=== PATIENT | male | born 1945 | race Caucasian/White ===

== ENCOUNTER 2019-10-13 15:39 | Outpatient (CLI) | payer MEDICARE, OTHER, SELFPAY ==
--- NOTE | 2019-10-13 15:45 | USCV_ITS ---
Yehuda Jet Age: 74 Gender: M : 1945 Exam Date: 10/13/2019 15:59 Ordering Phys: Katie Park MD ([email or web address]) Technologist: Lexie Sommer [place]am Location[place] [facility] [place] Indication: swelling HISTORY: Lower extremity swelling. PROCEDURES: Venous duplex imaging was performed in only the left lower extremity. The following venous structures were evaluated: common femoral vein, profunda vein, proximal portion of the greater saphenous vein, superficial femoral vein, and the popliteal vein. In addition, the posterior tibial and peroneal trunk were evaluated. Serial compression, augmentation maneuvers, and spectral Doppler flow evaluation were performed. FINDINGS: Normal 2-D Doppler and augmentation and compressibility throughout the lower extremity venous structures. Additional imaging through the proximal calf veins also reveals no thrombus. Limited evaluation of the greater saphenous vein is patent with no thrombus.. CONCLUSIONS No evidence of left lower extremity DVT. Pernell Gardiner MD (Electronically Signed) Final Date: 13 October 2019 17:37 S
== END 2019-10-13 15:40 | disposition home or self-care (01) ==
PROVIDERS: Family Provider Physician Assistant; PCP Physician Assistant; Visit Provider Internal Medicine Cardiovascular Disease
DX: M79.89 Other specified soft tissue disorders (principal); M79.604 Pain in right leg; M79.605 Pain in left leg
CPT/HCPCS: 93971

== ENCOUNTER 2019-11-28 07:40 | Inpatient (IN) | payer MEDICARE, OTHER, SELFPAY ==
[2019-11-28] VITALS (12 sets, daily range): BP systolic 98–143; BP diastolic 64–102; PULSE 109–129; RESP 18–33; TEMP 36.5–37.1; O2SAT 91–97; BMI 27.8
--- NOTE | 2019-11-28 08:00 | ECG_ITS ---
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 Measurements Intervals Warren Rate: 140 P: IA: -1 QRS: -69 QRSD: 126 T: 88 QT: 325 QTc: 496 Interpretive Statements ATRIAL FIBRILLATION WITH RAPID VENTRICULAR RESPONSE MARKED LEFT AXIS DEVIATION [QRS AXIS < -30] RIGHT BUNDLE BRANCH BLOCK [120+ ms QRS DURATION, UPRIGHT V1, 40+ ms S IN I/aVL/V4/V5/V6] ANTEROSEPTAL MYOCARDIAL INFARCTION [40+ ms Q WAVE IN V1-V4], OF INDETERMINATE AGE Compared to ECG 06/19/2018 05:48:04 Right bundle-branch block now present Sinus rhythm no longer present Left ventricular hypertrophy no longer present ST (T wave) deviation no longer present Myocardial infarct finding still present Electronically Signed On 11-28-2019 16:32:15 CDT by Thomas Ace M.D. [id number]
--- NOTE | 2019-11-28 08:00 | XR_ITS ---
WS: [id number] Portable AP upright chest, 11/28/2019 Clinical Data: chest pain Comparison: Portable chest, 06/19/2018. Findings: No nodules, masses or effusions are seen. The heart is enlarged. The pulmonary vascularity is increased. No pneumonia or pneumothorax is seen. XR/XR chest 1V portable [id number] Impression: Cardiomegaly and pulmonary vascular congestion.
--- NOTE | 2019-11-28 08:05 | W.ED.CHESTPA ---
HPI - Chest Pain General: Chief Complaint: Chest Pain Stated Complaint: RESPIRATORY DISTRESS/ CP Time Seen by Provider: 11/28/19 08:00 History of Present Illness: HPI narrative: 74-year-old male presents with complaints of palpitation and chest discomfort and heaviness central left chest not radiating. Patient generally been short of breath as well denies any fever or cough. Patient presents in [facility] with RVR which is symptomatic. He has some moderate orthopnea as well. MD complaint: chest heaviness Pertinent past history: other (A. fib?on beta-grabiel and anticoagulants) Onset (ago): hour(s) Timing of current episode: constant Prior episodes: Yes Onset: during rest Pain location: left chest Pain radiation: none Severity: moderate Quality: heaviness Relieving factors: nothing Exacerbating factors: exertion Associated symptoms: Reports dyspnea and palpitations; Deny abdominal pain, diaphoresis, fever(s), leg edema, nausea, sense of impending doom, syncope or vomiting Treatment prior to arrival: none Review of Systems Const: Denies: fever(s) or diaphoresis ENMT: Denies: throat pain, ear or mastoid pain, nasal discharge or nasal congestion Card: Reports: palpitations; Denies: syncope Resp: Reports: dyspnea GI: Denies: abdominal pain, nausea or vomiting : Denies: flank pain, dysuria, urinary frequency or urinary urgency Skin/Breast: Denies: rash or pruritus PFSH ED PFSH: Medical History (Updated 11/29/19 @ 11:56 by Diego Leo MD) Atrial fibrillation CHF (congestive heart failure) Chronic fatigue 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 HTN (hypertension) Obstructive sleep apnea Family History Denies family history of Diabetes Stroke Social History (Updated 11/28/19 @ 12:38 by Feli Schmidt DO) Smoking and tobacco status: current every day smoker cigarettes [ Other cigarette details: Patient reports that he recently quit smoking last week ] Alcohol intake: current Alcohol intake frequency: 0-2 Drinks per Day Substance/Drug Use: never Physical Exam Const: COMMON NORMALS: no acute distress GENERAL APPEARANCE: cooperative and comfortable ORIENTATION/CONSCIOUSNESS: Yes awake, Yes oriented to person, Yes oriented to place and Yes oriented to time HENMT: COMMON NORMALS: normocephalic, atraumatic and hearing grossly normal bilaterally HEAD & SCALP: normocephalic and atraumatic Eye: COMMON NORMALS: Equal, round and reactive pupils present, EOMs intact bilaterally, conjunctivae normal and no scleral icterus CONJUNCTIVA: Yes conjunctivae normal PUPIL: Yes Equal, round and reactive pupils present Neck/C-Spine: COMMON NORMALS: full ROM, no lymphadenopathy, supple and no JVD Lymph: LYMPHATIC: no lymphadenopathy noted and no lymphedema noted Resp: COMMON NORMALS: normal respiratory effort, No retractions, No use of accessory muscles and clear to auscultation bilaterally AUSCULTATION: clear to auscultation bilaterally Cardio: COMMON NORMALS: no JVD, regular rate, regular rhythm and No murmurs present (Cardio) RATE: regular rate RHYTHM: regular rhythm GI: COMMON NORMALS: Soft to palpation and No hepatosplenomegaly present AUSCULTATION: Yes normoactive bowel sounds PALPATION: Yes Soft to palpation, No Tenderness to palpation present (GI), No Guarding due to palpation present (GI) and Yes No hepatosplenomegaly present Extremity: COMMON NORMALS: normal to inspection, capillary refill normal, no clubbing, cyanosis or edema, no calf tenderness and no pedal edema Neuro: SENSORIUM/ORIENTATION: Yes oriented to person, Yes oriented to place and Yes oriented to time Skin: COMMON NORMALS: no rashes or lesions noted GENERAL SKIN EXAM: no rashes or lesions noted Course Vital Signs: Vital signs: Vital Signs Temperature 97.9 F 11/30/19 07:44 Pulse Rate 105 H 11/30/19 07:44 Respiratory Rate 19 H 11/30/19 07:44 Blood Pressure 100/72 11/30/19 07:44 Pulse Oximetry 94 11/30/19 07:44 MDM - Chest Pain MDM Narrative: Medical decision making narrative: Patient is having chest pain or shortness of breath with A. fib with rapid ventricular response. Unfortunately is been very noncompliant with his medications he was positive restarted amiodarone he has been taking the amiodarone or the metoprolol regularly. We tried IV Lopressor and a supplemental dose of Lopressor initially seem to be working. When I first interviewed the patient he told me he had been taking Lopressor later admitted to Dr. Schmidt is not been. Addition of that in the recent cardiology notes he is supposed to be on amiodarone be sent when taking that either. Will admit him for adjustment of medications and further rule out discussed Dr. Schmidt and orders have been written. Lab Data: Labs: Lab Results 11/28/19 11/28/19 11/28/19 Range/Units 08:20 08:20 08:20 WBC 14.0 H (4.0-10.0) 10^3/ uL RBC 4.28 (4.1-5.3) 10^6/u L Hgb 14.6 (11.7-16.6) g/dL Hct 45.1 (42.0-52.0) % MCV 105.4 H (80-94) fL MCH 34.1 H (28.0-34.0) pg MCHC 32.4 (30.0-36.0) g/dL RDW 14.6 (12.1-15.1) % Plt Count 173 (130-400) 10^3/c mm MPV 12.3 H (7.4-10.4) fL Neut % (Auto) 87.1 % Lymph % (Auto) 5.7 % [place] % (Auto) 6.3 % Eos % (Auto) 0.1 % Baso % (Auto) 0.4 % Neut # (Auto) 12.24 H (1.8-7.7) 10^3/u L Lymph # (Auto) 0.8 (0.8-4.8) 10^3/u L [place] # (Auto) 0.9 (0.2-0.9) 10^3/u L Eos # (Auto) 0.0 (0.0-0.8) 10^3/u L Baso # (Auto) 0.1 (0.0-0.1) 10^3/u L Nucleated RBC % (a uto) 0 % Nucleated RBCs # 0.0 /100WBC Sodium 139 (136-145) mmol/L Potassium 4.8 (3.5-5.1) mmol/L Chloride 102 (98-107) mmol/L Carbon Dioxide 21 L (22-29) mmol/L Anion Gap 20.8 H (5-19) BUN 20 (8-23) mg/dL Creatinine 0.9 (0.7-1.2) mg/dL GFR Calculation Not Reportable Glucose 95 (65-115) mg/dL Calculated Osmolal ity 290 (285-295) mOsm/k g Calcium 8.6 (8.5-10.5) mg/dL Phosphorus (2.5-4.5) mg/dL Magnesium (1.7-2.3) mg/dL Total Bilirubin 2.2 H (0.15-1.2) mg/dL AST 41 H (0-40) U/L ALT 59 H (0-41) U/L Alkaline Phosphata se 61 (40-130) IU/L Creatine Kinase 97 (39-308) U/L Troponin T Baselin e 41 H (0-15) ng/L Troponin T 120 Min brenna (0-15) ng/L Delta Troponin T (0-10) ABS# NT-Pro-B Natriuret Pep 1757 H (0-125) pg/mL Total Protein 6.3 L (6.6-8.7) g/dL Albumin 3.9 (3.5-5.2) g/dL Globulin 2.4 (1.3-4.6) g/dL 11/28/19 11/28/19 Range/Units 08:20 10:30 WBC (4.0-10.0) 10^3/ uL RBC (4.1-5.3) 10^6/u L Hgb (11.7-16.6) g/dL Hct (42.0-52.0) % MCV (80-94) fL MCH (28.0-34.0) pg MCHC (30.0-36.0) g/dL RDW (12.1-15.1) % Plt Count (130-400) 10^3/c mm MPV (7.4-10.4) fL Neut % (Auto) % Lymph % (Auto) % [place] % (Auto) % Eos % (Auto) % Baso % (Auto) % Neut # (Auto) (1.8-7.7) 10^3/u L Lymph # (Auto) (0.8-4.8) 10^3/u L [place] # (Auto) (0.2-0.9) 10^3/u L Eos # (Auto) (0.0-0.8) 10^3/u L Baso # (Auto) (0.0-0.1) 10^3/u L Nucleated RBC % (a uto) % Nucleated RBCs # /100WBC Sodium (136-145) mmol/L Potassium (3.5-5.1) mmol/L Chloride (98-107) mmol/L Carbon Dioxide (22-29) mmol/L Anion Gap (5-19) BUN (8-23) mg/dL Creatinine (0.7-1.2) mg/dL GFR Calculation Glucose (65-115) mg/dL Calculated Osmolal ity (285-295) mOsm/k g Calcium (8.5-10.5) mg/dL Phosphorus 4.5 (2.5-4.5) mg/dL Magnesium 1.6 L (1.7-2.3) mg/dL Total Bilirubin (0.15-1.2) mg/dL AST (0-40) U/L ALT (0-41) U/L Alkaline Phosphata se (40-130) IU/L Creatine Kinase (39-308) U/L Troponin T Baselin e (0-15) ng/L Troponin T 120 Min brenna 43.90 H (0-15) ng/L Delta Troponin T 2.90 (0-10) ABS# NT-Pro-B Natriuret Pep (0-125) pg/mL Total Protein (6.6-8.7) g/dL Albumin (3.5-5.2) g/dL Globulin (1.3-4.6) g/dL Discharge Plan Discharge Patient Disposition: Admitted As Inpatient Admit Provider: Feli Schmidt Clinical Impression: Atrial fibrillation with rapid ventricular response Condition: Stable Referrals: Claudette Sanchez PA [Primary Care Provider] - Discharge Date/Time: 11/28/19 17:50 Coding Level of Care Code ED Java Technical Architect for Chg Fwd Exam Comprehensive
--- NOTE | 2019-11-28 08:12 | PC.NURSE ---
port xray at bedside
[2019-11-28] MEDS: metoprolol tartrate 1 mg/1 mL SDV 5 mL 5 MG IV (08:14)
[2019-11-28] MEDS: metoprolol tartrate 25 mg Tablet PO (08:14)
[2019-11-28 08:30] LABS: Basophils # 0.1 10^3/uL (0.0-0.1); Basophils % 0.4 %; Eosinophils % 0.1 %; Hematocrit 45.1 % (42.0-52.0); Hemoglobin 14.6 g/dL (11.7-16.6); Lymphocytes # 0.8 10^3/uL (0.8-4.8); Lymphocytes % 5.7 %; Mean Corpuscular HGB Conc 32.4 g/dL (30.0-36.0); Mean Corpuscular Hemoglobin 34.1 pg (28.0-34.0); Mean Corpuscular Volume 105.4 fL (80-94); Mean Platelet Volume 12.3 fL (7.4-10.4); Monocytes # 0.9 10^3/uL (0.2-0.9); Monocytes % 6.3 %; Neutrophils # 12.24 10^3/uL (1.8-7.7); Neutrophils % 87.1 %; Nucleated Red Blood Cells % 0 %; Platelet Count 173 10^3/cmm (130-400); Red Blood Count 4.28 10^6/uL (4.1-5.3); Red Cell Distribution Width 14.6 % (12.1-15.1)
[2019-11-28 09:00] LABS: Troponin(5th) Baseline 41 ng/L (0-15)
[2019-11-28 09:08] LABS: Alanine Aminotransferase 59 U/L (0-41); Albumin Level 3.9 g/dL (3.5-5.2); Alkaline Phosphatase 61 IU/L (40-130); Anion Gap 20.8 (5-19); Aspartate Amino Transferase 41 U/L (0-40); Blood Urea Nitrogen 20 mg/dL (8-23); Calcium 8.6 mg/dL (8.5-10.5); Carbon Dioxide 21 mmol/L (22-29); Chloride 102 mmol/L (98-107); Creatine Phosphokinase 97 U/L (39-308); Globulin 2.4 g/dL (1.3-4.6); Glucose 95 mg/dL (65-115); NT Pro B Type Natriuretic Pept 1757 pg/mL (0-125); Osmolality Calculated 290 mOsm/kg (285-295); Potassium 4.8 mmol/L (3.5-5.1); Sodium 139 mmol/L (136-145); Total Bilirubin 2.2 mg/dL (0.15-1.2); Total Protein 6.3 g/dL (6.6-8.7)
--- NOTE | 2019-11-28 09:49 | PC.NURSE ---
went in pt's room to administer IVP diltiazem and to start diltiazem gtt and noticed pt hypotensive at 97/67. Checked with ED physician and verbal orders received to hold all diltiazem.
[2019-11-28] MEDS: sodium chloride 0.9% 1,000 ML 999 ML IV (09:57)
--- NOTE | 2019-11-28 12:34 | P.HP_ITS ---
Providers/Chief Complaint Primary Care Provider: Claudette Sanchez Chief Complaint: RESPIRATORY DISTRESS/ CP History of Present Illness Jet Blackman is a 74 year old male with a past medical history of atrial fibrillation and congestive heart failure that presented to the emergency department for increasing shortness of breath and dyspnea on exertion. He reported that he is also been having palpitations. Patient stated that he has a history of atrial fibrillation and also chronic fatigue. He stated that due to the concern for the fatigue being contributed to the medications he stopped taking his amiodarone and also decreased his metoprolol. He was recently seen by his insulation helper the end of October and told to increase his metoprolol to 50 mg in the morning and 25 mg at night, he reported that he is not been taking the medication as prescribed and only been taking 25 mg twice a day, sometimes once a day. Patient reported that his amiodarone he had stopped taking a couple of weeks ago, he had previously stopped taking it on occasion and thought it may be improved some of his chronic fatigue. He also reports that he has not been sleeping at night and requesting something for sleep. Patient reports he will o ccasionally hold off on taking his Eliquis. Patient denies any recent fevers or chills, no increasing cough or change in sputum production, no hemoptysis. He reports that he recently quit smoking last week. Has been noncompliant with his CPAP as he cannot tolerate the mask. He states that he is not on any home oxygen. Patient reports increased swelling in the left lower extremity, always in the left lower extremity, occasionally in the right lower extremity. He denies any abdominal pain, no nausea or vomiting. He reports increased dyspnea on exertion. Review of Systems Const: Reports: fatigue and malaise; Denies: fever(s) or chills Eyes: Denies: change in vision ENMT: Denies: nasal congestion Card: Reports: edema and dyspnea on exertion; Denies: chest pain or palpitations Resp: Reports: dyspnea; Denies: productive cough or hemoptysis GI: Denies: abdominal pain, nausea, vomiting, diarrhea, constipation, hematochezia or melena : Denies: dysuria or hematuria Musc: Denies: extremity pain or muscle cramps Skin/Breast: Denies: rash or new lesions Neuro: Denies: headache(s) or dizziness Psych: Reports: sleeping less; Denies: anxiety or depression Endo: Denies: polyuria or hot flashes Benjamin/Lymph: Denies: easy bruising or easy bleeding Medications/Allergies Home Medications Medication Instructions Recorded Confirmed Last Taken Type apixaban 5 mg tablet 5 mg PO BID 04/21/19 11/28/19 11/27/19 History amiodarone 200 mg tablet See Rx Instructions .ROUTE 10/29/19 11/28/19 Unknown Rx .COMPLEX #30 tab furosemide 40 mg tablet 40 mg PO QAM #90 tab 11/03/19 11/28/19 11/27/19 Rx Vitamin C 1 tab PO DAILY 11/28/19 11/28/19 Unknown History Vitamin D3 1 tab PO DAILY 11/28/19 11/28/19 Unknown History albuterol sulfate [ProAir HFA] 2 puff INHALATION QID PRN 11/28/19 11/28/19 Unknown History metoprolol tartrate See Rx Instructions .ROUTE .COMPLEX 11/28/19 11/28/19 11/27/19 History potassium chloride 10 meq PO DAILY 11/28/19 11/28/19 11/27/19 History tiotropium bromide [Spiriva 2 puff INHALATION DAILY 11/28/19 11/28/19 11/28/19 History Respimat] Allergies Allergy/AdvReac Type Severity Reaction Status Date / Time No Known Allergies Allergy Verified 11/28/19 09:17 PFSH Acute PFSH: Medical History (Updated 11/28/19 @ 12:40 by Feli Schmidt DO) Atrial fibrillation CHF (congestive heart failure) Chronic fatigue 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 HTN (hypertension) Obstructive sleep apnea Family History Denies family history of Diabetes Stroke Social History (Updated 11/28/19 @ 12:38 by Feli Schmidt DO) Smoking and tobacco status: current every day smoker cigarettes [ Other cigarette details: Patient reports that he recently quit smoking last week ] Alcohol intake: current Alcohol intake frequency: 0-2 Drinks per Day Substance/Drug Use: never Supplemental PFSH Information: Patient denies any prior surgeries Vitals/I&O/Wt Last Vital Signs Temp 97.7 F 11/28/19 07:41 Pulse 123 H 11/28/19 12:26 Resp 28 H 11/28/19 12:26 BP 124/86 11/28/19 12:26 Pulse Ox 96 11/28/19 12:26 11/27/19 11/28/19 11/28/19 22:59 06:59 14:59 Intake Total 1.667 / 1.667 Balance 1.667 / 1.667 Weight last 48 hrs Weight 90.718 kg Physical Exam Const: COMMON NORMALS: patient oriented x3 and alert GENERAL APPEARANCE: cooperative ORIENTATION/CONSCIOUSNESS: Yes awake, Yes oriented to person, Yes oriented to place and Yes oriented to time HENMT: COMMON NORMALS: normocephalic and atraumatic HEAD & SCALP: normocephalic and atraumatic Eye: COMMON NORMALS: Equal, round and reactive pupils present PUPIL: Yes Equal, round and reactive pupils present Neck/C-Spine: COMMON NORMALS: supple GENERAL: Yes normal visual inspection Resp: OTHER: Oxygen by nasal cannula in place, prolonged expiratory phase use, tachypneic, crackles in the bases bilaterally Cardio: OTHER: Irregularly irregular, tachycardic GI: COMMON NORMALS: Soft to palpation and non-tender INSPECTION: No abdominal distension AUSCULTATION: Yes normoactive bowel sounds PALPATION: Yes Soft to palpation Extremity: COMMON NORMALS: no calf tenderness Neuro: COMMON NORMALS: patient oriented x3, CN's II-XII intact bilaterally, moves all extremities and no focal motor deficits SENSORIUM/ORIENTATION: Yes alert, Yes oriented to person, Yes oriented to place and Yes oriented to time SPEECH: speech normal Psych: COMMON NORMALS: mental status grossly normal and cooperative Skin: COMMON NORMALS: no rashes or lesions noted GENERAL SKIN EXAM: no rashes or lesions noted Data : 11/28/19 08:20 11/28/19 08:20 CXR: I personally reviewed and interpreted this imaging study as follows: Radiologist's impression: Findings: No nodules, masses or effusions are seen. The heart is enlarged. The pulmonary vascularity is increased. No pneumonia or pneumothorax is seen. XR/XR chest 1V portable [id number] Impression: Cardiomegaly and pulmonary vascular congestio A&P Assessment and plan (1) Atrial fibrillation with rapid ventricular response: Admit to CSU on telemetry Serial EKG and troponin Repeat echocardiogram Placed on treatment dose Lovenox Started on a Cardizem drip in the ED, transition to amiodarone drip in the ED Patient has been noncompliant with his amiodarone, has not been compliant with metoprolol as prescribed Continue on metoprolol but will increase to 50 mg twice daily Status: Acute (2) CHF (congestive heart failure): Last echocardiogram from June 2018 showed LVEF of around 45% Repeat echocardiogram ordered and pending Patient appears to be fluid overloaded will give IV Lasix every 24 hours and continue to adjust dosing accordingly Strict intake and output as well as daily weights Oxygen per protocol Status: Acute Qualifiers: Heart failure chronicity: acute on chronic Heart failure type: unspecified Qualified Code(s): I50.9 - Heart failure, unspecified (3) Obstructive sleep apnea: Noncompliant with CPAP Status: Acute (4) HTN (hypertension): We will continue to monitor blood pressures closely with adjustment in heart rate medications Status: Acute Qualifiers: Hypertension type: essential hypertension Qualified Code(s): I10 - E ssential (primary) hypertension (5) Chronic fatigue: Patient reports chronic fatigue that he contributes to his medications, however then reports that he has not been sleeping at all. Will give trazodone at bedtime, will hold off on any sedating medications as this could contribute to increased fatigue. Discussed with him proper sleep hygiene. Also discussed with him the importance of CPAP compliance as this could improve his symptoms Status: Acute Additional A&P Information Diet: Cardiac, 1500 mL fluid restriction, 2 g sodium restriction DVT prophylaxis: On treatment dose Lovenox due to A. fib CODE STATUS: Do Not Resuscitate/DNI, discussed with patient while in the emergency department and his at bedside during discussion Attestations Medical Necessity Statement*: Requires hospitalization due to atrial fibrillation with RVR with concern for acute on chronic systolic CHF exacerbation. Expected stay greater than 2 midnights Coding Level of Care Code Acute Spares Scheduler for Chg Fwd Exam Comprehensive Diagnoses Atrial fibrillation with rapid ventricular response I48.91 CHF (congestive heart failure) I50.9 Heart failure chronicity: acute on chronic Heart failure type: unspecified Obstructive sleep apnea G47.33 HTN (hypertension) I10 Hypertension type: essential hypertension Chronic fatigue R53.82
--- NOTE | 2019-11-28 12:38 | PC.NURSE ---
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 nurse in room to assess pt and lung sounds heard posteriorly lower lungs crackles. ED physician notified. Orders received.
--- NOTE | 2019-11-28 12:41 | USCV_ITS ---
Jet Blackman Age: 74 Gender: M : 1945 Exam Date: 11/28/2019 13:10 Ordering Phys: Feli Schmidt DO Technologist: Kaelyn Tolbert [place]am Location[place] [facility] [place] Indication: AFIB, CHF BP: 118 / 78 HR: 70 Rhythm: Atrial fibrillation Technical Quality: Technically difficult study MEASUREMENTS (Male / Female) Normal Values 2D ECHO LV Diastolic Diameter PLAX 5.2 cm 4.2 - 5.9 / 3.9 - 5.3 cm LV Systolic Diameter PLAX 4.4 cm LV Chamber Size 4.8 cm IVS Diastolic Thickness 1.1 cm 0.6 - 1.0 / 0.6 - 0.9 cm IVS Systolic Thickness 1.5 cm LVPW Diastolic Thickness 1.2 cm 0.6 - 1.0 / 0.6 - 0.9 cm LVPW Systolic Thickness 1.8 cm LVOT Diameter 2.0 cm LV Ejection Fraction 2D Teich 30.1 % LA Diameter 5.4 cm LA Width 3.5 cm LA Height 5.4 cm RA Width 2.7 cm RA Height 5.7 cm Aorta at Sinotubular Diameter 3.4 cm M-MODE LV Diastolic Diameter MM 6.3 cm 4.2 - 5.9 / 3.9 - 5.3 cm LV Systolic Diameter MM 5.3 cm LV Ejection Fraction MM Teich 32.6 % IVS Diastolic Thickness MM 0.8 cm 0.6 - 1.0 / 0.6 - 0.9 cm IVS Systolic Thickness MM 0.8 cm LVPW Diastolic Thickness MM 0.9 cm 0.6 - 1.0 / 0.6 - 0.9 cm LVPW Systolic Thickness MM 1.6 cm Aortic Annulus Diameter 3.3 cm LA Ao Ratio MM 1.6 MV E Point Septal Separation 2.4 cm DOPPLER AV Peak Velocity 108.0 cm/s LVOT Peak Velocity 95.0 cm/s AV Area Cont Eq vti 3.1 cm squared AV Area Cont Eq pk 2.9 cm squared MV E' Velocity 10.0 cm/s Right Atrial Pressure 15.0 mmHg PV Peak Velocity 46.0 cm/s FINDINGS Left Ventricle This is a technically difficult study. Limited visualization of cardiac structures. LV systolic function is severely reduced with EF of 25 to 30%. Severe global hypokinesis is present. Diastolic function cannot be assessed because of atrial fibrillation. Right Ventricle RV is normal in size and function. Right Atrium Not well visualized Left Atrium Mildly enlarged Mitral Valve No gross abnormalities are noted. No significant stenosis or regurgitation is present. Aortic Valve And the aortic valve is not well-visualized. There is no significant stenosis noted. There is no aortic regurgitation. Tricuspid Valve Tricuspid valve is not well-visualized. No significant regurgitation or stenosis is noted. Insufficient TR jet to calculate RVSP. Pulmonic Valve Not well visualized Pericardium There is no significant pericardial effusion. Normal pericardium. Aorta Limited visualization. No gross abnormalities are noted. CONCLUSIONS Limited quality echocardiogram. LV systolic function is severely reduced with EF of 25 to 35%. Severe global hypokinesis is present. Valves not well visualized, however, no gross abnormality. Thomas Ace MD (Electronically Signed) Final Date: 28 November 2019 17:36 S
[2019-11-28] MEDS: FUROsemide 10 mg/mL SDV 4mL 40 MG IVP ×2 (12:53→19:46)
--- NOTE | 2019-11-28 13:08 | PC.NURSE ---
portable ultrasound at bedside
[2019-11-28 15:05] LABS: Troponin 5 6HR 40.33 ng/L (0-15)
[2019-11-28 15:07] LABS: Troponin 5 6HR Delta -0.67 ng/L (0-12)
--- NOTE | 2019-11-28 18:00 | PC.NURSE ---
From ER Pt come from ER via wheelchair. Denies any pain or discomfort. SOB with exertion. VS stable. oriented pt to staff. call light within reach.
[2019-11-28 18:44] LABS: Magnesium 1.6 mg/dL (1.7-2.3); Phosphorus 4.5 mg/dL (2.5-4.5)
--- NOTE | 2019-11-28 19:00 | PC.NURSE ---
Notified Dr via voalte phone to verify and discussed If to give IVP Lasix 40 mg q24h as ordered at this time. Pt had received 40 mg IVP lasix once in E.R and has urinated 2x in the urinal per pt report. VS stable. spo2 is 94-96% on 3 L NC. Received telephone order to give the ordered dose scheduled. Also discuss to dr that Amio drip was held in the ER due to nausea, diaphoresis and dizzy per E. R nurse hand- off report. Currently pt HR is still in Afib with RVR maintaining in 130s-140s. Received order back to monitor HR and notify hospitalist tonight after IVP lasix is given. Notified Night nurse Quique on the plan.
[2019-11-28 19:19] LABS: INR 1.17 (0.8-1.2)
[2019-11-28] MEDS: enoxaparin 100 mg/mL Syringe 90 MG SUBCUT (19:36)
[2019-11-28] MEDS: potassium chloride ER 10 mEq Tablet 20 MEQ PO (19:36)
[2019-11-28] MEDS: metoprolol tartrate 50 mg Tablet PO (19:36)
--- NOTE | 2019-11-28 19:39 | PC.NURSE ---
ASSUMED CARE AT THIS TIME. PT RESTING IN BED. ASSESSMENT DONE. PT DENIES PAIN AT THIS TIME. PT STATED THAT THEY ARE EAGER TO HEAR FROM THE DOCTOR ABOUT TEST RESULTS. MEDS WERE GIVEN LATE D/T THIS NURSE COMING ON AT SHIFT CHANGE AND PT HAD RECENTLY ARRIVED FROM ED. WILL CONTINUE TO MONITOR.
--- NOTE | 2019-11-28 19:52 | PC.NURSE ---
Dr. Barrientos checked on pt and received verbal order read back to start pt back on amiodarone drip per protocol. Pt is on Afib w/rvr 130s-140s. BP-120/98, spo2 92-96% on 3 L NC. Informed RESEARCH MANAGER patrick on the starting drip.
[2019-11-29] VITALS (10 sets, daily range): BP systolic 103–126; BP diastolic 70–84; PULSE 83–123; RESP 16–26; TEMP 36.3–36.8; O2SAT 92–95
[2019-11-29 04:09] LABS: Basophils % 0.3 %; Eosinophils % 0.4 %; Hematocrit 40.9 % (42.0-52.0); Hemoglobin 13.3 g/dL (11.7-16.6); Lymphocytes # 1.7 10^3/uL (0.8-4.8); Lymphocytes % 18.6 %; Mean Corpuscular HGB Conc 32.5 g/dL (30.0-36.0); Mean Corpuscular Hemoglobin 34.2 pg (28.0-34.0); Mean Corpuscular Volume 105.1 fL (80-94); Mean Platelet Volume 12.8 fL (7.4-10.4); Monocytes # 1.1 10^3/uL (0.2-0.9); Neutrophils # 6.23 10^3/uL (1.8-7.7); Neutrophils % 68.4 %; Nucleated Red Blood Cells % 0 %; Platelet Count 156 10^3/cmm (130-400); Red Blood Count 3.89 10^6/uL (4.1-5.3); Red Cell Distribution Width 14.9 % (12.1-15.1); White Blood Count 9.1 10^3/uL (4.0-10.0)
[2019-11-29 04:32] LABS: Alanine Aminotransferase 41 U/L (0-41); Albumin Level 3.6 g/dL (3.5-5.2); Alkaline Phosphatase 52 IU/L (40-130); Aspartate Amino Transferase 30 U/L (0-40); Blood Urea Nitrogen 22 mg/dL (8-23); Calcium 8.7 mg/dL (8.5-10.5); Carbon Dioxide 23 mmol/L (22-29); Chloride 103 mmol/L (98-107); Globulin 2.1 g/dL (1.3-4.6); Glucose 92 mg/dL (65-115); Osmolality Calculated 291 mOsm/kg (285-295); Sodium 139 mmol/L (136-145); Total Bilirubin 1.8 mg/dL (0.15-1.2); Total Protein 5.7 g/dL (6.6-8.7)
--- NOTE | 2019-11-29 05:09 | PC.NURSE ---
PT APPEARED TO HAVE RESTED WITH EYES CLOSED. PT DENIES PAIN. HR 121 AT THIS TIME. PT IS ON AN AMIODARONE GTT AT 16.2ML/HR. WILL GIVE REPORT TO ON COMING NURSE.
[2019-11-29] MEDS: enoxaparin 100 mg/mL Syringe 90 MG SUBCUT ×2 (06:01→18:03)
[2019-11-29] MEDS: metoprolol tartrate 50 mg Tablet PO ×2 (06:01→18:03)
[2019-11-29] MEDS: potassium chloride ER 10 mEq Tablet 20 MEQ PO (08:45)
[2019-11-29] MEDS: magnesium sulfate premix 4 GM/100 ML PREMIX IV (08:45)
--- NOTE | 2019-11-29 09:18 | XRR_ITS ---
PROCEDURE INFORMATION: Exam: XR Chest, 1 View Exam date and time: 11/29/2019 9:19 AM Age: 74 years old Clinical indication: Shortness of breath; Additional info: Hypoxia TECHNIQUE: Imaging protocol: XR of the chest Views: 1 view. COMPARISON: CR XR chest 1V portable [id number] 11/28/2019 8:05 AM FINDINGS: Lungs: Emphysema Mild airspace disease is present within the right lung base. Pleural space: Small right greater than left subpulmonic pleural effusion. Heart/Mediastinum: Cardiomegaly Bones/joints: Unremarkable. XR/XR chest 1V portable [id number] IMPRESSION: 1. Mild airspace disease is present within the right lung base. Subtle airspace disease left lung base. Mildly improved. 2. Small right greater than left subpulmonic pleural effusion.
--- NOTE | 2019-11-29 09:34 | PC.NURSE ---
Nurse unable to take patient to radiology for 2V CXR due to portable monitor not available while on cardiac gtt. Dr. Leo notified. Physician gave telephone order to change CXR to portable 1V, RBTO. Radiology notified of change.
--- NOTE | 2019-11-29 11:44 | P.PN_ITS ---
Subjective Subjective: Interval history: He has been getting tired very easily. He says walking even short distances will make him fatigued and short of breath and he was curious as to why that is. Denies chest pain. Vitals/I&O/Wt Last Vital Signs Temp 98.3 F 11/29/19 07:34 Pulse 113 H 11/29/19 07:34 Resp 25 H 11/29/19 07:34 BP 119/81 11/29/19 07:34 Pulse Ox 94 11/29/19 07:34 11/28/19 11/29/19 11/29/19 22:59 06:59 14:59 Intake Total 454.35 / 1597.584 350.355 / 1947.939 220 / 220 Output Total 2500 / 2500 300 / 2800 325 / 325 Balance -2045.65 / -902.416 50.355 / -852.061 -105 / -105 Weight last 48 hrs Weight 103.873 kg Weight 90.718 kg Physical Exam Const: COMMON NORMALS: no acute distress and patient oriented x3 HENMT: COMMON NORMALS: oropharynx normal Neck/C-Spine: COMMON NORMALS: no JVD Resp: COMMON NORMALS: normal respiratory effort AUSCULTATION: wheezes Cardio: COMMON NORMALS: no JVD, S1 normal heart sound present, S2 normal heart sound present and No murmurs present (Cardio) RATE: tachycardic RHYTHM: abnormal rhythm irregularly irregular HEART SOUNDS: S1 normal heart sound present and S2 normal heart sound present GI: COMMON NORMALS: Normal to inspection, nondistended, normoactive bowel sounds present, Soft to palpation and non-tender PALPATION: Yes Soft to palpa tion Extremity: COMMON NORMALS: no joint enlargement GENERAL: Yes edema (1+) Neuro: COMMON NORMALS: patient oriented x3 and moves all extremities Skin: COMMON NORMALS: no rashes or lesions noted GENERAL SKIN EXAM: no rashes or lesions noted Data : 11/29/19 03:20 11/29/19 03:20 A&P Assessment and plan (1) Atrial fibrillation with rapid ventricular response: Heart rate is still hovering 110-120. Continue amiodarone drip. Continue metoprolol 50 BID. He states in the past discontinued medications due to for him that they were making him very tired. He is not has been lacking energy discussed with him his severe congestive failure which may be contributing to his symptoms, although we discussed cannot exclude that medications may not be the cause in some cases. He does understand the need of taking medications to control his heart rate understands poorly controlled heart rates may lead to further worsening of congestive heart failure. Replace magnesium. EF 25 to 30%, severe global hypokinesis. Lovenox Not compliant with CPAP. Need to encourage. Status: Acute (2) CHF (congestive heart failure): Acute systolic congestive heart failure. Last echocardiogram from June 2018 showed LVEF of around 45% Repeat echocardiogram with worse EF 25-30%. Discussed with patient. Discussed with him concern aggression, at this time please try to optimize volume is, may need additional assessment be with stress test on Sunday, consideration of discussion with cardiology perhaps regarding LifeVest. Tachycardia induced cardiomyopathy was considered as well, in addition to other causes of nonischemic cardiomyopathy. Continue Lasix. Will increase to 60 mg. He does have wheezing on exam, and difficult to say whether this is secondary to pulmonary edema versus also underlying undiagnosed pulmonary problem as he has been a smoker but says quit last year. He is not aware of previously any signs of COPD or emphysema, although I see he takes. At home. Strict intake and output as well as daily weights Oxygen per protocol Status: Acute Qualifiers: Heart failure type: unspecified Heart failure chronicity: acute on chronic Qualified Code(s): I50.9 - Heart failure, unspecified (3) Obstructive sleep apnea: Noncompliant with CPAP Status: Acute (4) HTN (hypertension): We will continue to monitor blood pressures closely with adjustment in heart rate medications Status: Acute Qualifiers: Hypertension type: essential hypertension Qualified Code(s): I10 - Essential (primary) hypertension (5) Chronic fatigue: Suspect this may be related to his worsening congestive heart failure. A. fib. Insomnia. Sleep apnea noncompliant with CPap. Status: Acute (6) Wheezing: Wheezing noted on exam, difficult to say whether any to cardiac asthma with CHF, but I suspect may have additional underlying pulmonary condition contributing to his overall symptoms. Possibly COPD as he used to be a smoker, although does say he quit last year. I see he takes Spiriva at home. We will add neb treatments, see if he has response to this. Status: Acute Additional A&P Information Diet: Cardiac, 1500 mL fluid restriction, 2 g sodium restriction DVT prophylaxis: On treatment dose Lovenox due to A. fib CODE STATUS: Do Not Resuscitate/DNI, discussed with patient while in the emergency department and his at bedside during discussion Attestations Medical Necessity Statement*: Continue admission for assessment of management of systolic CHF, A. fib with RVR, chronic fatigue. Coding Level of Care Code Acute Vessel Slag Worker for Chg Fwd Diagnoses Atrial fibrillation with rapid ventricular response I48.91 CHF (congestive heart failure) I50.9 Heart failure type: unspecified Heart failure chronicity: acute on chronic Obstructive sleep apnea G47.33 HTN (hypertension) I10 Hypertension type: essential hypertension Chronic fatigue R53.82 Wheezing R06.2
--- NOTE | 2019-11-29 12:04 | CTR_ITS ---
PROCEDURE INFORMATION: Exam: CT Chest Without Contrast Exam date and time: 11/29/2019 12:06 PM Age: 74 years old Clinical indication: Dyspnea; Patient HX: Sob/hypoxia TECHNIQUE: Imaging protocol: Computed tomography of the chest without contrast. Radiation optimization: All CT scans at this facility use at least one of these dose optimization techniques: automated exposure control; mA and/or kV adjustment per patient size (includes targeted exams where dose is matched to clinical indication); or iterative reconstruction. COMPARISON: CR (CHEST, ) 11/29/2019 9:35 AM RADIATION DOSE METRICS: Total DLP (mGy-cm): 1076.97 FINDINGS: Lungs: moderate right greater than left pleural effusion with adjacent basilar consolidation versus atelectasis. Masslike nodular density within the right upper lobe of approximately 10 mm. Pleural space: Unremarkable. No pneumothorax. No pleural effusion. Heart: Small amount of fluid within the superior pericardial recess. Aorta: Unremarkable. No aortic aneurysm. Lymph nodes: Numerous small nonspecific lymph nodes in the mediastinum Calcified lymph nodes in the mediastinum subcarinal region and right hilum Spleen: Splenic granulomas are present. Kidneys and ureters: 1 cm cyst posterior aspect right kidney superiorly Bones/joints: Unremarkable. No acute fracture. Soft tissues: Soft tissues are unremarkable. Other findings: Mild vascular calcifications; The thoracic inlet is unremarkable. CT/CT chest con [id number] IMPRESSION: 1. Moderate right greater than left pleural effusion with adjacent basilar consolidation versus atelectasis. 2. Masslike nodular density within the right upper lobe of approximately 10 mm. Calcified granuloma within the middle lobe. Fleischner Society guidelines for pulmonary nodule follow up Low risk patients < or = 4 mm: No follow-up needed. >4 - 6: Follow-up at 12 months. If no change, no further imaging needed. >6 - 8: Initial follow-up CT at 6 -12 months and then at 18 - 24 months if no change. >8: Follow-up CTs at around 3, 9, and 24 months. Dynamic contrast enhanced CT, PET, and/or biopsy. High risk patients < or = 4 mm: Follow-up at 12 months. If no change, no further imaging needed. >4-6: Initial follow-up CT at 6 -12 months and then at 18 - 24 months if no change. >6-8: Initial follow-up CT at 3 - 6 months and then at 9 -12 and 24 months if no change. >8: Follow-up CTs at around 3, 9, and 24 months. Dynamic contrast enhanced CT, PET, and/or biopsy. Note.-Newly detected indeterminate nodule in persons 35 years of age or older. Low risk patients: Minimal or absent history of smoking and of other known risk factors. High risk patients: History of smoking or of other known risk factors. Radiation Dose CTDIVOL = (mGy): DLP = 1076.97 (mGy-cm)
--- NOTE | 2019-11-29 12:53 | PC.NURSE ---
Patient taken by wheelchair to CT. Patient stable throughout procedure. Patient taken on amiodarone gtt with surveillance system monitor. Patient now resting in bed. No needs identified at this time.
--- NOTE | 2019-11-29 13:47 | PC.CHAP ---
Pastoral Care Encounter/Spiritual Assessment Type of Contact [] Declined harmonic analyst visit [] Patient/Family/Request visit [] Outpatient visit [] Follow-up visit [] Physician referral [] Code/Alert [x] Routine visit [] Staff referral [] Actively dying [] Patient sleeping [] Family support [] [] Out of room [] Palliative care [] [] Receiving care in room [] Pre-surgical visit [] Trauma [] Long length of stay [] ICU visit [] Other: Relational/Emotional Strength [] Patient feels connected with others/family/visitors/staff [] Distress [] Loneliness/isolation [] Abandonment Spirituality of Patient [] Person of Elis [] Attends Synagogue of their Elis [] Believes in Prayer [] Reads Bible or Mosque materials [] There are Spiritual issues to be addressed Medicine Tech Interventions [x] Prayer [] Active listening [] Non-anxious presence [] Spiritual/emotional support [] Crisis/trauma care [] Spiritual counseling [] Bereavement support [] Provided bereavement packet [] Provided Bible/devotional materials [] Provided toy/stuffed animal, coloring book to patient or family member [] Provided Communion [] Anointing/Delaplane [] Salvation [] Completed spiritual assessment [] Other: Impact on Illness or Injury [] Angry [] Fearful [] Anxious [] Often cries [] Exhaustion [] Unable to work [] Unable to attend jewish [] Unable to walk/stand [] Unable to read [] Unable to drive [] Unable to eat/drink [] Unable to sleep [] Unable to be with family [] Patient intubated [] Other: Summary Time spent with patient
[2019-11-29] MEDS: FUROsemide 10 mg/mL SDV 10mL 60 MG IVP (14:14)
[2019-11-29] MEDS: ipratropium-albuterol 3 mL Neb INHALATION ×2 (15:39→22:30)
--- NOTE | 2019-11-29 18:27 | PC.NURSE ---
Dr. Leo notified that amiodarone gtt will have been on for 24 hours at 2015. Physician gave telephone order to continue amiodarone gtt. RBTO.
--- NOTE | 2019-11-29 19:31 | PC.NURSE ---
Rounding: Patient is resting in bed, Watching TV. Patient is alert and oriented denies any pain.
--- NOTE | 2019-11-29 19:43 | PC.NURSE ---
Talked with Dr. Leo orders to continue Amiodarone gtt throughout the night at 0.5mg. read back verbal order.
[2019-11-29] MEDS: trazodone 50 mg Tablet PO (23:24)
[2019-11-30] VITALS (13 sets, daily range): BP systolic 94–119; BP diastolic 64–93; PULSE 102–122; RESP 18–27; TEMP 36.4–37.3; O2SAT 88–98
[2019-11-30] MEDS: ipratropium-albuterol 3 mL Neb INHALATION ×2 (03:53→09:14)
[2019-11-30 04:10] LABS: Basophils % 0.5 %; Eosinophils # 0.1 10^3/uL (0.0-0.8); Eosinophils % 1.1 %; Hematocrit 39.2 % (42.0-52.0); Hemoglobin 12.9 g/dL (11.7-16.6); Lymphocytes # 1.7 10^3/uL (0.8-4.8); Lymphocytes % 20.9 %; Mean Corpuscular HGB Conc 32.9 g/dL (30.0-36.0); Mean Corpuscular Hemoglobin 34.3 pg (28.0-34.0); Mean Corpuscular Volume 104.3 fL (80-94); Mean Platelet Volume 13.6 fL (7.4-10.4); Monocytes % 12.5 %; Neutrophils # 5.26 10^3/uL (1.8-7.7); Neutrophils % 64.6 %; Nucleated Red Blood Cells % 0 %; Platelet Count 134 10^3/cmm (130-400); Red Blood Count 3.76 10^6/uL (4.1-5.3); Red Cell Distribution Width 14.9 % (12.1-15.1); White Blood Count 8.1 10^3/uL (4.0-10.0)
[2019-11-30 04:35] LABS: Alanine Aminotransferase 32 U/L (0-41); Albumin Level 3.4 g/dL (3.5-5.2); Alkaline Phosphatase 52 IU/L (40-130); Anion Gap 15.4 (5-19); Aspartate Amino Transferase 25 U/L (0-40); Blood Urea Nitrogen 20 mg/dL (8-23); Calcium 8.6 mg/dL (8.5-10.5); Carbon Dioxide 21 mmol/L (22-29); Chloride 102 mmol/L (98-107); Globulin 2.6 g/dL (1.3-4.6); Glucose 111 mg/dL (65-115); Osmolality Calculated 283 mOsm/kg (285-295); Potassium 3.4 mmol/L (3.5-5.1); Sodium 135 mmol/L (136-145); Total Bilirubin 1.2 mg/dL (0.15-1.2)
[2019-11-30 04:40] LABS: Magnesium 2.1 mg/dL (1.7-2.3)
--- NOTE | 2019-11-30 05:28 | PC.NURSE ---
Patient requested something for sinus congestion. Dr. Barrientos stated he would place orders.
[2019-11-30] MEDS: metoprolol tartrate 50 mg Tablet PO (06:10)
[2019-11-30] MEDS: enoxaparin 100 mg/mL Syringe 90 MG SUBCUT (06:12)
--- NOTE | 2019-11-30 06:20 | PC.NURSE ---
End of shift: Patient has rested off and on this shift. Patient remains alert and oriented and denies any pain or needs at this time.
[2019-11-30] MEDS: fluticasone nasal spray 16gm Btl 1 SPRAY NASAL (08:30)
[2019-11-30] MEDS: potassium chloride ER 10 mEq Tablet 20 MEQ PO (08:31)
--- NOTE | 2019-11-30 10:51 | PC.NURSE ---
Dr. Leo updated on patient condition. Patient exhibits increased shortness of breath while resting, on 3L O2. Crackles in bases. BP 90-100s systolic. HR maintaining 110-130s. Verbal order received to administer 250 mcg digoxin now once. Reassess HR in 1 hour and call for further orders. Place lovenox on hold for potential thoracentesis tomorrow. RBVO. Nurse to continue to monitor.
[2019-11-30] MEDS: digoxin 250 mcg/ml INJ 2 mL IVP ×2 (11:01→15:37)
--- NOTE | 2019-11-30 11:44 | P.PN_ITS ---
Subjective Subjective: Interval history: He is feeling very tired. Denies chest pain or pressure. Denies any fever, chills, muscle ache, headache, nausea vomiting or diarrhea. Per discussion with his , however, she remembered that about 2 weeks ago his friend had had a fever, and both of them had malaise and body aches which had subsequently spontaneously resolved soon after. Vitals/I&O/Wt Last Vital Signs Temp 97.9 F 11/30/19 07:44 Pulse 102 H 11/30/19 09:18 Resp 18 11/30/19 09:15 BP 100/72 11/30/19 07:44 Pulse Ox 96 11/30/19 09:15 11/29/19 11/30/19 11/30/19 22:59 06:59 14:59 Intake Total 399.695 / 739.695 350 / 1089.695 60 / 60 Output Total 1775 / 2100 450 / 2550 Balance -1375.305 / -1360.305 -100 / -1460.305 60 / 60 Weight last 48 hrs Weight 103.056 kg Weight 103.873 kg Physical Exam Const: COMMON NORMALS: no acute distress and patient oriented x3 HENMT: COMMON NORMALS: oropharynx normal Neck/C-Spine: COMMON NORMALS: no JVD Resp: COMMON NORMALS: normal respiratory effort AUSCULTATION: no wheezes and diminished lung sounds bilateral in the lower lung lucio Cardio: COMMON NORMALS: no JVD, S1 normal heart sound present, S2 normal heart sound present and No murmurs present (Cardio) RATE: tachycardic RHYTHM: abnormal rhythm irregularly irregular HEART SOUNDS: S1 normal heart sound present and S2 normal heart sound present GI: COMMON NORMALS: Normal to inspection, nondistended, normoactive bowel sounds present, Soft to palpation and non-tender PALPATION: Yes Soft to palpation Extremity: COMMON NORMALS: no joint enlargement GENERAL: Yes edema (1+) Neuro: COMMON NORMALS: patient oriented x3 and moves all extremities Skin: COMMON NORMALS: no rashes or lesions noted GENERAL SKIN EXAM: no rashes or lesions noted Data : 11/30/19 03:20 11/30/19 03:20 A&P Assessment and plan (1) Atrial fibrillation with rapid ventricular response: Heart rate is still hovering 110-120 still. BP soft. On metoprolol but no room to titrate up due to blood pressure. Dig 0.25 IV x1. Continue amnio drip for now if blood pressure allows. Continue metoprolol 50 BID. He states in the past discontinued medications due to for him that they were making him very tired. He is not has been lacking energy discussed with him his severe congestive failure which may be contributing to his symptoms, although we discussed cannot exclude that medications may not be the cause in some cases. He does understand the need of taking medications to control his heart rate understands poorly controlled heart rates may lead to further worsening of congestive heart failure. Replaced magnesium. Recheck tomorrow. EF 25 to 35%, severe global hypokinesis. Lovenox on hold to allow for thoracentesis of pleural effusions noted on CT Not compliant with CPAP. Need to encourage. Status: Acute (2) Pleural effusion, bilateral: Moderate pleural effusions, right greater than left noted on CT scan 11/28. Discussed with patient and his . Continue diuresis at this time. Hold Lovenox. Tomorrow when radiology is back potentially could try to arrange for thoracentesis for which he would be agreeable. Given also incidental finding of masslike lung nodule in right upper lung, consider also pleural fluid cytology added to the evaluation studies. Status: Acute (3) Lung nodule < 6cm on CT: Masslike nodule in the right upper lung noted on CT incidentally 11/28. He does not know of any history, neither does his . Discussed with him on her. Consider additional cytology evaluation as above. Briefly touched base with Dr. Javier and he will try to discuss again with radiology as to how this may be accessed potentially. It appears to be pretty close to the chest wall, and so possibly could be accessed from the surface appears could be more difficult to access by bronchoscopy, but will await discussion with radiology. was interested to know if it is worth to pursue this depending on his overall prognosis. Discussed with her prognosis overall is difficult to determine at this time, even though he is in a very tough condition with high risk of some complications going on currently with further depression of ejection fraction CHF, and other problems were dealing with, however, his cardiomyopathy still needs additional assessment, and depending on underlying causes and Cardiologic assessment further prognostication could be made. Status: Acute (4) CHF (congestive heart failure): Acute systolic CHF. With new hypoxia. CT chest with bilateral pleural effusions. Hold Lovenox. Discussed with him and his regarding thoracentesis could be set up tomorrow when radiology comes back. Discussed worsening ejection fraction compared to prior. Discussed with him and his regarding potential differential causes, and additional assessment. May benefit from assessment to exclude ischemic cardiomyopathy, possibly with a stress test once his heart rate, blood pressure is a bit more stable. Dr. Park is his lpn rn hospice, and if back tomorrow could potentially be asked to see him to advise regarding any additional testing, as well as regarding benefit of LifeVest as discussed with patient and his . also endorses that he has had some sort of viral-like illness 2 weeks ago which had passed spontaneously after several days of malaise, with his friend having a fever. Discussed possibility of nonischemic cardiomyopathy due to viral illness. He does not show any symptoms of viral infection currently, apart from ongoing fatigue which may be due to the other comorbidities as described, but will check COVID-19 rapid antigen. was asking about possible prognosis. Discussed with her it is difficult to determine at this time, although he is in a tough situation currently and is at risk of numerous complications due to his low EF, and other problems we are dealing with, however, long-term prognosis of cardiomyopathy is difficult to determine at this time, and still needs additional investigation. Acute systolic congestive heart failure. Last echocardiogram from June 2018 showed LVEF of around 45% Repeat echocardiogram with worse EF 25-35%. Discussed with patient. Discussed with him concern aggression, at this time please try to optimize volume is, may need additional assessment be with stress test on Sunday, consideration of discussion with cardiology perhaps regarding LifeVest. Tachycardia induced cardiomyopathy was considered as well, in addition to other causes of nonischemic cardiomyopathy. Continue Lasix 60 mg. Wheezing on exam has resolved. Difficult to say whether this is secondary to pulmonary edema versus also underlying undiagnosed pulmonary problem as he has been a smoker but says quit last year. He is not aware of previously any signs of COPD or emphysema, although I see he takes. At home. Strict intake and output as well as daily weights Oxygen per protocol Status: Acute Qualifiers: Heart failure chronicity: acute on chronic Heart failure type: unspeci fied Qualified Code(s): I50.9 - Heart failure, unspecified (5) Obstructive sleep apnea: Noncompliant with CPAP Status: Acute (6) HTN (hypertension): We will continue to monitor blood pressures closely with adjustment in heart rate medications Status: Acute Qualifiers: Hypertension type: essential hypertension Qualified Code(s): I10 - Essential (primary) hypertension (7) Chronic fatigue: Suspect this may be related to his worsening congestive heart failure. A. fib. Insomnia. Sleep apnea noncompliant with CPap. Status: Acute (8) Wheezing: Today this is resolved. Continue neb treatments. Would benefit from PFT assessment after he improves. Wheezing noted on exam, difficult to say whether any to cardiac asthma with CHF, but I suspect may have additional underlying pulmonary condition contributing to his overall symptoms. Possibly COPD as he used to be a smoker, although does say he quit last year. I see he takes Spiriva at home. Status: Acute Additional A&P Information Diet: Cardiac, 1500 mL fluid restriction, 2 g sodium restriction DVT prophylaxis: Lovenox on hold. SCD. CODE STATUS: Do Not Resuscitate/DNI, discussed with patient while in the emergency department and his at bedside during discussion Attestations Medical Necessity Statement*: Continue admission for assessment management of CHF with worsened cardiomyopathy, A. fib with RVR, pleural effusions, hypoxia. Coding Level of Care Code Acute Logging Operations Inspector for Chg Fwd Exam Comprehensive Diagnoses Atrial fibrillation with rapid ventricular response I48.91 Pleural effusion, bilateral J90 Lung nodule < 6cm on CT R91.1 CHF (congestive heart failure) I50.9 Heart failure chronicity: acute on chronic Heart failure type: unspecified Obstructive sleep apnea G47.33 HTN (hypertension) I10 Hypertension type: essential hypertension Chronic fatigue R53.82 Wheezing R06.2
[2019-11-30 14:20] LABS: SARS Covid-2 Antigen Negative (Negative)
[2019-11-30] MEDS: FUROsemide 10 mg/mL SDV 10mL 60 MG IVP (15:28)
--- NOTE | 2019-11-30 18:42 | PC.NURSE ---
Dr. Leo updated on patient condition via telephone. Patient HR maintaining 110-130s BP 126/84. Telephone order received to increase metoprolol to 75 mg PO q12. RBTO. Nurse to continue to monitor.
[2019-11-30] MEDS: metoprolol tartrate 50 mg Tablet 75 MG PO (18:59)
--- NOTE | 2019-11-30 19:10 | PC.NURSE ---
Telephone order received from Dr. Leo to continue amiodarone gtt, RBTO.
--- NOTE | 2019-11-30 20:31 | PC.NURSE ---
Patient pulled IV out of left arm by accident. Catheter was intact. Patient still has IV to right arm. Patient was provided clean sheets and gown. Will monitor.
--- NOTE | 2019-11-30 20:34 | PC.NURSE ---
Patient states that he gets short of breath upon ambulation. Oxygen saturation is 98 percent on 3 L NC. Will monitor.
[2019-11-30] MEDS: potassium chloride ER 10 mEq Tablet 40 MEQ PO (21:29)
[2019-11-30] MEDS: HYDROcodone-acetaminophen 5-325 mg Tablet 1 TAB PO (21:29)
--- NOTE | 2019-11-30 21:29 | PC.NURSE ---
At 2128 on 11/29, patient stated that he had gout pain in his feet and asked for a strong pain medication. PRN Hazen given. Patient stated that it helped. Will monitor.
[2019-12-01] VITALS (13 sets, daily range): BP systolic 97–121; BP diastolic 58–76; PULSE 69–112; RESP 13–27; TEMP 36.6–37; O2SAT 92–98
--- NOTE | 2019-12-01 02:44 | PC.NURSE ---
Patient states that he is having trouble sleeping. Patient was offered PRN Trazodone and refused. Will monitor.
[2019-12-01 05:26] LABS: Basophils % 0.3 %; Eosinophils # 0.1 10^3/uL (0.0-0.8); Eosinophils % 0.9 %; Hematocrit 39.9 % (42.0-52.0); Hemoglobin 13.1 g/dL (11.7-16.6); Lymphocytes # 1.3 10^3/uL (0.8-4.8); Lymphocytes % 15.2 %; Mean Corpuscular HGB Conc 32.8 g/dL (30.0-36.0); Mean Corpuscular Hemoglobin 34.4 pg (28.0-34.0); Mean Corpuscular Volume 104.7 fL (80-94); Mean Platelet Volume 13.4 fL (7.4-10.4); Monocytes # 1.4 10^3/uL (0.2-0.9); Monocytes % 15.8 %; Neutrophils # 5.92 10^3/uL (1.8-7.7); Neutrophils % 67.5 %; Nucleated Red Blood Cells % 0 %; Platelet Count 152 10^3/cmm (130-400); Positive M 1; Red Blood Count 3.81 10^6/uL (4.1-5.3); Red Cell Distribution Width 14.6 % (12.1-15.1); White Blood Count 8.8 10^3/uL (4.0-10.0)
[2019-12-01 05:49] LABS: Alanine Aminotransferase 26 U/L (0-41); Albumin Level 3.5 g/dL (3.5-5.2); Alkaline Phosphatase 47 IU/L (40-130); Anion Gap 14.8 (5-19); Aspartate Amino Transferase 19 U/L (0-40); Blood Urea Nitrogen 15 mg/dL (8-23); Calcium 8.8 mg/dL (8.5-10.5); Carbon Dioxide 23 mmol/L (22-29); Chloride 102 mmol/L (98-107); Globulin 2.5 g/dL (1.3-4.6); Glucose 90 mg/dL (65-115); Osmolality Calculated 282 mOsm/kg (285-295); Potassium 3.8 mmol/L (3.5-5.1); Sodium 136 mmol/L (136-145); Total Bilirubin 1.1 mg/dL (0.15-1.2)
[2019-12-01] MEDS: metoprolol tartrate 50 mg Tablet 75 MG PO ×2 (06:02→18:11)
--- NOTE | 2019-12-01 06:11 | PC.NURSE ---
Dr. Leo notified of patient asking for something stronger for pain or two Norcos instead of just one. Patient states that his gout pain in his feet is 10/10.
[2019-12-01 06:13] LABS: Magnesium 1.8 mg/dL (1.7-2.3)
--- NOTE | 2019-12-01 09:06 | PM.PN ---
Subjective Subjective: Interval history: No events overnight. Denies any nausea, vomiting, headache, chest pain. Heart rate running in high 90s to low 100 on amnio drip. Vitals noted. Vitals/I&O/Wt Last Vital Signs Temp 97.9 F 12/01/19 07:52 Pulse 100 12/01/19 07:52 Resp 27 H 12/01/19 07:52 BP 107/69 12/01/19 07:52 Pulse Ox 96 12/01/19 07:52 11/30/19 12/01/19 12/01/19 22:59 06:59 14:59 Intake Total 200 / 260 1082.352 / 1342.352 120 / 120 Output Total 600 / 600 725 / 1325 Balance -400 / -340 357.352 / 17.352 120 / 120 Weight last 48 hrs Weight 100.244 kg Weight 103.056 kg Physical Exam Narrative: EXAM NARRATIVE: General: No acute distress, AO x3 HEENT: PERRLA, pupils bilaterally equal and reactive Chest: Normal vesicular breath sounds, bilateral occasional rhonchi, fine With patient's bilateral lower zone, decreased air entry in the right lower zone CVS: S1-S2 irregularly irregular, pansystolic murmur at apex 2/6 no gallops, no rubs, JVD mildly elevated Abdomen: Soft, nontender, no organomegaly, bowel sounds present Neuro: No focal deficits, no facial deformity, AO x3, power 5/5 in all limbs. Extremity: Left great toe inflamed, localized erythema present Data : 12/01/19 03:51 12/01/19 03:51 A&P Assessment and plan (1) Atrial fibrillation with rapid ventricular response: Most likely due to non compliance with meds. At home he supposed to metoprolol 50 mg twice daily, amiodarone 200 mg daily. At present on Amio drip for last 3 days. Stop Amio drip. Start on Amio 200 mg BID. C/w lopressor 75 mg bid. Check dig levels. Replete electrolytes. Status: Acute (2) Pleural effusion, bilateral: Pleural effusion, right greater than left noted on CT scan 11/28. Discussed with patient and his . Patient has been planning for thoracocentesis today or tomorrow. Anticoagulation has been withheld. Case discussed with Dr. Javier, Dr. Castillo from radiology and cardiology. They all think that for now we should hold off on thoracocentesis as the fluid is not much and patient is not requiring too much oxygen supplementation to keep saturation over 90%. Pleural effusion most likely because of congestive heart failure. Patient does not have any signs of infection, empyema. Cannot rule out secondary to malignancy. For now we will hold off on thoracocentesis. Start patient on Lovenox 1 mg/kg body weight twice daily. Case discussed in detail both with patient and his . They are agreeable to the plan. Status: Acute (3) Lung nodule < 6cm on CT: Case discussed with Dr. Javier from oncology, Dr. Castillo and Dr. Gardiner from radiology. They all suggest that most likely mass will be difficult to be assessed through CT-guided approach. Going forward best plan would be to monitor through CT scan every 3 months. Patient would need to follow-up with Dr. Mendez as an outpatient to see if biopsy could be done bronchoscopy guided. Status: Acute (4) CHF (congestive heart failure): Acute hypoxia: Most likely because of congestive heart failure. Echocardiogram done in this admission shows EF of 25 to 30% with global LV hypokinesia. This is new and different from his last echocardiogram done in February 2019 when his EF was 45 to 50%. Acute change in the EF could most likely because of 3 causes. Could be ischemic, because of persistent tachycardia for a long time because of noncompliance with rate controlling medications, cannot rule out viral or take pathology given patient having ongoing myalgias, weakness, tiredness for last 2 weeks. COVID 19 rapid antigen negative. Check COVID-19 PCR. Check tick panel. Once patient is more euvolemic we will do Lexiscan stress test. We will see if can be done as an inpatient versus outpatient. Daily weights. Strict input output charting. Continue with IV Lasix 60 mg daily. Fluid restriction up to 1500 cc. We will discuss with cardiology regarding possible LifeVest. We will try to introduce JENNIFER inhibitor/spironolactone depending on his blood pressure. Status: Acute Qualifiers: Heart failure chronicity: acute on chronic Heart failure type: unspecified Qualified Code(s): I50.9 - Heart failure, unspecified (5) Obstructive sleep apnea: Noncompliant with CPAP Status: Acute (6) HTN (hypertension): We will continue to monitor blood pressures closely with adjustment in heart rate medications Status: Acute Qualifiers: Hypertension type: essential hypertension Qualified Code(s): I10 - Essential (primary) hypertension (7) Chronic fatigue: Suspect this may be related to his worsening congestive heart failure. A. fib. Insomnia. Sleep apnea noncompliant with CPap. Status: Acute (8) Wheezing: Status: Acute Additional A&P Information Start on chronic medications like allopurinol. We will also start him on colchicine for acute gout along with Motrin 200 mg every 8 hours as needed. Diet: Cardiac, 1500 mL fluid restriction, 2 g sodium restriction DVT prophylaxis: Full dose Lovenox CODE STATUS: Do Not Resuscitate/DNI, discussed with patient while in the emergency department and his at bedside during discussion Attestations Medical Necessity Statement*: Acute hypoxia, congestive heart failure Time Spent in Patient Care: Greater than 35 minutes (>than 50% of time spent in counselling and/or direct pt care on unit). Coding Level of Care Code Acute Fabric Cutter for [facility] Diagnoses Atrial fibrillation with rapid ventricular response I48.91 Pleural effusion, bilateral J90 Lung nodule < 6cm on CT R91.1 CHF (congestive heart failure) I50.9 Heart failure chronicity: acute on chronic Heart failure type: unspecified Obstructive sleep apnea G47.33 HTN (hypertension) I10 Hypertension type: essential hypertension Chronic fatigue R53.82 Wheezing R06.2
[2019-12-01 09:28] LABS: Digoxin 0.9 ng/mL (0.6-1.2)
[2019-12-01] MEDS: HYDROcodone-acetaminophen 5-325 mg Tablet 1 TAB PO ×4 (09:28→21:53)
[2019-12-01] MEDS: allopurinol 300 mg Tablet PO (09:28)
[2019-12-01] MEDS: amiodarone 200 mg Tablet PO ×2 (09:28→18:11)
[2019-12-01] MEDS: potassium chloride ER 10 mEq Tablet 20 MEQ PO (09:28)
[2019-12-01] MEDS: fluticasone nasal spray 16gm Btl 1 SPRAY NASAL (09:29)
[2019-12-01 09:33] LABS: Fibrinogen 624 mg/dL (174-498)
[2019-12-01 09:36] LABS: D Dimer 0.44 ug/mIFEU (0-0.59)
[2019-12-01 09:39] LABS: NT Pro B Type Natriuretic Pept 1397 pg/mL (0-125); Procalcitonin 0.11 ng/mL (0-0.5)
[2019-12-01 09:50] LABS: C Reactive Protein 28.4 mg/L (0.0-4.9); Creatine Phosphokinase 84 U/L (39-308); Ferritin 354 ng/mL (30-400); Lactate Dehydrogenase 247 U/L (135-225)
[2019-12-01 09:57] LABS: ABG PCO2 31.9 mmHg (35-45); ABG PH Result 7.48 (7.35-7.45); Arterial Blood Gas Hematocrit 42.6 % (42-52); Base Excess ABG 0.8 mmol/L (-2.0-2.0); Blood Gas Allen Test Pos; Blood Gas Operator Identificat BD; Blood Gas Sample Site Brachial, left; Blood Gas Sample Type Arterial; HCO3 ABG 23.6 mmol/L (22-26); Oxygen Device ROOM AIR; PO2 ABG 69.4 mmHg (80.0-100.0)
--- NOTE | 2019-12-01 11:08 | PC.SOCIAL ---
IMM completed on 12/01/2019 @ 0900. Copy of rights given to pt.
--- NOTE | 2019-12-01 12:19 | PC.RESP ---
Smoking Cessation packet sent to patient.
[2019-12-01] MEDS: FUROsemide 10 mg/mL SDV 10mL 60 MG IVP (14:03)
[2019-12-01] MEDS: albuterol 8 gm MDI 2 PUFF INHALATION ×2 (15:54→21:00)
[2019-12-01] MEDS: colchicine 0.6 mg Tablet PO ×2 (16:39→20:20)
[2019-12-01] MEDS: ibuprofen 200 mg Tablet PO (16:39)
[2019-12-01] MEDS: enoxaparin 100 mg/mL Syringe 90 MG SUBCUT (18:11)
--- NOTE | 2019-12-01 18:32 | PC.NURSE ---
PATIENT HAS COMPLAINED OF PAIN TO HIS RIGHT FOOT THIS SHIFT. HE STATES THAT HE HAS GOUT AND THAT HE THINKS HE IS HAVING A FLAIR UP . DISCUSSED THROUGHOUT THIS SHIFT WITH DR. CROCKETT, RESTARTED ALLOPURINOL, LATER THIS SHIFT ADDED COLCHRYS AND IBUPROFEN. WILL CONTINUE TO MONITOR.
[2019-12-01] MEDS: trazodone 50 mg Tablet PO (20:29)
--- NOTE | 2019-12-01 22:01 | PC.NURSE ---
Patient was given PRN [place] per his request for gout pain in his feet. Will monitor and reassess.
[2019-12-02] VITALS (9 sets, daily range): BP systolic 99–124; BP diastolic 68–81; PULSE 77–118; RESP 15–24; TEMP 36.6–36.8; O2SAT 91–98
--- NOTE | 2019-12-02 01:06 | PC.NURSE ---
Patient is currently resting with eyes closed. Will monitor.
--- NOTE | 2019-12-02 03:07 | PC.NURSE ---
Patient states my feet feel a lot better, I actually got some sleep. Will monitor and reassess pain.
[2019-12-02 05:06] LABS: Basophils % 0.5 %; Eosinophils # 0.1 10^3/uL (0.0-0.8); Eosinophils % 1.4 %; Hematocrit 40.2 % (42.0-52.0); Hemoglobin 13.2 g/dL (11.7-16.6); Lymphocytes # 1.1 10^3/uL (0.8-4.8); Lymphocytes % 14.3 %; Mean Corpuscular HGB Conc 32.8 g/dL (30.0-36.0); Mean Corpuscular Hemoglobin 34.1 pg (28.0-34.0); Mean Corpuscular Volume 103.9 fL (80-94); Mean Platelet Volume 12.8 fL (7.4-10.4); Monocytes # 1.4 10^3/uL (0.2-0.9); Neutrophils % 65.3 %; Nucleated Red Blood Cells % 0 %; Platelet Count 143 10^3/cmm (130-400); Red Blood Count 3.87 10^6/uL (4.1-5.3); Red Cell Distribution Width 14.6 % (12.1-15.1); White Blood Count 7.8 10^3/uL (4.0-10.0)
[2019-12-02 05:32] LABS: Alanine Aminotransferase 22 U/L (0-41); Albumin Level 3.4 g/dL (3.5-5.2); Alkaline Phosphatase 50 IU/L (40-130); Anion Gap 16.6 (5-19); Aspartate Amino Transferase 18 U/L (0-40); Blood Urea Nitrogen 20 mg/dL (8-23); Calcium 8.8 mg/dL (8.5-10.5); Carbon Dioxide 23 mmol/L (22-29); Chloride 100 mmol/L (98-107); Glucose 97 mg/dL (65-115); Osmolality Calculated 285 mOsm/kg (285-295); Potassium 3.6 mmol/L (3.5-5.1); Sodium 136 mmol/L (136-145); Total Bilirubin 1.3 mg/dL (0.15-1.2); Total Protein 6.4 g/dL (6.6-8.7)
[2019-12-02] MEDS: enoxaparin 100 mg/mL Syringe 90 MG SUBCUT (05:32)
[2019-12-02] MEDS: metoprolol tartrate 50 mg Tablet 75 MG PO ×2 (05:33→18:40)
[2019-12-02] MEDS: HYDROcodone-acetaminophen 5-325 mg Tablet 1 TAB PO ×3 (05:46→17:18)
[2019-12-02] MEDS: ibuprofen 200 mg Tablet PO (05:46)
--- NOTE | 2019-12-02 05:47 | PC.NURSE ---
Patient states the pain in my feet has really improved since before, it is about a 7 right now. PRN pain medications given. Will monitor and reassess.
[2019-12-02] MEDS: fluticasone nasal spray 16gm Btl 1 SPRAY NASAL (09:10)
[2019-12-02] MEDS: colchicine 0.6 mg Tablet PO (09:10)
[2019-12-02] MEDS: allopurinol 300 mg Tablet PO (09:10)
[2019-12-02] MEDS: potassium chloride ER 10 mEq Tablet 20 MEQ PO (09:10)
[2019-12-02] MEDS: amiodarone 200 mg Tablet PO ×2 (09:10→18:40)
--- NOTE | 2019-12-02 09:58 | PM.PN ---
Subjective Subjective: Interval history: No acute events overnight on examination patient is doing a lot better and on room air saturating 96%. His heart rate is maintaining in low 90s. He denies of any nausea, vomiting, headache. States his breathing is better. He states this to pain is a lot better than before. Discussion regarding further treatment plan and he continues to agree. Plan for now would be to evaluate his lung node and pleural effusion in next 3 months after further diuresis. He also agrees for cardiology consult and possible work-up. Vitals/I&O/Wt Last Vital Signs Temp 97.8 F 12/02/19 07:32 Pulse 92 12/02/19 07:32 Resp 20 H 12/02/19 07:32 BP 110/68 12/02/19 07:32 Pulse Ox 98 12/02/19 07:32 12/01/19 12/02/19 12/02/19 22:59 06:59 14:59 Intake Total 590 / 1098.352 300 / 1398.352 120 / 120 Output Total 1500 / 1500 150 / 150 Balance -910 / -401.648 300 / -101.648 -30 / -30 Weight last 48 hrs Weight 99.79 kg Weight 100.244 kg Physical Exam Narrative: EXAM NARRATIVE: General: No acute distress, AO x3 HEENT: PERRLA, pupils bilaterally equal and reactive Chest: Normal vesicular breath sounds, bilateral occasional rhonchi, fine With patient's bilateral lower zone, decreased air entry in the right lower zone CVS: S1-S2 irregularly irregular, pansystolic murmur at apex 2/6 no gallops, no rubs, JVD mildly elevated Abdomen: Soft, nontender, no organomegaly, bowel sounds present Neuro: No focal deficits, no facial deformity, AO x3, power 5/5 in all limbs. Extremity: Left great toe inflamed, localized erythema present Data : 12/02/19 04:45 12/02/19 04:45 A&P Assessment and plan (1) Atrial fibrillation with rapid ventricular response: Most likely due to non compliance with meds. At home he supposed to metoprolol 50 mg twice daily, amiodarone 200 mg daily. Heart rate better controlled at present. Continue with amiodarone 200 mg twice daily and metoprolol 75 mg twice daily. Oxygen levels appreciated. Replete electrolytes. Status: Acute (2) Pleural effusion, bilateral: Pleural effusion, right greater than left noted on CT scan 11/28. Discussed with patient and his . Patient has been planning for thoracocentesis today or tomorrow. Anticoagulation has been withheld. Case discussed with Dr. Javier, Dr. Castillo from radiology and cardiology. They all think that for now we should hold off on thoracocentesis as the fluid is not much and patient is not requiring too much oxygen supplementation to keep saturation over 90%. Pleural effusion most likely because of congestive heart failure. Patient does not have any signs of infection, empyema. Cannot rule out secondary to malignancy. For now we will hold off on thoracocentesis. Switch from Lovenox to home dose of Eliquis. Plan will be to monitor pleural effusion as an outpatient in 3 months after further diuresis and then required to go for thoracentesis. Plan discussed with both patient and patient's and both are agreeable to the same. Status: Acute (3) Lung nodule < 6cm on CT: Case discussed with Dr. Javier from oncology, Dr. Castillo and Dr. Gardiner from radiology. They all suggest that most likely mass will be difficult to be assessed through CT-guided approach. Going forward best plan would be to monitor through CT scan every 3 months. Patient would need to follow-up with Dr. Mendez as an outpatient to see if biopsy could be done bronchoscopy guided. Status: Acute (4) CHF (congestive heart failure): Acute hypoxia: Most likely because of congestive heart failure. Echocardiogram done in this admission shows EF of 25 to 30% with global LV hypokinesia. This is new and different from his last echocardiogram done in February 2019 when his EF was 45 to 50%. Acute change in the EF could most likely because of 3 causes. Could be ischemic, or because of persistent tachycardia for a long time because of noncompliance with rate controlling medications, cannot rule out viral or take pathology given patient having ongoing myalgias, weakness, tiredness for last 2 weeks. COVID 19 rapid antigen negative. COVID-19 PCR negative. Tick panel still awaited. Once patient is more euvolemic we will do Lexiscan stress test. We will see if can be done as an inpatient versus outpatient. We will consult cardiology for further recommendations. Case discussed with Check HbA1c, lipid panel. Start patient on 81 mg aspirin daily. Will start statin according to lipid panel results. Daily weights. Strict input output charting. Continue with IV Lasix 60 mg daily. Fluid restriction up to 1500 cc. We will discuss with cardiology regarding possible LifeVest. We will try to introduce JENNIFER inhibitor/spironolactone depending on his blood pressure. Status: Acute Qualifiers: Heart failure chronicity: acute on chronic Heart failure type: unspecified Qualified Code(s): I50.9 - Heart failure, unspecified (5) Obstructive sleep apnea: Noncompliant with CPAP Status: Acute (6) HTN (hypertension): We will continue to monitor blood pressures closely with adjustment in heart rate medications Status: Acute Qualifiers: Hypertension type: essential hypertension Qualified Code(s): I10 - Essential (primary) hypertension (7) Chronic fatigue: Suspect this may be related to his worsening congestive heart failure. A. fib. Insomnia. Sleep apnea noncompliant with CPap. Status: Acute (8) Wheezing: Status: Acute Additional A&P Information Start on chronic medications like allopurinol. We will also start him on colchicine for acute gout along with Motrin 200 mg every 8 hours as needed. Diet: Cardiac, 1500 mL fluid restriction, 2 g sodium restriction DVT prophylaxis: Full dose Lovenox CODE STATUS: Do Not Resuscitate/DNI, discussed with patient while in the emergency department and his at bedside during discussion Attestations Medical Necessity Statement*: Congestive heart failure, atrial fibrillation Coding Level of Care Code Acute Local Sales Associate for [facility] Fwd Diagnoses Atrial fibrillation with rapid ventricular response I48.91 Pleural effusion, bilateral J90 Lung nodule < 6cm on CT R91.1 CHF (congestive heart failure) I50.9 Heart failure chronicity: acute on chronic Heart failure type: unspecified Obstructive sleep apnea G47.33 HTN (hypertension) I10 Hypertension type: essential hypertension Chronic fatigue R53.82 Wheezing R06.2
[2019-12-02 10:16] LABS: Folate Level 6.9 ng/mL (4.5-32.2); Vitamin B12 428 pg/mL (232-1245)
[2019-12-02 14:29] LABS: Coronavirus Lab Test PTC Negative
[2019-12-02] MEDS: FUROsemide 10 mg/mL SDV 10mL 60 MG IVP (15:04)
--- NOTE | 2019-12-02 18:07 | P.CONIM_ITS ---
Providers/Reason For Consult Consulting Physican/Specialty*: Cardiology Reason for Consult*: Atrial fib with RVR, CHF, worsening of LV Attending Physician: Danis Acevedo MD Primary Care Provider: Claudette Sanchez History of Present Illness History of Present Illness Jet Blackman is a 74 year old male Past medical history significant for nonischemic cardiomyopathy with history of moderately depressed ejection fraction,DON,non compliance chronic atrial fibrillation was in sinus rhythm on amiodarone, systolic heart failure with moderately depressed left ventricle ejection fraction, COPD and history of tobacco abuse quit recently was admitted with worsening of shortness of breath PND orthopnea palpitation pounding racing of the heart. He was noted to be in A. fib with RVR and decompensated systolic heart failure. Left ventricular ejection fraction by echo was noted to be severely depressed 25% which has been deteriorated from moderately depressed 45%.According to the patient due to feeling of fatigue he quit taking amiodarone and reduce his metoprolol. For the past few weeks he was noted to have more shortness of breath and now to the extent that he would not be able to lay flat in the bed therefore decided to come to the hospital. Patient follows up with Dr. Park on regular basis. Review of Systems Const: Reports: fatigue and malaise; Denies: fever(s), chills or diaphoresis Eyes: Denies: change in vision ENMT: Denies: throat pain, ear or mastoid pain, nasal discharge or nasal congestion Card: Reports: edema and dyspnea on exertion; Denies: chest pain, palpitations or syncope Resp: Reports: dyspnea; Denies: productive cough or hemoptysis GI: Denies: abdominal pain, nausea, vomiting, diarrhea, constipation, hematochezia or melena : Denies: flank pain, dysuria, urinary frequency, urinary urgency or hematuria Musc: Denies: extremity pain or muscle cramps Skin/Breast: Denies: rash, pruritus or new lesions Neuro: Denies: headache(s) or dizziness Psych: Reports: sleeping less; Denies: anxiety or depression Endo: Denies: polyuria or hot flashes Benjamin/Lymph: Denies: easy bruising or easy bleeding Meds/Allergies Home Medications and Allergies Home Medications Medication Instructions Recorded Confirmed Last Taken Type apixaban 5 mg tablet 5 mg PO BID 0211/28/19 11/27/19 History amiodarone 200 mg tablet See Rx Instructions .ROUTE 10/29/19 11/28/19 Unknown Rx .COMPLEX #30 tab furosemide 40 mg tablet 40 mg PO QAM #90 tab 11/03/19 11/28/19 11/27/19 Rx Vitamin C 1 tab PO DAILY 11/28/19 11/28/19 Unknown History Vitamin D3 1 tab PO DAILY 11/28/19 11/28/19 Unknown History albuterol sulfate [ProAir HFA] 2 puff INHALATION QID PRN 11/28/19 11/28/19 Unknown History metoprolol tartrate See Rx Instructions .ROUTE .COMPLEX 11/28/19 11/28/19 11/27/19 History potassium chloride 10 meq PO DAILY 11/28/19 11/28/19 11/27/19 History tiotropium bromide [Spiriva 2 puff INHALATION DAILY 11/28/19 11/28/19 11/28/19 History Respimat] allopurinol 300 mg PO DAILY 11/29/19 11/29/19 Unknown History Allergies Allergy/AdvReac Type Severity Reaction Status Date / Time No Known Allergies Allergy Verified 11/28/19 09:17 Current Medications Current Medications Generic Name Dose Route Start Last Admin Trade Name Freq PRN Reason Stop Dose Admin Hydrocodone Bitart/Acetaminophen 1 tab 11/28/19 17:54 12/02/19 17:18 Brand[place]ore 5-325 Mg PO 1 tab Q4H PRN Administration MODERATE TO SEVERE PAIN Albuterol Sulfate 2 puff 11/28/19 17:54 12/01/19 21:00 Ventolin INHALATION 2 puff QID PRN Administration Shortness Of Breath Albuterol/Ipratropium 3 ml 11/29/19 15:00 12/02/19 14:27 Duoneb INHALATION Not Given Q6H.RESPIRATORY RON Albuterol/Ipratropium 3 ml 11/29/19 11:47 11/29/19 22:30 Duoneb INHALATION 3 ml Q4H PRN Administration SHORTNESS OF BREATH Allopurinol 300 mg 12/01/19 09:00 12/02/19 09:10 Zyloprim PO 300 mg DAILY RON Administration Amiodarone HCl 200 mg 12/01/19 09:30 12/02/19 09:10 Cordarone PO 200 mg BID RON Administration Colchicine 0.6 mg 12/02/19 09:00 12/02/19 09:10 Colcrys PO 0.6 mg DAILY RON Administration Fluticasone Propionate 1 spray 11/30/19 09:00 12/02/19 09:10 Flonase NASAL 1 spray DAILY RON Administration Furosemide 60 mg 11/29/19 15:00 12/02/19 15:04 Lasix IVP 60 mg Q24H RON Administration Ibuprofen 200 mg 12/01/19 15:41 12/02/19 05:46 Motrin PO 200 mg Q8H PRN Administration MODERATE PAIN Metoprolol Tartrate 75 mg 11/30/19 19:00 12/02/19 05:33 Lopressor PO 75 mg Q12H RON Administration Potassium Chloride 20 meq 11/28/19 17:54 12/02/19 09:10 Klor-Con 10 PO 20 meq DAILY RON Administration Trazodone HCl 50 mg 11/28/19 17:54 12/01/19 20:29 Desyrel PO 50 mg BEDTIME PRN Administration INSOMNIA PFSH Acute PFSH: Medical History (Updated 12/02/19 @ 21:23 by Mirtha Garces MD) Atrial fibrillation CHF (congestive heart failure) Chronic fatigue 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 HTN (hypertension) Obstructive sleep apnea Family History Denies family history of Diabetes Stroke Social History Smoking and tobacco status: current every day smoker cigarettes [ Other cigarette details: Patient reports that he recently quit smoking last week ] Alcohol intake: current Alcohol intake frequency: 0-2 Drinks per Day Substance/Drug Use: never Supplemental PFSH Information: Patient denies any prior surgeries Vitals/I&O/Wt Last Vital Signs Temp 97.9 F 12/02/19 16:00 Pulse 101 H 12/02/19 16:00 Resp 19 H 12/02/19 16:00 BP 111/81 12/02/19 16:00 Pulse Ox 96 12/02/19 16:00 12/02/19 12/02/19 12/02/19 06:59 14:59 22:59 Intake Total 300 / 1398.352 240 / 240 Output Total 150 / 150 1500 / 1650 Balance 300 / -101.648 90 / 90 -1500 / -1410 Weight last 48 hrs Weight 220 lb Weight 221 lb Physical Exam Narrative: EXAM NARRATIVE: GENERAL: Patient is alert, awake and oriented x3. NECK: No jugular vein distension. HEENT: No cyanosis. No icterus. No pallor. HEART: Regularly irregular S1 and S2. No murmur, rub or gallop. LUNGS: Clear to auscultate bilaterally. ABDOMEN: Soft, nontender and nondistended. Positive bowel sounds. No guarding, rebound or tenderness. CENTRAL NERVOUS SYSTEM: Grossly nonfocal. EXTREMITIES: Lower extremities with trace edema bilaterally. Data Micro: Micro: Microbiology 12/01/19 14:00 MRSA Culture - Fin al Nose A&P Assessment and plan (1) Atrial fibrillation with rapid ventricular response: We recommend titration of the amiodarone as patient has been recently started on amiodarone if he does not convert into sinus rhythm we may can proceed with electrical cardioversion since patient is already on anticoagulation. Hopefully with further improvement of systolic heart failure secondary to diuresis patient may convert. Further plan will be advised as per progress of the patient. Status: Acute (2) LV dysfunction: New onset of LV dysfunction or worsening of LV dysfunction from moderately depressed 45% to severely depressed less than 30% could be due to acute decompensation of heart failure second to volume overload and left ventricular stretch along with atrial fibrillation with RVR. Once patient become well compensated and once patient converted back into sinus rhythm we may will ask for echocardiogram to assess LV function however we will also consider left heart cath. Status: Acute (3) HTN (hypertension): Well controlled Status: Acute Qualifiers: Hypertension type: essential hypertension Qualified Code(s): I10 - Essential (primary) hypertension (4) Lung nodule < 6cm on CT: As per medicine Status: Acute (5) Systolic heart failure: Patient has worsening of systolic heart failure he has been started by our medicine colleagues on IV Lasix since he is diuresing well and feeling better we will continue to diurese with 60 mg of IV Lasix twice a day. Status: Acute Qualifiers: Heart failure chronicity: acute Qualified Code(s): I50.21 - Acute systolic (congestive) heart failure Consult Attestations Medical Necessity Statement: Patient require continuation hospitalization for above defined care. Coding Level of Care Code New Pt Acute Banquet Coordinator for [facility] Fwd Patient Type New History Detailed Exam Detailed Medical Decision Making Moderate Complexity Diagnoses Atrial fibrillation with rapid ventricular response I48.91 LV dysfunction I51.9 HTN (hypertension) I10 Hypertension type: essential hypertension Lung nodule < 6cm on CT R91.1 Systolic heart failure I50.21 Heart failure chronicity: acute
[2019-12-02] MEDS: apixaban 5 mg Tablet PO (18:40)
--- NOTE | 2019-12-02 18:55 | PC.NURSE ---
PATIENT WEANED TO ROOM AIR, OXYGEN SATURATIONS AT 93-95% CONSISTENTLY. DR CROCKETT NOTIFIED.
--- NOTE | 2019-12-02 21:36 | PC.NURSE ---
Dr. Garces notified of patient getting 200 of Amio at 1840 today. Verified order to give 400 now.
[2019-12-02] MEDS: amiodarone 200 mg Tablet 400 MG PO (21:54)
--- NOTE | 2019-12-02 21:59 | PC.NURSE ---
Patient states that he does not want his Trazodone and does not want any pain medications at this time. Will monitor.
[2019-12-03] VITALS (9 sets, daily range): BP systolic 101–111; BP diastolic 67–80; PULSE 70–104; RESP 15–25; TEMP 36.4–36.8; O2SAT 93–97
--- NOTE | 2019-12-03 00:55 | PC.NURSE ---
Patient has no complaints at this time. Will monitor.
[2019-12-03] MEDS: trazodone 50 mg Tablet PO (01:45)
--- NOTE | 2019-12-03 01:46 | PC.NURSE ---
Patient asked for his Trazodone at this time. Patient stated that he does not need a pain pill at this time.
[2019-12-03] MEDS: ipratropium-albuterol 3 mL Neb INHALATION ×2 (03:15→15:25)
[2019-12-03 03:51] LABS: Basophils % 0.5 %; Eosinophils # 0.1 10^3/uL (0.0-0.8); Eosinophils % 2.3 %; Hematocrit 38.9 % (42.0-52.0); Hemoglobin 12.9 g/dL (11.7-16.6); Lymphocytes # 1.1 10^3/uL (0.8-4.8); Lymphocytes % 18.8 %; Mean Corpuscular HGB Conc 33.2 g/dL (30.0-36.0); Mean Corpuscular Hemoglobin 33.9 pg (28.0-34.0); Mean Corpuscular Volume 102.4 fL (80-94); Mean Platelet Volume 12.2 fL (7.4-10.4); Monocytes % 17.5 %; Neutrophils # 3.36 10^3/uL (1.8-7.7); Neutrophils % 60.2 %; Nucleated Red Blood Cells % 0 %; Platelet Count 157 10^3/cmm (130-400); Red Cell Distribution Width 14.5 % (12.1-15.1); White Blood Count 5.6 10^3/uL (4.0-10.0)
[2019-12-03 04:21] LABS: Alanine Aminotransferase 20 U/L (0-41); Albumin Level 3.2 g/dL (3.5-5.2); Alkaline Phosphatase 47 IU/L (40-130); Anion Gap 14.8 (5-19); Aspartate Amino Transferase 18 U/L (0-40); Blood Urea Nitrogen 18 mg/dL (8-23); Calcium 8.7 mg/dL (8.5-10.5); Carbon Dioxide 24 mmol/L (22-29); Chloride 102 mmol/L (98-107); Glucose 106 mg/dL (65-115); Osmolality Calculated 286 mOsm/kg (285-295); Potassium 3.8 mmol/L (3.5-5.1); Sodium 137 mmol/L (136-145); Total Bilirubin 0.8 mg/dL (0.15-1.2); Total Protein 6.2 g/dL (6.6-8.7)
[2019-12-03 04:22] LABS: Chol HDL Ratio 3.94 mg/dL (1.0-5.00); Cholesterol 138 mg/dL (0-200); HDL Cholesterol 35 mg/dL (60-100); LDL Cholesterol Calculated 83 mg/dL (50-129); Triglycerides 102 mg/dL (0-150); VLDL Cholestrol Calculation 20 mg/dL (0-30)
[2019-12-03 04:23] LABS: Estmated Average Glucose 117; Hemoglobin A1C 5.7 % (4.0-6.0)
[2019-12-03] MEDS: metoprolol tartrate 50 mg Tablet 75 MG PO ×2 (04:55→18:28)
[2019-12-03] MEDS: HYDROcodone-acetaminophen 5-325 mg Tablet 1 TAB PO ×3 (06:23→20:19)
--- NOTE | 2019-12-03 08:54 | P.PN_ITS ---
Subjective Subjective: Interval history: No events overnight. Patient is doing a lot better. He is on room air saturating 93%. He was seen by cardiology yesterday and he was recommended to have possible cardioversion and a left heart cath. Patient is still deciding about that. Patient has refused LifeVest for now. Denies any nausea, vomiting, headache, dizziness. Vitals/I&O/Wt Last Vital Signs Temp 97.5 F L 12/03/19 07:04 Pulse 99 12/03/19 07:04 Resp 25 H 12/03/19 07:04 BP 105/67 12/03/19 07:04 Pulse Ox 93 12/03/19 07:04 12/02/19 12/03/19 12/03/19 22:59 06:59 14:59 Intake Total 360 / 600 300 / 900 Output Total 2175 / 2325 700 / 3025 250 / 250 Balance -1815 / -1725 -400 / -2125 -250 / -250 Weight last 48 hrs Weight 99.246 kg Weight 99.79 kg Physical Exam 2 Narrative: EXAM NARRATIVE: General: No acute distress, AO x3 HEENT: PERRLA, pupils bilaterally equal and reactive Chest: Normal vesicular breath sounds, bilateral occasional rhonchi, fine With patient's bilateral lower zone, decreased air entry in the right lower zone CVS: S1-S2 irregularly irregular, pansystolic murmur at apex 2/6 no gallops, no rubs, JVD mildly elevated Abdomen: Soft, nontender, no organomegaly, bowel sounds present Neuro: No focal deficits, no facial deformity, AO x3, power 5/5 in all limbs. Extremity: Left great toe inflamed, localized erythema present Data : 12/03/19 03:40 12/03/19 03:40 Micro: Microbiology 12/01/19 14:00 MRSA Culture - Final Nose A&P Assessment and plan (1) Atrial fibrillation with rapid ventricular response: Most likely due to non compliance with meds. At home he supposed to metoprolol 50 mg twice daily, amiodarone 200 mg daily. Heart rate better controlled at present. Amiodarone increased to [address] Garces yesterday. Continue same. Continue metoprolol 75 mg twice daily. Cardiology recommendations appreciated. Replete electrolytes. Status: Acute (2) Pleural effusion, bilateral: Pleural effusion, right greater than left noted on CT scan 11/28. Discussed with patient and his . Patient has been planning for thoracocentesis today or tomorrow. Anticoagulation has been withheld. Case discussed with Dr. Javier, Dr. Castillo from radiology and cardiology. They all think that for now we should hold off on thoracocentesis as the fluid is not much and patient is not requiring too much oxygen supplementation to keep saturation over 90%. Pleural effusion most likely because of congestive heart failure. Patient does not have any signs of infection, empyema. Cannot rule out secondary to malignancy. For now we will hold off on thoracocentesis. Switch from Lovenox to home dose of Eliquis. Plan will be to monitor pleural effusion as an outpatient in 3 months after further diuresis and then required to go for thoracentesis. Plan discussed with both patient and patient's and both are agreeable to the same. Status: Acute (3) Lung nodule < 6cm on CT: Case discussed with Dr. Javier from oncology, Dr. Castillo and Dr. Gardiner from radiology. They all suggest that most likely mass will be difficult to be assessed through CT-guided approach. Going forward best plan would be to monitor through CT scan every 3 months. Patient would need to follow-up with Dr. Mendez as an outpatient to see if biopsy could be done bronchoscopy guided. Status: Acute (4) CHF (congestive heart failure): Acute hypoxia: Most likely because of congestive heart failure. Echocardiogram done in this admission shows EF of 25 to 30% with global LV hypo kinesia. This is new and different from his last echocardiogram done in February 2019 when his EF was 45 to 50%. Acute change in the EF could most likely because of 3 causes. Could be ischemic, or because of persistent tachycardia for a long time because of noncompliance with rate controlling medications, cannot rule out viral or take pathology given patient having ongoing myalgias, weakness, tiredness for last 2 weeks. COVID 19 rapid antigen negative. COVID-19 PCR negative. Tick panel still awaited. Once patient is more euvolemic we will do Lexiscan stress test versus left heart cath. Case discussed with Dr. Garces. He would like to do a left heart cath during this admission but patient wants to get it done as an outpatient. Most likely will discharge patient and he will follow-up as an outpatient for left heart cath. HbA1c and lipid panel results are appreciated. Start patient on 81 mg aspirin daily. Will start statin according to lipid panel results. Daily weights. Strict input output charting. Switch over to oral Lasix 40 mg twice daily and Spironolactone 12.5 mg oral bryce y. Fluid restriction up to 1500 cc. LifeVest was discussed with the patient but he continues to refuse regarding the same. Status: Acute Qualifiers: Heart failure chronicity: acute on chronic Heart failure type: unspecified Qualified Code(s): I50.9 - Heart failure, unspecified (5) Obstructive sleep apnea: Noncompliant with CPAP Status: Acute (6) HTN (hypertension): We will continue to monitor blood pressures closely with adjustment in heart rate medications Status: Acute Qualifiers: Hypertension type: essential hypertension Qualified Code(s): I10 - Essential (primary) hypertension (7) Chronic fatigue: Suspect this may be related to his worsening congestive heart failure. A. fib. Insomnia. Sleep apnea noncompliant with CPap. Status: Acute (8) Wheezing: Status: Acute Additional A&P Information Start on chronic medications like allopurinol. We will also start him on colchicine for acute gout along with Motrin 200 mg every 8 hours as needed. Diet: Cardiac, 1500 mL fluid restriction, 2 g sodium restriction DVT prophylaxis: Full dose Lovenox CODE STATUS: Do Not Resuscitate/DNI, discussed with patient while in the emergency department and his at bedside during discussion. Discharge planning: If patient continues to do well plan will be to discharge tomorrow. Patient requires left heart cath as an outpatient when he is more euvolemic. Patient wants to do it as an outpatient. Patient will require to monitor for pleural effusion and lung nodule in 3 months. Attestations Medical Necessity Statement*: Congestive heart failure, atrial fibrillation Time Spent in Patient Care: Greater than 35 minutes (>than 50% of time spent in counselling and/or direct pt care on unit) . 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
[2019-12-03] MEDS: aspirin 81 mg EC Tablet PO (09:04)
[2019-12-03] MEDS: amiodarone 200 mg Tablet 400 MG PO ×2 (09:05→17:18)
[2019-12-03] MEDS: apixaban 5 mg Tablet PO ×2 (09:05→17:18)
[2019-12-03] MEDS: allopurinol 300 mg Tablet PO (09:05)
[2019-12-03] MEDS: potassium chloride ER 10 mEq Tablet 20 MEQ PO (09:05)
[2019-12-03] MEDS: colchicine 0.6 mg Tablet PO (09:05)
[2019-12-03] MEDS: fluticasone nasal spray 16gm Btl 1 SPRAY NASAL (09:07)
[2019-12-03] MEDS: spironolactone 25 mg Tablet 12.5 MG PO (09:12)
--- NOTE | 2019-12-03 11:06 | PC.SOCIAL ---
IMM completed with pt on 12/03/2019 @ 9880. Copy of rights given to pt.
[2019-12-03 12:32] LABS: Lyme AB Screen <0.90 index
[2019-12-03] MEDS: FUROsemide 40 mg Tablet PO (16:19)
--- NOTE | 2019-12-03 17:50 | PM.PN ---
Subjective Subjective: Interval history: Heart rate is under control overall he is feeling better. Vitals/I&O/Wt Last Vital Signs Temp 97.9 F 12/03/19 15:09 Pulse 89 12/03/19 15:26 Resp 16 12/03/19 15:26 BP 110/76 12/03/19 15:09 Pulse Ox 95 12/03/19 15:26 12/03/19 12/03/19 12/03/19 06:59 14:59 22:59 Intake Total 300 / 900 480 / 480 Output Total 700 / 3025 250 / 250 Balance -400 / -2125 230 / 230 Weight last 48 hrs Weight 218 lb 12.8 oz Weight 220 lb Physical Exam Narrative: EXAM NARRATIVE: GENERAL: Patient is alert, awake and oriented x3. NECK: No jugular vein distension. HEENT: No cyanosis. No icterus. No pallor. HEART: Regularly irregular S1 and S2. No murmur, rub or gallop. LUNGS: Clear to auscultate bilaterally. ABDOMEN: Soft, nontender and nondistended. Positive bowel sounds. No guarding, rebound or tenderness. CENTRAL NERVOUS SYSTEM: Grossly nonfocal. EXTREMITIES: Lower extremities without edema bilaterally. Data : 12/03/19 03:40 12/03/19 03:40 Micro: Microbiology 12/01/19 14:00 MRSA Culture - Final Nose A&P Assessment and plan (1) LV dysfunction: Advised worsening of LV function need further exploration with left heart catheter stress test. Patient declined it so far he would like to think over it. He understand consequences he understand risk and benefit. I have explained in detail all risk benefit and alternative for the procedures. He would not like to proceed with it Status: Acute (2) Atrial fibrillation: It is rate controlled however patient is still in atrial fibrillation we have given the patient trials of WESLEY guided cardioversion which he declined he would like to go home. At this point we will continue amiodarone 400 mg once a day and anticoagulation. He is going to follow-up with Dr. Junior as an outpatient. 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
[2019-12-04] VITALS (8 sets, daily range): BP systolic 104–112; BP diastolic 71–79; PULSE 56–89; RESP 15–20; TEMP 36.4–36.8; O2SAT 90–95
[2019-12-04] MEDS: ipratropium-albuterol 3 mL Neb INHALATION ×2 (03:00→09:29)
[2019-12-04 05:29] LABS: Alanine Aminotransferase 26 U/L (0-41); Albumin Level 3.5 g/dL (3.5-5.2); Alkaline Phosphatase 49 IU/L (40-130); Aspartate Amino Transferase 27 U/L (0-40); Blood Urea Nitrogen 19 mg/dL (8-23); Calcium 8.7 mg/dL (8.5-10.5); Carbon Dioxide 24 mmol/L (22-29); Chloride 106 mmol/L (98-107); Glucose 113 mg/dL (65-115); Osmolality Calculated 295 mOsm/kg (285-295); Sodium 141 mmol/L (136-145); Total Bilirubin 0.6 mg/dL (0.15-1.2); Total Protein 6.5 g/dL (6.6-8.7)
[2019-12-04] MEDS: metoprolol tartrate 50 mg Tablet 75 MG PO (06:00)
--- NOTE | 2019-12-04 08:22 | P.DS_ITS ---
Discharge Providers Date of Admission: 11/28/19 11:37 Date of Discharge: December 04, 2019 Attending Provider at Admission: Feli Schmidt DO Attending Provider at Discharge: Danis Acevedo MD Consults: Cardiology: Dr. Garces Primary Care Provider: Claudette Sanchez Diagnoses at Discharge Discharge Diagnosis (1) LV dysfunction: Status: Acute (2) Atrial fibrillation: Status: Acute Qualifiers: Atrial fibrillation type: persistent (not longstanding) Qualified Code(s): I48.19 - Other persistent atrial fibrillation (3) Congestive heart failure with LV diastolic dysfunction, NYHA class 4: Status: Acute (4) HTN (hypertension): Status: Acute Qualifiers: Hypertension type: essential hypertension Qualified Code(s): I10 - Essential (primary) hypertension (5) Lung nodule < 6cm on CT: Status: Acute Reason for Visit Reason for Visit: RESPIRATORY DISTRESS/ CP Hospital Course Discharge Summary: Jet Blackman is a 74 year old male with a past medical history of atrial fibrillation and congestive heart failure that presented to the emergency department for increasing shortness of breath and dyspnea on exertion. He reported that he is also been having palpitations. Patient stated that he has a history of atrial fibrillation and also chronic fatigue. He stated that due to the concern for the fatigue being contributed to the medications he stopped taking his amiodarone and also decreased his metoprolol. He was recently seen by his equity sales assistant the end of October and told to increase his metoprolol to 50 mg in the morning and 25 mg at night, he reported that he is not been taking the medication as prescribed and only been taking 25 mg twice a day, sometimes once a day. Patient reported that his amiodarone he had stopped taking a couple of weeks ago, he had previously stopped taking it on occasion and thought it may be improved some of his chronic fatigue. He also reports that he has not been sleeping at night and requesting something for sleep. Patient reports he will occasionally hold off on taking his Eliquis. Patient denies any recent fevers or chills, no increasing cough or change in sputum production, no hemoptysis. He reports that he recently quit smoking last week. Has been noncompliant with his CPAP as he cannot tolerate the mask. He states that he is not on any home oxygen. Patient reports increased swelling in the left lower extremity, always in the left lower extremity, occasionally in the right lower extremity. He denies any abdominal pain, no nausea or vomiting. He reports increased dyspnea on exertion. He was admitted to the hospital with concerns of atrial fibrillation with rapid ventricular response and congestive heart failure. He was started on amnio drip and given multiple doses of digoxin. Eventually his heart rate improved. Amnio drip was stopped and his home dose of amiodarone was increased. Home dose of metoprolol was increased as well. It is believed he was in atrial fibrillation most likely because of noncompliance with medications. For hypoxia it is believed is most likely from congestive heart failure. Pneumonia was ruled out with negative imaging for consolidation, no fever, normal procalcitonin and no leukocytosis. He was treated with aggressive IV diuresis. CT chest was done which ruled out pulmonary embolism which was concerning for mild to moderate pleural effusion on the right side and right pu lmonary nodule. For pleural effusion patient has been advised to follow-up with repeat imaging after aggressive diuresis in 3 months. Thoracentesis was not done at current setting to prevent from introducing an infection along with the fact that patient's oxygen requirements improved quite drastically with aggressive diuresis. For lung nodule K CT scan was discussed in detail with oncology and radiology. They believe it will be difficult to reach to the lung nodule through CT-guided biopsy. They have advised to follow-up with a repeat CT scan in 3 months and for patient to follow-up with Dr. Argueta as an outpatient in a month for possible bronchoscopy directed nodule biopsy. Patient underwent echocardiogram which showed an EF of 20 to 25% with global LV hypokinesia. This is a new and a different echocardiogram finding as compared to one done in February 2019. Patient requires further work-up for acute drop in LVEF. Infectious causes were ruled out by negative COVID-19. Tick panel is awaited. Patient is a high risk of ischemic cardiomyopathy as well. He is a chronic smoker with history of hypertension and noncompliance with medications. Patient was advised to undergo left heart catheterization but he wants to follow-up as an outpatient with his outpatient equity sales assistant to set up a possible left heart cath. Cardiology was consulted. Patient was also advised for electr ocardioversion for chronic atrial fibrillation. It is believed that his low EF could be because of chronic noncontrolled atrial fibrillation as well. Patient declined the procedure for now and wants to follow-up with Dr. Park as an outpatient. Because of acute drop in EF patient was advised for LifeVest which he declined. Patient is discharged in hemodynamically stable condition after doing the home O2 evaluation. He is been discharged on Lasix 60 mg oral twice daily, amiodarone 400 mg daily for next 7 days, metoprolol 75 mg twice daily. He is advised to follow-up with Dr. Park in 7 days for further adjustment of his amiodarone drip and work-up for ischemic cardiomyopathy. Patient did not require any oxygen after home O2 evaluation. Plan was discussed in detail with patient's and patient. Physical Exam Narrative: EXAM NARRATIVE: General: No acute distress, AO x3 HEENT: PERRLA, pupils bilaterally equal and reactive Chest: Normal vesicular breath sounds, bilateral occasional rhonchi, fine With patient's bilateral lower zone, decreased air entry in the right lower zone CVS: S1-S2 irregularly irregular, pansystolic murmur at apex 2/6 no gallops, no rubs, JVD mildly elevated Abdomen: Soft, nontender, no organomegaly, bowel sounds present Neuro: No focal deficits, no facial deformity, AO x3, power 5/5 in all limbs. Extremity: Left great toe inflamed, localized erythema present Discharge Data Data Completed and Pending: Completed Studies During Hospitalization Category Date Time Status CT chest wo con 7 1250 Routine Cat Scan 11/29/19 12:04 Completed XR chest 1V mohan ble [id number] Routine Exams 11/29/19 09:18 Completed XR chest 1V mohan ble [id number] Stat Exams 11/28/19 08:00 Completed CV echo complete* [id number] Routine Ultrasound 11/28/19 12:41 Completed Pending at discharge Category Date Time Status Sputum Culture an d Gram Stain Reginei ne Lab 12/01/19 08:58 Uncollected Tick Panel Routin e Lab 12/01/19 17:22 Results Labs from last 24 hours 12/04/19 12/02/19 04:48 04:45 Sodium 141 Potassium 4.0 Chloride 106 Carbon Dioxide 24 Anion Gap 15.0 BUN 19 Creatinine 1.0 GFR Calculation Not Reportable Glucose 113 Calculated Osmolal ity 295 Calcium 8.7 Total Bilirubin 0.6 AST 27 ALT 26 Alkaline Phosphata se 49 Total Protein 6.5 L Albumin 3.5 Globulin 3.0 Lyme Ab (Western B lot) <0.90 Vitals: Last Vital Signs Temp 97.6 F 12/04/19 06:57 Pulse 85 12/04/19 06:57 Resp 17 12/04/19 06:57 BP 112/79 12/04/19 06:57 Pulse Ox 90 12/04/19 06:57 Discharge Plan Discharge Patient Disposition: Home Condition: Stable Prescriptions: New Pacerone 200 mg Tablet 400 mg PO DAILY Qty: 15 RF: 0 furosemide 40 mg Tablet 60 mg PO BID@08,16 Qty: 90 RF: 0 aspirin 81 mg Tablet,Delayed Release (Dr/Ec) 81 mg PO DAILY Qty: 30 RF: 0 spironolactone 25 mg Tablet 12.5 mg PO DAILY Qty: 30 RF: 0 metoprolol tartrate 50 mg Tablet 75 mg PO Q12H Qty: 90 RF: 0 Continued apixaban 5 mg tablet 5 mg PO BID RF: 0 ProAir HFA 90 mcg/actuation Hfa Aerosol Inhaler 2 puff INHALATION QID PRN (Reason: Shortness Of Breath) RF: 0 Spiriva Respimat 2.5 mcg/actuation Mist 2 puff INHALATION DAILY RF: 0 Vitamin C 1 tab PO DAILY RF: 0 Vitamin D3 1 tab PO DAILY RF: 0 metoprolol tartrate 25 mg tablet See Rx Instructions .ROUTE .COMPLEX RF: 0 allopurinol 300 mg Tablet 300 mg PO DAILY RF: 0 Discontinued amiodarone 200 mg tablet See Rx Instructions .ROUTE .COMPLEX Qty: 30 RF: 5 furosemide 40 mg tablet 40 mg PO QAM Qty: 90 RF: 1 potassium chloride 10 mEq tablet extended release 10 meq PO DAILY RF: 0 Discharge Orders: Discharge Order (Routine); Ordered 12/04/19 Ordered By: Danis Acevedo Referrals: Claudette Sanchez PA [Primary Care Provider] - 12/09/19 11:15 am (* Your follow up appointment with Dr. Sanchez is on Sunday12/09/2019 at 11:15 ) Everardo Mendez MD [Physician] - 12/24/19 12:45 pm (Right lung nodule, possible bronchoscopy for biopsy. Nodule difficult to assess through CT-guided as per radiology. * Your Pulmonology appointment with Dr. Vanessa Mcgee is Sunday12/24/2019 at 12:45pm.) Katie Park MD [Physician] - 12/11/19 9:15 am (* Your Cardiology follow up appointment is with Nurse Practitioner Sangeeta Mcbride on 12/11/2019 at 9:15am. ) Discharge Diet: Cardiac and Low Salt Discharge Activity: Resume usual activity Patient Instructions: Metoprolol (By mouth), Spironolactone (By mouth), Furosemide (By mouth), Aspirin (By mouth), Amiodarone (By mouth), Congestive Heart Failure, Low Sodium Diet (DC), CHF Stoplight Activity Restrictions/Additional Instructions: Please maintain fluid restriction up to 1500 cc. Please follow-up with cardiology within next 1 week. You will be on amiodarone 4 mg for next 7 to 10 days. Dose will be changed as per Dr. Park. Please follow-up with your primary care provider within next 1 week. You need to have repeat CT scan to evaluate for the lung nodule and pleural effusion within next 3 months. Please follow-up with Dr. Mendez from pulmonology in next 1 month. Discharge Date/Time: 12/04/19 12:07 Discharge Attestations Time Spent in Discharge Care*: greater than 30 min Specific Discharge Activities: Specific discharge activities: educating patient, educating and/or supporting family/caregiver, discussing with pcp/other providers, discussing with wrapper caser/social workers/dc planners, documenting/other paperwork and evaluating patient/reviewing data Status at Discharge: Cognitive status at discharge: cognitively intact , Behavioral status at discharge: cooperative , Functional status at discharge: independent ambulation Overall status at discharge: patient is progressing back to baseline Quality Metrics Clinical Quality Measures During this hospital stay, did patient experience: None Coding Level of Care Code Acute [employer] for Chg Fwd Diagnoses LV dysfunction I51.9 Atrial fibrillation I48.19 Atrial fibrillation type: persistent (not longstanding) Congestive heart failure with LV diastolic dysfunction, NYHA class 4 I50.30 HTN (hypertension) I10 Hypertension type: essential hypertension Lung nodule < 6cm on CT R91.1
[2019-12-04] MEDS: FUROsemide 40 mg Tablet PO (08:52)
[2019-12-04] MEDS: allopurinol 300 mg Tablet PO (08:52)
[2019-12-04] MEDS: amiodarone 200 mg Tablet 400 MG PO (08:52)
[2019-12-04] MEDS: potassium chloride ER 10 mEq Tablet 20 MEQ PO (08:52)
[2019-12-04] MEDS: aspirin 81 mg EC Tablet PO (08:52)
[2019-12-04] MEDS: apixaban 5 mg Tablet PO (08:52)
[2019-12-04] MEDS: spironolactone 25 mg Tablet 12.5 MG PO (08:52)
[2019-12-04] MEDS: colchicine 0.6 mg Tablet PO (08:52)
[2019-12-04] MEDS: fluticasone nasal spray 16gm Btl 1 SPRAY NASAL (08:53)
--- NOTE | 2019-12-04 12:03 | PC.NURSE ---
Patient discharged home at this time patient provided discharge instructions and educated on reportable s/s. patient provided with all appointments for follow up care as well as new medications at bedside. patient assisted to wheel chair with all belonging and discharge instructions in hand. patient accompanied by staff to private vehicle by staff.
--- NOTE | 2019-12-04 19:24 | PM.PN ---
Subjective Subjective: Interval history: Patient was kept overnight heart rate is stable he is rate controlled feeling better switch to p.o. Anahi would like to go home. Vitals/I&O/Wt Last Vital Signs Temp 97.6 F 12/04/19 09:45 Pulse 85 12/04/19 09:45 Resp 17 12/04/19 09:45 BP 112/79 12/04/19 09:45 Pulse Ox 90 12/04/19 09:45 12/04/19 12/04/19 12/04/19 06:59 14:59 22:59 Intake Total 150 / 995 240 / 240 Output Total 350 / 1100 Balance -200 / -105 240 / 240 Weight last 48 hrs Weight 219 lb 1.6 oz Weight 218 lb 12.8 oz Physical Exam Narrative: EXAM NARRATIVE: GENERAL: Patient is alert, awake and oriented x3. NECK: No jugular vein distension. HEENT: No cyanosis. No icterus. No pallor. HEART: Regularly irregular S1 and S2. No murmur, rub or gallop. LUNGS: Clear to auscultate bilaterally. ABDOMEN: Soft, nontender and nondistended. Positive bowel sounds. No guarding, rebound or tenderness. CENTRAL NERVOUS SYSTEM: Grossly nonfocal. EXTREMITIES: Lower extremities without edema bilaterally. Data : 12/03/19 03:40 12/04/19 04:48 A&P Assessment and plan (1) LV dysfunction: Patient is going to follow-up with Dr. Park as an outpatient according to him he would like to go ahead with left heart cath but after 2 to 3 weeks. I will be out of my office over next couple of weeks. Advised patient to follow-up with Dr. Park, if he wishes and agrees we may will proceed with it. Patient declined LifeVest. I have in detail explained all risk benefit and alternative for it. I have explained risk of arrhythmia and sudden cardiac patient says he does not like to even wear CPAP he does not think he will tolerate LifeVest. Patient is on amiodarone for atrial fibrillation which will may also prevent some of the arrhythmia though there is no data in favor of it. Status: Acute (2) Atrial fibrillation: Rate controlled on anticoagulation continue to follow with Dr. Park Status: Acute Qualifiers: Atrial fibrillation type: persistent (not longstanding) Qualified Code(s): I48.19 - Other persistent atrial fibrillation (3) Congestive heart failure with LV diastolic dysfunction, NYHA class 4: Switch to p.o. Lasix. Continue to optimize as an outpatient. Continue beta-grabiel JENNIFER inhibitor. 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
[2019-12-05 17:02] LABS: E. Chaffeensis AB IGG <1:64; E. Chaffeensis AB IGM <1:20
[2019-12-05 18:01] LABS: RMSF IGG NOT DETECTED; RMSF IGM NOT DETECTED
== END 2019-12-04 12:07 | disposition home or self-care (01) | DRG 308 ==
LOC: ER 11:04 → CSU 19:55
PROVIDERS: Family Medicine; Internal Medicine; Admitting Provider Family Medicine; Family Provider Physician Assistant; PCP Physician Assistant; Visit Provider Student in an Organized Health Care Education/Training Program
DX: I48.19 Other persistent atrial fibrillation (principal); I50.23 Acute on chronic systolic (congestive) heart failure; I50.1 Left ventricular failure, unspecified; T46.2X6A Underdosing of other antidysrhythmic drugs, initial encounter; I11.0 Hypertensive heart disease with heart failure; R53.82 Chronic fatigue, unspecified; G47.33 Obstructive sleep apnea (adult) (pediatric); Z91.19 Patient's noncompliance with other medical treatment and regimen; M19.032 Primary osteoarthritis, left wrist; F17.210 Nicotine dependence, cigarettes, uncomplicated; Z66 Do not resuscitate; R06.2 Wheezing; R91.8 Other nonspecific abnormal finding of lung field; I42.8 Other cardiomyopathies
CPT/HCPCS: 12345; 36415; 36600; 71045; 71250; 80053; 80061; 80162; 82550; 82607; 82728; 82746; 82803; 83036; 83615; 83735; 83880; 84100; 84145; 84484; 85025; 85378; 85384; 85610; 86140; 86618; 86666; 86757; 87426; 87635; 87641; 93005; 93306; 94640; 94664; 96372; 96375; 99284; J0282; J1160; J1650; J1940; J3475; J3490; J3535; J7030; J7060

== ENCOUNTER → 2020-01-01 09:11 | Outpatient (BNVA) | payer MEDICARE, OTHER, SELFPAY | PROVIDERS: Family Provider Physician Assistant; PCP Physician Assistant; Visit Provider Internal Medicine Cardiovascular Disease | DX: I50.20 Unspecified systolic (congestive) heart failure (principal) | CPT/HCPCS: 80048; 83735; 83880 ==

== ENCOUNTER → 2020-01-02 09:12 | Outpatient (BNVA) | payer MEDICARE, OTHER, SELFPAY | PROVIDERS: Family Provider Physician Assistant; PCP Physician Assistant; Visit Provider Internal Medicine Critical Care Medicine | DX: Z11.59 Encounter for screening for other viral diseases (principal); J44.9 Chronic obstructive pulmonary disease, unspecified | CPT/HCPCS: 87635 ==

== ENCOUNTER 2020-01-07 07:54 | Outpatient (CLI) | payer MEDICARE, OTHER, SELFPAY ==
--- NOTE | 2020-01-07 12:20 | PFTS_ITS ---
Date of Study:01/07/20 Date of Dictation: MECHANICS: Forced vital capacity (FVC) is normal. Forced expiratory volume in one second (FEV1) is normal. FEV1/FVC is reduced. FLOW VOLUME LOOP: Reduced flow at all lung volumes with mild scooping. LUNG VOLUMES: Total lung capacity (TLC) is normal. Residual volume (RV) is normal. DIFFUSING CAPACITY FOR CARBON MONOXIDE: Mild reduced. INTERPRETATION: The pulmonary function tests are consistent with mild airflow obstruction. The lung volumes are normal. Gas exchange (DLCO) is mildly reduced. MTDD
== END 2020-01-07 07:55 | disposition home or self-care (01) ==
LOC: RT 07:55
PROVIDERS: PCP Physician Assistant; Visit Provider Internal Medicine Critical Care Medicine
DX: R91.1 Solitary pulmonary nodule (principal)
CPT/HCPCS: 94010; 94726; 94729

== ENCOUNTER 2020-01-12 11:09 | Outpatient (CLI) | payer MEDICARE, OTHER, SELFPAY ==
[2020-01-12 12:27] LABS: NT Pro B Type Natriuretic Pept 60 pg/mL (0-125)
== END 2020-01-12 11:10 | disposition home or self-care (01) ==
LOC: LAB 11:13
PROVIDERS: PCP Physician Assistant; Visit Provider Internal Medicine Cardiovascular Disease
DX: I50.9 Heart failure, unspecified (principal)
CPT/HCPCS: 36415; 83880; 87635

== ENCOUNTER 2020-01-19 12:05 | Observation (INO) | payer MEDICARE, OTHER, SELFPAY ==
[2020-01-14 13:21] VITALS: BMI 30.7
[2020-01-15 09:53] VITALS: BP 136/84; PULSE 66; RESP 16; TEMP 36.5; O2SAT 98
[2020-01-19] VITALS (23 sets, daily range): BP systolic 125–160; BP diastolic 71–98; PULSE 49–71; RESP 5–21; TEMP 35.9–36.3; O2SAT 93–99
--- NOTE | 2020-01-19 09:00 | XACV_ITS ---
Ht: 180 cm Wt: 100 kg BSA: 2.26 m2 Gender: Male : 1945 Any Known Allergies: No known allergies Exam Priority: Routine Procedure(s): Procedure Description: Diagnostic procedure Diagnostic Cath Status: Elective Diagnostic Findings * LM has 0% stenosis. * LAD has 0% stenosis. * CX has 0% stenosis. * mRCA to dRCA: Mild 20% stenosis, VIVI: 3 flow. * Coronary angiography shows right dominance. Conclusions 1. There is mild coronary artery disease with one vessel disease. 2. Mild left ventricular systolic dysfunction. Ejection fraction of 45%. Recommendations * Continue current medical management and risk factor modification. Diagnostic RX Recommendation: medical therapy and/or counseling Ventriculography Ejection Fraction: 45.0 % Pressures Phase:Rest AO : 111 / 61 ( 80 ) @ 5:28:00 AM 95 / 67 ( 81 ) @ 5:29:00 AM 140 / 60 ( 92 ) @ 5:41:00 AM LV : 132 / 0 / @ 5:39:00 AM 151 / 3 / @ 5:40:00 AM Clinical Evaluation EBL: 5mL-10mL Procedural Details Procedure Consent Obtained. Current Diagnosis : Chest Pain. Pre-Procedure Time Out. Identified patient by full name and date of as verbalized by the patient/guarantor. Does the consent match the physician's order: Yes. Accurate & Complete Informed Consent: Yes. Inpatient/Outpatient History & Physical on Chart: Yes. If H&P is completed, is and addenduem needed: Yes; If yes, is the addendum complete: N/A. Visualize and Verify Site with Patient/Guarantor: N/A. Relevant Radiology Images available: Yes. The risks, benefits, and alternatives of sedation and/or procedure were discussed by physician. The patient agrees to continue. Procedure started. [facility] Clinical Fraility Score: 3: Managing Well. Advertising Supervisor Indications: Suspected CAD. Chest Pain Symptom Assessment: Typical Angina Symptoms. Correct patient, site and procedure confirmed by cath team. Current diagnosis: Chest Pain. PERRLA. 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 Lungs clear x 5 lobes. IV Site on Arrival: 20 gauge in the left anticubital. IV Fluids: 0.9% NaCl at KVO. 0 mL infused prior to label paster. Pre Procedural Pulses: bilateral dorsalis pedis was 3+. Pre Procedural Pulses: bilateral posterior tibial was 2+. Pre Procedural Pulses: right radial was 3+. Oxygen started at 2liters/min via nasal canula. right groin was prepped with chloroprep then draped in the usual sterile fashion. right radial was prepped with chloroprep then draped in the usual sterile fashion. Physician notified. Baseline sample Acquired. HR: 63 BPM. Patient's family unavailable. Physician arrived. Physician scrubbed in. Immediate Pre-Procedure Time Out. Correct Patient: Yes; Correct Procedure: Yes; Correct Site: Yes; Correct Patient Position: Yes; Correct Supplies: Yes; Dried Flammable Prep: Yes; Blood Products Available: N/A;. Lidocaine 1% infiltrated to the right radial. Arterial access obtained. A 5 dominican TIG catheter in over wire. Multiple views taken of left coronary artery. Catheter redirected to the RCA. Multiple views taken of right coronary artery. Catheter removed over the exchange wire. A 5 dominican Angled Pig catheter in over wire. EDP Sample taken: LV 132/0,16; HR: 56 BPM; SpO2: 97%. LV gram performed in AYALA @ 10 mL/second for a total of 30 mL. EDP Sample taken: LV 151/3,22; HR: 60 BPM; SpO2: 97%. Pullback taken: LV Off; AO Off; Mean: , Peak to Peak: , SEP: ; HR: 59 BPM; SpO2: 96%. Catheter removed over the exchange wire. Physician scrubbed out. Physician review of cine films. A TR Band was successful obtaining hemostatsis at the Right Radial artery insertion site. TR band placed. Hemostasis obtained. Post Procedure: Pulses reassessed and unchanged. PERRLA. 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 No VTE prophylaxis required. Total IV fluids: 49.2 mL. Contrast type used: Visipaque 320 mgI/mL, 500 mL bottle. Post-op diagnosis: Normal Coronaries. Complications: None. Estimated blood loss: 5mL-10mL. Procedure completed. Medication's Wasted: Lidocaine 1% = 18 mL. Medication's Wasted: Nitro = 49.8 mcg. Medication's Wasted: Heparin = 1000 units. Patient transferred by wheelchair to 1st floor. Vital chart was stopped. Access Site Site: Right Radial artery Sheath Size: 6 Fr Hemostasis Method: TR Band Hemostasis Success: Successful Procedure Medications Start: 11:10 AM Stop: 11:10 AM Medication: Versed Amount: 1 mg Route: I.V. Start: 11:10 AM Stop: 11:10 AM Medication: Fentanyl Amount: 50 mcg Route: I.V. Start: 11:12 AM Stop: 11:12 AM Medication: Versed Amount: 1 mg Route: I.V. Start: 11:12 AM Stop: 11:12 AM Medication: Fentanyl Amount: 50 mcg Route: I.V. Start: 11:16 AM Stop: 11:16 AM Medication: Versed Amount: 1 mg Route: I.V. Start: 11:16 AM Stop: 11:16 AM Medication: Fentanyl Amount: 50 mcg Route: I.V. Start: 11:25 AM Stop: 11:25 AM Medication: Nitrogylcerin Amount: 200 mcg Route: I.A. Start: 11: AM Stop: : AM Medication: Heparin Amount: 5000 units Route: I.V. Start: 11:35 AM Stop: :35 AM Medication: Versed Amount: 1 mg Route: I.V. Start: : AM Stop: : AM Medication: Fentanyl Amount: 50 mcg Route: I.V. I, the attending physician, have reviewed and verified all procedure medications. Yes, all medications given per verbal order History/Risk Factors Hypertension: Yes Dyslipidemia: No Peripheral Arterial Disease (PAD): No Myocardial Infarction (AL): No Obesity: No Renal Disease: No Tobacco Use: Current/Recent(w/in 1 year) Prior Interventions PCI: No CABG: No Valve Surgery: No Report Signatures Finalized by Mirtha Garces MD on 01/31/2020 07:04 PM
[2020-01-19] MEDS: diphenhydrAMINE 50 mg Capsule PO (09:12)
[2020-01-19 10:01] LABS: Basophils % 0.3 %; Eosinophils # 0.1 10^3/uL (0.0-0.8); Eosinophils % 1.1 %; Hematocrit 44.8 % (42.0-52.0); Hemoglobin 15.2 g/dL (11.7-16.6); Lymphocytes # 1.3 10^3/uL (0.8-4.8); Lymphocytes % 19.3 %; Mean Corpuscular HGB Conc 33.9 g/dL (30.0-36.0); Mean Corpuscular Hemoglobin 34.5 pg (28.0-34.0); Mean Corpuscular Volume 101.8 fL (80-94); Mean Platelet Volume 11.5 fL (7.4-10.4); Monocytes # 0.9 10^3/uL (0.2-0.9); Monocytes % 12.8 %; Neutrophils # 4.38 10^3/uL (1.8-7.7); Neutrophils % 66.2 %; Nucleated Red Blood Cells % 0 %; Platelet Count 148 10^3/cmm (130-400); Red Cell Distribution Width 14.2 % (12.1-15.1); White Blood Count 6.6 10^3/uL (4.0-10.0)
[2020-01-19 10:13] LABS: Anion Gap 15.4 (5-19); Blood Urea Nitrogen 22 mg/dL (8-23); Carbon Dioxide 24 mmol/L (22-29); Chloride 102 mmol/L (98-107); Creatinine Clr Calc Pharmacy 79.1866; Glucose 105 mg/dL (65-115); Osmolality Calculated 288 mOsm/kg (285-295); Potassium 4.4 mmol/L (3.5-5.1); Sodium 137 mmol/L (136-145)
--- NOTE | 2020-01-19 11:16 | W.PM.OPSUD ---
Surgery/Procedure H&P Update DATE OF PROCEDURE: January 19, 2020 DATE H&P PERFORMED: 12/25/19 H&P UPDATE INFORMATION: I have reviewed H&P completed within last 30 days, I have examined patient prior to procedure and No changes to prior documentation PREOP DIAGNOSIS: Worsening of LV function, severely depressed LV function, new onset chf PLANNED PROCEDURE: Operation Date: 01/19/20 09:50 Proposed Procedures p left Cardiac Catheterization 14820 I50.20(Left) - Mirtha Garces MD PATIENT REASSESSED PRIOR TO SEDATION, WITH NO CHANGE NOTED: Yes PHYSICAL EXAM: alert, oriented x 3, clear to auscultation bilaterally and regular rate & rhythm AIRWAY EVAL/ANESTHESIA PLAN: ASA II, Risks, benefits & alternatives of sedation and/or procedure discussed and Patient agrees to continue as planned
--- NOTE | 2020-01-19 17:50 | PC.NURSE ---
Pt discharged home. Discharge education provided; all questions answered. IV removed. Right radial puncture site WNL with dry dressing in place. VSS; no s/s distress. Pt denied any needs or concerns at time of discharge. He verbalized understanding to keep his upcoming appointments with Dr. Park and Dr. Edward. Pt was escorted to hospital entrance and into private vehicle, where was waiting. All personal belongings sent with pt.
--- NOTE | 2020-01-21 17:42 | PC.RESP ---
Pulmonary Rehab information sent to patient.
== END 2020-01-19 17:15 | disposition home or self-care (01) ==
LOC: CSU 12:17
PROVIDERS: Admitting Provider Internal Medicine Cardiovascular Disease; PCP Physician Assistant; Visit Provider Internal Medicine Cardiovascular Disease
DX: I50.20 Unspecified systolic (congestive) heart failure (principal); I25.10 Atherosclerotic heart disease of native coronary artery without angina pectoris; I48.0 Paroxysmal atrial fibrillation; I11.0 Hypertensive heart disease with heart failure; G47.33 Obstructive sleep apnea (adult) (pediatric); Z79.82 Long term (current) use of aspirin; Z87.891 Personal history of nicotine dependence
CPT/HCPCS: 12345; 36415; 80048; 85025; 93452; C1769; C1887; C1894; G0378; J1644; J2250; J3010; J3490; Q0163; Q9967

== ENCOUNTER → 2020-01-23 10:10 | Outpatient (BNVA) | payer MEDICARE, OTHER, SELFPAY | PROVIDERS: PCP Physician Assistant; Visit Provider Nurse Practitioner Family | DX: I50.20 Unspecified systolic (congestive) heart failure (principal) | CPT/HCPCS: 80048 ==

== ENCOUNTER 2020-02-04 11:17 | Outpatient (CLI) | payer MEDICARE, OTHER, SELFPAY ==
[2020-02-04 12:09] LABS: Anion Gap 16.4 (5-19); Blood Urea Nitrogen 33 mg/dL (8-23); Calcium 9.4 mg/dL (8.5-10.5); Carbon Dioxide 23 mmol/L (22-29); Chloride 103 mmol/L (98-107); Glucose 96 mg/dL (65-115); Magnesium 1.9 mg/dL (1.7-2.3); Osmolality Calculated 293 mOsm/kg (285-295); Potassium 4.4 mmol/L (3.5-5.1); Sodium 138 mmol/L (136-145)
== END 2020-02-04 11:18 | disposition home or self-care (01) ==
LOC: LAB 11:20
PROVIDERS: PCP Physician Assistant; Visit Provider Thoracic Surgery (Cardiothoracic Vascular Surgery)
DX: R91.1 Solitary pulmonary nodule (principal)
CPT/HCPCS: 36415; 80048; 83735; 87635

== ENCOUNTER 2020-02-09 13:39 | Inpatient (IN) | payer MEDICARE, OTHER, SELFPAY ==
[2020-02-05 09:48] VITALS: BMI 30.7
--- NOTE | 2020-02-05 10:31 | ANES.PREANE2 ---
Pre-Anesthetic Assessment Pre-Anesthetic Assessment: Height/Weight: Height 1.8 m Weight 99.79 kg Preop Diagnosis: Right upper lobectomy Proposed Procedure: Operation Date: 02/09/20 12:10 Proposed Procedures p Right Upper Lobectomy(Right) - Matti Edward MD Familial anesthetic complications: None Social: Social History: Alcohol (occassional) Comment: former smoker Exam: Pre-Anes Outpt Exam: alert, oriented x 3, clear to auscultation bilaterally and regular rate & rhythm Airway: MP: 3 Dentition: Full Pulmonary: Pulmonary: Sleep apnea Comments: R lung mass, pleural effusion CV/HEM: CV/HEM: Afib, Arrythmia, CHF and HTN Comments: states he's able to achieve > 4 METS Anesthetic Plan: ASA status: 4 Anesthesia: General and Regional (specify below) Risk of > 500 ml blood loss (7ml/kg in children): Yes, adequate IV access and fluids planned PFSH Anesthesia PFSH: Medical History Atrial fibrillation CHF (congestive heart failure) Chronic fatigue 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 HTN (hypertension) Obstructive sleep apnea Family History Denies family history of Diabetes Stroke Social History Smoking and tobacco status: former smoker Quit status (tobacco): has quit using tobacco Year quit tobacco: 2019 - 1PPD x 50 Years Alcohol intake: current Alcohol intake frequency: 0-2 Drinks per Day Lives independently: Yes Household members: spouse Marital status: Current occupational status: retired History of recent travel: No Current gender identity: Male Data Anesthesia Cardiac Studies: No Data to Display
[2020-02-05 15:59] LABS: Basophils % 0.6 %; Eosinophils # 0.1 10^3/uL (0.0-0.8); Eosinophils % 1.4 %; Hematocrit 45.8 % (42.0-52.0); Hemoglobin 15.7 g/dL (11.7-16.6); Lymphocytes # 1.6 10^3/uL (0.8-4.8); Lymphocytes % 22.5 %; Mean Corpuscular HGB Conc 34.3 g/dL (30.0-36.0); Mean Corpuscular Hemoglobin 34.6 pg (28.0-34.0); Mean Corpuscular Volume 100.9 fL (80-94); Mean Platelet Volume 11.8 fL (7.4-10.4); Monocytes # 0.8 10^3/uL (0.2-0.9); Monocytes % 11.5 %; Neutrophils # 4.43 10^3/uL (1.8-7.7); Neutrophils % 63.6 %; Nucleated Red Blood Cells % 0 %; Platelet Count 208 10^3/cmm (130-400); Red Blood Count 4.54 10^6/uL (4.1-5.3)
[2020-02-05 16:21] LABS: Alanine Aminotransferase 25 U/L (0-41); Albumin Level 4.2 g/dL (3.5-5.2); Alkaline Phosphatase 64 IU/L (40-130); Aspartate Amino Transferase 29 U/L (0-40); Blood Urea Nitrogen 25 mg/dL (8-23); Calcium 9.5 mg/dL (8.5-10.5); Carbon Dioxide 22 mmol/L (22-29); Chloride 102 mmol/L (98-107); Globulin 3.7 g/dL (1.3-4.6); Glucose 87 mg/dL (65-115); Osmolality Calculated 288 mOsm/kg (285-295); Sodium 137 mmol/L (136-145); Total Bilirubin 0.3 mg/dL (0.15-1.2); Total Protein 7.9 g/dL (6.6-8.7)
[2020-02-05 16:27] LABS: Anion Gap 17.5 (5-19); Potassium 4.5 mmol/L (3.5-5.1)
[2020-02-06 09:02] LABS: Add Urine Microscopic? NO
[2020-02-06 10:04] LABS: Bilirubin Urine Neg (Negative); Blood Urine Neg (Negative); Glucose Urine UA Norm (Normal); Ketones Urine Negative (Negative); Leukocyte Esterase Urine Negative (Negative); Nitrate Urine Negative (Negative); Protein Urine Neg (Negative); Specific Gravity, Urine 1.015 (1.005-1.030); Urine Appearance Clear (CLEAR); Urine Color Yellow (Yellow); Urobilinogen Urine Norm (Negative)
[2020-02-09] VITALS (37 sets, daily range): BP systolic 122–156; BP diastolic 64–87; PULSE 51–62; RESP 14–25; TEMP 36.2; O2SAT 95–99
--- NOTE | 2020-02-09 06:47 | P.ANES_ITS ---
Anesthesia Procedures Procedure/Date: 02/09/20 Epidural: Time Out Performed: Yes Consents Signed: Procedure Consent Consent: requested by attending/covering physician, from patient, risks and benefits reviewed and patient agrees to proceed Thoracic Level: other (T6-7) Epidural position: sitting Epidural procedure: sterile prep of area, 1% lid ocaine to numb the area, 18 g needle, negative for paresthesia passed, neg for paresthesia, test dose given, 1.5% xylocaine 1:200k epi (3 cc), placed PCEA, no systemic response, sterile dressing applied and L.U.D. no apparent complications
--- NOTE | 2020-02-09 09:57 | XR_ITS ---
WS: [id number] XR chest 1V portable [id number] REASON FOR EXAM: For planned right upper lobectomy with recurrent right pleur FINDINGS: Moderately tortuous thoracic aorta. The heart is mildly enlarged. Compared to the previous examination of 11/29/2019 the infiltrative changes in the lower lung lucio(p robable pulmonary edema) have resolved. No acute pulmonary parenchymal pleural findings are noted. No pleural effusion identified. Vague density seen in the right lateral upper lung field between the fourth and fifth ribs likely rep resents the small intrapulmonary mass demonstrated on CT scan of 11/29/2019. XR/XR chest 1V portable [id number] IMPRESSION: Cardiomegaly and presumed congestive heart failure resolved. Vague density in r ight upper lung field likely representing small intrapulmonary mass demonstrate d on previous CT scan.
[2020-02-09] MEDS: sodium chloride 0.9% 1,000 ML 30 ML IV (11:00)
--- NOTE | 2020-02-09 11:45 | P.ANESUD_ITS ---
Pre-Anesthetic Update Pre-Anesthetic Assessment: Date of Surgery/Procedure: 02/09/20 Preop Trista gnosis: Right upper lobectomy Proposed Procedure: Operation Date: 02/09/20 12:10 Proposed Procedures p Right Upper Lobectomy(Right) - Matti Edward MD Any changes to Pre-Anesthetic Assessment?: No Last Intake: Intake Last Liquid Date 02/08/20 Last Liquid Time 23:00 Last Solid Date 02/08/20 Last Solid Time 18:00 Vitals: Temperature 97.2 F L 02/09/20 10:09 Temperature Source Temporal Artery S can 02/09/20 10:09 Respiratory Rate 18 02/09/20 10:09 Blood Pressure 156/87 02/09/20 10:09 Blood Pressure Nasrin n 110 02/09/20 10:09 Oxygen Delivery Me thod 02/09/20 10:09 Exam: Pre-Anes Outpt Exam: alert, oriented x 3, clear to auscultation bilaterally and regular rate & rhythm Cardiac Studies: No Data to Display
--- NOTE | 2020-02-09 14:16 | P.HP_ITS ---
Providers/Chief Complaint Admitting Physician: Matti Edward MD Primary Care Provider: Claudette Sanchez Chief Complaint: REQ'D INPT [facility] [place] History of Present Illness Jet Blackman is a 74 year old male who presents today for planned removal of a 2 cm right upper lobe lung nodule which has increased activity on PET scan. He was referred to our service by Dr. Mendez. He has atrial fibrillation and nonischemic cardiomyopathy with an ejection fraction reported between 25 and 40% . He underwent left heart catheterization recently by Dr. Garces which revealed no obstructive coronary disease. He was hospitalized in late November for atrial fibrillation with RVR and CHF exacerbation and responded well medically. He has been carefully evaluated by Dr. Mendez from pulmonary medicine and is undergone PFTs revealing adequate function. He has a long history of tobacco use stopping only a few months ago. Dr. Mendez is quite concerned related to the increased activity on PET scan and his tobacco history that this right upper lobe lesion is malignancy. Given his cardiomyopathy and comorbidities, it is our intention to assess for possible VATS and segmentectomy versus formal lo bectomy. Review of Systems Const: Denies: fever(s), chills, change in appetite, change in weight, fatigue or night sweats Eyes: Denies: change in vision or blurry vision ENMT: Denies: odynophagia or hoarseness Card: Reports: palpitations, irregular heart rhythm (Chronic atrial fibrillation) and dyspnea on exertion; Denies: chest pain, edema or orthopnea Resp: Reports: dyspnea; Denies: productive cough or hemoptysis GI: Denies: abdominal pain, nausea, vomiting, dysphagia, heartburn or change in bowel habits : Denies: difficulty urinating, dysuria, urinary frequency, urinary urgency or urinary hesitancy Musc: Denies: extremity pain or extremity swelling Skin/Breast: Denies: rash Neuro: Denies: headache(s), numbness in extremities, weakness in extremities or sensory changes Psych: Denies: anxiety, depression or change in appetite Endo: Denies: polyuria, polydipsia or cold intolerance Benjamin/Lymph: Denies: easy bruising, easy bleeding, petechiae or enlarged lymph nodes Medications/Allergies Home Medications Medication Instructions Recorded Confirmed Last Taken Type apixaban 5 mg tablet 5 mg PO BID 04/21/19 02/09/20 02/05/20 History Spiriva Respimat 2 puff INHALATION DAILY 11/28/19 02/09/20 02/09/20 History allopurinol 300 mg PO DAILY 11/29/19 02/09/20 02/08/20 History nitroglycerin 0.4 mg sublingual 0.4 mg SUBLINGUAL Q5M PRN #30 tab 12/11/19 02/09/20 Unknown Rx tablet amiodarone 200 mg tablet 200 mg PO DAILY #90 tab 12/25/19 02/09/20 02/09/20 Rx furosemide 20 mg PO BID 01/14/20 02/09/20 02/08/20 History metoprolol succinate 25 mg PO BID 01/14/20 02/09/20 02/09/20 History spironolactone 37.5 mg PO DAILY 01/14/20 02/09/20 02/09/20 History ascorbic acid (vitamin C) [Vitamin 1 cap PO DAILY 02/05/20 02/09/20 02/08/20 History C] cholecalciferol (vitamin D3) 25 mcg PO DAILY 02/05/20 02/09/20 02/08/20 History [Vitamin D3] levalbuterol tartrate [Xopenex HFA] 2 inh INHALATION Q6H 02/09/20 02/09/20 02/09/20 History Allergies Allergy/AdvReac Type Severity Reaction Status Date / Time No Known Allergies Allergy Verified 02/05/20 09:38 PFSH Acute PFSH: Medical History Atrial fibrillation CHF (congestive heart failure) Chronic fatigue 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 HTN (hypertension) Obstructive sleep apnea Family History Denies family history of Diabetes Stroke Social History Smoking and tobacco status: former smoker Quit status (tobacco): has quit using tobacco Year quit tobacco: 2019 - 1PPD x 50 Years Alcohol intake: current Alcohol intake frequency: 0-2 Drinks per Day Lives independently: Yes Household members: spouse Marital status: Current occupational status: retired History of recent travel: No Current gender identity: Male Vitals/I&O/Wt Last Vital Signs Temp 97.2 F L 02/09/20 10:09 Resp 18 02/09/20 10:09 BP 156/87 02/09/20 10:09 Physical Exam Const: COMMON NORMALS: patient oriented x3 and alert ORIENTATION/CONSCIOUSNESS: Yes oriented to person, Yes oriented to place and Yes oriented to time HENMT: COMMON NORMALS: normocephalic HEAD & SCALP: normocephalic Neck/C-Spine: COMMON NORMALS: full ROM, supple, no JVD and No carotid bruits GENERAL: Yes trachea midline CERVICAL SPINE: Yes cervical ROM normal Chest: COMMONS NORMALS: normal inspection of the chest and normal palpation of entire chest wall Resp: COMMON NORMALS: normal respiratory effort, No use of accessory muscles, clear to auscultation bilaterally and percussion normal EFFORT & INSPECTION: Yes able to speak in complete sentences and Yes symmetric chest movement AUSCULTATION: clear to auscultation bilaterally PERCUSSION: percussion normal Cardio: COMMON NORMALS: no JVD, regular rate, S1 normal heart sound present, S2 normal heart sound present, No gallops present (Cardio), No murmurs present (Cardio), No rub (Cardio) and Peripheral pulses 2+ throughout; negative for regular rhythm JUGULAR VENOUS DISTENTION: no JVD RATE: regular rate RHYTHM: abnormal rhythm and abnormal rhythm irregularly irregular HEART SOUNDS: S1 normal heart sound present and S2 normal heart sound present PERIPHERAL PULSES: Peripheral pulses 2+ throughout Neuro: COMMON NORMALS: patient oriented x3, no focal motor deficits and no sensory deficits noted SENSORIUM/ORIENTATION: Yes alert, Yes oriented to person, Yes oriented to place and Yes oriented to time GAIT: Yes Normal gait present Data : 02/05/20 10:00 02/05/20 10:00 A&P Assessment and plan (1) Pulmonary nodule: Rationale for surgical removal was carefully and frankly discussed with the patient and his . Details and risks of the procedure were carefully and frankly discussed. Risks reviewed include the possibility of , stroke, heart attack, major bleeding, infection, pneumonia, pneumothorax, prolonged need for chest tube, organ failure, failure to benefit, prolonged hospital stay, pain after the procedure, need for further procedures, inability to complete the procedure, and possible need for long-term followup. All questions were answered. Appropriate consents have been provided for review and signature. The increased risk related to his comorbidities and cardiomyopathy were very frankly discussed. He and his both stated understanding and are aware. Status: Acute Attestations Medical Necessity Statement*: PET positive right upper lobe lung lesion with history of tobacco use and cardiomyopathy Time Spent in Patient Care: Greater than 35 minutes Coding Level of Care Code Acute Patient Relations Coordinator for [facility] Farhat Diagnoses Pulmonary nodule R91.1
[2020-02-09] MEDS: vancomycin 1,000 MG SDV 2000 MG IRRIGATION (15:30)
--- NOTE | 2020-02-09 17:28 | XR_ITS ---
WS: [id number] XR chest 1V portable [id number] REASON FOR EXAM: post op segmentectomy FINDINGS: Multiple surgical tarik overlying the right mid and lateral chest wall obliquely. Right chest tube in place. There is increased lucency of the right hemithorax, especially the costoph renic angle. Increased density superiorly and medially in the right hemithorax. Subcutaneous emphysema in the right lateral chest wall and base of the right neck. XR/XR chest 1V portable [id number] IMPRESSION: Changes in the right hemithorax are likely due to partial pneumonectomy, some a telectasis in the residual lung, and some residual air in the right pleural spa ce. The residual right lung appears fully inflated in this projection.
--- NOTE | 2020-02-09 17:47 | PC.NURSE ---
Flu/pneumonia shots Declined until over current surgery or per provider recommendation.
[2020-02-09] MEDS: oxyCODONE-APAP 5-325 mg Tablet 1 TAB PO (18:02)
[2020-02-09] MEDS: metoprolol succinate ER (24 HR) 25 mg Tablet PO (18:02)
[2020-02-09] MEDS: FUROsemide 20 mg Tablet PO (18:02)
--- NOTE | 2020-02-09 18:37 | P.OP_ITS ---
Operative Report Date of procedure: February 09, 2020 Pre-op Diagnosis: Right upper lobe lung nodule Post-op diagnosis: same Procedure Done: 1. Right upper lobe superior segmentectomy 2. Right middle lobe lateral segmentectomy Specimens removed/disposition: Segment right upper lobe Lateral segment right middle lobe Surgeon: Matti Edward Anesthesia: General Complications: None Condition: stable Disposition: ICU Brief History: 74-year-old gentleman with long history of cardiac history and cardiomyopathy who is being evaluated by Dr. Mendez for COPD and determined to have a right upper lobe nodule approximate 2 cm in size which was determined to have increased activity on PET scan. There is also a lesion of the lateral segment of the right middle lobe which did not have activity. He was also evaluated by Dr. Garces from our cardiology service and determined to have nonobstructive coronary artery disease and nonischemic cardiomyopathy. History of atrial fibrillation, now in sinus rhythm after medical management by Dr. Park. 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 Details the risk of procedure were carefully and frankly discussed and proper consents have been reviewed and signed. Procedure: Mr. Blackman was taken to the operating room theater after a thoracic epidural catheter had been placed by our anesthesia colleagues. He underwent general trach anesthesia and appropriate invasive lines were placed. The double-lumen endotracheal tube was positioned and confirmed by bronchoscopy. He was carefully positioned in the left lateral decubitus position over axillary roll with protective padding and secured. His entire right chest was sterilely prepped and draped. A limited, muscle-sparing, thoracotomy was created on the right side and carried down through subtendinous tissues to the chest wall with the field intercostal space was encountered. Lesion of the right upper lobe was identified, and fortunately was without adhesions. Given his history of arrhythmia and atrial fibrillation with a documented drop in his ejection fraction from 40 to 45% down to 20 to 25% when he is not in sinus rhythm, I elected to limit resection to this lesion in a segmental anatomic fashion in order to reduce manipulation of the hilum and potentiate a possible arrhythmia. The superior segment of the right upper lobe was then isolated and resected utilizing an automatic stapler. Lesion was removed intact. Staple line was hemostatic. We then turned our attention to the lateral segment of the right middle lobe where the other lesion was easily palpable and identified. The lateral segment of the right middle lobe was then removed as well with a stapling device. 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 Following completion of this, the wound was irrigated with large amounts of antibiotic solution. A single 28 Vietnamese drain was placed connected to Pleur-evac suction. The lung was reinflated without any substantial air leak noted. Retractors were removed and sponge needle count was correct x2. Chest wall was reapproximated with #1 Vicryl suture. Fascia was closed in a single layer of running 0 Vicryl suture. Subcutaneous layer was closed with 2-0 Vicryl suture. Skin was reapproximated with surgical tarik. Sterile dressings were applied. Mr. Blackman carefully returned to supine position where he was awakened and extubated. He was then transferred to the ICU in stable condition. I did certified lactation counselor with his at bedside. I have conferred with my colleague Dr. Mendez who will assist with postoperative management as required. Chest x-ray is currently pending.
[2020-02-09] MEDS: morphine 4 mg/mL SDV 1 mL 2 MG IVP ×3 (18:39→22:18)
[2020-02-09] MEDS: ketorolac 30 mg/mL INJ IVP (19:20)
--- NOTE | 2020-02-09 19:30 | PC.NURSE ---
During shift assessment, RN found ropivacaine to be administering via spinal epidural. Patient has quite of bit of c/o pain at this point, and asked for pain medication. RN gave Toradol IVP in efforts to control. Cardiac SR. Some crackles noted to bilateral lungs throughout. 75mL in right chest tube container that has collected since placement of chest tube in OR. Minimal drainage to right chest dressing noted. Epidural site intact. Educated on use of IS, call light, and medications be given. No other needs verbalized at this time.
[2020-02-09] MEDS: ceFAZolin 1,000 MG in sodium chloride 0.9% (plus) 50 ML 100 MG IV (22:18)
[2020-02-10] VITALS (297 sets, daily range): BP systolic 84–176; BP diastolic 55–92; PULSE 50–75; RESP 12–31; TEMP 36.6–36.9; O2SAT 74–100
[2020-02-10] MEDS: ketorolac 30 mg/mL INJ IVP ×2 (01:23→08:00)
[2020-02-10] MEDS: morphine 4 mg/mL SDV 1 mL 2 MG IVP ×4 (03:40→20:34)
[2020-02-10 04:08] LABS: Basophils % 0.2 %; Eosinophils % 0.4 %; Hematocrit 38.8 % (42.0-52.0); Hemoglobin 12.9 g/dL (11.7-16.6); Lymphocytes # 1.2 10^3/uL (0.8-4.8); Lymphocytes % 11.3 %; Mean Corpuscular HGB Conc 33.2 g/dL (30.0-36.0); Mean Corpuscular Hemoglobin 34.2 pg (28.0-34.0); Mean Corpuscular Volume 102.9 fL (80-94); Mean Platelet Volume 11.7 fL (7.4-10.4); Monocytes # 1.3 10^3/uL (0.2-0.9); Neutrophils # 8.02 10^3/uL (1.8-7.7); Neutrophils % 75.9 %; Nucleated Red Blood Cells % 0 %; Platelet Count 148 10^3/cmm (130-400); Red Blood Count 3.77 10^6/uL (4.1-5.3); Red Cell Distribution Width 13.7 % (12.1-15.1); White Blood Count 10.6 10^3/uL (4.0-10.0)
[2020-02-10 04:32] LABS: Anion Gap 15.4 (5-19); Blood Urea Nitrogen 25 mg/dL (8-23); Carbon Dioxide 22 mmol/L (22-29); Chloride 104 mmol/L (98-107); Glucose 128 mg/dL (65-115); Osmolality Calculated 290 mOsm/kg (285-295); Potassium 4.4 mmol/L (3.5-5.1); Sodium 137 mmol/L (136-145)
[2020-02-10] MEDS: ceFAZolin 1,000 MG in sodium chloride 0.9% (plus) 50 ML 100 MG IV ×2 (05:47→14:41)
[2020-02-10] MEDS: oxyCODONE-APAP 5-325 mg Tablet 1 TAB PO ×2 (05:47→14:59)
--- NOTE | 2020-02-10 06:00 | XR_ITS ---
WS: [id number] XR chest 1V portable [id number] REASON FOR EXAM: POD #1 status post right upper lobe segmentectomy FINDINGS: Compared to the last examination on 02/09/2020 there is a larger volume of aerated lung identifiable i n the right hemithorax. The right chest tube remains in position. Air is identifiable in the right pl eural space along the superior lateral margin of the lung lateral to the chest tube. Presumed atelect atic density in the superior medial lung is partially resolved. Subcutaneous emphysema previously described is decreasing. Left lung remains relatively clear. XR/XR chest 1V portable [id number] IMPRESSION: Improving appearance of the right hemithorax with some residual air in the righ t pleural space as above.
--- NOTE | 2020-02-10 06:27 | PC.NURSE ---
Shift Summary: Patient has had multiple episodes of severe pain. Morphine IVP, Toradol IVP, as well as PO Oxycodone have been given in efforts to decrease pain levels. Chest tube remains leak free. SPO2 status remains above 97% throughout entire shift. RN titrated O2 levels down to 2L NC. Patient remains above 97%. Sinus sammi with HR 50's most of shift, with some fluctuations into afib. Chest tube drainage @160mL 350 u/o. Spinal epidural remains MD Teagan rounded early AM and said it best for patient to be up to chair/ambulating today. Decreased u/o relayed to MD. Electronic Console Display Operator and BUN are being watched carefully for urine output.
--- NOTE | 2020-02-10 07:33 | PM.PN ---
Subjective Subjective: Interval history: Stop day #1 status post right upper lobe segmentectomy. Uneventful night. Thoracotomy discomfort is under better control. No airleak. Chest tube output 105 cc since surgery. Chest x-ray with improved aeration to the right side. Vitals/I&O/Wt Last Vital Signs Temp 98.4 F 02/10/20 04:00 Pulse 54 L 02/10/20 06:20 Resp 17 02/10/20 06:20 BP 131/73 02/10/20 06:20 Pulse Ox 99 02/10/20 06:20 02/09/20 02/10/20 02/10/20 22:59 06:59 14:59 Intake Total 2060 / 2060 750 / 2810 Output Total 485 / 485 570 / 1055 Balance 1575 / 1575 180 / 1755 Physical Exam Chest: COMMONS NORMALS: normal inspection of the chest and normal palpation of entire chest wall OTHER: Dressings clean and dry. Chest tube in good position. Resp: COMMON NORMALS: normal respiratory effort, No use of accessory muscles and clear to auscultation bilaterally AUSCULTATION: clear to auscultation bilaterally Cardio: COMMON NORMALS: regular rate (Remains in sinus rhythm), regular rhythm, S1 normal heart sound present, No gallops present (Cardio) and No murmurs present (Cardio) RATE: regular rate (Remains in sinus rhythm) RHYTHM: regular rhythm HEART SOUNDS: S1 normal heart sound present Extremity: COMMON NORMALS: no clubbing, cyanosis or edema Urinary Catheter Management^: Brown: Cath Placed During This Visit: yes Reason for Continuing Indwelling Catheter: Accurate Measurement of Urinary Output in Critically Ill Patients Urinary Catheter Date of Insertion: 02/09/20 Urinary Catheter Time of Insertion: 15:15 Data : 02/10/20 03:20 02/10/20 03:20 A&P Assessment and plan (1) Lung nodule < 6cm on CT: Postop day #1 status post right upper lobe segmentectomy. Pathology pending. Plan: Out of bed in chair. Pulmonary toilet. CBC, BMP, chest x-ray in a.m. Will place chest tube to waterseal this evening. Status: Acute Attestations Medical Necessity Statement*: Postop day #1 status post right upper lobe segmentectomy. Time Spent in Patient Care: 16 - 35 minutes Coding Level of Care Code Acute Grinder And Plater for Chg Fwd Diagnoses Lung nodule < 6cm on CT R91.1
--- NOTE | 2020-02-10 08:22 | PC.CHAP ---
Pastoral Care Encounter/Spiritual Assessment Type of Contact [] Declined health care recruiter visit [] Patient/Family/Request visit [] Outpatient visit [] Follow-up visit [] Physician referral [] Code/Alert [] Routine visit [] Staff referral [] Actively dying [] Patient sleeping [] Family support [] [] Out of room [] Palliative care [] [] Receiving care in room [] Pre-surgical visit [] Trauma [] Long length of stay [] ICU visit [] Other: Relational/Emotional Strength [] Patient feels connected with others/family/visitors/staff [] Distress [] Loneliness/isolation [] Abandonment Spirituality of Patient [] Person of Elis [] Attends Roman Catholic of their Elis [] Believes in Prayer [] Reads Bible or Jehovah'S Witness materials [] There are Spiritual issues to be addressed Manager Employment Interventions [x] Prayer [] Active listening [] Non-anxious presence [] Spiritual/emotional support [] Crisis/trauma care [] Spiritual counseling [] Bereavement support [] Provided bereavement packet [] Provided Bible/devotional materials [] Provided toy/stuffed animal, coloring book to patient or family member [] Provided Communion [] Anointing/[place] [] Salvation [x] Completed spiritual assessment [] Other: Impact on Illness or Injury [] Angry [] Fearful [] Anxious [] Often cries [] Exhaustion [] Unable to work [] Unable to attend hindu [] Unable to walk/stand [] Unable to read [] Unable to drive [] Unable to eat/drink [] Unable to sleep [] Unable to be with family [] Patient intubated [] Other: Summary Time spent with patient
[2020-02-10] MEDS: spironolactone 25 mg Tablet 37.5 MG PO (09:24)
[2020-02-10] MEDS: amiodarone 200 mg Tablet PO (09:25)
[2020-02-10] MEDS: pantoprazole DR 40 mg Tablet PO (09:25)
[2020-02-10] MEDS: allopurinol 300 mg Tablet PO (09:25)
[2020-02-10] MEDS: FUROsemide 20 mg Tablet PO ×2 (09:25→17:56)
--- NOTE | 2020-02-10 09:34 | ANE.PACU2 ---
Inpatient post-anesthesia follow up: Airway intact: Yes Vital signs: Temperature 98.1 F Pulse Rate 58 Respiratory Rate 16 Blood Pressure 121/61 Pulse Oximetry 96 Oxygen Delivery Me thod Room Air Oxygen Flow Rate 2 Fraction of Inspir ed Oxygen Hydration adequate: Yes Nausea and vomiting: No Pain level: 3 Mental status: Baseline Additional Comments: POD 1, reasonably comfortable, c/o of pain in anterior chest with deep breath. Increasing pump to 8mls/hr and 4 demands per hr.
--- NOTE | 2020-02-10 09:41 | PC.RESP ---
PULMONARY REHAB INFORMATION SENT TO PATIENT.
--- NOTE | 2020-02-10 12:55 | PC.NURSE ---
arterial line pulled Art line pulled by nurse at 0830. pressure held for approximately 5 minutes. pressure dressing applied. patient tolerated well.
--- NOTE | 2020-02-10 15:12 | PC.NURSE ---
Telephone order from Physician Call to physician at 1300 and updated on patient urine output. no new orders received. telephone order from to change chest tube into a water seal. This was done by nurse at 1300. patient tolerated well.
--- NOTE | 2020-02-10 15:24 | PM.PN ---
Subjective Subjective: Interval history: Brief history: This is a 74-year-old gentleman that I had evaluated in the office for right upper lobe lung nodule. The patient had 1.3 x 1.6 cm right upper lobe nodule with an SUV of 8.5. The patient underwent right upper lobectomy and today is postop day 1. The patient's pulmonary function test from January of this year is consistent with mild airflow obstruction. His DLCO was 60%. The patient is doing very well. He is complaining of chest pain after mobilizing out of the bed. His pain seems to be fairly well controlled with epidural anesthesia and as needed pain medications. The chest tube remarkably does not have any air leak and is currently off of suction. Chest x-ray obtained this morning revealed good expansion on the right side. The chest tube is in the right place. Medications: Reviewed: Yes Vitals/I&O/Wt Last Vital Signs Temp 97.9 F 02/10/20 14:40 Pulse 60 02/10/20 15:20 Resp 21 H 02/10/20 15:20 BP 130/73 02/10/20 15:20 Pulse Ox 98 02/10/20 15:20 02/10/20 02/10/20 02/10/20 06:59 14:59 22:59 Intake Total 750 / 2810 500 / 500 50 / 550 Output Total 570 / 1055 180 / 180 Balance 180 / 1755 320 / 320 50 / 370 Physical Exam Narrative: EXAM NARRATIVE: General: Patient is awake alert and oriented, in mild distress from pain Neck: No JVD Respiratory: Inspection: Right chest thoracotomy and chest tube in place Palpation: Trachea is midline Percussion: Bilateral tympanic percussion note both anterior and posteriorly Auscultation: Mild reduced breath sound on the right chest, no crackles wheezing or rhonchi Cardiovascular: Regular rate and rhythm, S1-S2 present, no murmur, no peripheral edema. Abdomen: Soft, nontender, nondistended, positive bowel sound Musculoskeletal: No obvious joint deformity Skin: No rash Neuro: Mental status is normal, no gross cranial nerve deficit, normal motor and coordination. Urinary Catheter Management^: Brown: Cath Placed During This Visit: yes Reason for Continuing Indwelling Catheter: Accurate Measurement of Urinary Output in Critically Ill Patients Urinary Catheter Date of Insertion: 02/09/20 Urinary Catheter Time of Insertion: 15:15 Data : 02/10/20 03:20 02/10/20 03:20 A&P Assessment and plan (1) Lung nodule < 6cm on CT: The patient underwent right upper lobectomy for right upper lobe lung nodule which is suspicious to be malignant. Overall, the pain is fairly well controlled. The chest tube is currently on suction. The patient is recovering well. Status: Acute (2) COPD (chronic obstructive pulmonary disease): The patient has gold class B COPD. He has mild airflow obstruction on the pulmonary function test. At home he is on Spiriva. He can continue to use that. If not, we can use DuoNeb as needed. Status: Acute Attestations Medical Necessity Statement*: Will defer to the primary team Coding Level of Care Code Acute Calibration Technician for Cecilia Dougherty Diagnoses Lung nodule < 6cm on CT R91.1 COPD (chronic obstructive pulmonary disease) J44.9
--- NOTE | 2020-02-10 20:45 | PC.NURSE ---
Assessment Pt alert and oriented. Breathing even and non-labored on room air. Right lateral chest tube to water seal pleura vac. Drainage serosangeinous. Auscultated lung sounds posterior throughout, lung soundings slightly diminished to right lobes with insp crackles to RLL. Left side all lobes clear to auscultation. Pt using IS at bedside, pulling volumes of [id number]. Pt denies productive cough. Reports pain /. Morphine 2mg IVP given. Educated patient on usage of LAST [facility]WYER.
[2020-02-11] VITALS (212 sets, daily range): BP systolic 104–175; BP diastolic 58–99; PULSE 63–80; RESP 13–31; TEMP 36.7–37; O2SAT 82–99
[2020-02-11] MEDS: morphine 4 mg/mL SDV 1 mL 2 MG IVP ×7 (00:06→23:38)
--- NOTE | 2020-02-11 02:07 | PC.NURSE ---
Patient resting quietly in bed with eyes closed. Patient is alert and orientated and denies pain at this time. Call light within reach. Continue care.
[2020-02-11 03:40] LABS: Basophils % 0.2 %; Eosinophils # 0.2 10^3/uL (0.0-0.8); Eosinophils % 1.3 %; Hematocrit 39.7 % (42.0-52.0); Hemoglobin 13.2 g/dL (11.7-16.6); Lymphocytes # 1.2 10^3/uL (0.8-4.8); Lymphocytes % 9.3 %; Mean Corpuscular HGB Conc 33.2 g/dL (30.0-36.0); Mean Corpuscular Hemoglobin 34.3 pg (28.0-34.0); Mean Corpuscular Volume 103.1 fL (80-94); Mean Platelet Volume 12.5 fL (7.4-10.4); Monocytes # 1.3 10^3/uL (0.2-0.9); Neutrophils # 10.07 10^3/uL (1.8-7.7); Neutrophils % 78.7 %; Nucleated Red Blood Cells % 0 %; Platelet Count 131 10^3/cmm (130-400); Red Blood Count 3.85 10^6/uL (4.1-5.3); Red Cell Distribution Width 13.7 % (12.1-15.1); White Blood Count 12.8 10^3/uL (4.0-10.0)
[2020-02-11] MEDS: ketorolac 30 mg/mL INJ IVP (03:49)
[2020-02-11] MEDS: oxyCODONE-APAP 5-325 mg Tablet 1 TAB PO ×2 (03:49→09:18)
[2020-02-11 04:06] LABS: Blood Urea Nitrogen 22 mg/dL (8-23); Calcium 8.3 mg/dL (8.5-10.5); Carbon Dioxide 25 mmol/L (22-29); Chloride 98 mmol/L (98-107); Glucose 103 mg/dL (65-115); Osmolality Calculated 280 mOsm/kg (285-295); Sodium 133 mmol/L (136-145)
[2020-02-11 04:14] LABS: Anion Gap 14.9 (5-19); Potassium 4.9 mmol/L (3.5-5.1)
--- NOTE | 2020-02-11 05:54 | PC.NURSE ---
Uneventful shift: Patient resting in bed watching tv at this time. Patient's pain wasn't controlled well with KILN STOKER pump and patient requested PRN pain medications. Patient is pleasant with staff and compliant with cares. Call light is within reach. Continue care.
--- NOTE | 2020-02-11 06:00 | XR_ITS ---
WS: [id number] XR chest 1V portable [id number] REASON FOR EXAM: Postop day #2 status post right upper lobe segmentectomy FINDINGS: On the prior day's examination there was concern for pneumothorax in the lateral upper right lung. At this time it is still difficult to identify any lung markings lateral to the chest tube however this may be a mock affect from the tube and overlying rib and the lung may be fully expanded. Subcutaneous emphysema continues to decrease. No other interval change or new finding. XR/XR chest 1V portable [id number] IMPRESSION: The chest is stable and the right lung may be fully expanded as above.
--- NOTE | 2020-02-11 06:20 | PC.NURSE ---
Dr. Falcon at bedside 0618 and pulled epidural. Wanted to monitor to see how pain control is effective without epidural. Continue care.
--- NOTE | 2020-02-11 06:31 | ANE.PACU2 ---
Inpatient post-anesthesia follow up: Airway intact: Yes Vital signs: Temperature 98.6 F Pulse Rate 68 Respiratory Rate 18 Blood Pressure 142/80 Pulse Oximetry 94 Oxygen Delivery Me thod Room Air Oxygen Flow Rate 2 Fraction of Inspir ed Oxygen Hydration adequate: Yes Nausea and vomiting: No Pain level: 2 Mental status: Baseline Additional Comments: POD 2 Epidural doesn't seem to be providing much pain relief--epidural removed with tip intact.
--- NOTE | 2020-02-11 06:32 | PM.PN ---
Subjective Subjective: Interval history: Postop day #2. No air leak. Chest tube output low. Looks very good. Chest x-ray is improving and right lung remains fairly clear. Pathology pending. Vitals/I&O/Wt Last Vital Signs Temp 98.6 F 02/11/20 00:00 Pulse 68 02/11/20 06:00 Resp 18 02/11/20 06:00 BP 142/80 02/11/20 06:00 Pulse Ox 94 02/11/20 06:00 02/10/20 02/10/20 02/11/20 14:59 22:59 06:59 Intake Total 500 / 500 430 / 930 360 / 1290 Output Total 180 / 180 370 / 550 550 / 1100 Balance 320 / 320 60 / 380 -190 / 190 Physical Exam Chest: COMMONS NORMALS: normal inspection of the chest (Surgical dressings dry) and normal palpation of entire chest wall Resp: COMMON NORMALS: normal respiratory effort, No retractions, No use of accessory muscles and clear to auscultation bilaterally AUSCULTATION: clear to auscultation bilaterally Cardio: COMMON NORMALS: regular rate, regular rhythm and S1 normal heart sound present RATE: regular rate RHYTHM: regular rhythm HEART SOUNDS: S1 normal heart sound present Urinary Catheter Management^: Brown: Cath Placed During This Visit: yes Reason for Continuing Indwelling Catheter: Accurate Measurement of Urinary Output in Critically Ill Patients Urinary Catheter Date of Insertion: 02/09/20 Urinary Catheter Time of Insertion: 15:15 Data : 02/11/20 03:20 02/11/20 03:20 A&P Assessment and plan (1) Lung nodule < 6cm on CT: #2 status post segmentectomy. Pathology pending. Plan: Transfer to [facility]. [facility] tube to [facility]. Status: Acute Attestations Medical Necessity Statement*: Status post pulmonary segmentectomy. Time Spent in Patient Care: less than 15 minutes Coding Level of Care Code Acute Lathing Supervisor for Cecilia Dougherty Diagnoses Lung nodule < 6cm on CT R91.1
[2020-02-11] MEDS: FUROsemide 20 mg Tablet PO ×2 (08:08→16:59)
[2020-02-11] MEDS: metoprolol succinate ER (24 HR) 25 mg Tablet PO ×2 (08:08→16:59)
[2020-02-11] MEDS: allopurinol 300 mg Tablet PO (08:09)
[2020-02-11] MEDS: amiodarone 200 mg Tablet PO (08:10)
[2020-02-11] MEDS: pantoprazole DR 40 mg Tablet PO (08:11)
[2020-02-11] MEDS: spironolactone 25 mg Tablet 37.5 MG PO (08:11)
[2020-02-12] VITALS (14 sets, daily range): BP systolic 105–147; BP diastolic 62–78; PULSE 60–78; RESP 14–22; TEMP 36.3–36.6; O2SAT 91–96
[2020-02-12] MEDS: oxyCODONE-APAP 5-325 mg Tablet 1 TAB PO ×3 (03:21→20:28)
[2020-02-12] MEDS: docusate sodium 100 mg Capsule PO (03:22)
[2020-02-12] MEDS: bisacodyl 5 mg Tablet PO (03:22)
[2020-02-12] MEDS: morphine 4 mg/mL SDV 1 mL 2 MG IVP ×4 (04:36→16:30)
--- NOTE | 2020-02-12 06:00 | XR_ITS ---
WS: [id number] XR chest 1V portable [id number] REASON FOR EXAM: Postop day #[address] to water seal FINDINGS: The chest is unchanged compared to the prior day. Chest tube remains in place in the right hemithorax. It would appear that the right lung is fully inf lated except for an area of atelectasis in the right mid upper lung. The left lung remains clear. XR/XR chest 1V portable [id number] IMPRESSION: Stable postoperative chest.
--- NOTE | 2020-02-12 06:19 | P.PN_ITS ---
Subjective Subjective: Interval history: Stop day #3 status post segmentectomy. No air leak. Does have output 100 cc past 24 hours. Chest wall stable. Pathology pending. Thoracotomy discomfort under better control. Vitals/I&O/Wt Last Vital Signs Temp 97.7 F 02/12/20 04:37 Pulse 76 02/12/20 05:33 Resp 18 02/12/20 04:37 BP 139/78 02/12/20 04:37 Pulse Ox 96 02/12/20 04:37 02/11/20 02/11/20 02/12/20 14:59 22:59 06:59 Intake Total 120 / 120 120 / 240 Output Total 450 / 450 50 / 500 650 / 1150 Balance -450 / -450 70 / -380 -530 / -910 Physical Exam Chest: COMMONS NORMALS: normal inspection of the chest and normal palpation of entire chest wall Resp: COMMON NORMALS: normal respiratory effort, No retractions, No use of accessory muscles and clear to auscultation bilaterally EFFORT & INSPECTION: Yes able to speak in complete sentences and Yes symmetric chest movement AUSCULTATION: clear to auscultation bilaterally Cardio: COMMON NORMALS: regular rate, regular rhythm, S1 normal heart sound present, S2 normal heart sound present and No murmurs present (Cardio) RATE: regular rate RHYTHM: regular rhythm HEART SOUNDS: S1 normal heart sound pr esent and S2 normal heart sound present Extremity: COMMON NORMALS: no clubbing, cyanosis or edema Urinary Catheter Management^: Brown: Cath Placed During This Visit: yes, but has since been removed by the nurse Reason for Continuing Indwelling Catheter: Perioperative Use in Selected Surgeries Urinary Catheter Date of Insertion: 02/09/20 Urinary Catheter Time of Insertion: 15:15 Date Urinary Catheter Removed: 02/12/20 Time Urinary Catheter Discontinued: 06:16 Data : 02/11/20 03:20 02/11/20 03:20 A&P Assessment and plan (1) Pulmonary nodule: POD #3 status post thoracotomy and segmentectomy. Pathology pending. Out of bed in chair. Will assess chest tube output this afternoon to consider removal of chest tube later this evening or tomorrow. Chest x-ray in a.m. Status: Acute Attestations Medical Necessity Statement*: Status post segmentectomy secondary to lung mass Time Spent in Patient Care: less than 15 minutes Coding Level of Care Code Acute Registered Associate for Cecilia Fwd Diagnoses Pulmonary nodule R91.1
[2020-02-12] MEDS: enoxaparin 40 mg/0.4 mL Syringe SUBCUT (06:24)
[2020-02-12] MEDS: lactulose oral liq 20 gm/30 mL UDC PO (09:48)
[2020-02-12] MEDS: FUROsemide 20 mg Tablet PO ×2 (09:48→18:43)
[2020-02-12] MEDS: spironolactone 25 mg Tablet 37.5 MG PO (09:48)
[2020-02-12] MEDS: pantoprazole DR 40 mg Tablet PO (09:49)
[2020-02-12] MEDS: allopurinol 300 mg Tablet PO (09:49)
[2020-02-12] MEDS: metoprolol succinate ER (24 HR) 25 mg Tablet PO ×2 (09:49→18:37)
[2020-02-12] MEDS: amiodarone 200 mg Tablet PO (09:50)
[2020-02-12] MEDS: ketorolac 30 mg/mL INJ IVP (09:57)
--- NOTE | 2020-02-12 13:52 | DCPLANNER ---
Page 2 of IM explained to and signed by Pt. No questions. Copy provided and one to the chart.
[2020-02-13] VITALS (9 sets, daily range): BP systolic 121–146; BP diastolic 66–80; PULSE 58–80; RESP 15–18; TEMP 36.3–36.7; O2SAT 93–95
[2020-02-13] MEDS: oxyCODONE-APAP 5-325 mg Tablet 1 TAB PO (02:24)
[2020-02-13] MEDS: ketorolac 30 mg/mL INJ IVP ×2 (03:00→10:26)
--- NOTE | 2020-02-13 06:00 | XR_ITS ---
WS: [id number] XR chest 1V portable [id number] REASON FOR EXAM: POD #4 status post segmentectomy FINDINGS: Complete Right chest tube remains in place. The right lung appears fully inflated. An area of presume d atelectasis in the right upper lung is decreasing and density indicating resolving of atelectasis. Previously defined subcutaneous Cima has nearly completely resolved. There is no other interval change or new finding. XR/XR chest 1V portable [id number] IMPRESSION: Improving postoperative chest as above.
[2020-02-13] MEDS: enoxaparin 40 mg/0.4 mL Syringe SUBCUT (06:33)
[2020-02-13] MEDS: metoprolol succinate ER (24 HR) 25 mg Tablet PO (08:29)
[2020-02-13] MEDS: FUROsemide 20 mg Tablet PO (08:29)
[2020-02-13] MEDS: allopurinol 300 mg Tablet PO (08:29)
[2020-02-13] MEDS: spironolactone 25 mg Tablet 37.5 MG PO (08:29)
[2020-02-13] MEDS: pantoprazole DR 40 mg Tablet PO (08:30)
[2020-02-13] MEDS: amiodarone 200 mg Tablet PO (08:30)
--- NOTE | 2020-02-13 08:48 | P.PN_ITS ---
Subjective Subjective: Interval history: Postop day #4 status post right upper lobe segmentectomy. Chest of output 60 cc past 24 hours. No air leak. Looks quite good. Good pulmonary toilet. Chest x-ray is stable. Pathology pending. Vitals/I&O/Wt Last Vital Signs Temp 98.1 F 02/13/20 07:21 Pulse 76 02/13/20 08:27 Resp 18 02/13/20 08:27 BP 128/71 02/13/20 07:21 Pulse Ox 95 02/13/20 07:21 02/12/20 02/13/20 02/13/20 22:59 06:59 14:59 Intake Total 240 / 720 Output Total 260 / 260 Balance 240 / 720 -260 / 460 Physical Exam Chest: COMMONS NORMALS: normal inspection of the chest (Dressing is dry. Chest wall stable.) Resp: COMMON NORMALS: normal respiratory effort, No use of accessory muscles and clear to auscultation bilaterally EFFORT & INSPECTION: Yes able to speak in complete sentences and Yes symmetric chest movement AUSCULTATION: clear to auscultation bilaterally Cardio: COMMON NORMALS: regular rate, regular rhythm, S1 normal heart sound present, No murmurs present (Cardio) and No rub (Cardio) RATE: regular rate RHYTHM: regular rhythm HEART SOUNDS: S1 normal heart sound present Extremity: COMMON NORMALS: no clubbing, cyanosis or edema Urinary Catheter Management^: Brown: Cath Placed During This Visit: yes, but has since been removed by the nurse Reason for Continuing Indwelling Catheter: Perioperative Use in Selected Surgeries Urinary Catheter Date of Insertion: 02/09/20 Urinary Catheter Time of Insertion: 15:15 Date Urinary Catheter Removed: 02/12/20 Time Urinary Catheter Discontinued: 06:16 Data : 02/11/20 03:20 02/11/20 03:20 A&P Assessment and plan (1) Lung nodule < 6cm on CT: Postop day #4 status post right upper lobe segmentectomy. Plan: Will remove chest tubes today. Will consider discharge to home later this evening. Status: Acute Attestations Medical Necessity Statement*: Status post right upper lobe segmentectomy. Time Spent in Patient Care: 16 - 35 minutes Coding Level of Care Code Acute Dimensional Integration Engineer for Cecilia Dougherty Diagnoses Lung nodule < 6cm on CT R91.1
--- NOTE | 2020-02-13 12:43 | PC.CHAP ---
Pastoral Care Encounter/Spiritual Assessment Type of Contact [] Declined isobutylene operator chief visit [] Patient/Family/Request visit [] Outpatient visit [xx] Follow-up visit [] Physician referral [] Code/Alert [xx] Routine visit [] Staff referral [] Actively dying [] Patient sleeping [] Family support [] [] Out of room [] Palliative care [] [] Receiving care in room [] Pre-surgical visit [] Trauma [xx] Long length of stay [] ICU visit [] Other: Relational/Emotional Strength [xx] Patient feels connected with others/family/visitors/staff [] Distress [] Loneliness/isolation [] Abandonment Spirituality of Patient [] Person of Elis [] Attends Zoroastrianism of their Elis [xx] Believes in Prayer [] Reads Bible or Gnosticism materials [] There are Spiritual issues to be addressed Radio Program Checker Interventions [xx] Prayer [xx] Active listening [xx] Non-anxious presence [] Spiritual/emotional support [] Crisis/trauma care [] Spiritual counseling [] Bereavement support [] Provided bereavement packet [] Provided Bible/devotional materials [] Provided toy/stuffed animal, coloring book to patient or family member [] Provided Communion [] Anointing/[place] [] Salvation [xx] Completed spiritual assessment [] Other: Impact on Illness or Injury [] Angry [] Fearful [] Anxious [] Often cries [] Exhaustion [] Unable to work [] Unable to attend episcopal [] Unable to walk/stand [] Unable to read [] Unable to drive [] Unable to eat/drink [] Unable to sleep [] Unable to be with family [] Patient intubated [] Other: Summary Patient expects to be finally discharged after 5 days in hospital. He is anxious to go home. Time spent with patient 3 minutes
--- NOTE | 2020-02-13 16:16 | P.DS_ITS ---
Discharge Providers Date of Admission: 02/09/20 13:39 Date of Discharge: February 13, 2020 Attending Provider at Admission: Matti Edward MD Attending Provider at Discharge: Matti Edward MD Primary Care Provider: Claudette Sanchez Diagnoses at Discharge Discharge Diagnosis (1) Lung nodule < 6cm on CT: Status: Acute Reason for Visit Reason for Visit: [facility] Hospital Course Hospital Course Mr. Blackman pleasant 74-year-old gentleman who was admitted on February 08 for planned resection of a concerning 2 cm right upper lobe nodule in the superior segment of the right upper lobe which had increased activity on PET scan. He has been referred to our service from my colleague Dr. Mendez after evaluation of this lesion during management of COPD. He has chronic atrial fibrillation and is followed by Dr. Garces from our cardiology service. On February 08 he underwent segmentectomy of the superior segment of the right upper lobe for this concerning 2 cm PET positive lesion. He also had a lesion in the lateral segment of the right middle lobe which did not have increased activity. 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 Further analysis is pending. Postoperative, he convalesced in the ICU for 2 days and then was transferred to the [facility]. He had decreasing drainage from his chest tube and early resolution of a small air leak within 12 hours. Pain has been under good control and has been performing pulmonary toilet quite well. Incision line is clean and intact. Chest tube was removed earlier today. He tolerated diet well. Normal bowel and bladder function. He is eager for discharge to home. He will be discharged in stable condition for scheduled follow-up in our clinic in 1 week with a chest x-ray. Physical Exam Chest: COMMONS NORMALS: normal inspection of the chest (Thoracotomy incision is healing well. Incision line is intact and dry.) Resp: COMMON NORMALS: normal respiratory effort and clear to auscultation bilaterally EFFORT & INSPECTION: Yes able to speak in complete sentences and Yes symmetric chest movement AUSCULTATION: clear to auscultation bilaterally Extremity: COMMON NORMALS: normal to inspection and no clubbing, cyanosis or edema Urinary Catheter Management^: Brown: Cath Placed During This Visit: yes, but has since been removed by the nurse Reason for Continuing Indwelling Catheter: Perioperative Use in Selected Surgeries Urinary Catheter Date of Insertion: 02/09/20 Urinary Catheter Time of Insertion: 15:15 Date Urinary Catheter Removed: 02/12/20 Time Urinary Catheter Discontinued: 06:16 Discharge Data Data Completed and Pending: Completed Studies During Hospitalization Category Date Time Status XR chest 1V mohan ble [id number] Routine Exams 02/09/20 09:57 Completed XR chest 1V mohan ble [id number] Routine Exams 02/09/20 17:28 Completed XR chest 1V mohan ble [id number] Routine Exams 02/10/20 06:00 Completed XR chest 1V mohan ble [id number] Routine Exams 02/11/20 06:00 Completed XR chest 1V mohan ble [id number] Routine Exams 02/12/20 06:00 Completed XR chest 1V mohan ble [id number] Routine Exams 02/13/20 06:00 Completed Pending at discharge Category Date Time Status Leukocyte Reduced RBC Routine Lab 02/05/20 10:00 Results Type and Screen - Cardiac Routine Lab 02/05/20 10:00 Results Pathology: Surgic al [PTH] Routine Pth 02/09/20 16:50 Received Vitals: Last Vital Signs Temp 97.4 F L 02/13/20 15:00 Pulse 64 02/13/20 15:00 Resp 18 02/13/20 15:00 BP 146/80 02/13/20 15:00 Pulse Ox 95 02/13/20 15:00 Discharge Plan Discharge Patient Disposition: Home Condition: Stable Prescriptions: New oxycodone-acetaminophen 5-325 mg Tablet 1 tab PO Q6H PRN (Reason: Moderate Pain) Qty: 24 RF: 0 Continued nitroglycerin 0.4 mg tablet, sublingual 0.4 mg SUBLINGUAL Q5M PRN (Reason: chest pain) Qty: 30 RF: 2 Pacerone 200 mg tablet 200 mg PO DAILY Qty: 90 RF: 2 apixaban 5 mg tablet 5 mg PO BID RF: 0 Spiriva Respimat 2.5 mcg/actuation Mist 2 puff INHALATION DAILY RF: 0 allopurinol 300 mg Tablet 300 mg PO DAILY RF: 0 spironolactone 25 mg Tablet 37.5 mg PO DAILY RF: 0 furosemide 20 mg Tablet 20 mg PO BID RF: 0 metoprolol succinate 25 mg Tablet Extended Release 24 Hr 25 mg PO BID RF: 0 Vitamin C 1,000 mg Capsule, Extended Release 1 cap PO DAILY RF: 0 cholecalciferol (vitamin D3) [Vitamin D3] 25 mcg (1,000 unit) Tablet,Chewable 25 mcg PO DAILY RF: 0 Xopenex HFA 45 mcg/actuation Hfa Aerosol Inhaler 2 inh INHALATION Q6H RF: 0 Discharge Orders: Discharge Order (Routine); Ordered 02/13/20 Ordered By: Matti Edward Referrals: Matti Edward MD [Physician] - 1 week (Chest X-ray on day of clinic visit.) Discharge Diet: Usual diet Discharge Activity: Limit activity as instructed Activity Restrictions/Additional Instructions: No heavy lifting or pulling x2 weeks May shower daily. No swimming or tub baths x2 weeks. May leave incision open or cover as desired Use incentive spirometer frequently For any fever, increasing shortness of breath, increased pain, drainage from incision or increased redness of incision. Discharge Attestations Time Spent in Discharge Care*: less than 30 min Specific Discharge Activities: educating patient, discussing with high risk case manager/social workers/dc planners, documenting/other paperwork and evaluating patient/reviewing data Status at Discharge: Cognitive status at discharge: cognitively intact , Behavioral status at discharge: cooperative , Quality Metrics Clinical Quality Measures During this hospital stay, did patient experience: None Coding Level of Care Code [employer] [facility] [facility] Diagnoses Lung nodule < 6cm on CT R91.1
== END 2020-02-13 17:00 | disposition home or self-care (01) | DRG 164 ==
LOC: ICU 13:39 → MEDSURG 02-11 17:27
PROVIDERS: Admitting Provider Thoracic Surgery (Cardiothoracic Vascular Surgery); PCP Physician Assistant; Visit Provider Thoracic Surgery (Cardiothoracic Vascular Surgery)
PROC: 0BBD0ZZ Excision of Right Middle Lung Lobe, Open Approach (ICD-10-PCS; CPT 32480; principal; 2020-02-09 11:40)
DX: C34.11 Malignant neoplasm of upper lobe, right bronchus or lung (principal); I48.20 Chronic atrial fibrillation, unspecified; I42.8 Other cardiomyopathies; R91.8 Other nonspecific abnormal finding of lung field; F17.210 Nicotine dependence, cigarettes, uncomplicated; R53.82 Chronic fatigue, unspecified; I50.9 Heart failure, unspecified; I11.0 Hypertensive heart disease with heart failure; M19.032 Primary osteoarthritis, left wrist; G47.33 Obstructive sleep apnea (adult) (pediatric); I25.10 Atherosclerotic heart disease of native coronary artery without angina pectoris; J44.9 Chronic obstructive pulmonary disease, unspecified
CPT/HCPCS: 01996; 12345; 51702; 62324; 71045; 80048; 80053; 81003; 85025; 85610; 86850; 86900; 86920; 88309; 96372; 96375; 97116; 97162; J0131; J0690; J1650; J1885; J2270; J2370; J2405; J2704; J2795; J3010; J3370; J3490; J7030

== ENCOUNTER 2020-02-23 12:44 | Outpatient (CLI) | payer MEDICARE, OTHER, SELFPAY ==
--- NOTE | 2020-02-24 11:05 | ONC CON_ITS ---
Dr. Mojica New Patient Note Patient: Jet Blackman Unit #: [id number]: 1945 Dicatated By: Alton Mojica M.D.Date of Visit: Feb 23, 2020 Onc MED New Patient/Consult Referring Physician: Dr. DAGMAR EDWARD M.D. History of Present Illness: Mr. Roverto Blackman, is a 74-year-old gentleman with a history of cardiomyopathy, atrial fibrillation now in sinus rhythm, COPD, was found to have right upper lobe lung nodule per pulmonology evaluation as CT scan of the chest done on November 28, 2019 showed masslike nodularity within the right upper lobe of approximately 10 mm and bilateral pleural effusion right more than left, subsequently, on December 27, 2019, patient underwent CT PET scan which showed 1.3 x 1.6 cm solid right upper lobe pulmonary nodule with SUV of 8.5 and no other pulmonary nodules or masses present and no evidence of distant mets, patient was referred to Dr. Edward cardiothoracic surgery, patient underwent right upper lobe superior segment segmentectomy on February 09, 2020 and final pathology report showed moderately differentiated squamous cell carcinoma tumor size 2.3 cm with a clear surgical margins and no lymphovascular or perineural invasion seen, pT1b and no lymph nodes were seen or examined. As per Dr. Edward's surgical note due to history of arrhythmia and atrial fibrillation with documented drop in his ejection fraction from 40-45 % down to 20 to 25% when he is not in sinus rhythm, he decided to limit resection to this lesion in a segmental anatomic fashion in order to reduce manipulation of hilum and potentiate a possible arrhythmia. And that was the reason for not considering hilar/mediastinal lymph node sampling .. 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 50+ year history of smoking, quit in November 2019, occasionally alcohol use. Denies any fever chills, denies any nausea or vomiting denies any abdominal pain but complaining of pain in the right posterior lateral chest wall at surgical scar site, patient still has metallic tarik in, scheduled see Dr. Edward next week. Past Medical History: Mr. Blackman's medical history consists of atrial fibrillation, congestive heart failure, degenerative arthritis, hypertension, and obstructive sleep apnea. Past Surgical History: Mr. Ying surgical/procedural history consists of bronchoscopy. Medications: Allopurinol 1 Tablet (of 300 mg) Oral daily, Amiodarone HCl 1 Tablet (of 200 mg) Oral daily, Apixaban 1 Tablet (of 5 mg) Oral b.i.d., Furosemide 0.5 Tablet (of 40 mg) Oral b.i.d., Metoprolol Succinate ER 0.5 Tablet (of 50 mg) Tablet SR 24 HR Oral b.i.d., Spiriva Respimat 2 Puff(s) Aerosol, solution Inhalation daily, Spironolactone 1.5 Tablet (of 25 mg) Oral daily Allergies: No Known Allergies. Social History: Mr. Blackman is . Mr. Blackman quit smoking less than one year ago but had smoked 1.0 pack/day for 50 years. He drinks occasionally. Family History: There is no documented family history. Review Of Symptoms: Constitutional - Appetite is good and weight is stable. No fever, night sweats, or hot flashes. Energy is fair, ENMT - No sinus congestion/drainage. No mouth sores. No sore throat or difficulty swallowing, Endocrine - , Hematologic/Lymphatic - No abnormal bruising or bleeding, Respiratory - No shortness of breath. No cough. No pleuritic pain or hemoptysis, Cardiovascular - No angina pain. No palpitations, Gastrointestinal - No nausea or vomiting. No heartburn or acid reflux. No diarrhea Positive for constipation. No blood in the stool or black stools, Genitourinary (M) - No dysuria or hematuria. No urinary frequency. No urgency or incontinence, Musculoskeletal - No joint or bone pain, Neurologic - No headache or dizziness. No numbness or tingling. No other focal neurologic symptoms, Psychiatric - Positive for anxiety no depression. No insomnia. Vital Signs: Performed on Feb 23, 2020 14:27: 0, 31.27 (HIGH), 2.21 sq.m, 71 in, 99 %, 58 /min (LOW), 16 /min, 140/98 mm(hg), 98.3 F (LOW), and 224.2 lbs (HIGH). Performance Status: 1 - No physically strenuous activity, but ambulatory and able to carry out light or sedentary work (e.g. office work, light house work). (ECOG) Physical Examination: ENMT - No mouth sores, no thrush, no jaundice, Respiratory - Poor air entry, few basilar rales,Well-healed surgical scar with metallic tarik in right posterior lateral chest, no discharge seen Cardiovascular - Regular rate and rhythm of heart, Abdomen - Soft, bowel sounds present, Extremities - Trace edema. Lab/Imaging: Most recent lab results are not available for this patient. 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 And no lymph nodes were available for exam, NX, MX, stage CT PET scan done on December 27, 2019 showed 1.3 x 1.6 cm solid right upper lobe pulmonary nodule with SUV of 8.5 with no evidence of mediastinal lymph node involvement or distant mets. Cardiomyopathy,/CHF/Atrial fibrillation COPD Sleep apnea, noncompliant with CPAP Plan: Discussed with patient regarding his disease status, and treatment options, as per NCCN guidelines, high risk feature being no lymph node sampling, segmentectomy instead of lobectomy, otherwise favorite features like T1b lesion, clear margins, squamous histology, Considering patient's age and comorbid condition, as per NCCN guidelines, observation alone would be an appropriate option, assuming no mediastinal lymph node involvement which is unknown at present . Patient is being followed by pulmonology and cardiothoracic, will suggest CT scan of chest and upper abdomen every 3 to 4-month in the first year if normal every 6-8 month subsequently till 5 years. Patient opted for observation alone and is comfortable following with pulmonology and cardiothoracic, in that case we will see him on as-needed basis Signed By: Alton Mojica M.D. <<Signature on File>>
== END 2020-02-23 12:45 | disposition home or self-care (01) ==
LOC: ONCMED 12:46
PROVIDERS: PCP Physician Assistant; Visit Provider Internal Medicine Hematology & Oncology
DX: C34.11 Malignant neoplasm of upper lobe, right bronchus or lung (principal); I25.5 Ischemic cardiomyopathy; I50.9 Heart failure, unspecified; I48.91 Unspecified atrial fibrillation; J44.9 Chronic obstructive pulmonary disease, unspecified; G47.30 Sleep apnea, unspecified; Z79.899 Other long term (current) drug therapy
CPT/HCPCS: 99204

== ENCOUNTER 2020-04-22 09:46 | Outpatient (CLI) | payer MEDICARE, OTHER, SELFPAY ==
--- NOTE | 2020-04-22 10:20 | XR_ITS ---
WS: [id number] CHEST, 1 view. HISTORY: C34.90 - Malignant neoplasm of unspecified part of unspecified bronchus or lung COMPARISON: 02/13/2020. Mild pulmonary hyperexpansion. Surgical sutures in the RIGHT upper lobe. No mass. No pneumonia. No pl eural effusion or pneumothorax. Cardiac size: Normal. Mediastinum/Aorta: Normal mediastinum. No osseous abnormality seen. XR/XR chest 1V [id number] IMPRESSION: 1. Prior RIGHT upper lobectomy. 2. No recurrent mass or complications identified.
== END 2020-04-22 09:47 | disposition home or self-care (01) ==
PROVIDERS: PCP Physician Assistant; Visit Provider Thoracic Surgery (Cardiothoracic Vascular Surgery)
DX: C34.90 Malignant neoplasm of unspecified part of unspecified bronchus or lung (principal); Z90.2 Acquired absence of lung [part of]
CPT/HCPCS: 71045; 88305

== ENCOUNTER → 2020-05-14 10:51 | Outpatient (BNVA) | payer MEDICARE, OTHER, SELFPAY | PROVIDERS: PCP Physician Assistant; Visit Provider Internal Medicine Cardiovascular Disease | DX: I50.20 Unspecified systolic (congestive) heart failure (principal); Z51.81 Encounter for therapeutic drug level monitoring; Z79.899 Other long term (current) drug therapy; I11.0 Hypertensive heart disease with heart failure; I48.0 Paroxysmal atrial fibrillation; Z87.891 Personal history of nicotine dependence; G47.33 Obstructive sleep apnea (adult) (pediatric); C34.91 Malignant neoplasm of unspecified part of right bronchus or lung | CPT/HCPCS: 80053; 84443 ==

== ENCOUNTER 2020-06-08 10:55 | Outpatient (CLI) | payer MEDICARE, OTHER, SELFPAY ==
--- NOTE | 2020-06-08 11:30 | CT_ITS ---
WS: [id number] CT CHEST WITH INTRAVENOUS CONTRAST HISTORY: C34.90 - Malignant neoplasm of unspecified part of unspecified bronchus or lung TECHNIQUE: Contiguous 5 mm axial imaging performed on the thorax. Coronal and sagittal reformats are submitted. All CT scans at [facility] use at least one of these dose optimization techniq ues: automated exposure control; mA and/or kV adjustment per patient size (includes targeted exams wh ere dose is matched to clinical indication); or iterative reconstruction. CONTRAST: Visipaque 320; 95 mL IV. DLP: 952.19 mGycm COMPARISON: 11/29/2019, PET/CT 12/27/2019. Lungs and central airway: Status post subtotal RIGHT upper lobectomy. Postsurgical changes with scarr ing and fibrosis in the RIGHT upper lobe. Previously described neoplasm is no longer present. No recu rrent mass identified. There is a soft tissue nodule measuring 11 x 9 mm in the medial RIGHT upper lo be within the scar site. This may be normal postoperative change. This should be further evaluated on follow-up examination. No additional pulmonary nodule or mass. Pleura: Normal. No pleural effusion. Heart and pericardium: Normal size heart with no pericardial effusion. Mediastinum and demario: No mediastinum or hilar adenopathy. Vessels: Mild atherosclerosis aorta. Normal size pulmonary artery. Moderate coronary artery calcifica tions. Chest wall and lower neck: No soft tissue masses. Upper abdomen: Diffuse hepatic steatosis and moderate enlargement of the liver. Splenic granulomata. Small hiatal hernia. LEFT adrenal gland is not completely included on this examination. RIGHT adrenal gland is mildly thickened but stable. Osseous structures: Mild thoracic spondylosis. CT/CT chest w con* [id number] IMPRESSION: 1. Status post subtotal RIGHT upper lobectomy. RIGHT upper lobe neoplasm is no longer evident. 2. There is a small soft tissue nodule in the medial RIGHT upper lobe within t he scar of the lobectomy measuring 11 x 9 mm. This may be normal postoperative change after the surgery. Anticipate follow-up evaluation of the chest for surv eillance of recurrent disease. 3. No adenopathy. 4. Moderate coronary artery atherosclerosis. 5. Hepatic steatosis. The entire liver is not visualized nor is the entire LEF T adrenal gland.
[2020-06-08] MEDS: iodixanol 320 mg/mL 100mL Btl IV (11:42)
== END 2020-06-08 10:56 | disposition home or self-care (01) ==
LOC: RADWPI 10:56
PROVIDERS: PCP Physician Assistant; Visit Provider Thoracic Surgery (Cardiothoracic Vascular Surgery)
DX: C34.90 Malignant neoplasm of unspecified part of unspecified bronchus or lung (principal); K76.0 Fatty (change of) liver, not elsewhere classified; I25.10 Atherosclerotic heart disease of native coronary artery without angina pectoris; Z90.2 Acquired absence of lung [part of]; R91.1 Solitary pulmonary nodule
CPT/HCPCS: 71260; Q9967

== ENCOUNTER 2020-10-18 12:45 | Outpatient (CLI) | payer MEDICARE, OTHER, SELFPAY ==
--- NOTE | 2020-10-18 13:15 | CT_ITS ---
WS: [id number] CT CHEST TECHNIQUE: Noncontrast CT of the chest with coronal and sagittal reformatted images. CLINICAL INFORMATION: Lung cancer COMPARISON: June 08, 2020 DLP: 1036.[address] scans at [facility] use at least one of these dose optimization techniques: automat ed exposure control; mA and/or kV adjustment per patient size (includes targeted exams where dose is matched to clinical indication); or iterative reconstruction. FINDINGS: Prior postoperative changes partial right upper lobectomy. Stable parenchymal fibrosis with postopera tive scarring in the right upper lobe similar to previous. No evidence of new or progressive disease. Previously described 9 mm nodular density at the resection site has decreased slightly in size today measuring 4 x 7 mm today compared to 9 x 11 mm previous Normal thyroid gland. No mediastinal or hilar lymphadenopathy. Calcified granulomatous disease. Calci fied hilar nodes. Coronary calcification. Normal caliber thoracic aorta. Stable small right adrenal adenoma measuring 17 mm. Splenic granulomas. Normal GE junction. Diffuse f atty infiltration of the liver. Mild thoracic curve. Hypertrophic changes thoracic spine. CT/CT chest wo con [id number] IMPRESSION: 1. Stable postoperative changes partial right upper lobectomy. No evidence of recurrent or progressed disease. 2. Stable postoperative parenchymal fibrosis right upper lobe in the area of r esection. 3. Previously described soft tissue nodule in the resection cavity adjacent t o the hilum is decreased in size today measuring 7 x 4 mm. 4. No mediastinal or hilar lymphadenopathy. 5. No other significant changes from previous.
== END 2020-10-18 12:46 | disposition home or self-care (01) ==
PROVIDERS: PCP Physician Assistant; Visit Provider Internal Medicine Critical Care Medicine
DX: C34.91 Malignant neoplasm of unspecified part of right bronchus or lung (principal)
CPT/HCPCS: 71250

== ENCOUNTER 2021-02-28 08:51 | Outpatient (CLI) | payer MEDICARE, OTHER, SELFPAY ==
--- NOTE | 2021-02-28 09:30 | CT_ITS ---
WS: [id number] CT scan of the chest with IV contrast, additional two-dimensional coronal and sagittal reconstruction was performed. 02/28/2021 Clinical Data: C34.91 - Malignant neoplasm of unspecified part of right ... Comparison: CT chest, 10/18/2020 DLP: 1028.[address] scans at [facility] use at least one of these dose optimization techniques: automated e xposure control; mA and/or kV adjustment per patient size (includes targeted exams where dose is matc hed to clinical indication); or iterative reconstruction. Findings: The postoperative changes of a right upper lobectomy remain the same. The small nodule in the right h ilum has not changed. There is postoperative fibrosis in the upper right thorax unchanged. No masses or effusions are seen. The heart size is normal with no pericardial effusion. No pneumonia or pneumothorax is seen. The pulmonary arterial system and thoracic aorta demonstrate no abnormalitie s or dilatations. There is no axillary or significant mediastinal adenopathy. The upper abdomen demonstrates no change from before. CT/CT chest w con* [id number] Impression: 1. Postoperative changes of right upper lobectomy remain the same. 2. No evidence of metastatic disease or metastatic nodules is seen.
[2021-02-28 09:41] LABS: Blood Urea Nitrogen 32 mg/dL (8-23)
[2021-02-28] MEDS: iodixanol 320 mg/mL 100mL Btl IV (10:21)
== END 2021-02-28 08:52 | disposition home or self-care (01) ==
PROVIDERS: PCP Physician Assistant; Visit Provider Thoracic Surgery (Cardiothoracic Vascular Surgery)
DX: C34.91 Malignant neoplasm of unspecified part of right bronchus or lung (principal); Z90.2 Acquired absence of lung [part of]
CPT/HCPCS: 71260; 82565; 84520; Q9967

== ENCOUNTER → 2021-05-17 14:57 | Outpatient (BNVA) | payer MEDICARE, OTHER, SELFPAY | PROVIDERS: PCP Physician Assistant; Visit Provider Internal Medicine Critical Care Medicine | DX: C34.91 Malignant neoplasm of unspecified part of right bronchus or lung (principal); J44.9 Chronic obstructive pulmonary disease, unspecified; I50.20 Unspecified systolic (congestive) heart failure; G47.33 Obstructive sleep apnea (adult) (pediatric); Z87.891 Personal history of nicotine dependence; I10 Essential (primary) hypertension | CPT/HCPCS: 99213 ==

== ENCOUNTER → 2021-10-07 09:50 | Outpatient (BNVA) | payer MEDICARE, OTHER, SELFPAY | PROVIDERS: PCP Physician Assistant; Visit Provider Internal Medicine Cardiovascular Disease | DX: I11.0 Hypertensive heart disease with heart failure (principal); I50.9 Heart failure, unspecified; I48.0 Paroxysmal atrial fibrillation; Z79.01 Long term (current) use of anticoagulants; G47.33 Obstructive sleep apnea (adult) (pediatric); Z87.891 Personal history of nicotine dependence | CPT/HCPCS: 99214 ==

== ENCOUNTER 2021-11-09 10:43 | Outpatient (CLI) | payer MEDICARE, OTHER, SELFPAY ==
--- NOTE | 2021-11-09 10:30 | CT_ITS ---
WS: [id number] CT CHEST WITH INTRAVENOUS CONTRAST HISTORY: lung cancer TECHNIQUE: Contiguous 5 mm axial imaging performed on the thorax. Coronal and sagittal reformats are submitted. All CT scans at [facility] use at least one of these dose optimization techniques: automated exposure control; mA and/or kV adjustment per patient size (includes targeted exams where dose is matched to clinical indication); or iterative reconstruction. CONTRAST: Omnipaque 350; 95 mL IV. DLP: 800.90 mGy.cm COMPARISON: 02/28/2021 and 10/18/2020 Lungs and central airway: Partial resection RIGHT upper lobe. No change at the resection site. No inc rease in size of soft tissue component or tumor. No new or additional pulmonary nodules or masses. Pleura: Normal. No pleural effusion. Heart and pericardium: Normal size heart with no pericardial effusion. Mediastinum and demario: No adenopathy. Vessels: Mild atherosclerosis aorta. No aneurysm. Normal pulmonary artery. Chest wall and lower neck: No soft tissue masses. Upper abdomen: Very small hiatal hernia. Hepatic steatosis. No hepatic mass or metastatic lesion iden tified. Splenic granulomata. Mild thickening and nodularity of the RIGHT adrenal gland is stable. Osseous structures: Remote healed rib fractures lateral LEFT thorax. CT/CT chest w con* [id number] IMPRESSION: 1. Status post partial resection RIGHT upper lobe. Stable postsurgical changes . No recurrent mass or adenopathy. 2. Stable mild thickening of the RIGHT adrenal gland. 3. Hepatic steatosis.
[2021-11-09 11:29] LABS: Blood Urea Nitrogen 21 mg/dL (8-23)
[2021-11-09] MEDS: iohexol 350 mg/mL 100 mL Btl IV (11:38)
== END 2021-11-09 10:44 | disposition home or self-care (01) ==
LOC: RAD 10:43
PROVIDERS: PCP Physician Assistant; Visit Provider Thoracic Surgery (Cardiothoracic Vascular Surgery)
DX: C34.91 Malignant neoplasm of unspecified part of right bronchus or lung (principal); Z90.2 Acquired absence of lung [part of]
CPT/HCPCS: 71260; 82565; 84520

== ENCOUNTER → 2021-12-08 14:19 | Outpatient (BNVA) | payer MEDICARE, OTHER, SELFPAY | PROVIDERS: PCP Physician Assistant; Visit Provider Thoracic Surgery (Cardiothoracic Vascular Surgery) | DX: Z90.2 Acquired absence of lung [part of] (principal) | CPT/HCPCS: 99213 ==

== ENCOUNTER → 2022-03-23 08:18 | Outpatient (BNVA) | payer MEDICARE, OTHER, SELFPAY | PROVIDERS: PCP Physician Assistant; Visit Provider Internal Medicine Pulmonary Disease | DX: J44.9 Chronic obstructive pulmonary disease, unspecified (principal); I50.20 Unspecified systolic (congestive) heart failure; G47.33 Obstructive sleep apnea (adult) (pediatric); C34.11 Malignant neoplasm of upper lobe, right bronchus or lung; I48.91 Unspecified atrial fibrillation; Z79.01 Long term (current) use of anticoagulants; Z87.891 Personal history of nicotine dependence; Z90.2 Acquired absence of lung [part of]; R53.83 Other fatigue | CPT/HCPCS: 99214 ==

== ENCOUNTER → 2022-05-09 11:39 | Outpatient (BNVA) | payer MEDICARE, OTHER, SELFPAY | PROVIDERS: PCP Physician Assistant; Visit Provider Internal Medicine Cardiovascular Disease | DX: I48.19 Other persistent atrial fibrillation (principal); Z87.891 Personal history of nicotine dependence; Z79.01 Long term (current) use of anticoagulants; Z51.81 Encounter for therapeutic drug level monitoring; Z79.899 Other long term (current) drug therapy; I11.0 Hypertensive heart disease with heart failure; I50.21 Acute systolic (congestive) heart failure | CPT/HCPCS: 99214 ==

== ENCOUNTER → 2022-09-21 09:55 | Outpatient (BNVA) | payer MEDICARE, OTHER, SELFPAY | PROVIDERS: PCP Physician Assistant; Visit Provider Internal Medicine Pulmonary Disease | DX: Z87.891 Personal history of nicotine dependence (principal); C34.91 Malignant neoplasm of unspecified part of right bronchus or lung; J44.9 Chronic obstructive pulmonary disease, unspecified; I50.20 Unspecified systolic (congestive) heart failure; G47.33 Obstructive sleep apnea (adult) (pediatric); I48.91 Unspecified atrial fibrillation; Z79.01 Long term (current) use of anticoagulants; Z90.2 Acquired absence of lung [part of] | CPT/HCPCS: 99214 ==

== ENCOUNTER → 2022-10-24 15:14 | Outpatient (BNVA) | payer MEDICARE, OTHER, SELFPAY | PROVIDERS: PCP Physician Assistant; Referring Provider Nurse Practitioner Family; Visit Provider Dermatology | DX: L82.0 Inflamed seborrheic keratosis (principal); L82.1 Other seborrheic keratosis; L81.4 Other melanin hyperpigmentation; D48.5 Neoplasm of uncertain behavior of skin; L21.8 Other seborrheic dermatitis; L81.7 Pigmented purpuric dermatosis; L57.8 Other skin changes due to chronic exposure to nonionizing radiation | CPT/HCPCS: 11102; 11103; 17110; 99204 ==

== ENCOUNTER 2022-11-28 14:55 | Outpatient (CLI) | payer MEDICARE, OTHER, SELFPAY ==
--- NOTE | 2022-11-28 15:00 | CT_ITS ---
WS: [id number] CT chest w con* [id number] HISTORY: lobectomy TECHNIQUE: Axial imaging performed through the thorax. Coronal and sagittal reformats are submitted. All CT scans at [facility] use at least one of these dose optimization techniques: automated exposure control; mA and/or kV adjustment per patient size (includes targeted exams where dose is mat ched to clinical indication); or iterative reconstruction. CONTRAST: Omnipaque 350; 100 mL IV. DLP: 491.88 mGy.cm COMPARISON: 11/09/2021 and 02/28/2021 Lungs and central airway: Partial resection RIGHT upper lobe. Post scarring and postsurgical changes are stable. There is no recurrent mass or soft tissue nodule at the site of the resection. Remaining lungs are clear. No additional masses or nodules Pleura: Normal. No pleural effusion. Heart and pericardium: Mild enlargement of the cardiac chambers. No pericardial effusion. Mediastinum and demario: No mediastinum or hilar adenopathy. Vessels: Mild atherosclerosis aorta. No aneurysm. Normal size pulmonary artery. Chest wall and lower neck: No soft tissue masses. Upper abdomen: Mild hepatic steatosis. No bile duct dilatation. Normal size spleen with numerous gran ulomata. Stable RIGHT adrenal nodule. No change since 11/29/2019. Osseous structures: No destructive process. IMPRESSION: 1. Status post partial RIGHT upper lobe resection. No recurrent mass and no adenopathy. 2. Mild hepatic steatosis and stable nodularity RIGHT adrenal gland.
[2022-11-28 15:26] LABS: Blood Urea Nitrogen 20 mg/dL (8-23)
[2022-11-28] MEDS: iohexol 350 mg/mL 500 mL Btl (per mL) IV (15:37)
== END 2022-11-28 14:56 | disposition home or self-care (01) ==
LOC: RAD 14:55
PROVIDERS: PCP Physician Assistant; Visit Provider Thoracic Surgery (Cardiothoracic Vascular Surgery)
DX: Z90.2 Acquired absence of lung [part of] (principal)
CPT/HCPCS: 71260; 82565; 84520; Q9967

== ENCOUNTER → 2022-12-05 11:44 | Outpatient (BNVA) | payer MEDICARE, OTHER, SELFPAY | PROVIDERS: PCP Physician Assistant; Visit Provider Internal Medicine Cardiovascular Disease | DX: R07.9 Chest pain, unspecified (principal); R00.1 Bradycardia, unspecified; I50.9 Heart failure, unspecified; I48.91 Unspecified atrial fibrillation; I10 Essential (primary) hypertension; G47.33 Obstructive sleep apnea (adult) (pediatric); I11.0 Hypertensive heart disease with heart failure; Z87.891 Personal history of nicotine dependence; I45.9 Conduction disorder, unspecified | CPT/HCPCS: 93005; 99214 ==

== ENCOUNTER → 2022-12-07 10:56 | Outpatient (BNVA) | payer MEDICARE, OTHER, SELFPAY | PROVIDERS: PCP Physician Assistant; Visit Provider Thoracic Surgery (Cardiothoracic Vascular Surgery) | DX: C34.91 Malignant neoplasm of unspecified part of right bronchus or lung (principal); Z87.891 Personal history of nicotine dependence | CPT/HCPCS: 99213 ==

== ENCOUNTER 2022-12-15 08:26 | Outpatient (CLI) | payer MEDICARE, OTHER, SELFPAY ==
--- NOTE | 2022-12-15 08:45 | USCV_ITS ---
Jet Blackman Age: 77 Gender: M : 1945 Exam Date: 12/15/2022 08:57 Ordering Phys: Katie Park MD ([email or web address]) Technologist: Taurus Garza Exam Location: [facility] [place] Indication: chf BP: 114 / 60 HR: 57 Rhythm: Sinus Technical Quality: Adequate MEASUREMENTS (Male / Female) Normal Values 2D ECHO LVOT Diameter 2.1 cm LV Ejection Fraction MOD 2C 57.7 % LV Ejection Fraction 2C AL 56.8 % LA Diameter 4.6 cm LA Width 3.6 cm LA Height 5.1 cm RA Width 3.5 cm RA Height 4.9 cm Aorta at Sinotubular Diameter 2.5 cm IVC Diameter 1.9 cm M-MODE Aortic Annulus Diameter 3.0 cm LA Ao Ratio MM 1.5 MV E Point Septal Separation 0.7 cm DOPPLER AV Peak Velocity 122.7 cm/s LVOT Peak Velocity 94.0 cm/s AV Area Cont Eq vti 2.4 cm squared AV Area Cont Eq pk 2.6 cm squared MV Peak Velocity 85.0 cm/s MV Area PHT 4.5 cm squared Mitral E to A Ratio 0.9 MV E' Velocity 32.5 cm/s Mitral E to MV E' Ratio 5.3 Mitral E to LV E' Lateral Ratio 5.5 Mitral E to LV E' Septal Ratio 5.2 TR Peak Velocity 182.2 cm/s TR Peak Gradient 13.3 mmHg TR Mean Velocity 152.3 cm/s TR Mean Gradient 9.4 mmHg TR Velocity Time Integral 50.6 cm Right Atrial Pressure 3.0 mmHg Pulmonary Artery Systolic Pressu 16.3 mmHg PV Peak Velocity 94.0 cm/s RV Acceleration Time 0.1 s RV Ejection Time 0.3 s RV AcT/ET 0.4 FINDINGS Left Ventricle Normal left ventricular size, systolic function and wall thickness, with no diagnostic regional wall motion abnormalities. Left ventricular ejection fraction is estimated at 55 %. Right Ventricle Normal right ventricular size and systolic function. Right ventricular systolic pressure 16.3 mmHg. Right Atrium Normal right atrial size. Left Atrium Mildly increased left atrial size. Mitral Valve Structurally normal mitral valve. No mitral valve stenosis. No mitral valve regurgitation. Aortic Valve Aortic valve not well visualized. No aortic valve stenosis. No aortic valve regurgitation. Tricuspid Valve Structurally normal tricuspid valve. Trace tricuspid valve regurgitation. Pulmonic Valve Pulmonic valve not well visualized. No pulmonary valve stenosis. Pericardium No pericardial effusion. Aorta Normal size aortic root and proximal ascending aorta. IVC Normal IVC dimension with >50% respiratory change of the inferior vena cava. CONCLUSIONS 1. Normal left ventricular size, systolic function and wall thickness, with no diagnostic regional wall motion abnormalities. Left ventricular ejection fraction is estimated at 55 %. 2. Normal pulmonary artery pressure. 3. When compared to study dated 11/28/2019, left ventricular systolic function has normalized. Katie Park MD (Electronically Signed) Final Date: 19 December 2022 17:41 S
== END 2022-12-15 08:27 | disposition home or self-care (01) ==
PROVIDERS: PCP Physician Assistant; Visit Provider Internal Medicine Cardiovascular Disease
DX: I50.9 Heart failure, unspecified (principal)
CPT/HCPCS: 93306; 99213

== ENCOUNTER 2023-04-18 14:07 | Emergency (ER) | payer MEDICARE, SELFPAY ==
[2023-04-18 14:09] VITALS: BP 157/71; PULSE 58; RESP 18; TEMP 36.5; O2SAT 95
--- NOTE | 2023-04-18 14:33 | ED_ITS ---
HPI - Extremity Problem 2 General: Chief complaint: Extremity Problem,Nontraumatic Stated complaint: fall, leg pain, sob Time Seen by Provider: 04/18/23 14:18 History of Present Illness: 77-year-old male patient comes in today with leg weakness. Patient reports over the last 2 years he has been 3 episodes where he got down on the ground and could not get up. The last event was yesterday. Patient does have a history of coronary artery disease and right lung cancer. Patient denies any shortness of breath or chest pain. Patient denies any problems at this time. Patient is on several medications for heart disease. Patient used to be a nicotine tobacco user. Patient has also been a marijuana user but has not used in many years. Patient does endorse alcohol consumption. Patient does not report daily alcohol use but does state he regularly uses. I did question that if alcohol was involved with patient's fallen and was not able to get up and patient did not deny it. 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 HTN (hypertension) Obstructive sleep apnea Surgical History History of lobectomy of lung Family History Denies family history of Diabetes Stroke Social History Smoking and tobacco/nicotine status: former use of tobacco/nicotine Quit status (tobacco/nicotine): has quit using Year quit tobacco: 2020 Former quit date comment: Hx of 1 PPD x 50 Years Second hand smoke exposure: No Alcohol intake: current Alcohol intake frequency: 0-2 Drinks per Day Substance/Drug Use: never Lives independently: Yes Household members: spouse Marital status: Current occupational status: retired Do you think of yourself as: Straight/Heterosexual Current gender identity: Male Physical Exam 2 Const: COMMON NORMALS: alert HENMT: COMMON NORMALS: normocephalic HEAD & SCALP: normocephalic Neck/C-Spine: COMMON NORMALS: full ROM Chest: COMMONS NORMALS: normal inspection of the chest and normal palpation of the breasts BREAST/AXILLA PALPATION: Yes normal palpation of the breasts Resp: COMMON NORMALS: normal respiratory effort and clear to auscultation bilaterally AUSCULTATION: clear to auscultation bilaterally Cardio: COMMON NORMALS: regular rate and regular rhythm RATE: regular rate RHYTHM: regular rhythm GI: COMMON NORMALS: Soft to palpation and non-tender PALPATION: Yes Soft to palpation : COMMON NORMALS: Yes no CVA tenderness BLADDER/KIDNEY EXAM: Yes no CVA tenderness Back/Pelvis: COMMON NORMALS: no CVA tenderness and thoracic and lumbar spine normal to inspection Extremity: NARRATIVE EXTREMITY EXAM: Normal musculature for legs and extremities. Neuro: SENSORIUM/ORIENTATION: Yes alert Psych: COMMON NORMALS: cooperative Skin: COMMON NORMALS: turgor normal GENERAL SKIN EXAM: turgor normal Course 2 Vital Signs: Vital signs: Vital Signs Temperature 97.7 F 04/18/23 14:09 Pulse Rate 58 L 04/18/23 14:09 Respiratory Rate 18 04/18/23 14:09 Blood Pressure 157/71 04/18/23 14:09 Pulse Oximetry 95 04/18/23 14:09 Oxygen Delivery Me thod Room Air 04/18/23 14:09 MDM - Extremity (Nontraumatic) Medical Decision Making 77-year-old male patient comes in today for concerns of 3 or 4 episodes over the last 2 years where he was down on the ground and was then not able to get up off the ground either while trying to work or do something on his property. Patient denies any falls or injuries. Patient does endorse alcohol use. Patient does have a history of coronary artery disease and a lung cancer. Patient appears nontoxic. Patient has healthy musculature of the extremities. Vital signs are normal except for some mild elevation of blood pressure 157 systolic. Patient ambulates without difficulty in the emergency department. Differential diagnosis includes but not limited to hyponatremia, hypokalemia, substance use disorder, lumbar radiculopathy, neuropathy, GBS. CBC and CMP were unremarkable. I offered to make patient a appointment with neurology for further evaluation. Patient refused and wanted to follow-up with his primary care. 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 Patient was discharged home with recommendations for follow-up or return to the ER. Lab Data 04/18/23 14:48 04/18/23 14:48 Laboratory Results WBC 5.66 10^3/uL (3.29-11.43) 04/18/23 14:48 RBC 3.62 10^6/uL (3.85-5.65) L 04/18/23 14:48 Hgb 13.00 g/dL (11.27-16.99) 04/18/23 14:48 Hct 38.2 % (37-53) 04/18/23 14:48 MCV 105.5 fl (82-101) H 04/18/23 14:48 MCH 35.9 pg (27-33) H 04/18/23 14:48 MCHC 34.0 g/dL (30-55) 04/18/23 14:48 RDW 13.8 % (12.1-15.1) 04/18/23 14:48 Plt Count 106 10^3/cmm (157-399) L 04/18/23 14:48 MPV 10.2 fL (7.4-10.4) 04/18/23 14:48 Neut % (Auto) 54.9 % 04/18/23 14:48 Lymph % (Auto) 28.3 % 04/18/23 14:48 Green % (Auto) 14.7 % 04/18/23 14:48 Eos % (Auto) 1.4 % 04/18/23 14:48 Baso % (Auto) 0.5 % 04/18/23 14:48 Neut # (Auto) 3.11 10^3/uL (1.8-7.7) 04/18/23 14:48 Lymph # (Auto) 1.6 10^3/uL (0.8-4.8) 04/18/23 14:48 Green # (Auto) 0.8 10^3/uL (0.2-0.9) 04/18/23 14:48 Eos # (Auto) 0.1 10^3/uL (0.0-0.8) 04/18/23 14:48 Baso # (Auto) 0.0 10^3/uL (0.0-0.1) 04/18/23 14:48 Nucleated RBC % (auto) 0 % 04/18/23 14:48 Nucleated RBCs # 0.0 /100WBC 04/18/23 14:48 Sodium 143 mmol/L (136-145) 04/18/23 14:48 Potassium 3.9 mmol/L (3.5-5.1) 04/18/23 14:48 Chloride 107 mmol/L (98-107) 04/18/23 14:48 Carbon Dioxide 21 mmol/L (22-29) L 04/18/23 14:48 Anion Gap 18.9 (5-19) 04/18/23 14:48 BUN 19 mg/dL (8-23) 04/18/23 14:48 Creatinine 0.9 mg/dL (0.7-1.2) 04/18/23 14:48 GFR Calculation Not Reportable 04/18/23 14:48 Glucose 96 mg/dL (65-115) 04/18/23 14:48 Calculated Osmolality 298 mOsm/kg (285-295) H 04/18/23 14:48 Calcium 8.1 mg/dL (8.5-10.5) L 04/18/23 14:48 Total Bilirubin 0.5 mg/dL (0.15-1.2) 04/18/23 14:48 AST 67 U/L (0-40) H 04/18/23 14:48 ALT 42 U/L (0-41) H 04/18/23 14:48 Alkaline Phosphatase 57 U/L (40-130) 04/18/23 14:48 Total Protein 7.0 g/dL (6.6-8.7) 04/18/23 14:48 Albumin 3.6 g/dL (3.5-5.2) 04/18/23 14:48 Globulin 3.4 g/dL (1.3-4.6) 04/18/23 14:48 No radiology studies performed this visit Discharge Plan Discharge Patient Disposition: Home Clinical Impression: Lower extremity weakness Qualifiers: Laterality: bilateral Qualified Code(s): R29.898 - Other symptoms and signs involving the musculoskeletal system Condition: Stable Prescriptions: No Action Pacerone 200 mg tablet 200 mg PO DAILY Qty: 90 2RF apixaban 5 mg tablet 5 mg PO BID Spiriva Respimat 1.25 mcg/actuation mist 2 puff inhalation DAILY Qty: 4 6RF levalbuterol HCl 1.25 mg/3 mL solution for nebulization 1.25 mg inhalation Q4H PRN (Reason: shortness of breath or wheezing) Qty: 90 6RF metoprolol succinate 50 mg tablet extended release 24 hr 25 mg PO DAILY Qty: 90 3RF furosemide 40 mg tablet 20 mg PO DAILY spironolactone 50 mg tablet 50 mg PO DAILY Qty: 90 3RF nitroglycerin 0.4 mg tablet, sublingual 0.4 mg SUBLINGUAL Q5M PRN (Reason: chest pain) Qty: 25 2RF Rx Instructions: do not exceed 3 doses per episode ascorbic acid (vitamin C) 1,000 mg Capsule, Extended Release 1 cap PO DAILY cholecalciferol (vitamin D3) [Vitamin D3] 25 mcg (1,000 unit) Tablet,Chewable 25 mcg PO DAILY Xopenex HFA 45 mcg/actuation Hfa Aerosol Inhaler 2 inh INHALATION Q6H Discharge Orders: Discharge ED (Routine); Ordered 04/18/23 Ordered By: Matti Graves Referrals: Claudette Sanchez PA [Primary Care Provider] - Discharge Diet: Usual diet Discharge Activity: Increase activity as tolerated Patient Instructions: Weakness (ED) Activity Restrictions/Additional Instructions: Follow-up with primary care for further instructions. Return to ED for new concerns. Coding Level of Care Code ED [employer] Table Assembler for Cecilia Dougherty
[2023-04-18 14:55] LABS: Basophils % 0.5 %; Eosinophils # 0.1 10^3/uL (0.0-0.8); Eosinophils % 1.4 %; Hematocrit 38.2 % (37-53); Lymphocytes # 1.6 10^3/uL (0.8-4.8); Lymphocytes % 28.3 %; Mean Corpuscular Hemoglobin 35.9 pg (27-33); Mean Corpuscular Volume 105.5 fl (82-101); Mean Platelet Volume 10.2 fL (7.4-10.4); Monocytes # 0.8 10^3/uL (0.2-0.9); Monocytes % 14.7 %; Neutrophils # 3.11 10^3/uL (1.8-7.7); Neutrophils % 54.9 %; Nucleated Red Blood Cells % 0 %; Platelet Count 106 10^3/cmm (157-399); Red Blood Count 3.62 10^6/uL (3.85-5.65); Red Cell Distribution Width 13.8 % (12.1-15.1); White Blood Count 5.66 10^3/uL (3.29-11.43)
[2023-04-18 15:18] LABS: Alanine Aminotransferase 42 U/L (0-41); Albumin Level 3.6 g/dL (3.5-5.2); Alkaline Phosphatase 57 U/L (40-130); Anion Gap 18.9 (5-19); Aspartate Amino Transferase 67 U/L (0-40); Blood Urea Nitrogen 19 mg/dL (8-23); Calcium 8.1 mg/dL (8.5-10.5); Carbon Dioxide 21 mmol/L (22-29); Chloride 107 mmol/L (98-107); Globulin 3.4 g/dL (1.3-4.6); Glucose 96 mg/dL (65-115); Osmolality Calculated 298 mOsm/kg (285-295); Potassium 3.9 mmol/L (3.5-5.1); Sodium 143 mmol/L (136-145); Total Bilirubin 0.5 mg/dL (0.15-1.2)
[2023-04-18 15:36] VITALS: BP 135/70; PULSE 51; O2SAT 96
== END 2023-04-18 15:38 | disposition home or self-care (01) ==
PROVIDERS: Emergency Provider Nurse Practitioner Family; PCP Physician Assistant
DX: R29.898 Other symptoms and signs involving the musculoskeletal system (principal); R53.1 Weakness; I11.0 Hypertensive heart disease with heart failure; I50.9 Heart failure, unspecified; Z87.891 Personal history of nicotine dependence; I25.10 Atherosclerotic heart disease of native coronary artery without angina pectoris; Z85.118 Personal history of other malignant neoplasm of bronchus and lung
CPT/HCPCS: 36415; 80053; 85025; 99283

== ENCOUNTER 2023-04-18 21:23 | Emergency (ER) | payer MEDICARE, OTHER, SELFPAY ==
[2023-04-18 21:27] VITALS: BP 136/68; PULSE 57; RESP 16; TEMP 36.7; O2SAT 97
--- NOTE | 2023-04-18 21:45 | PC.NURSE ---
Pt's neighbor shared with me that the pt received his late 's ashes yesterday and today is their anniversary. He is concerned pt is having some anxiety or mental problems dealing with her loss.
[2023-04-18 21:50] VITALS: BP 178/85; PULSE 56; RESP 16; O2SAT 97
--- NOTE | 2023-04-18 21:56 | XRR_ITS ---
PROCEDURE INFORMATION: Exam: XR Chest Exam date and time: 04/18/2023 10:03 PM Age: 77 years old Clinical indication: Other: Weak/chills; Additional info: Weakness/chills/rigors TECHNIQUE: Imaging protocol: Radiologic exam of the chest. Views: 1 view. COMPARISON: CR XR chest 2V* [id number] 03/30/2023 9:38 AM FINDINGS: Lungs: Unremarkable. No consolidation. Pleural spaces: Unremarkable. No pleural effusion. No pneumothorax. Heart/Mediastinum: Unremarkable. No cardiomegaly. Bones/joints: Unremarkable. XR/XR chest 1V portable [id number] IMPRESSION: No acute findings.
--- NOTE | 2023-04-18 21:58 | ECG_ITS ---
[facility] Test Date: 2023-04-18 Pat Name: Jet Blackman Department: Room: Gender: Male Stable Cleaner: : 1945 Requested By: Alfred Robledo Order Number: [id number] Bryan MD: Thomas Ace M.D. Measurements Intervals [place] Rate: 60 P: 85 [place]: 193 QRS: -69 QRSD: 140 T: 72 QT: 487 QTc: 490 Interpretive Statements SINUS RHYTHM LEFT AXIS DEVIATION [QRS AXIS < -30] LEFT BUNDLE BRANCH BLOCK [120+ ms QRS DURATION, 80+ ms Q/S IN V1/V2, 85+ ms R IN I/aVL/V5/V6] Compared to ECG 12/05/2022 11:50:04 Left bundle-branch block now present Sinus bradycardia no longer present Intraventricular conduction delay no longer present Myocardial infarct finding no longer present Electronically Signed On 04-19-2023 12:04:50 CREDENTIALER by Thomas Ace M.D. [id number]
[2023-04-18 22:10] LABS: Basophils % 0.2 %; Eosinophils % 0.9 %; Hematocrit 37.5 % (37-53); Lymphocytes # 1.2 10^3/uL (0.8-4.8); Lymphocytes % 25.9 %; Mean Corpuscular HGB Conc 34.9 g/dL (30-55); Mean Corpuscular Hemoglobin 36.6 pg (27-33); Mean Corpuscular Volume 104.7 fl (82-101); Mean Platelet Volume 10.6 fL (7.4-10.4); Monocytes # 0.7 10^3/uL (0.2-0.9); Monocytes % 14.3 %; Neutrophils # 2.74 10^3/uL (1.8-7.7); Neutrophils % 58.5 %; Nucleated Red Blood Cells % 0 %; Platelet Count 104 10^3/cmm (157-399); Red Blood Count 3.58 10^6/uL (3.85-5.65); Red Cell Distribution Width 13.9 % (12.1-15.1); White Blood Count 4.68 10^3/uL (3.29-11.43)
[2023-04-18 22:33] LABS: Alanine Aminotransferase 44 U/L (0-41); Albumin Level 3.6 g/dL (3.5-5.2); Alkaline Phosphatase 59 U/L (40-130); Anion Gap 20.9 (5-19); Aspartate Amino Transferase 76 U/L (0-40); Blood Urea Nitrogen 18 mg/dL (8-23); Calcium 8.2 mg/dL (8.5-10.5); Carbon Dioxide 19 mmol/L (22-29); Chloride 107 mmol/L (98-107); Creatinine Clr Calc Pharmacy 90.5191; Globulin 3.4 g/dL (1.3-4.6); Glucose 87 mg/dL (65-115); Magnesium 1.7 mg/dL (1.7-2.3); Osmolality Calculated 297 mOsm/kg (285-295); Potassium 3.9 mmol/L (3.5-5.1); Sodium 143 mmol/L (136-145); Total Bilirubin 0.6 mg/dL (0.15-1.2)
[2023-04-18 22:34] LABS: Lactic Sepsis W/Reflex 3.2 mmol/L (0.5-2.2)
[2023-04-18 22:39] LABS: Procalcitonin 0.13 ng/mL (0-0.5)
--- NOTE | 2023-04-18 23:51 | W.ED.GENADLT ---
HPI - General Adult General: Chief complaint: General Medical Stated complaint: shaking, feels like hes dying Time Seen by Provider: 04/18/23 21:58 History of Present Illness: 77-year-old male presents to the emergency department and is accompanied by his neighbor. Patient was seen earlier in this ER and was discharged at that time. He now presents for the second time stating that he feels strange. Patient states that he is concerned that his hands are intermittently shaking and that he feels like he might be dying. He states he is very upset and distraught about the recent loss of his . He states that he is not having any active shortness of breath or chest pain or dizziness. He does endorse drinking a significant amount of wine every day as well as several drinks of whiskey. He is very evasive when asked about alcohol consumption and CAGE questions. He denies homicidal or suicidal ideation. 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 HTN (hypertension) Obstructive sleep apnea Surgical History History of lobectomy of lung Family History Denies family history of Diabetes Stroke Social History Smoking and tobacco/nicotine status: former use of tobacco/nicotine Quit status (tobacco/nicotine): has quit using Year quit tobacco: 2020 Former quit date comment: Hx of 1 PPD x 50 Years Second hand smoke exposure: No Alcohol intake: current Alcohol intake frequency: 0-2 Drinks per Day Substance/Drug Use: never Lives independently: Yes Household members: spouse Marital status: Current occupational status: retired Do you think of yourself as: Straight/Heterosexual Current gender identity: Male Physical Exam Narrative: EXAM NARRATIVE: Constitutional: the patient appears well nourished and with normal development. Vital signs reviewed as documented. He does appear to be acutely intoxicated. HENMT: Normocephalic, atraumatic. External ears normal appearance without drainage. Nose without drainage, normal appearance. Mucus membranes moist. Neck is supple, No jugular venous distension, trachea is midline, no appreciable carotid bruits. No lymphadenopathy. No meningeal signs. Flexion, extension and lateral rotation is without pain. Eyes: Pupils are equal, round, reactive to light and accommodation. No scleral icterus. Extra-ocular movement are intact. Thorax is symmetrical and with equal rise and fall with respirations. Resp: Lungs are clear to auscultation. No wheezes, rales, crackles or ronchi at present. Cardio: Regular rate and rhythm. Positive S1, S2. No appreciable murmurs, rubs or gallops. GI: Abdominal exam reveals normal bowel sounds to all quadrants. No organomegaly. No obvious palpable masses noted. No hepatomegally appreciated. Soft, non-tender to palpation. Extremity: Extremities are non-edematous and both femoral and pedal pulses are 2+ and equal bilaterally. Moves all extremities well, sensation in all extremities. Neuro: Alert and oriented x4, person, place, time and situation. Cranial nerves II through XII are grossly intact, there is no focal neurological deficits that I can appreciate at present. Motor strength in the upper and lower extremities are equal and bilateral 5/5. Psych: Cooperative, calm, normal thought process, appropriate judgment. Skin: No lesions, rashes. No gross abnormalities noted. Back: Symmetrical, no obvious deformity, No CVA tenderness Course Vital Signs: Vital signs: Vital Signs Temperature 98.0 F 04/19/23 00:04 Pulse Rate 56 L 04/19/23 00:04 Respiratory Rate 16 04/19/23 00:04 Blood Pressure 178/85 04/19/23 00:04 Pulse Oximetry 97 04/19/23 00:04 Oxygen Delivery Me thod Room Air 04/18/23 21:27 [facility] - General Adult Medical Decision Making Will obtain laboratory evaluation to include a CBC CMP cardiac enzymes and chest x-ray and EKG. I have offered the patient a CT scan of his head and he has declined at this time. After I discussed the patient's labs with him he stated that he did not wish to have a CAT scan and this presentation was most likely because he has been drinking and at this time would like to be discharged and he will follow-up with his primary care provider. Differential Diagnosis Electrolyte abnormality, anxiety, panic attack, alcohol abuse, Medical Records I reviewed the patient's medical records. Lab Data I reviewed the patient's lab results. 04/18/23 22:05 04/18/23 22:05 Radiology Impressions Chest X-Ray 04/18/23 21:56 IMPRESSION: No acute findings. Laboratory Results WBC 4.68 10^3/uL (3.29-11.43) 04/18/23 22:05 RBC 3.58 10^6/uL (3.85-5.65) L 04/18/23 22:05 Hgb 13.10 g/dL (11.27-16.99) 04/18/23 22:05 Hct 37.5 % (37-53) 04/18/23 22:05 MCV 104.7 fl (82-101) H 04/18/23 22:05 MCH 36.6 pg (27-33) H 04/18/23 22:05 MCHC 34.9 g/dL (30-55) 04/18/23 22:05 RDW 13.9 % (12.1-15.1) 04/18/23 22:05 Plt Count 104 10^3/cmm (157-399) L 04/18/23 22:05 MPV 10.6 fL (7.4-10.4) H 04/18/23 22:05 Neut % (Auto) 58.5 % 04/18/23 22: Lymph % (Auto) 25.9 % 04/18/23 22:05 [place] % (Auto) 14.3 % 04/18/23 22: Eos % (Auto) 0.9 % 04/18/23 22:05 Baso % (Auto) 0.2 % 04/18/23 22: Neut # (Auto) 2.74 10^3/uL (1.8-7.7) 04/18/23 22:05 Lymph # (Auto) 1.2 10^3/uL (0.8-4.8) 04/18/23 22:05 [place] # (Auto) 0.7 10^3/uL (0.2-0.9) 04/18/23 22:05 Eos # (Auto) 0.0 10^3/uL (0.0-0.8) 04/18/23 22:05 Baso # (Auto) 0.0 10^3/uL (0.0-0.1) 04/18/23 22:05 Nucleated RBC % (auto) 0 % 04/18/23 22:05 Nucleated RBCs # 0.0 /100WBC 04/18/23 22:05 Sodium 143 mmol/L (136-145) 04/18/23 22:05 Potassium 3.9 mmol/L (3.5-5.1) 04/18/23 22:05 Chloride 107 mmol/L (98-107) 04/18/23 22:05 Carbon Dioxide 19 mmol/L (22-29) L 04/18/23 22:05 Anion Gap 20.9 (5-19) H 04/18/23 22:05 BUN 18 mg/dL (8-23) 04/18/23 22:05 Creatinine 0.8 mg/dL (0.7-1.2) 04/18/23 22:05 GFR Calculation Not Reportable 04/18/23 22:05 Glucose 87 mg/dL (65-115) 04/18/23 22:05 Calculated Osmolality 297 mOsm/kg (285-295) H 04/18/23 22:05 Lactic Acid 3.2 mmol/L (0.5-2.2) H 04/18/23 22:05 Calcium 8.2 mg/dL (8.5-10.5) L 04/18/23 22:05 Magnesium 1.7 mg/dL (1.7-2.3) 04/18/23 22:05 Total Bilirubin 0.6 mg/dL (0.15-1.2) 04/18/23 22:05 AST 76 U/L (0-40) H 04/18/23 22:05 ALT 44 U/L (0-41) H 04/18/23 22:05 Alkaline Phosphatase 59 U/L (40-130) 04/18/23 22:05 Total Protein 7.0 g/dL (6.6-8.7) 04/18/23 22:05 Albumin 3.6 g/dL (3.5-5.2) 04/18/23 22:05 Globulin 3.4 g/dL (1.3-4.6) 04/18/23 22:05 Procalcitonin 0.13 ng/mL (0-0.5) 04/18/23 22:05 Ethyl Alcohol 137 mg/dL (0-10) H 04/18/23 22:05 All radiology interpretation(s) finalized by discharge Discharge Plan Discharge Patient Disposition: Home Clinical Impression: Alcohol use disorder, Weakness Condition: Stable Prescriptions: No Action Pacerone 200 mg tablet 200 mg PO DAILY Qty: 90 2RF apixaban 5 mg tablet 5 mg PO BID Spiriva Respimat 1.25 mcg/actuation mist 2 puff inhalation DAILY Qty: 4 6RF levalbuterol HCl 1.25 mg/3 mL solution for nebulization 1.25 mg inhalation Q4H PRN (Reason: shortness of breath or wheezing) Qty: 90 6RF metoprolol succinate 50 mg tablet extended release 24 hr 25 mg PO DAILY Qty: 90 3RF furosemide 40 mg tablet 20 mg PO DAILY spironolactone 50 mg tablet 50 mg PO DAILY Qty: 90 3RF nitroglycerin 0.4 mg tablet, sublingual 0.4 mg SUBLINGUAL Q5M PRN (Reason: chest pain) Qty: 25 2RF Rx Instructions: do not exceed 3 doses per episode ascorbic acid (vitamin C) 1,000 mg Capsule, Extended Release 1 cap PO DAILY cholecalciferol (vitamin D3) [Vitamin D3] 25 mcg (1,000 unit) Tablet,Chewable 25 mcg PO DAILY Xopenex HFA 45 mcg/actuation Hfa Aerosol Inhaler 2 inh INHALATION Q6H Discharge Orders: Discharge ED (Routine); Ordered 04/18/23 Ordered By: Alfred Robledo Referrals: Claudette Sanchez PA [Primary Care Provider] - Discharge Diet: Usual diet Discharge Activity: Resume usual activity Patient Instructions: Opioid Safety, Pain Management Activity Restrictions/Additional Instructions: Activity Restrictions/Additional Instructions: Thank you for choosing [facility] for your healthcare needs today. Please realize that you were seen in the Emergency Department and that we are providing you with an emergency medical screening exam and this may not be a complete and all inclusive of all the testing and or medical work-up that you may need to determine your ailment or severity of your illness. It is very important that you follow-up as instructed with your Primary care provider or Specialist for additional evaluation and to discuss your medical treatment plan. You may return to the Emergency Department should you have concerns or if your condition changes or worsens in any way. Coding Level of Care Code ED Crop Duster Helper for Cecilia Dougherty
[2023-04-18 23:54] LABS: Reflex Lactate Order REFLEX LACTIC ORDERD
[2023-04-19 00:04] VITALS: BP 178/85; PULSE 56; RESP 16; TEMP 36.7; O2SAT 97
[2023-04-19 00:09] LABS: Alcohol Level 137 mg/dL (0-10)
== END 2023-04-19 00:06 | disposition home or self-care (01) ==
PROVIDERS: Emergency Provider Internal Medicine; PCP Physician Assistant
DX: R53.1 Weakness (principal); F10.90 Alcohol use, unspecified, uncomplicated; Z87.891 Personal history of nicotine dependence; I11.0 Hypertensive heart disease with heart failure; I50.9 Heart failure, unspecified; Z90.2 Acquired absence of lung [part of]; R29.898 Other symptoms and signs involving the musculoskeletal system; I25.10 Atherosclerotic heart disease of native coronary artery without angina pectoris; Z85.118 Personal history of other malignant neoplasm of bronchus and lung
CPT/HCPCS: 36415; 71045; 80053; 80307; 83605; 83735; 84145; 85025; 93005; 99283; 99285

== ENCOUNTER → 2023-05-10 09:21 | Outpatient (BNVA) | payer MEDICARE, OTHER, SELFPAY | PROVIDERS: PCP Physician Assistant; Visit Provider Nurse Practitioner Family | DX: I11.0 Hypertensive heart disease with heart failure (principal); I50.30 Unspecified diastolic (congestive) heart failure; I48.19 Other persistent atrial fibrillation; Z87.891 Personal history of nicotine dependence; Z79.01 Long term (current) use of anticoagulants | CPT/HCPCS: 99214 ==

== ENCOUNTER → 2023-07-13 08:52 | Outpatient (BNVA) | payer MEDICARE, OTHER, SELFPAY | PROVIDERS: PCP Physician Assistant; Visit Provider Nurse Practitioner Family | DX: I11.0 Hypertensive heart disease with heart failure (principal); I50.9 Heart failure, unspecified; I48.19 Other persistent atrial fibrillation; Z87.891 Personal history of nicotine dependence | CPT/HCPCS: 99214 ==

== ENCOUNTER → 2023-10-25 09:06 | Outpatient (BNVA) | payer MEDICARE, OTHER, SELFPAY | PROVIDERS: PCP Physician Assistant; Visit Provider Nurse Practitioner Family | DX: L82.0 Inflamed seborrheic keratosis (principal); L82.1 Other seborrheic keratosis; L81.4 Other melanin hyperpigmentation; L57.8 Other skin changes due to chronic exposure to nonionizing radiation; L91.8 Other hypertrophic disorders of the skin | CPT/HCPCS: 17110; 99213 ==

== ENCOUNTER 2023-11-08 14:32 | Emergency (ER) | payer MEDICARE, OTHER, SELFPAY ==
[2023-11-08 14:50] VITALS: BP 134/77; PULSE 136; RESP 20; TEMP 36.5; O2SAT 97; BMI 30.7
--- NOTE | 2023-11-08 14:51 | XR_ITS ---
WS: [id number] Examination: XR chest 1V portable [id number] Reason for Exam: cp Date: 11/08/2023 Comparison: April 18, 2023 Findings: There is cardiomegaly. The mediastinum not widened. There is no pulmonary edema or pleural effusion. There is no dense consolidation chronic changes are seen within the bases. XR/XR chest 1V portable [id number] Impression: The heart is enlarged. I see no acute lung process.
--- NOTE | 2023-11-08 14:52 | ECG_ITS ---
[facility] Test Date: 2023-11-08 Pat Name: Jet Blackman Department: Room: Gender: Male Flux Mixer: : 1945 Requested By: Jania Wharton Order Number: [id number] Reading MD: Thomas Ace M.D. Measurements Intervals [place] Rate: 135 P: 0 [place]: 0 QRS: -75 QRSD: 126 T: 100 QT: 323 QTc: 485 Interpretive Statements ATRIAL FIBRILLATION WITH RAPID VENTRICULAR RESPONSE RIGHT BUNDLE BRANCH BLOCK [120+ ms QRS DURATION, UPRIGHT V1, 40+ ms S IN I/aVL/V4/V5/V6] LEFT ANTERIOR FASCICULAR BLOCK [QRS AXIS <= -45, QR IN I, RS IN II] ANTEROSEPTAL MYOCARDIAL INFARCTION , OF INDETERMINATE AGE [40+ ms Q WAVE IN V1-V4] INTERPRETATION BASED ON A DEFAULT AGE OF 40 YEARS No previous ECG available for comparison Electronically Signed On 11-08-2023 14:57:55 CDT by Thomas Ace M.D. [id number]
--- NOTE | 2023-11-08 15:11 | ED_ITS ---
HPI - SOB/Dyspnea 2 General: Chief Complaint: Shortness of Breath/Dyspnea Stated Complaint: sob Time Seen by Provider: 11/08/23 14:50 Source: patient Mode of arrival: ambulatory Limitations: no limitations History of Present Illness: HPI Narrative: 78-year-old male with a history of A-fib along with CHF. He states that over the last 2 days he has been having some increasing shortness of breath states he feels like his heart is racing full he cannot get a deep breath then. He denies any chest pain he is in A-fib with RVR and heart rates in the 140s. He denies any vomiting denies any cough or fever Associated symptoms: Reports palpitations; Deny abdominal pain, chest pain, fever(s), nausea or vomiting Related Data Home Medications Medication Instructions Recorded Confirmed apixaban 5 mg tablet 5 mg PO BID 04/21/19 07/13/23 ascorbic acid (vitamin C) 1,000 mg 1 cap PO DAILY 02/05/20 07/13/23 capsule,extended release cholecalciferol (vitamin D3) 25 25 mcg PO DAILY 02/05/20 07/13/23 mcg (1,000 unit) chewable tablet (Vitamin D3) levalbuterol tartrate 45 2 inh inhalation Q6H 02/09/20 07/13/23 mcg/actuation aerosol inhaler (Xopenex HFA) furosemide 40 mg tablet 20 mg PO DAILY 05/09/22 07/13/23 Previous Rx's Medication Instructions Recorded levalbuterol HCl 1.25 mg/3 mL 1.25 mg (3 mL) inhalation Q4H PRN 09/21/22 solution for nebulization shortness of breath or wheezing #90 mL tiotropium bromide 1.25 2 puff inhalation DAILY #4 grams 09/21/22 mcg/actuation mist for inhalation (Spiriva Respimat) metoprolol succinate 50 mg 25 mg (1/2 x 50 mg) PO DAILY #90 12/05/22 tablet,extended release 24 hr tabs nitroglycerin 0.4 mg sublingual 0.4 mg sublingual Q5M PRN chest 08/17/23 tablet pain #25 tabs Allergies Allergy/AdvReac Type Severity Reaction Status Date / Time No Known Allergies Allergy Verified 07/13/23 08:56 Review of Systems 2 Const: Denies: fever(s), chills, body aches or change in appetite ENMT: Denies: throat pain or dental pain Card: Reports: palpitations and irregular heart rhythm; Denies: chest pain Resp: Reports: dyspnea GI: Denies: abdominal pain, nausea, vomiting or diarrhea Musc: Denies: neck pain or back pain Skin/Breast: Denies: rash Neuro: Denies: headache(s) PFSH ED 2 PFSH: Medical History Chronic fatigue Atrial fibrillation Obstructive sleep apnea HTN (hypertension) CHF (congestive heart failure) DRUJ (distal radioulnar joint) instability, post-traumatic no specific trauma only code choice in EHR! 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 Surgical History History of lobectomy of lung Family History Denies family history of Diabetes Stroke Social History Smoking and tobacco/nicotine status: former use of tobacco/nicotine Quit status (tobacco/nicotine): has quit using Year quit tobacco: 2020 Former quit date comment: Hx of 1 PPD x 50 Years Second hand smoke exposure: No Alcohol intake: current Alcohol intake frequency: 0-2 Drinks per Day Substance/Drug Use: never Lives independently: Yes Household members: spouse Marital status: Current occupational status: retired Do you think of yourself as: Straight/Heterosexual Current gender identity: Male Physical Exam 2 Const: COMMON NORMALS: no acute distress and patient oriented x3 HENMT: COMMON NORMALS: normocephalic and atraumatic HEAD & SCALP: n ormocephalic and atraumatic Eye: COMMON NORMALS: Equal, round and reactive pupils present and EOMs intact bilaterally PUPIL: Yes Equal, round and reactive pupils present Neck/C-Spine: COMMON NORMALS: full ROM and supple Chest: COMMONS NORMALS: normal inspection of the chest Resp: COMMON NORMALS: normal respiratory effort, No retractions, No use of accessory muscles and clear to auscultation bilaterally AUSCULTATION: clear to auscultation bilaterally Cardio: COMMON NORMALS: No murmurs present (Cardio) RATE: tachycardic R HYTHM: abnormal rhythm irregularly irregular GI: COMMON NORMALS: Normal to inspection, nondistended, normoactive bowel sounds present, Soft to palpation, non-tender and no masses PALPATION: Yes Soft to palpation Extremity: COMMON NORMALS: normal to inspection and full ROM Neuro: COMMON NORMALS: patient oriented x3, moves all extremities and no focal motor deficits Psych: COMMON NORMALS: mental status grossly normal, Normal thought process present and cooperative THOUGHT PROCESS: Normal thought process present Skin: COMMON NORMALS: no rashes or lesions noted and no wounds GENERAL SKIN EXAM: no rashes or lesions noted Course 2 Vital Signs: Vital signs: Vital Signs Temperature 97.7 F 11/08/23 14:50 Pulse Rate 105 H 11/08/23 16:56 Respiratory Rate 18 11/08/23 16:07 Blood Pressure 122/84 11/08/23 16:56 Pulse Oximetry 96 11/08/23 16:56 Oxygen Delivery Me thod Room Air 11/08/23 16:07 MDM - SOB/Dyspnea Medical Decision Making Patient presents here with A-fib with RVR he also has congestive heart failure likely causing some of his dyspnea is found to have an elevated liver enzyme as well. Patient had been started on a Cardizem drip still has tachycardia here hide went to admit him and he is adamant that he cannot be admitted he states that he has to be home to take care of his house I explained to him that he is on a drip and he has elevated bilirubin likely some heart failure and really needs to be admitted. I informed him that his heart rate is likely going to worsen his shortness of breath could worsen as well he understands the risks he has medical decision making and will give him an oral Cardizem here in IV dose of Lasix he is to follow-up with his PCP return if he changes his mind he understands agrees to plan and did sign out AGAINST MEDICAL ADVICE Medical Records I reviewed the patient's medical records. Lab Data I reviewed the patient's lab results. 11/08/23 15:37 11/08/23 15:37 Labs/Radiology: Radiology Impressions Chest X-Ray 11/08/23 14:51 Impression: The heart is enlarged. I see no acute lung process. Laboratory Results WBC 7.80 10^3/uL (3.29-11.43) 11/08/23 15:37 Corrected WBC Cancelled 11/08/23 14:55 RBC 3.53 10^6/uL (3.85-5.65) L 11/08/23 15:37 Hgb 13.00 g/dL (11.27-16.99) 11/08/23 15:37 Hct 37.9 % (37-53) 11/08/23 15:37 MCV 107.4 fl (82-101) H 11/08/23 15:37 MCH 36.8 pg (27-33) H 11/08/23 15:37 MCHC 34.3 g/dL (30-55) 11/08/23 15:37 RDW 14.5 % (12.1-15.1) 11/08/23 15:37 Plt Count 105 10^3/cmm (157-399) L 11/08/23 15:37 MPV 11.9 fL (7.4-10.4) H 11/08/23 15:37 Gran % Cancelled 11/08/23 14:55 Neut % (Auto) 76.0 % 11/08/23 15:37 Lymph % (Auto) 10.9 % 11/08/23 15:37 Ocean % (Auto) 12.6 % 11/08/23 15:37 Eos % (Auto) 0.1 % 11/08/23 15:37 Baso % (Auto) 0.3 % 11/08/23 15:37 Neut # (Auto) 5.93 10^3/uL (1.8-7.7) 11/08/23 15:37 Lymph # (Auto) 0.9 10^3/uL (0.8-4.8) 11/08/23 15:37 Ocean # (Auto) 1.0 10^3/uL (0.2-0.9) H 11/08/23 15:37 Eos # (Auto) 0.0 10^3/uL (0.0-0.8) 11/08/23 15:37 Baso # (Auto) 0.0 10^3/uL (0.0-0.1) 11/08/23 15:37 Absolute Gran (auto) Cancelled 11/08/23 14:55 Nucleated RBC % (auto) 0 % 11/08/23 15:37 Nucleated RBCs # 0.0 /100WBC 11/08/23 15:37 PT 20.00 SECONDS (12.1-14.9) H 11/08/23 15:37 INR 1.64 (0.8-1.2) H 11/08/23 15:37 D-Dimer 0.42 ug/mLFEU (0-0.59) 11/08/23 15:37 Sodium 138 mmol/L (136-145) 11/08/23 15:37 Potassium 4.5 mmol/L (3.5-5.1) 11/08/23 15:37 Chloride 100 mmol/L (98-107) 11/08/23 15:37 Carbon Dioxide 22 mmol/L (22-29) 11/08/23 15:37 Anion Gap 20.5 (5-19) H 11/08/23 15:37 BUN 27 mg/dL (8-23) H 11/08/23 15:37 Creatinine 1.0 mg/dL (0.7-1.2) 11/08/23 15:37 GFR Calculation Not Reportable 11/08/23 15:37 Glucose 117 mg/dL (65-115) H 11/08/23 15:37 Calculated Osmolality 292 mOsm/kg (285-295) 11/08/23 15:37 Calcium 8.2 mg/dL (8.5-10.5) L 11/08/23 15:37 Total Bilirubin 3.0 mg/dL (0.15-1.2) H 11/08/23 15:37 AST 41 U/L (0-40) H 11/08/23 15:37 ALT 51 U/L (0-41) H 11/08/23 15:37 Alkaline Phosphatase 70 U/L (40-130) 11/08/23 15:37 Troponin T Baseline 36 ng/L (0-15) H 11/08/23 15:37 NT-Pro-B Natriuret Pep 5143 pg/mL (0-450) H 11/08/23 15:37 Total Protein 6.6 g/dL (6.6-8.7) 11/08/23 15:37 Albumin 3.7 g/dL (3.5-5.2) 11/08/23 15:37 Globulin 2.9 g/dL (1.3-4.6) 11/08/23 15:37 All radiology interpretation(s) finalized by discharge EKG Data EKG 1: I personally reviewed and interpreted this EKG as follows: EKG Interpretation Date: 11/08/23 EKG interpretation time: 14:39 Interpretation: afib with rvr hr [address] elevation qrs 126 qtc 402 Discharge Plan Discharge Patient Disposition: Left Against Medical Advice Clinical Impression: Atrial fibrillation with rapid ventricular response, Congestive heart failure with LV diastolic dysfunction, NYHA class 4, Elevated bilirubin Condition: Stable Prescriptions: No Action apixaban 5 mg tablet 5 mg PO BID Spiriva Respimat 1.25 mcg/actuation mist 2 puff inhalation DAILY Qty: 4 6RF levalbuterol HCl 1.25 mg/3 mL solution for nebulization 1.25 mg inhalation Q4H PRN (Reason: shortness of breath or wheezing) Qty: 90 6RF metoprolol succinate 50 mg tablet extended release 24 hr 25 mg PO DAILY Qty: 90 3RF furosemide 40 mg tablet 20 mg PO DAILY nitroglycerin 0.4 mg tablet, sublingual 0.4 mg SUBLINGUAL Q5M PRN (Reason: chest pain) Qty: 25 2RF Rx Instructions: do not exceed 3 doses per episode ascorbic acid (vitamin C) 1,000 mg Capsule, Extended Release 1 cap PO DAILY cholecalciferol (vitamin D3) [Vitamin D3] 25 mcg (1,000 unit) Tablet,Chewable 25 mcg PO DAILY Xopenex HFA 45 mcg/actuation Hfa Aerosol Inhaler 2 inh INHALATION Q6H Referrals: Claudette Sanchez PA [Primary Care Provider] - Patient Instructions: Heart Failure (ED), A-fib (Atrial Fibrillation) (ED) Coding Level of Care Code ED Supervisor Stave Finishing for Chg Farhat
[2023-11-08] MEDS: dilTIAZem 5 mg/mL SDV 5 mL 15 MG IVP (15:22)
[2023-11-08 15:23] VITALS: BP 129/85; PULSE 127; RESP 22
[2023-11-08] MEDS: dilTIAZem 100 MG in sodium chloride 0.9% (add-van) 100 ML IV (15:39)
[2023-11-08 15:46] LABS: Basophils % 0.3 %; Eosinophils % 0.1 %; Hematocrit 37.9 % (37-53); Lymphocytes # 0.9 10^3/uL (0.8-4.8); Lymphocytes % 10.9 %; Mean Corpuscular HGB Conc 34.3 g/dL (30-55); Mean Corpuscular Hemoglobin 36.8 pg (27-33); Mean Corpuscular Volume 107.4 fl (82-101); Mean Platelet Volume 11.9 fL (7.4-10.4); Monocytes % 12.6 %; Neutrophils # 5.93 10^3/uL (1.8-7.7); Nucleated Red Blood Cells % 0 %; Platelet Count 105 10^3/cmm (157-399); Red Blood Count 3.53 10^6/uL (3.85-5.65); Red Cell Distribution Width 14.5 % (12.1-15.1)
[2023-11-08 16:07] VITALS: BP 114/74; RESP 18; O2SAT 93
[2023-11-08 16:07] LABS: Troponin(5th) Baseline 36 ng/L (0-15)
[2023-11-08 16:13] LABS: D Dimer 0.42 ug/mLFEU (0-0.59); INR 1.64 (0.8-1.2)
[2023-11-08 16:17] LABS: Alanine Aminotransferase 51 U/L (0-41); Albumin Level 3.7 g/dL (3.5-5.2); Alkaline Phosphatase 70 U/L (40-130); Anion Gap 20.5 (5-19); Aspartate Amino Transferase 41 U/L (0-40); Blood Urea Nitrogen 27 mg/dL (8-23); Calcium 8.2 mg/dL (8.5-10.5); Carbon Dioxide 22 mmol/L (22-29); Chloride 100 mmol/L (98-107); Globulin 2.9 g/dL (1.3-4.6); Glucose 117 mg/dL (65-115); NT Pro B Type Natriuretic Pept 5143 pg/mL (0-450); Osmolality Calculated 292 mOsm/kg (285-295); Potassium 4.5 mmol/L (3.5-5.1); Sodium 138 mmol/L (136-145); Total Protein 6.6 g/dL (6.6-8.7)
[2023-11-08] MEDS: dilTIAZem 60 mg Tablet PO (16:55)
[2023-11-08] MEDS: FUROsemide 10 mg/mL SDV 4mL 40 MG IVP (16:55)
[2023-11-08 16:56] VITALS: BP 122/84; PULSE 105; O2SAT 96
== END 2023-11-08 17:04 | disposition left against medical advice (07) ==
PROVIDERS: Emergency Provider Emergency Medicine; PCP Physician Assistant
DX: I48.20 Chronic atrial fibrillation, unspecified (principal); I11.0 Hypertensive heart disease with heart failure; I50.30 Unspecified diastolic (congestive) heart failure; R17 Unspecified jaundice; Z53.29 Procedure and treatment not carried out because of patient's decision for other reasons; Z87.891 Personal history of nicotine dependence
CPT/HCPCS: 71045; 80053; 83880; 84484; 85025; 85378; 85610; 93005; 96365; 96375; 99285; J1940; J3490

== ENCOUNTER 2023-11-09 09:59 | Inpatient (IN) | payer MEDICARE, OTHER, SELFPAY ==
[2023-11-09] VITALS (68 sets, daily range): BP systolic 97–145; BP diastolic 63–85; PULSE 86–157; RESP 14–37; TEMP 36.4–36.8; O2SAT 89–100; BMI 29.9
--- NOTE | 2023-11-09 10:22 | XR_ITS ---
WS: [id number] Examination: XR chest 1V portable [id number] Reason for Exam: dyspnea/cough Date: 11/09/2023 Comparison: 11/08/2023 Findings: The heart is enlarged. The mediastinum is not widened. There is no pulmonary edema or large pleural effusion. Surgical changes are projected over the right upper lung No dense consolidation is identified XR/XR chest 1V portable [id number] Impression: The appearance of the chest is similar to the previous day. There is cardiomega ly without failure or dense consolidation.
--- NOTE | 2023-11-09 10:23 | ECG_ITS ---
[facility] Test Date: 2023-11-09 Pat Name: Jet Blackman Department: Room: Gender: Male [employer]: : 1945 Requested By: Adam Cano Order Number: [id number] Bryan MD: Hilario Tejada M.D. Measurements Intervals [place] Rate: 143 P: 0 VA: 0 QRS: -75 QRSD: 125 T: 94 QT: 311 QTc: 481 Interpretive Statements ATRIAL FIBRILLATION WITH RAPID VENTRICULAR RESPONSE WITH ABERRANT CONDUCTION OR VENTRICULAR PREMATURE COMPLEXES LEFT AXIS DEVIATION [QRS AXIS < -30] RIGHT BUNDLE BRANCH BLOCK [120+ ms QRS DURATION, UPRIGHT V1, 40+ ms S IN I/aVL/V4/V5/V6] SEPTAL MYOCARDIAL INFARCTION , PROBABLY OLD [40+ ms Q WAVE IN V1/V2] Compared to ECG 11/08/2023 14:39:33 Aberrant conduction of supraventricular beat(s) now present Ventricular premature complex(es) now present Left-axis deviation now present Left anterior fascicular block no longer present Myocardial infarct finding still present Electronically Signed On 11-09-2023 17:03:27 CDT by Hilario Tejada M.D. [id number]
--- NOTE | 2023-11-09 10:29 | ED_ITS ---
HPI - SOB/Dyspnea 2 General: Chief Complaint: Shortness of Breath/Dyspnea Stated Complaint: recheck Time Seen by Provider: 11/09/23 10:05 History of Present Illness: HPI Narrative: 78-year-old male presents to the emergen cy room with complaints of shortness of breath and rapid heart rate. Patient has a history of atrial fibrillation he is on apixaban. He takes metoprolol 25 mg once a day for rate control. He was seen yesterday was in A-fib with RVR and started on Cardizem drip he was also found to be in some decompensated congestive heart failure. Dr. Wharton had advised him to be admitted to the hospital because of his poor rate control and heart failure. Patient elected to leave AMA continues to be short of breath with any exertion continues to have a rapid heart rate. He states this morning when he got up he actually felt significantly worse than he did yesterday. Associated symptoms: Reports chest congestion, orthopnea and palpitations; Deny abdominal pain, chest pain or fever(s) Related Data Home Medications Medication Instructions Recorded Confirmed apixaban 5 mg tablet 5 mg PO BID 04/21/19 11/09/23 cholecalciferol (vitamin D3) 25 25 mcg PO DAILY 02/05/20 11/09/23 mcg (1,000 unit) chewable tablet (Vitamin D3) furosemide 40 mg tablet 40 mg PO DAILY 05/09/22 11/09/23 ascorbic acid (vitamin C) 500 mg 500 mg PO DAILY 11/09/23 11/09/23 tablet (Vitamin C) trazodone 50 mg tablet 25 mg PO BEDTIME PRN Sleep 11/09/23 11/09/23 Previous Rx's Medication Instructions Recorded tiotropium bromide 1.25 2 puff inhalation DAILY #4 grams 09/21/22 mcg/actuation mist for inhalation (Spiriva Respimat) metoprolol succinate 50 mg 25 mg (1/2 x 50 mg) PO DAILY #90 12/05/22 tablet,extended release 24 hr tabs nitroglycerin 0.4 mg sublingual 0.4 mg sublingual Q5M PRN chest 08/17/23 tablet pain #25 tabs Allergies Allergy/AdvReac Type Severity Reaction Status Date / Time No Known Allergies Allergy Verified 07/13/23 08:56 Review of Systems 2 Const: Denies: fever(s) or chills Card: Reports: palpitations, irregular heart rhythm, edema, swelling of feet/ankles, dyspnea on exertion and orthopnea; Denies: chest pain Resp: Reports: dyspnea and chest congestion GI: Denies: abdominal pain : Denies: dysuria, urinary frequency or urinary urgency Musc: Denies: neck pain or back pain Skin/Breast: Denies: rash PFSH ED 2 PFSH: Medical History (Updated 11/09/23 @ 16:25 by Adam Tavera DO) History of lung cancer Alcoholism Chronic fatigue Atrial fibrillation Obstructive sleep apnea HTN (hypertension) CHF (congestive heart failure) DRUJ (distal radioulnar joint) instability, post-traumatic no specific trauma only code choice in EHR! 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 Surgical History History of lobectomy of lung Family History Denies family history of Diabetes Stroke Social History (Updated 11/09/23 @ 13:40 by Clifford Mckee MD) Smoking and tobacco/nicotine status: former use of tobacco/nicotine Quit status (tobacco/nicotine): has quit using Year quit tobacco: 2020 Former quit date comment: Hx of 1 PPD x 50 Years Second hand smoke exposure: No Alcohol intake: current Alcohol intake frequency: 3 or more drinks per day Substance/Drug Use: never Lives independently: Yes Household members: spouse Marital status: Current occupational status: retired Do you think of yourself as: Straight/Heterosexual Current gender identity: Male Physical Exam 2 Const: COMMON NORMALS: no acute distress GENERAL APPEARANCE: cooperative and comfortable ORIENTATION/CONSCIOUSNESS: Yes awake, Yes oriented to person, Yes oriented to place and Yes oriented to time HENMT: COMMON NORMALS: normocephalic, atraumatic and hearing grossly normal bilaterally HEAD & SCALP: normocephalic and atraumatic Resp: AUSCULTATION: crackles Cardio: RATE: tachycardic RHYTHM: abnormal rhythm irregularly irregular GI: COMMON NORMALS: Soft to palpation and No hepatosplenomegaly present A USCULTATION: Yes normoactive bowel sounds PALPATION: Yes Soft to palpation, No Tenderness to palpation present (GI), No Guarding due to palpation present (GI) and Yes No hepatosplenomegaly present Extremity: COMMON NORMALS: normal to inspection, capillary refill normal, no clubbing, cyanosis or edema, no calf tenderness and no pedal edema Neuro: SENSORIUM/ORIENTATION: Yes oriented to person, Yes oriented to place and Yes oriented to time Skin: COMMON NORMALS: no rashes or lesions noted GENERAL SKIN EXAM: no rashes or lesions noted Course 2 Vital Signs: Vital signs: Vital Signs Temperature 98.3 F 11/09/23 10:17 Pulse Rate 109 H 11/09/23 16:13 Respiratory Rate 31 H 11/09/23 15:55 Blood Pressure 103/71 11/09/23 16:13 Pulse Oximetry 95 11/09/23 16:13 Oxygen Delivery Me thod Room Air 11/09/23 10:17 MDM - SOB/Dyspnea Medical Decision Making Patient presents to the emergency room with A-fib. He returned he was here last night found to be in A-fib with a rapid ventricular response with congestive heart failure. He left AMA and returned today states he actually feels worse. Patient started on Cardizem. He is improving some of his heart rate is improved. Will admit he does have a history of alcohol use. He states he has cut back on drinking last drink couple days ago. Medical Records I reviewed the patient's medical records. Lab Data I reviewed the patient's lab results. 11/09/23 10:31 11/09/23 10:31 Labs/Radiology: Radiology Impressions Chest X-Ray 11/09/23 10:22 Impression: The appearance of the chest is similar to the previous day. There is cardiomegaly without failure or dense consolidation. Laboratory Results WBC 9.63 10^3/uL (3.29-11.43) 11/09/23 10:31 RBC 3.50 10^6/uL (3.85-5.65) L 11/09/23 10:31 Hgb 13.00 g/dL (11.27-16.99) 11/09/23 10:31 Hct 37.4 % (37-53) 11/09/23 10:31 MCV 106.9 fl (82-101) H 11/09/23 10:31 MCH 37.1 pg (27-33) H 11/09/23 10:31 MCHC 34.8 g/dL (30-55) 11/09/23 10:31 RDW 14.8 % (12.1-15.1) 11/09/23 10:31 Plt Count 99 10^3/cmm (157-399) L 11/09/23 10:31 MPV 11.1 fL (7.4-10.4) H 11/09/23 10:31 Neut % (Auto) 81.4 % 11/09/23 10:31 Lymph % (Auto) 7.2 % 11/09/23 10:31 Bonner % (Auto) 10.6 % 11/09/23 10:31 Eos % (Auto) 0.2 % 11/09/23 10:31 Baso % (Auto) 0.3 % 11/09/23 10:31 Neut # (Auto) 7.84 10^3/uL (1.8-7.7) H 11/09/23 10:31 Lymph # (Auto) 0.7 10^3/uL (0.8-4.8) L 11/09/23 10:31 Bonner # (Auto) 1.0 10^3/uL (0.2-0.9) H 11/09/23 10:31 Eos # (Auto) 0.0 10^3/uL (0.0-0.8) 11/09/23 10:31 Baso # (Auto) 0.0 10^3/uL (0.0-0.1) 11/09/23 10:31 Nucleated RBC % (auto) 0 % 11/09/23 10:31 Nucleated RBCs # 0.0 /100WBC 11/09/23 10:31 Sodium 135 mmol/L (136-145) L 11/09/23 10:31 Potassium 4.2 mmol/L (3.5-5.1) 11/09/23 10:31 Chloride 97 mmol/L (98-107) L 11/09/23 10:31 Carbon Dioxide 21 mmol/L (22-29) L 11/09/23 10:31 Anion Gap 21.2 (5-19) H 11/09/23 10:31 BUN 26 mg/dL (8-23) H 11/09/23 10:31 Creatinine 1.0 mg/dL (0.7-1.2) 11/09/23 10:31 GFR Calculation Not Reportable 11/09/23 10:31 Glucose 112 mg/dL (65-115) 11/09/23 10:31 Calculated Osmolality 286 mOsm/kg (285-295) 11/09/23 10:31 Calcium 8.3 mg/dL (8.5-10.5) L 11/09/23 10:31 Magnesium 1.2 mg/dL (1.7-2.3) L 11/09/23 10:31 Total Bilirubin 3.3 mg/dL (0.15-1.2) H 11/09/23 10:31 AST 39 U/L (0-40) 11/09/23 10:31 ALT 45 U/L (0-41) H 11/09/23 10:31 Alkaline Phosphatase 69 U/L (40-130) 11/09/23 10:31 Troponin T Baseline 39 ng/L (0-15) H 11/09/23 10:31 NT-Pro-B Natriuret Pep 3084 pg/mL (0-450) H 11/09/23 10:31 Total Protein 6.8 g/dL (6.6-8.7) 11/09/23 10:31 Albumin 3.7 g/dL (3.5-5.2) 11/09/23 10:31 Globulin 3.1 g/dL (1.3-4.6) 11/09/23 10:31 TSH 1.91 uIU/mL (0.27-4.20) 11/09/23 10:31 All radiology interpretation(s) finalized by discharge Discharge Plan Discharge Patient Disposition: Admitted As Inpatient Admit Provider: Clifford Mckee Clinical Impression: Atrial fibrillation with rapid ventricular response, Congestive heart failure with LV diastolic dysfunction, NYHA class 4, Alcoholism Condition: Stable Coding Level of Care Code ED Lieutenant Governor for Cecilia Dougherty
[2023-11-09 10:39] LABS: Basophils % 0.3 %; Eosinophils % 0.2 %; Hematocrit 37.4 % (37-53); Lymphocytes # 0.7 10^3/uL (0.8-4.8); Lymphocytes % 7.2 %; Mean Corpuscular HGB Conc 34.8 g/dL (30-55); Mean Corpuscular Hemoglobin 37.1 pg (27-33); Mean Corpuscular Volume 106.9 fl (82-101); Mean Platelet Volume 11.1 fL (7.4-10.4); Monocytes % 10.6 %; Neutrophils # 7.84 10^3/uL (1.8-7.7); Neutrophils % 81.4 %; Nucleated Red Blood Cells % 0 %; Platelet Count 99 10^3/cmm (157-399); Red Cell Distribution Width 14.8 % (12.1-15.1); White Blood Count 9.63 10^3/uL (3.29-11.43)
[2023-11-09 11:01] LABS: Troponin(5th) Baseline 39 ng/L (0-15)
[2023-11-09] MEDS: dilTIAZem 5 mg/mL SDV 5 mL 10 MG IVP (11:06)
[2023-11-09 11:09] LABS: Alanine Aminotransferase 45 U/L (0-41); Albumin Level 3.7 g/dL (3.5-5.2); Alkaline Phosphatase 69 U/L (40-130); Anion Gap 21.2 (5-19); Aspartate Amino Transferase 39 U/L (0-40); Blood Urea Nitrogen 26 mg/dL (8-23); Calcium 8.3 mg/dL (8.5-10.5); Carbon Dioxide 21 mmol/L (22-29); Chloride 97 mmol/L (98-107); Creatinine Clr Calc Pharmacy 73.6652; Globulin 3.1 g/dL (1.3-4.6); Glucose 112 mg/dL (65-115); NT Pro B Type Natriuretic Pept 3084 pg/mL (0-450); Osmolality Calculated 286 mOsm/kg (285-295); Potassium 4.2 mmol/L (3.5-5.1); Sodium 135 mmol/L (136-145); Total Bilirubin 3.3 mg/dL (0.15-1.2); Total Protein 6.8 g/dL (6.6-8.7)
[2023-11-09] MEDS: dilTIAZem 100 MG in sodium chloride 0.9% (add-van) 100 ML IV (11:09)
--- NOTE | 2023-11-09 11:28 | PC.PHAR ---
[facility]pt knows what [facility] he takes-verified 11/09/23
--- NOTE | 2023-11-09 11:32 | PC.NURSE ---
diltiazem was titrated to 10mg/hr from 5mg/hr per verbal order from Dr. Tavera @ [id number]
[2023-11-09 12:17] LABS: Magnesium 1.2 mg/dL (1.7-2.3); Thyroid Stimulating Hormone 1.91 uIU/mL (0.27-4.20)
[2023-11-09] MEDS: metoprolol tartrate 25 mg Tablet PO (12:30)
--- NOTE | 2023-11-09 12:31 | P.HP_ITS ---
Providers/Chief Complaint 2 Admitting Physician: Clifford Mckee MD Primary Care Provider: Claudette Sanchez Chief Complaint: recheck History of Present Illness Jet Blackman is a 78 year old male presenting to the emergency department with shortness of breath. He came in the November 07, and left AGAINST MEDICAL ADVICE. He is back today with similar symptoms. He reports for 1 to 2 weeks he has been very short of breath, especially with movement. He does not notice that much change when he lies down. His extremities have been swollen, but are a little less so today. No nausea, vomiting, chest discomfort, cough, fever, blood in stool black or tarry stool or diarrhea. He reports he has a history of A-fib. He is a heavy drinker, and stopped around Sunday. Review of Systems 2 General: Reports: 10 or more systems reviewed and unremarkable except in HPI and below Card: Reports: edema and dyspnea on exertion; Denies: chest pain Resp: Reports: dyspnea GI: Denies: abdominal pain, nausea, vomiting, hematochezia or melena Medications/Allergies Home Medications Medication Instructions Recorded Confirmed Last Taken Type apixaban 5 mg tablet 5 mg PO BID 04/21/19 11/09/23 11/09/23 History cholecalciferol (vitamin D3) 25 25 mcg PO DAILY 02/05/20 11/09/23 11/09/23 History mcg (1,000 unit) chewable tablet (Vitamin D3) furosemide 40 mg tablet 40 mg PO DAILY 05/09/22 11/09/23 11/08/23 History tiotropium bromide 1.25 2 puff inhalation DAILY #4 grams 09/21/22 11/09/23 11/09/23 Rx mcg/actuation mist for inhalation (Spiriva Respimat) metoprolol succinate 50 mg 25 mg (1/2 x 50 mg) PO DAILY #90 12/05/22 11/09/23 11/09/23 Rx tablet,extended release 24 hr tabs nitroglycerin 0.4 mg sublingual 0.4 mg sublingual Q5M PRN chest 08/17/23 11/09/23 Unknown Rx tablet pain #25 tabs ascorbic acid (vitamin C) 500 mg 500 mg PO DAILY 11/09/23 11/09/23 11/09/23 History tablet (Vitamin C) trazodone 50 mg tablet 25 mg PO BEDTIME PRN Sleep 11/09/23 11/09/23 Unknown History Allergies Allergy/AdvReac Type Severity Reaction Status Date / Time No Known Allergies Allergy Verified 07/13/23 08:56 PFSH Acute 2 PFSH: Medical History (Updated 11/09/23 @ 13:44 by Clifford Mckee MD) History of lung cancer Alcoholism Chronic fatigue Atrial fibrillation Obstructive sleep apnea HTN (hypertension) CHF (congestive heart failure) DRUJ (distal radioulnar joint) instability, post-traumatic no specific trauma only code choice in EHR! 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 Surgical History History of lobectomy of lung Family History Denies family history of Diabetes Stroke Social History (Updated 11/09/23 @ 13:40 by Clifford Mckee MD) Smoking and tobacco/nicotine status: former use of tobacco/nicotine Quit status (tobacco/nicotine): has quit using Year quit tobacco: 2020 Former quit date comment: Hx of 1 PPD x 50 Years Second hand smoke exposure: No Alcohol intake: current Alcohol intake frequency: 3 or more drinks per day Substance/Drug Use: never Lives independently: Yes Household members: spouse Marital status: Current occupational status: retired Do you think of yourself as: Straight/Heterosexual Current gender identity: Male Vitals/I&O/Wt Last Vital Signs Temp 98.3 F 11/09/23 10:17 Pulse 157 H 11/09/23 10:17 Resp 18 11/09/23 10:17 Pulse Ox 95 11/09/23 10:17 O2 Del Method Room Air 11/09/23 10:17 11/08/23 11/09/23 11/09/23 22:59 06:59 14:59 Intake Total 6.000 / 6.000 Balance 6.000 / 6.000 Weight last 48 hrs Weight 97.522 kg Physical Exam 2 Narrative: General Exam demonstrates white male, with mild respiratory distress with tachypnea. Denying any chest discomfort. Currently on 2 L per nasal cannula. HEENT: Atraumatic normocephalic. Oropharynx clear. Neck is supple no lymphadenopathy thyromegaly Cardiovascular tachycardic, irregular. No obvious murmur Lungs few bilateral rhonchi. Occasional wheeze. Diminished breath sounds right side. Abdomen is soft nontender positive bowel sounds. No obvious organomegaly exams deferred Extremities trace edema. No cyanosis or clubbing. Data 11/09/23 10:31 11/09/23 10:31 Other Labs: INR 1.64 yesterday Magnesium which I ordered 1.2 Bilirubin 3.3, AST 39, ALT 45 Alk phos normal Troponin 39 with repeat of 32 TSH 1.9 which I ordered Chest x-ray which I reviewed demonstrates previous right upper lobe resection, cardiomegaly, no obvious infiltrate EKG which I reviewed demonstrates atrial fibrillation with rapid ventricular rate, rate around 140, Q-wave septally. Right bundle branch block. A&P Assessment and plan (1) Atrial fibrillation with rapid ventricular response: Presents with atrial fibrillation with rapid ventricular rate He is normally on metoprolol at home Cardizem drip has been started in the ER His decompensation is likely multifactorial, including that he recently stopped heavy alcohol intake. Metoprolol 25 mg now Continue Cardizem Increase his home metoprolol dosing to 50 mg twice daily Supplement magnesium Check TSH (2) Alcoholism: Patient reports he quit drinking on Sunday Withdrawal still could be a factor in his A-fib with RVR CIWA protocol Ativan 1 mg IV now Encourage abstinence (3) Elevated bilirubin: Bilirubin is elevated, likely secondary to heavy alcohol intake. Transaminitis is also present. Platelets are low. INR is elevated, but he is also on apixaban Check hepatitis panel Hepatic ultrasound (4) COPD (chronic obstructive pulmonary disease): Patient with history of COPD He has a little bit of wheezing Budesonide twice daily DuoNeb every 6 hours (5) CHF (congestive heart failure): Patient has what appears to be acute diastolic heart failure from his A-fib with RVR Control rate No extra fluids Review whether Lasix is needed tomorrow after addressing rate and monitoring blood pressure closely. Echocardiogram Qualifiers: Heart failure type: unspecified Heart failure chronicity: acute on chronic Qualified Code(s): I50.9 - Heart failure, unspecified (6) Hypomagnesemia: Supplement magnesium, recheck tomorrow (7) Macrocytosis: Check B12 and folate. Likely secondary to alcohol Plan Multiple other medical problems as outlined in past medical history Full code SCDs for DVT prophylaxis. Eliquis will also suffice. Attestations 2 Medical Necessity Statement*: Will need greater than 2 midnight stay for evaluation and treatment of A-fib with RVR, decompensated CHF, alcoholism with likely withdrawal Diagnoses Atrial fibrillation with rapid ventricular response I48.91 Alcoholism F10.20 Elevated bilirubin R17 COPD (chronic obstructive pulmonary disease) J44.9 Acute on chronic congestive heart failure, unspecified heart failure type I50.9 Heart failure type: unspecified Heart failure chronicity: acute on chronic Hypomagnesemia E83.42 Macrocytosis D75.89 Time Spent (min) 34
--- NOTE | 2023-11-09 12:39 | ECG_ITS ---
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 Measurements Intervals [place] Rate: 122 P: 0 MO: 0 QRS: -77 QRSD: 129 T: 101 QT: 330 QTc: 471 Interpretive Statements ATRIAL FIBRILLATION WITH RAPID VENTRICULAR RESPONSE RIGHT BUNDLE BRANCH BLOCK [120+ ms QRS DURATION, UPRIGHT V1, 40+ ms S IN I/aVL/V4/V5/V6] LEFT ANTERIOR FASCICULAR BLOCK [QRS AXIS <= -45, QR IN I, RS IN II] ANTEROSEPTAL MYOCARDIAL INFARCTION , OF INDETERMINATE AGE [40+ ms Q WAVE IN V1-V4] Compared to ECG 11/09/2023 10:23:41 Left anterior fascicular block now present Aberrant conduction of supraventricular beat(s) no longer present Ventricular premature complex(es) no longer present Left-axis deviation no longer present Myocardial infarct finding still present Electronically Signed On 11-09-2023 17:11:26 CDT by Hilario Tejada M.D. [id number]
[2023-11-09 13:02] LABS: Troponin 5 2HR 32.46 ng/L (0-15)
[2023-11-09 13:14] LABS: Troponin 5 2HR Delta -6.54 ABS# (0-10)
[2023-11-09] MEDS: LORazepam 2 mg/mL INJ 1 mL 1 MG IVP (14:33)
[2023-11-09] MEDS: methylPREDNISolone sod succ 40 mg/mL INJ IVP (14:35)
[2023-11-09] MEDS: magnesium sulfate premix 2 GM/50 ML PIGGYBACK IV (14:37)
[2023-11-09 17:03] LABS: Covid PCR NEGATIVE (Negative); Influenza A NEGATIVE (Negative); Influenza B NEGATIVE (Negative); Respiratory Syncytial Virus Ce NEGATIVE (Negative)
[2023-11-09 17:36] LABS: Troponin 5 6HR 34.69 ng/L (0-15)
[2023-11-09] MEDS: apixaban 5 mg Tablet PO (17:43)
[2023-11-09] MEDS: dilTIAZem 100 MG in sodium chloride 0.9% (add-van) 100 ML 12.5 MG IV (17:55)
[2023-11-09 17:59] LABS: Troponin 5 6HR Delta -4.31 ng/L (0-12)
--- NOTE | 2023-11-09 18:01 | ECG_ITS ---
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1945 Requested By: Adam Cano Order Number: [id number] Reading MD: HANNAH MCCLENDON Measurements Intervals [employer] Rate: 117 P: 0 WI: 0 QRS: -65 QRSD: 129 T: 110 QT: 357 QTc: 498 Interpretive Statements ATRIAL FIBRILLATION WITH RAPID VENTRICULAR RESPONSE WITH ABERRANT CONDUCTION OR VENTRICULAR PREMATURE COMPLEXES LEFT ANTERIOR FASCICULAR BLOCK [QRS AXIS <= -45, QR IN I, RS IN II] ANTEROSEPTAL MYOCARDIAL INFARCTION , OF INDETERMINATE AGE [40+ ms Q WAVE IN V1-V4] Compared to ECG 11/09/2023 12:39:38 Ventricular premature complex(es) now present Aberrant conduction of supraventricular beat(s) now present Right bundle-branch block no longer present Myocardial infarct finding still present Electronically Signed On 11-11-2023 19:01:13 CDT by HANNHA MCCLENDON [email or web address]
[2023-11-09] MEDS: metoprolol tartrate 50 mg Tablet PO (20:12)
[2023-11-09 20:56] LABS: Hepatitis A Antibody IgM Non-Reactive (Nonreactive); Hepatitis B Core IgM Non-Reactive (Nonreactive); Hepatitis B Surface Antigen Non-Reactive (Nonreactive); Hepatitis C Virus Antibody Non-Reactive (Nonreactive)
[2023-11-09] MEDS: budesonide 0.5 mg/2 mL Neb INHALATION (21:02)
[2023-11-09] MEDS: ipratropium-albuterol 3 mL Neb INHALATION (21:03)
[2023-11-10] VITALS (11 sets, daily range): BP systolic 95–132; BP diastolic 68–101; PULSE 64–107; RESP 14–28; TEMP 35.8–36.5; O2SAT 91–97
[2023-11-10] MEDS: dilTIAZem 100 MG in sodium chloride 0.9% (add-van) 100 ML 10 MG IV ×2 (03:39→14:22)
[2023-11-10 04:11] LABS: Charge for UA Resulting for Rev
[2023-11-10 04:13] LABS: Bilirubin Urine Negative (Negative); Blood Urine Negative (Negative); Glucose Urine UA Negative (Normal); Ketones Urine Trace (Negative); Leukocyte Esterase Urine Trace (Negative); Nitrate Urine Positive (Negative); Protein Urine 2+ (Negative); Specific Gravity, Urine 1.024 (1.005-1.030); Urine Appearance Clear (CLEAR)
[2023-11-10 04:18] LABS: Bacteria Urine None Seen /hpf; Hyaline Casts Urine 13.22 /lpf; Squamous Epithelial Cell Urine 0-5 /hpf (0-5); WBC Urine 0-5 /hpf (0-5)
[2023-11-10 04:22] LABS: Urine Color Orange (Yellow)
[2023-11-10 04:58] LABS: Basophils % 0.1 %; Hematocrit 36.9 % (37-53); Lymphocytes # 0.5 10^3/uL (0.8-4.8); Lymphocytes % 6.6 %; Mean Corpuscular HGB Conc 34.1 g/dL (30-55); Mean Corpuscular Hemoglobin 36.7 pg (27-33); Mean Corpuscular Volume 107.6 fl (82-101); Mean Platelet Volume 12.2 fL (7.4-10.4); Monocytes # 0.4 10^3/uL (0.2-0.9); Monocytes % 5.7 %; Neutrophils # 6.11 10^3/uL (1.8-7.7); Neutrophils % 87.3 %; Nucleated Red Blood Cells % 0 %; Platelet Count 92 10^3/cmm (157-399); Red Blood Count 3.43 10^6/uL (3.85-5.65); Red Cell Distribution Width 14.3 % (12.1-15.1)
[2023-11-10 05:21] LABS: Alanine Aminotransferase 42 U/L (0-41); Albumin Level 3.6 g/dL (3.5-5.2); Alkaline Phosphatase 67 U/L (40-130); Anion Gap 18.2 (5-19); Aspartate Amino Transferase 35 U/L (0-40); Blood Urea Nitrogen 34 mg/dL (8-23); Calcium 8.6 mg/dL (8.5-10.5); Carbon Dioxide 22 mmol/L (22-29); Chloride 100 mmol/L (98-107); Creatinine Clr Calc Pharmacy 81.8502; Globulin 3.1 g/dL (1.3-4.6); Glucose 164 mg/dL (65-115); Magnesium 1.9 mg/dL (1.7-2.3); Osmolality Calculated 293 mOsm/kg (285-295); Potassium 4.2 mmol/L (3.5-5.1); Sodium 136 mmol/L (136-145); Total Bilirubin 1.6 mg/dL (0.15-1.2); Total Protein 6.7 g/dL (6.6-8.7)
[2023-11-10 05:30] LABS: Vitamin B12 444 pg/mL (232-1245)
[2023-11-10 05:34] LABS: Folate Level 9.7 ng/mL (4.5-32.2)
[2023-11-10] MEDS: budesonide 0.5 mg/2 mL Neb INHALATION ×2 (07:54→21:39)
[2023-11-10] MEDS: ipratropium-albuterol 3 mL Neb INHALATION ×2 (07:54→21:39)
[2023-11-10] MEDS: pantoprazole DR 40 mg Tablet PO (09:48)
[2023-11-10] MEDS: metoprolol tartrate 50 mg Tablet PO ×2 (09:48→20:10)
[2023-11-10] MEDS: folic acid 1 mg Tablet PO (09:49)
[2023-11-10] MEDS: predniSONE 20 mg Tablet 40 MG PO (09:49)
[2023-11-10] MEDS: multivitamin therapeutic Tablet 1 TAB PO (09:49)
[2023-11-10] MEDS: apixaban 5 mg Tablet PO ×2 (09:49→17:28)
[2023-11-10] MEDS: thiamine 100 mg Tablet PO (09:49)
[2023-11-10] MEDS: LORazepam 2 mg Tablet PO ×3 (09:57→21:05)
--- NOTE | 2023-11-10 14:46 | P.PN_ITS ---
Subjective 2 Subjective: States that he is doing better this morning. He denies chest pain or shortness of breath. He has been able to eat and drink some. Wants to go home when he is able. Medications: Reviewed: Yes Vitals/I&O/Wt Last Vital Signs Temp 97.7 F 11/10/23 12:00 Pulse 88 11/10/23 12:00 Resp 14 11/10/23 12:00 BP 95/68 11/10/23 12:00 Pulse Ox 93 11/10/23 12:00 O2 Del Method Nasal Cannula 11/10/23 12:00 O2 Flow Rate 2 11/10/23 07:55 11/09/23 11/10/23 11/10/23 22:59 06:59 14:59 Intake Total 513.917 / 519.917 307.667 / 827.584 100 / 100 Balance 513.917 / 519.917 307.667 / 827.584 100 / 100 Weight last 48 hrs Weight 214 lb 4.8 oz Weight 215 lb Weight 215 lb Physical Exam 2 Narrative: General: Cooperative patient in no apparent distress. Well developed. HEENT: Normocephalic, Atraumatic. External ears normal. Nasal passages patent without drainage. MMM. Heart: Irregularly irregular. Heart rate is around 90 bpm. Resp: LCTA. No respiratory distress, no use of accessory muscles. Abd: Soft, non-tender. Non-distended. Extremities: No edema. Skin: No rash or lesions on exposed areas. Data 11/10/23 03:49 11/10/23 03:49 A&P Assessment and plan (1) Atrial fibrillation with rapid ventricular response: Presents with atrial fibrillation with rapid ventricular rate He is normally on metoprolol at home Cardizem drip has been started in the ER His decompensation is likely multifactorial, including that he recently stopped heavy alcohol intake. Metoprolol 25 mg now Continue Cardizem Increase his home metoprolol dosing to 50 mg twice daily Supplement magnesium Check TSH (2) Alcoholism: Patient reports he quit drinking on Sunday Withdrawal still could be a factor in his A-fib with RVR CIWA protocol Ativan 1 mg IV now Encourage abstinence (3) Elevated bilirubin: Bilirubin is elevated, likely secondary to heavy alcohol intake. Transaminitis is also present. Platelets are low. INR is elevated, but he is also on apixaban Check hepatitis panel Hepatic ultrasound (4) COPD (chronic obstructive pulmonary disease): Patient with history of COPD He has a little bit of wheezing Budesonide twice daily DuoNeb every 6 hours (5) CHF (congestive heart failure): Patient has what appears to be acute diastolic heart failure from his A-fib with RVR Control rate No extra fluids Review whether Lasix is needed tomorrow after addressing rate and monitoring blood pressure closely. Echocardiogram Qualifiers: Heart failure type: unspecified Heart failure chronicity: acute on chronic Qualified Code(s): I50.9 - Heart failure, unspecified (6) Hypomagnesemia: Magnesium was supplemented, now currently within normal limits. (7) Macrocytosis: Check B12 and folate. Likely secondary to alcohol Plan PLAN FOR TODAY: Continue close inpatient monitoring. Heart rate is improved. He is currently around 80 to 90 bpm. Will transition from IV Cardizem to oral. O2 sats at 93%. He is using approximately 1 L of oxygen. Will continue to titrate off. Transition from IV to oral diltiazem. Will start oral dose at 240mg and begin titration off IV at 2.5 mg/hr until discontinued. Magnesium is now within normal limits. Does not appear to be having issues with withdrawal. He has only received a single dose of lorazepam. Continue with vitamin replacement. He is on Eliquis for VTE prophylaxis - afib. He was positive for nitrates in his urine, but no other bacteria or other signs consistent with infection. He denies symptoms at this time. Liver enzymes currently okay. His bilirubin is down to 1.6, from a max of 3.3. If he remains stable, and tolerates oral diltiazem without significant increase in his heart rate, or hypotensive events, we will consider discharge tomorrow. Code Status: Full IVF: None DVT PPx: Eliquis GI PPx: Protonix ABx: None Diet: Cardiac Discharge plan: Home when appropriate. Anticipate discharge in 24 hours. Attestations 2 Medical Necessity Statement*: Will need greater than 2 midnight stay for evaluation and treatment of A-fib with RVR, decompensated CHF, alcoholism with likely withdrawal Coding Level of Care Code Acute Code for Chg Fwd Moderate MDM includes number and complexity of problems actively addressed during encounter, amount and/or complexity of data reviewed/ordered and described risk of complication, morbidity or mortality of management as documented Diagnoses Atrial fibrillation with rapid ventricular response I48.91 Alcoholism F10.20 Elevated bilirubin R17 COPD (chronic obstructive pulmonary disease) J44.9 Acute on chronic congestive heart failure, unspecified heart failure type I50.9 Heart failure type: unspecified Heart failure chronicity: acute on chronic Hypomagnesemia E83.42 Macrocytosis D75.89
[2023-11-10] MEDS: dilTIAZem ER (24HR) 240 mg Capsule PO (15:42)
--- NOTE | 2023-11-10 16:28 | USCV_ITS ---
Jet Blackman Age: 78 Gender: M : 1945 Exam Date: 11/10/2023 13:12 Ordering Phys: Clifford Mckee MD Technologist: Taurus Garza Exam Location: [facility] [place] Indication: afib BP: 95 / 68 HR: 76 Rhythm: Sinus Technical Quality: Adequate MEASUREMENTS (Male / Female) Normal Values 2D ECHO LV Diastolic Diameter PLAX 4.8 cm 4.2 - 5.9 / 3.9 - 5.3 cm IVS Diastolic Thickness 1.4 cm 0.6 - 1.0 / 0.6 - 0.9 cm IVS Systolic Thickness 1.6 cm LVPW Diastolic Thickness 1.7 cm 0.6 - 1.0 / 0.6 - 0.9 cm LVPW Systolic Thickness 2.1 cm LVOT Diameter 2.1 cm LV Ejection Fraction 2D Teich 34.1 % LV Ejection Fraction MOD 4C 36.1 % LV Ejection Fraction MOD 2C 42.3 % LV Ejection Fraction 2C AL 42.8 % LA Diameter 4.6 cm RA Systolic Volume 4C AL 92.6 ml RA Systolic Volume 4C MOD 92.1 ml LA Sys Volume AL 84.6 cm cubed LA Sys Volume Index AL 38.0 cm cubed/m squared Aorta at Sinotubular Diameter 2.8 cm IVC Diameter 2.7 cm M-MODE LA Ao Ratio MM 1.5 AV Cusp Separation MM 1.9 cm DOPPLER AV Peak Velocity 100.0 cm/s LVOT Peak Velocity 68.0 cm/s AV Area Cont Eq vti 2.3 cm squared AV Area Cont Eq pk 2.3 cm squared MV Peak Velocity 109.3 cm/s MV Area PHT 6.2 cm squared Mitral E to A Ratio 2.5 TV Peak Velocity 261.5 cm/s TR Peak Velocity 273.0 cm/s TR Peak Gradient 29.8 mmHg TR Mean Velocity 214.0 cm/s TR Mean Gradient 19.5 mmHg TR Velocity Time Integral 87.4 cm PV Peak Velocity 82.0 cm/s RV Ejection Time 0.3 s FINDINGS Left Ventricle Normal left ventricular cavity size. Severely decreased left ventricular systolic function. Left ventricular ejection fraction is estimated at 36 %. Global left ventricular hypokinesis. Grade II/IV diastolic dysfunction, moderately elevated filling pressures. Grade III/IV diastolic dysfunction (restrictive filling pattern), severely elevated filling pressures. Right Ventricle The right ventricle is normal in size and function. Right Atrium Moderately increased right atrial size. Left Atrium Moderately increased left atrial size. Mitral Valve Moderately thickened mitral valve. No mitral valve stenosis. Trace mitral valve regurgitation. Aortic Valve Structurally normal aortic valve without significant sclerosis or stenosis. There is trace aortic regurgitation. Tricuspid Valve Structurally normal tricuspid valve without significant stenosis or regurgitation. Pulmonary artery systolic pressure is normal. Pulmonic Valve Structurally normal pulmonic valve without significant stenosis. There is mild pulmonic regurgitation. Pericardium Normal pericardium without effusion. Aorta Normal ascending aorta dimension. IVC The inferior vena cava appears normal. CONCLUSIONS 1-Normal left ventricular cavity size. Severely decreased left ventricular systolic function. Left ventricular ejection fraction is estimated at 36 %. Global left ventricular hypokinesis. Grade II/IV diastolic dysfunction, moderately elevated filling pressures. Grade III/IV diastolic dysfunction (restrictive filling pattern), severely elevated filling pressures. 2-Mild pulmonary valve regurgitation. 3-There is no pericardial effusion. 4-Pulmonary artery systolic pressure is within normal limits. 5-Right atrial pressure is around 5 mm of mercury. Mirtha Garces MD (Electronically Signed) Final Date: 10 November 2023 15:59 S
--- NOTE | 2023-11-10 16:28 | USR_ITS ---
PROCEDURE INFORMATION: Exam: US Abdomen Complete Exam date and time: 11/10/2023 1:12 PM Age: 78 years old Clinical indication: Elevated liver enzymes; TECHNIQUE: Imaging protocol: Real-time ultrasound of the abdomen with image documentation. Complete exam. COMPARISON: US abdomen limited [id number] 06/18/2018 11:48 AM FINDINGS: Liver: Unremarkable. No mass. Gallbladder: Gallbladder wall is thickened measuring 7 mm. No gallstones are seen. There is a small amount of pericholecystic fluid. Biliary ducts: Common bile duct is normal in caliber measuring 6 mm. Pancreas: Visualized pancreas is unremarkable. Right kidney: There is a 4.8 x 5.3 x 4.5 cm cyst with benign features of the right kidney. Left kidney: There is a 1.7 x 1.8 cm cyst of the left kidney with benign features. Spleen: The spleen measures 5.2 x 8.8 x 4.3 cm.Incidental calcified splenic granulomata. Aorta: Normal. No aneurysm. Inferior vena cava: Normal. US/US abdomen complete* [id number] IMPRESSION: Gallbladder wall is thickened associated with a small amount of pericholecystic fluid. No gallstones are seen. Findings raise concern for acalculous cholecystitis. Gallbladder wall thickening can be seen with systemic disease as well.
[2023-11-11] VITALS (13 sets, daily range): BP systolic 97–115; BP diastolic 67–82; PULSE 77–110; RESP 13–32; TEMP 35.6–37; O2SAT 93–97
--- NOTE | 2023-11-11 02:00 | PC.NURSE ---
after noticing telemetry had been disconnected, this nurse entered patient room to find patient sitting on floor in front of bed next to chair, patient stated the tv remote was not working so he decided to stand on a chair to adjust the tv and slid off the chair, when asked if he was ok or if he had hit his head, he said oh I'm fine , he stated he did not hit his head only his knees, no injuries found on assessment, patient got up with minimal assistance and back to bed, patient given call light and instructed to call for assistance, Dr Guerrero notified, no new orders at this time, continue to monitor
[2023-11-11] MEDS: ipratropium-albuterol 3 mL Neb INHALATION ×4 (04:11→21:33)
[2023-11-11] MEDS: LORazepam 2 mg Tablet PO ×3 (05:37→19:40)
[2023-11-11] MEDS: budesonide 0.5 mg/2 mL Neb INHALATION ×2 (07:44→21:33)
[2023-11-11] MEDS: pantoprazole DR 40 mg Tablet PO (09:56)
[2023-11-11] MEDS: predniSONE 20 mg Tablet 40 MG PO (09:56)
[2023-11-11] MEDS: apixaban 5 mg Tablet PO (09:56)
[2023-11-11] MEDS: multivitamin therapeutic Tablet 1 TAB PO (09:57)
[2023-11-11] MEDS: folic acid 1 mg Tablet PO (09:57)
[2023-11-11] MEDS: thiamine 100 mg Tablet PO (09:57)
[2023-11-11] MEDS: metoprolol tartrate 50 mg Tablet PO (09:57)
[2023-11-11] MEDS: FUROsemide 10 mg/mL SDV 4mL 40 MG IVP ×2 (13:15→20:00)
[2023-11-11] MEDS: amiodarone 150 MG/100 ML PREMIX 400 MG IV (13:25)
--- NOTE | 2023-11-11 14:12 | P.CONIM_ITS ---
Providers/Reason For Consult 2 Consulting Physician/Specialty*: Mirtha Garces MD Reason for Consult*: Worsening of LV function Atrial fibrillation rapid ventricular response difficult to control Shortness of breath Decompensated systolic heart failure Requesting Physician: Dr. Nick Attending Physician: Evan Nick DO Primary Care Provider: Claudette Sanchez History of Present Illness History of Present Illness Jet Blackman is a 78 year old male past medical history significant for history of nonischemic cardiomyopathy with recovered ejection fraction, history of atrial fibrillation, hypertension hyperlipidemia who lives by himself and takes care of his affairs independently presented with worsening of shortness of breath orthopnea noted to be in A-fib with rapid ventricular response started on Cardizem drip. Echocardiogram revealed worsening of LV function from normal 55 to less than 35% now which is a change at the same time, atrial fibrillation is rate controlled but patient has not converted to sinus rhythm. We have been asked to assist in his care. When I saw the patient he appeared to be in decompensated state of heart failure, I have detailed discussion with the patient as we have to diurese him in order to achieve euvolemic state at the same time he will be switched to amiodarone for possible better rate control and conversion to sinus rhythm in order to reinstate left atrial kick to improve his heart failure. Patient would like to go home. he has to take care of few affairs. patient has been explained that it is not medically advised, he then told me that he will try to call his friend who most likely will take care of his home. Review of Systems 2 General: Reports: 10 or more systems reviewed and unremarkable except in HPI and below Const: Denies: fever(s) or chills ENMT: Denies: enlarged tonsils Card: Reports: palpitations, irregular heart rhythm, edema, swelling of feet/ankles, dyspnea on exertion and orthopnea; Denies: chest pain Resp: Reports: dyspnea and chest congestion GI: Denies: abdominal pain, nausea, vomiting, hematochezia or melena : Denies: dysuria, urinary frequency or urinary urgency Musc: Denies: neck pain or back pain Skin/Breast: Denies: rash or surgical incision Psych: Denies: sleeping more All/Imm: Denies: acute wheezing Medications/Allergies Home Medications Medication Instructions Recorded Confirmed Last Taken Type apixaban 5 mg tablet 5 mg PO BID 04/21/19 11/09/23 11/09/23 History cholecalciferol (vitamin D3) 25 25 mcg PO DAILY 02/05/20 11/09/23 11/09/23 History mcg (1,000 unit) chewable tablet (Vitamin D3) furosemide 40 mg tablet 40 mg PO DAILY 05/09/22 11/09/23 11/08/23 History tiotropium bromide 1.25 2 puff inhalation DAILY #4 grams 09/21/22 11/09/23 11/09/23 Rx mcg/actuation mist for inhalation (Spiriva Respimat) metoprolol succinate 50 mg 25 mg (1/2 x 50 mg) PO DAILY #90 12/05/22 11/09/23 11/09/23 Rx tablet,extended release 24 hr tabs nitroglycerin 0.4 mg sublingual 0.4 mg sublingual Q5M PRN chest 08/17/23 11/09/23 Unknown Rx tablet pain #25 tabs ascorbic acid (vitamin C) 500 mg 500 mg PO DAILY 11/09/23 11/09/23 11/09/23 History tablet (Vitamin C) trazodone 50 mg tablet 25 mg PO BEDTIME PRN Sleep 11/09/23 11/09/23 Unknown History Allergies Allergy/AdvReac Type Severity Reaction Status Date / Time No Known Allergies Allergy Verified 07/13/23 08:56 Current Medications Generic Name Dose Route Start Last Admin Trade Name Freq PRN Reason Stop Dose Admin Albuterol/Ipratropium 3 ml 11/09/23 20:00 11/11/23 13:29 Ipratropium-Albuterol 3 Ml Neb INHALATION 3 ml Q6H.RESP RON Administration Apixaban 5 mg 11/09/23 18:00 11/11/23 09:56 Apixaban 5 Mg Tablet PO 5 mg BID RON Administration Budesonide 0.5 mg 11/09/23 20:00 11/11/23 07:44 Budesonide 0.5 Mg/2 Ml Neb INHALATION 0.5 mg BID.RESPIRATORY RON Administration Diltiazem HCl 240 mg 11/10/23 15:30 11/11/23 10:05 Diltiazem Er (24hr) 240 Mg Capsule PO Not Given DAILY RON Folic Acid 1 mg 11/10/23 09:00 11/11/23 09:57 Folic Acid 1 Mg Tablet PO 1 mg DAILY RON Administration Lorazepam 2 mg 11/09/23 16:28 11/11/23 13:15 Lorazepam 2 Mg Tablet PO 2 mg Q4H PRN Administration WITHDRAWAL Protocol Metoprolol Tartrate 50 mg 11/09/23 21:00 11/11/23 09:57 Metoprolol Tartrate 50 Mg Tablet PO 50 mg BID@0900,2100 RON Administration Multivitamins Therapeutic 1 tab 11/10/23 09:00 11/11/23 09:57 Multivitamin Therapeutic Tablet PO 1 tab DAILY RON Administration Pantoprazole Sodium 40 mg 11/10/23 09:00 11/11/23 09:[address] 40 Mg Tablet PO 40 mg DAILY RON Administration Prednisone 40 mg 11/10/23 09:00 11/11/23 09:56 Prednisone 20 Mg Tablet PO 40 mg DAILY RON Administration Thiamine Mononitrate 100 mg 11/10/23 09:00 11/11/23 09:57 Thiamine 100 Mg Tablet PO 100 mg DAILY RON Administration PFSH Acute 2 PFSH: Medical History (Updated 11/09/23 @ 16:25 by Adam Tavera DO) History of lung cancer Alcoholism Chronic fatigue Atrial fibrillation Obstructive sleep apnea HTN (hypertension) CHF (congestive heart failure) DRUJ (distal radioulnar joint) instability, post-traumatic no specific trauma only code choice in EHR! 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 Surgical History History of lobectomy of lung Family History Denies family history of Diabetes Stroke Social History (Updated 11/09/23 @ 13:40 by Clifford Mckee MD) Smoking and tobacco/nicotine status: former use of tobacco/nicotine Quit status (tobacco/nicotine): has quit using Year quit tobacco: 2020 Former quit date comment: Hx of 1 PPD x 50 Years Second hand smoke exposure: No Alcohol intake: current Alcohol intake frequency: 3 or more drinks per day Substance/Drug Use: never Lives independently: Yes Household members: spouse Marital status: Current occupational status: retired Do you think of yourself as: Straight/Heterosexual Current gender identity: Male Dietary Habits: Current diet type/program: regular Caffeine: Yes Vitals/I&O/Wt Last Vital Signs Temp 97.1 F L 11/11/23 11:57 Pulse 77 11/11/23 13:29 Resp 18 11/11/23 13:29 BP 97/68 11/11/23 11:57 Pulse Ox 96 11/11/23 13:29 O2 Del Method Room Air 11/11/23 13:29 O2 Flow Rate 2 11/10/23 07:55 11/10/23 11/11/23 11/11/23 22:59 06:59 14:59 Intake Total 258.375 / 358.375 35.5 / 393.875 142.125 / 142.125 Output Total 0 / 0 0 / 0 Balance 258.375 / 358.375 35.5 / 393.875 142.125 / 142.125 Weight last 48 hrs Weight 219 lb 2.232 oz Weight 214 lb 4.8 oz Weight 215 lb Physical Exam 2 Const: OTHER: GENERAL: Patient is alert, awake and oriented x3. Sitting in the bed appeared to be short of breath cannot talk in sentences HEART: R irregularly irregular S1 and S2. No murmur, rub . LUNGS: Decreased breath sound with bilateral inspiratory crackles ABDOMEN: Soft, nontender and nondistended. Positive bowel sounds. No guarding, rebound or tenderness. CENTRAL NERVOUS SYSTEM: Grossly nonfocal. Data 11/10/23 03:49 11/10/23 03:49 A&P Assessment and plan (1) Heart failure with reduced ejection fraction: Patient has history of nonischemic cardiomyopathy with improved ejection fraction now presented with worsening of shortness of breath PND orthopnea A-fib RVR, echocardiogram during this admission noted that there is new reduction in left ventricular ejection fraction to severely depressed category when compared to the prior exam. Patient appeared to be in decompensated systolic heart failure Plan start patient on IV Lasix 40 mg twice daily, Replenish electrolytes such as potassium accordingly will start patient on 10 mEq twice daily Goal is 1 to 1.5 L negative Once euvolemic may require left heart catheterization to rule out obstructive coronary disease (2) Atrial fibrillation with rapid ventricular response: I will switch patient from Cardizem to amiodarone in order to restore rhythm if patient does not convert to sinus rhythm over next 72 hours may consider electrical cardioversion with WESLEY guidance continue anticoagulation (3) Alcoholism: CIWA protocol Consult Attestations 2 Medical Necessity Statement: Patient require continuation hospitalization for above defined care Coding Level of Care Code Acute Code for Chg Fwd Diagnoses Heart failure with reduced ejection fraction I50.20 Atrial fibrillation with rapid ventricular response I48.91 Alcoholism F10.20
--- NOTE | 2023-11-11 14:16 | PC.NURSE ---
pt started to get restless and anxious would like to go home Bolt Labeler informed him about his dx of chf and afib w/rvr uncontrolled and need changes to his cardiac meds and length of stay. Pt seemed to understand his condition but looked worried of his length of stay since he leaves alone and need to check his home and animals. His friend came and visit him and informed him that his kristinon Moe took care of his animals. Reassured pt that we will take care of him and will adjust his meds to help better control his HR and treat his chf. Pt then requested if he can have ativan. his ciwa protocol scored 10. med given. bed alarm reset. iv lasix given as ordered.started amio drip per protocol and verbal orders from dr. sheppard.
--- NOTE | 2023-11-11 15:01 | PC.NURSE ---
pt help in ambulation pt assisted in walking down hallways.
--- NOTE | 2023-11-11 18:48 | P.PN_ITS ---
Subjective 2 Subjective: No events overnight. Patient reports that he would like to go home if possible. Says that he has been a little short of breath today. He did receive a dose of Ativan earlier this morning and has been sleeping. Medications: Reviewed: Yes Vitals/I&O/Wt Last Vital Signs Temp 97.1 F L 11/11/23 11:57 Pulse 100 11/11/23 16:00 Resp 21 H 11/11/23 16:00 BP 100/67 11/11/23 16:00 Pulse Ox 95 11/11/23 16:00 O2 Del Method Nasal Cannula 11/11/23 16:00 O2 Flow Rate 2 11/10/23 07:55 11/11/23 11/11/23 11/11/23 06:59 14:59 22:59 Intake Total 35.5 / 393.875 142.125 / 142.125 Output Total 0 / 0 Balance 35.5 / 393.875 142.125 / 142.125 Weight last 48 hrs Weight 219 lb 2.232 oz Weight 214 lb 4.8 oz Weight 215 lb Physical Exam 2 Narrative: General: Cooperative patient in no apparent distress. Well developed. HEENT: Normocephalic, Atraumatic. External ears normal. Nasal passages patent without drainage. MMM. Heart: Irregularly irregular. Heart rate is around 90 bpm. Resp: LCTA. No respiratory distress, no use of accessory muscles. Abd: Soft, non-tender. Non-distended. Extremities: No edema. Skin: No rash or lesions on exposed areas. Data 11/10/23 03:49 11/10/23 03:49 A&P Assessment and plan (1) Atrial fibrillation with rapid ventricular response: (2) Alcoholism: (3) Elevated bilirubin: (4) COPD (chronic obstructive pulmonary disease): (5) CHF (congestive heart failure): Qualifiers: Heart failure type: unspecified Heart failure chronicity: acute on chronic Qualified Code(s): I50.9 - Heart failure, unspecified (6) Hypomagnesemia: (7) Macrocytosis: Plan PLAN FOR TODAY: Continue close inpatient monitoring. Heart rate was a little more elevated this morning into the 120-130 range. His echo was read and interpreted. His ejection fraction had decreased to 36% from 55% last December. Cardiology was consulted to workup for new systolic heart failure. Attempted to wean from Cardizem drip, but unsuccessful at stabilizing his heart rate. Will have cardiology evaluate and recommend treatment in light of his heart concurrent systolic failure. Recheck a.m. labs. Has not had any serious effects from alcohol withdrawal. He has received a couple doses of Ativan. Continue CIWA protocol. Continue with vitamin replacement. He is on Eliquis for VTE prophylaxis - afib. Will start Rocephin for possible UTI. Code Status: Full IVF: None DVT PPx: Eliquis GI PPx: Protonix ABx: None Diet: Cardiac Discharge plan: Home when appropriate. Anticipate discharge in 24 hours. Attestations 2 Medical Necessity Statement*: Will need greater than 2 midnight stay for evaluation and treatment of A-fib with RVR, decompensated CHF, alcoholism with likely withdrawal Coding Level of Care Code Acute Code for Chg Fwd Moderate MDM includes number and complexity of problems actively addressed during encounter, amount and/or complexity of data reviewed/ordered and described risk of complication, morbidity or mortality of management as documented Diagnoses Atrial fibrillation with rapid ventricular response I48.91 Alcoholism F10.20 Elevated bilirubin R17 COPD (chronic obstructive pulmonary disease) J44.9 Acute on chronic congestive heart failure, unspecified heart failure type I50.9 Heart failure type: unspecified Heart failure chronicity: acute on chronic Hypomagnesemia E83.42 Macrocytosis D75.89
[2023-11-11] MEDS: potassium chloride ER 10 mEq Tablet PO (18:50)
[2023-11-11] MEDS: cefTRIAXone 1,000 mg SDV 1000 MG IVP (19:42)
[2023-11-11] MEDS: enoxaparin 100 mg/mL Syringe SUBCUT (20:01)
[2023-11-12] VITALS (12 sets, daily range): BP systolic 110–127; BP diastolic 79–88; PULSE 70–124; RESP 18–30; TEMP 36.8–36.9; O2SAT 92–97
[2023-11-12] MEDS: LORazepam 2 mg Tablet PO ×3 (00:50→11:11)
[2023-11-12] MEDS: ipratropium-albuterol 3 mL Neb INHALATION ×3 (03:42→21:17)
[2023-11-12 04:37] LABS: Anion Gap 17.3 (5-19); Blood Urea Nitrogen 46 mg/dL (8-23); Calcium 8.3 mg/dL (8.5-10.5); Carbon Dioxide 24 mmol/L (22-29); Chloride 101 mmol/L (98-107); Creatinine Clr Calc Pharmacy 57.1712; Glucose 161 mg/dL (65-115); Magnesium 1.7 mg/dL (1.7-2.3); Osmolality Calculated 301 mOsm/kg (285-295); Potassium 4.3 mmol/L (3.5-5.1); Sodium 138 mmol/L (136-145)
[2023-11-12] MEDS: FUROsemide 10 mg/mL SDV 4mL 40 MG IVP ×2 (08:22→21:10)
[2023-11-12] MEDS: pantoprazole DR 40 mg Tablet PO (08:23)
[2023-11-12] MEDS: enoxaparin 100 mg/mL Syringe SUBCUT ×2 (08:23→21:14)
[2023-11-12] MEDS: thiamine 100 mg Tablet PO (08:23)
[2023-11-12] MEDS: multivitamin therapeutic Tablet 1 TAB PO (08:23)
[2023-11-12] MEDS: predniSONE 20 mg Tablet 40 MG PO (08:23)
[2023-11-12] MEDS: potassium chloride ER 10 mEq Tablet PO ×2 (08:23→18:13)
[2023-11-12] MEDS: folic acid 1 mg Tablet PO (08:24)
[2023-11-12] MEDS: budesonide 0.5 mg/2 mL Neb INHALATION ×2 (09:28→21:17)
--- NOTE | 2023-11-12 10:33 | P.PN_ITS ---
Subjective 2 Subjective: Patient denies any significant symptoms. Provide heart rate is uncontrolled on 110 to 120 range. Vitals/I&O/Wt Last Vital Signs Temp 98.2 F 11/12/23 04:00 Pulse 102 H 11/12/23 09:56 Resp 18 11/12/23 09:56 BP 110/79 11/12/23 09:56 Pulse Ox 93 11/12/23 09:56 O2 Del Method Room Air 11/12/23 09:25 O2 Flow Rate 2 11/12/23 02:00 11/11/23 11/12/23 11/12/23 22:59 06:59 14:59 Intake Total 435.425 / 577.550 317.444 / 317.444 Output Total 200 / 200 Balance 235.425 / 377.550 317.444 / 317.444 Weight last 48 hrs Weight 219 lb 2.232 oz Weight 219 lb 2.232 oz Physical Exam 2 Narrative: GENERAL: Patient is alert, awake and oriented x3. [] NECK: No jugular vein distension. [] HEENT: No cyanosis. No icterus. No pallor. [] HEART: Irregularly irregular, tachycardic. LUNGS: Diminished air entry bilaterally. CENTRAL NERVOUS SYSTEM: Grossly nonfocal. [] EXTREMITIES: Lower extremities with 1+ edema bilaterally. Data 11/10/23 03:49 11/12/23 03:23 A&P Assessment and plan (1) Heart failure with reduced ejection fraction: (2) Atrial fibrillation with rapid ventricular response: (3) Alcoholism: Plan Patient's heart rate is still uncontrolled. Will resume metoprolol 50 mg twice daily. Can continue uptitrating rate. Continue anticoagulation with Eliquis. Can switch amiodarone to p.o. 400 mg twice daily. Patient chances of staying in sinus rhythm are low with history of heavy alcohol use, if we can rate control him, will be preferred stretegy. However if in next 1-2 days if stays uncontrolled, can plan on WESLEY/ Cardioversion. If renal function is stable by tomorrow, can add digoxin with loading dose Continue lasix IV. Close I and Os and renal function monitoring Thank you for involving us with care of this patient. We will continue to follow. Please call with questions. Attestations 2 Medical Necessity Statement*: Care expected to cross 2 midnights. Coding Level of Care Code Acute Code for Chg Fwd Diagnoses Heart failure with reduced ejection fraction I50.20 Atrial fibrillation with rapid ventricular response I48.91 Alcoholism F10.20
--- NOTE | 2023-11-12 12:41 | P.PN_ITS ---
Subjective 2 Subjective: This morning patient was stating that he is really anxious about his cats at home however endorsing that he has asked his friends and neighbor to feed the cats He was asking me to discharge him, I apologized and told him that I have will not be able to discharge him he needs at least 2 more days to diurese better before we consider angiogram, Cardiology is in agreement Creatinine 1.3 A-fib RVR still requiring amiodarone Blood pressure is better resume metoprolol today Magnesium 1.7 potassium 4.3 Patient does endorse feeling less bloated improved stating improvement in his lower extremities Vitals/I&O/Wt Last Vital Signs Temp 98.2 F 11/12/23 04:00 Pulse 102 H 11/12/23 09:56 Resp 18 11/12/23 09:56 BP 110/79 11/12/23 09:56 Pulse Ox 93 11/12/23 09:56 O2 Del Method Room Air 11/12/23 09:25 O2 Flow Rate 2 11/12/23 02:00 11/11/23 11/12/23 11/12/23 22:59 06:59 14:59 Intake Total 435.425 / 577.550 317.444 / 317.444 Output Total 200 / 200 Balance 235.425 / 377.550 317.444 / 317.444 Weight last 48 hrs Weight 99.4 kg Weight 99.4 kg Physical Exam 2 Narrative: Lower extremity swelling improving with skin wrinkling noted S1, S2 variable with A-fib RVR Blood pressure stable Currently on room air Sitting at the bedside Appears anxious Nonfocal neuroexam No audible stridor or wheezing Data 11/10/23 03:49 11/12/23 03:23 A&P Assessment and plan (1) Atrial fibrillation: Qualifiers: Atrial fibrillation type: persistent (not longstanding) Qualified Code(s): I48.19 - Other persistent atrial fibrillation (2) LV dysfunction: (3) Systolic heart failure: Qualifiers: Heart failure chronicity: acute Qualified Code(s): I50.21 - Acute systolic (congestive) heart failure (4) HTN (hypertension): Qualifiers: Hypertension type: essential hypertension Qualified Code(s): I10 - Essential (primary) hypertension (5) Alcoholism: (6) Hypomagnesemia: (7) COPD (chronic obstructive pulmonary disease): (8) Obstructive sleep apnea: (9) Chronic fatigue: Plan New onset CHF Systolic CHF Continue diuresis Patient still in positive fluid balance Continue every 12 IV Lasix for now Clinically patient endorsing feeling better A-fib RVR Added metoprolol, continue amiodarone for 24 hours in the form of IV then switch to 400 mg twice daily regimen If patient does not convert to sinus rhythm will reevaluate if he would be considered a good candidate for cardioversion at this point compliance is a big factor We will touch base with Dr. Ace Hypomagnesemia: Replenished Alcohol abuse: Patient seems anxious I will give him low-dose phenobarbital Full code Patient not ready to be discharged Sleep apnea: CPAP overnight COPD does not use oxygen at home Patient will need Eliquis at the time of discharge DVT prophylaxis covered with therapeutic Lovenox for now Attestations 2 Medical Necessity Statement*: Continue medical management Diagnoses Persistent atrial fibrillation I48.19 Atrial fibrillation type: persistent (not longstanding) LV dysfunction I51.9 Acute systolic heart failure I50.21 Heart failure chronicity: acute Essential hypertension I10 Hypertension type: essential hypertension Alcoholism F10.20 Hypomagnesemia E83.42 COPD (chronic obstructive pulmonary disease) J44.9 Obstructive sleep apnea G47.33 Chronic fatigue R53.82
[2023-11-12] MEDS: PHENobarbital 32.4 mg Tablet PO (13:23)
--- NOTE | 2023-11-12 13:24 | PC.SOCIAL ---
IMM Updated Updated pt on IMM. No questions voiced. Provided pt a copy. Initialed, dated, & timed a copy & placed in chart.
[2023-11-12] MEDS: amiodarone 200 mg Tablet 400 MG PO (18:12)
[2023-11-12] MEDS: magnesium oxide 400 mg tablet PO (18:13)
[2023-11-12] MEDS: metoprolol tartrate 50 mg Tablet PO (21:10)
[2023-11-13] VITALS (7 sets, daily range): BP systolic 117–138; BP diastolic 88–92; PULSE 82–125; RESP 18–22; TEMP 36.6–37; O2SAT 95–98
[2023-11-13] MEDS: PHENobarbital 32.4 mg Tablet PO ×2 (00:54→08:20)
[2023-11-13] MEDS: ipratropium-albuterol 3 mL Neb INHALATION ×2 (02:26→08:02)
--- NOTE | 2023-11-13 07:41 | P.PN_ITS ---
Subjective 2 Subjective: Patient has shortness of breath. heart rates in 120s. Vitals/I&O/Wt Last Vital Signs Temp 97.9 F 11/13/23 07:30 Pulse 118 H 11/13/23 07:30 Resp 22 H 11/13/23 07:30 BP 138/92 11/13/23 07:30 Pulse Ox 98 11/13/23 07:30 O2 Del Method Room Air 11/13/23 07:30 O2 Flow Rate 2 11/12/23 02:00 11/12/23 11/13/23 11/13/23 22:59 06:59 14:59 Intake Total 318 / 635.444 Balance 318 / 635.444 Weight last 48 hrs Weight 219 lb 2.232 oz Weight 219 lb 2.232 oz Physical Exam 2 Narrative: GENERAL: Patient is alert, awake and oriented x3. [] NECK: No jugular vein distension. [] HEENT: No cyanosis. No icterus. No pallor. [] HEART: Irregularly irregular, tachycardic. LUNGS: Diminished air entry bilaterally. CENTRAL NERVOUS SYSTEM: Grossly nonfocal. [] EXTREMITIES: Lower extremities with 1+ edema bilaterally. Data 11/10/23 03:49 11/12/23 03:23 A&P Assessment and plan (1) Heart failure with reduced ejection fraction: (2) Atrial fibrillation with rapid ventricular response: (3) Alcoholism: Plan Patient wants to go home. I have recommended him to stay as his volume overloaded and has uncontrolled heart rates. However he is not willing to stay in hospital and will likely go against medical advice. I have discussed possible outcomes if he leaves without afib control and heart failure treatment. Recommended him to continue eliquis, amiodarone, metoprolol. Thank you for involving us with care of this patient. Please call with questions. Attestations 2 Medical Necessity Statement*: Care expected to cross 2 midnights. Coding Level of Care Code Acute Code for [facility] Fwd Diagnoses Heart failure with reduced ejection fraction I50.20 Atrial fibrillation with rapid ventricular response I48.91 Alcoholism F10.20
[2023-11-13] MEDS: budesonide 0.5 mg/2 mL Neb INHALATION (08:02)
[2023-11-13] MEDS: multivitamin therapeutic Tablet 1 TAB PO (08:19)
[2023-11-13] MEDS: magnesium oxide 400 mg tablet PO (08:19)
[2023-11-13] MEDS: pantoprazole DR 40 mg Tablet PO (08:19)
[2023-11-13] MEDS: potassium chloride ER 10 mEq Tablet PO (08:19)
[2023-11-13] MEDS: nicotine 21 mg Patch 1 PATCH TRANSDERMA (08:19)
[2023-11-13] MEDS: folic acid 1 mg Tablet PO (08:19)
[2023-11-13] MEDS: amiodarone 200 mg Tablet 400 MG PO (08:19)
[2023-11-13] MEDS: FUROsemide 10 mg/mL SDV 4mL 40 MG IVP (08:20)
[2023-11-13] MEDS: thiamine 100 mg Tablet PO (08:20)
[2023-11-13] MEDS: metoprolol tartrate 50 mg Tablet 100 MG PO (08:26)
--- NOTE | 2023-11-13 09:22 | P.DS_ITS ---
Discharge Providers Date of Admission: 11/09/23 12:02 Date of Discharge: November 13, 2023 Attending Provider at Admission: Clifford Mckee MD Attending Provider at Discharge: Mirtha Barrientos MD Primary Care Provider: Claudette Sanchez Diagnoses at Discharge Discharge Diagnosis (1) Heart failure with reduced ejection fraction: Status: Acute (2) Atrial fibrillation with rapid ventricular response: Status: Acute (3) Alcoholism: Status: Acute Reason for Visit Reason for Visit: recheck Hospital Course Hospital Course 78-year-old male who present to the hospital for management of A-fib RVR, he was put on CIWA protocol, patient endorsed drinking heavily to cope with depression which she is attributing to of his which was roughly 6 months ago, patient carries history of A-fib takes AV zach blocking agent along Eliquis but compliance is questionable, electrolytes were replenished during hospitalization, he was in heart failure as well, was not able to lay flat he was diuresed heavily, echo showed reduction in EF down to 36% with grade 2 diastolic dysfunction, cardiology was consulted who wanted to diurese the patient to achieve euvolemic state before proceeding with angiogram however patient kept insisting that he wanted to leave to take care of few chores at home. He left against medical recommendations, I went ahead and prescribed metoprolol, amiodarone resumed Eliquis, regarding systolic CHF goal-directed medical therapy was chosen carefully because his creatinine was 1.3 I have added isosorbide dinitrate, atorvastatin and provided referral to see infertility medical assistant outpatient. Physical Exam Narrative: Patient left AMA Discharge Data Studies Completed and Pending Completed Studies During Hospitalization Category Date Time Status XR chest 1V portable [id number] Stat Exams 11/09/23 10:22 Completed CV. echo complete* [id number] Routine Ultrasound 11/10/23 16:28 Completed US abdomen complete* [id number] Routine Ultrasound 11/10/23 16:28 Completed Pending at discharge Category Date Time Status Basic Metabolic Panel AM LABS Lab 11/13/23 04:00 Ordered Radiology Impressions Chest X-Ray 11/09/23 10:22 Impression: The appearance of the chest is similar to the previous day. There is cardiom egaly without failure or dense consolidation. Abdomen Ultrasound 11/10/23 16:28 IMPRESSION: Gallbladder wall is thickened associated with a small amount of pericholecystic fluid. No gallstones are seen. Findings raise concern for acalculous cholecystitis. Gallbladder wall thickening can be seen with systemic disease as well. Laboratory Results WBC 7.00 10^3/uL (3.29-11.43) 11/10/23 03:49 RBC 3.43 10^6/uL (3.85-5.65) L 11/10/23 03:49 Hgb 12.60 g/dL (11.27-16.99) 11/10/23 03:49 Hct 36.9 % (37-53) L 11/10/23 03:49 MCV 107.6 fl (82-101) H 11/10/23 03:49 MCH 36.7 pg (27-33) H 11/10/23 03:49 MCHC 34.1 g/dL (30-55) 11/10/23 03:49 RDW 14.3 % (12.1-15.1) 11/10/23 03:49 Plt Count 92 10^3/cmm (157-399) L 11/10/23 03:49 MPV 12.2 fL (7.4-10.4) H 11/10/23 03:49 Neut % (Auto) 87.3 % 11/10/23 03:49 Lymph % (Auto) 6.6 % 11/10/23 03:49 [place] % (Auto) 5.7 % 11/10/23 03:49 Eos % (Auto) 0.0 % 11/10/23 03:49 Baso % (Auto) 0.1 % 11/10/23 03:49 Neut # (Auto) 6.11 10^3/uL (1.8-7.7) 11/10/23 03:49 Lymph # (Auto) 0.5 10^3/uL (0.8-4.8) L 11/10/23 03:49 [place] # (Auto) 0.4 10^3/uL (0.2-0.9) 11/10/23 03:49 Eos # (Auto) 0.0 10^3/uL (0.0-0.8) 11/10/23 03:49 Baso # (Auto) 0.0 10^3/uL (0.0-0.1) 11/10/23 03:49 Nucleated RBC % (auto) 0 % 11/10/23 03:49 Nucleated RBCs # 0.0 /100WBC 11/10/23 03:49 Sodium 138 mmol/L (136-145) 11/12/23 03:23 Potassium 4.3 mmol/L (3.5-5.1) 11/12/23 03:23 Chloride 101 mmol/L (98-107) 11/12/23 03:23 Carbon Dioxide 24 mmol/L (22-29) 11/12/23 03:23 Anion Gap 17.3 (5-19) 11/12/23 03:23 BUN 46 mg/dL (8-23) H 11/12/23 03:23 Creatinine 1.3 mg/dL (0.7-1.2) H 11/12/23 03:23 GFR Calculation Not Reportable 11/12/23 03:23 Glucose 161 mg/dL (65-115) H 11/12/23 03:23 Calculated Osmolality 301 mOsm/kg (285-295) H 11/12/23 03:23 Calcium 8.3 mg/dL (8.5-10.5) L 11/12/23 03:23 Magnesium 1.7 mg/dL (1.7-2.3) 11/12/23 03:23 Total Bilirubin 1.6 mg/dL (0.15-1.2) H 11/10/23 03:49 AST 35 U/L (0-40) 11/10/23 03:49 ALT 42 U/L (0-41) H 11/10/23 03:49 Alkaline Phosphatase 67 U/L (40-130) 11/10/23 03:49 Troponin T Baseline 39 ng/L (0-15) H 11/09/23 10:31 Troponin T 120 Minute 32.46 ng/L (0-15) H 11/09/23 12:30 Delta Troponin T -6.54 ABS# (0-10) L 11/09/23 12:30 Troponin T Hi Sens 6Hr 34.69 ng/L (0-15) H 11/09/23 17:05 Troponin T Hi Sens 6Hr Delta -4.31 ng/L (0-12) L 11/09/23 17:05 NT-Pro-B Natriuret Pep 3084 pg/mL (0-450) H 11/09/23 10:31 Total Protein 6.7 g/dL (6.6-8.7) 11/10/23 03:49 Albumin 3.6 g/dL (3.5-5.2) 11/10/23 03:49 Globulin 3.1 g/dL (1.3-4.6) 11/10/23 03:49 Vitamin B12 444 pg/mL (232-1245) 11/10/23 03:49 Folate 9.7 ng/mL (4.5-32.2) 11/10/23 03:49 TSH 1.91 uIU/mL (0.27-4.20) 11/09/23 10:31 Urine Color [place] (Yellow) A 11/10/23 04:00 Urine Appearance Clear (CLEAR) 11/10/23 04:00 Urine pH 5.0 (5-7) 11/10/23 04:00 Ur Specific [place] 1.024 (1.005-1.030) 11/10/23 04:00 Urine Protein 2+ (Negative) A 11/10/23 04:00 Urine Glucose (UA) Negative (Normal) 11/10/23 04:00 Urine Ketones Trace (Negative) 11/10/23 04:00 Urine Blood Negative (Negative) 11/10/23 04:00 Urine Nitrate Positive (Negative) A 11/10/23 04:00 Urine Bilirubin Negative (Negative) 11/10/23 04:00 Urine Urobilinogen 1.0 mg/dL (Negative) 11/10/23 04:00 Ur Leukocyte Esterase Trace (Negative) A 11/10/23 04:00 Urine RBC 3-5 /hpf (0-2) 11/10/23 04:00 Urine WBC 0-5 /hpf (0-5) 11/10/23 04:00 Ur Squamous Epith Cells 0-5 /hpf (0-5) 11/10/23 04:00 Amorphous Sediment Not Reportable 11/10/23 04:00 Urine Bacteria None seen /hpf (NONE) 11/10/23 04:00 Hyaline Casts 13.22 /lpf 11/10/23 04:00 Coronavirus (PCR) Negative (Negative) 11/09/23 15:46 Coronavirus 229E (PCR) Cancelled 11/09/23 15:46 Hepatitis A IgM Ab Non-reactive (Nonreactive) 11/09/23 10:31 Hep Bs Antigen Non-reactive (Nonreactive) 11/09/23 10:31 Hep B Core IgM Ab Non-reactive (Nonreactive) 11/09/23 10:31 Hepatitis C Antibody Non-reactive (Nonreactive) 11/09/23 10:31 Influenza A (PCR) Negative (Negative) 11/09/23 15:46 Influenza Type A Ag Cancelled 11/09/23 15:46 Influenza Type B Ag Cancelled 11/09/23 15:46 Influenza Type B (PCR) Negative (Negative) 11/09/23 15:46 RSV (PCR) Negative (Negative) 11/09/23 15:46 SARS-CoV-2 (PCR) Cancelled 11/09/23 15:46 Vitals Last Vital Signs Temp 97.9 F 11/13/23 07:30 Pulse 82 11/13/23 08:00 Resp 18 11/13/23 08:00 BP 138/92 11/13/23 07:30 Pulse Ox 97 11/13/23 08:00 O2 Del Method Room Air 11/13/23 08:00 O2 Flow Rate 2 11/12/23 02:00 Discharge Plan Discharge Patient Disposition: Left Against Medical Advice Condition: Stable Prescriptions: New magnesium oxide 400 mg (241.3 mg magnesium) Tablet 400 mg PO BID Qty: 6 0RF atorvastatin 40 mg tablet 40 mg PO DAILY Qty: 60 1RF isosorbide dinitrate 10 mg tablet 5 mg PO BID Qty: 60 1RF Rx Instructions: allow nitrate-free interval of 12-14 hrs per 24-hr period potassium chloride 10 mEq tablet extended release 10 meq PO DAILY Qty: 30 2RF Rx Instructions: with lasix only amiodarone [Pacerone] 200 mg Tablet 400 mg PO BID Qty: 120 2RF Rx Instructions: 400 mg twice daily for 7 days then 400 mg daily metoprolol tartrate 50 mg Tablet 100 mg PO BID@0900,2100 Qty: 60 3RF Continued Spiriva Respimat 1.25 mcg/actuation mist 2 puff inhalation DAILY Qty: 4 6RF nitroglycerin 0.4 mg tablet, sublingual 0.4 mg SUBLINGUAL Q5M PRN (Reason: chest pain) Qty: 25 2RF Rx Instructions: do not exceed 3 doses per episode cholecalciferol (vitamin D3) [Vitamin D3] 25 mcg (1,000 unit) Tablet,Chewable 25 mcg PO DAILY Vitamin C 500 mg Tablet 500 mg PO DAILY trazodone 50 mg tablet 25 mg PO BEDTIME PRN (Reason: Sleep) furosemide 40 mg tablet 40 mg PO DAILY Qty: 60 3RF apixaban 5 mg tablet 5 mg PO BID Qty: 60 0RF Discontinued metoprolol succinate 50 mg tablet extended release 24 hr 25 mg PO DAILY Qty: 90 3RF Referrals: Mine Mcbride FNP [Nurse Practitioner] - 1 week Claudette Sanchez PA [Primary Care Provider] - Patient Instructions: Alcoholism, Alcohol Withdrawal, Heart Failure (DC), CHF Stoplight Discharge Attestations Time Spent in Discharge Care*: less than 30 min Status at Discharge: Cognitive status at discharge: cognitively intact , Be havioral status at discharge: cooperative , Quality Metrics Clinical Quality Measures [ No reported AMI, CVA or VTE this stay] Coding Level of Care Code Acute Code for [facility] Fwd Diagnoses Heart failure with reduced ejection fraction I50.20 Atrial fibrillation with rapid ventricular response I48.91 Alcoholism F10.20
--- NOTE | 2023-11-13 10:11 | PC.NURSE ---
Patient voiced wishes to leave against medical advice. Dr. Barrientos and Dr. Ace advised patient that it is not recommended to leave at this time. Patient was educated in depth about risks of leaving against medical advice and accepts all risks. Patient signed AMA form as well as physician. IV was removed and patient left. Medications were sent to [facility] and patient is aware of this.
== END 2023-11-13 09:00 | disposition left against medical advice (07) | DRG 308 ==
LOC: ER 10:54 → ER IP 12:02 → CSU 14:04
PROVIDERS: Family Medicine; Admitting Provider Internal Medicine; Emergency Provider Family Medicine; PCP Physician Assistant; Visit Provider Internal Medicine
DX: I48.91 Unspecified atrial fibrillation (principal); I50.23 Acute on chronic systolic (congestive) heart failure; F10.239 Alcohol dependence with withdrawal, unspecified; I11.0 Hypertensive heart disease with heart failure; J44.9 Chronic obstructive pulmonary disease, unspecified; D75.89 Other specified diseases of blood and blood-forming organs; E83.42 Hypomagnesemia; R53.82 Chronic fatigue, unspecified; Z87.891 Personal history of nicotine dependence; Z79.01 Long term (current) use of anticoagulants; Z85.118 Personal history of other malignant neoplasm of bronchus and lung
CPT/HCPCS: 0241U; 36415; 71045; 76700; 80048; 80053; 80074; 81003; 81015; 82607; 82746; 83735; 83880; 84443; 84484; 85025; 85378; 85610; 93005; 93306; 94640; 96365; 96366; 96367; 96372; 96375; 96376; 99285; 99291; J0283; J0696; J1650; J1940; J2060; J2919; J3411; J3475; J3490; J7512; J7626

== ENCOUNTER 2023-12-11 08:35 | Inpatient (IN) | payer MEDICARE, OTHER, SELFPAY ==
[2023-12-11] VITALS (37 sets, daily range): BP systolic 105–166; BP diastolic 78–122; PULSE 72–124; RESP 13–33; TEMP 36.4–36.8; O2SAT 90–99; BMI 29.9; BMI 32.3
--- NOTE | 2023-12-11 08:34 | ECG_ITS ---
[facility] Test Date: 2023-12-11 Pat Name: Jet Blackman Department: Room: Gender: Male Public Information Specialist: : [id number] Requested By: Adam Cano Order Number: [id number] Reading MD: HANNAH MCCLENDON Measurements Intervals [place] Rate: 117 P: 0 UT: 0 QRS: -79 QRSD: 126 T: 95 QT: 341 QTc: 477 Interpretive Statements ATRIAL FIBRILLATION WITH RAPID VENTRICULAR RESPONSE LEFT ANTERIOR FASCICULAR BLOCK [QRS AXIS <= -45, QR IN I, RS IN II] ANTEROSEPTAL MYOCARDIAL INFARCTION , OF INDETERMINATE AGE [40+ ms Q WAVE IN V1-V4] Compared to ECG 11/09/2023 18:01:23 Aberrant conduction of supraventricular beat(s) no longer present Ventricular premature complex(es) no longer present Myocardial infarct finding still present Electronically Signed On 12-12-2023 20:10:12 CDT by HANNAH MCCLENDON [id number] f
--- NOTE | 2023-12-11 08:38 | XRR_ITS ---
PROCEDURE INFORMATION: Exam: XR Chest Exam date and time: 12/11/2023 8:44 AM Clinical indication: Cough and dyspnea and shortness of breath; Prior surgery; Surgery date: 6+ months; Surgery type: Right lung; Additional info: Dyspnea/cough TECHNIQUE: Imaging protocol: Radiologic exam of the chest. Views: 1 view. COMPARISON: No relevant prior studies available. FINDINGS: Lungs: There is a suture line involving the right upper and mid lung similar to that seen on prior exams. Possible subtle pneumonitis involving the inferior medial right lung. Pleural spaces: Unremarkable. No pleural effusion. No pneumothorax. Heart/Mediastinum: The heart is enlarged. Bones/joints: Unremarkable. XR/XR chest 1V portable [id number] IMPRESSION: 1. Cardiomegaly. 2. Postoperative changes involving the right lung. 3. Possible subtle pneumonitis involving the inferior medial right lung.
--- NOTE | 2023-12-11 08:56 | ED_ITS ---
HPI - Arrhythmia/Palpitations 2 General: Chief Complaint: Shortness of Breath/Dyspnea Stated Complaint: SOB Time Seen by Provider: 12/11/23 08:38 History of Present Illness: 78-year-old male presents to the emergen cy room Complaints of shortness of breath. He has a known history of A-fib with RVR.. He was seen in the emergency room last month left AMA and then returned the following day and was admitted. He continues to have shortness of breath with any exertion he denies any chest pain. States he got much worse last night he has orthopnea and increased swelling in his lower extremities. Does have a history of alcohol use he states he is still abstaining. Times last hospitalization he was discharged home of metoprolol which states he has still been taking regularly. Related Data Home Medications Medication Instructions Recorded Confirmed cholecalciferol (vitamin D3) 25 25 mcg PO DAILY 02/05/20 12/11/23 mcg (1,000 unit) chewable tablet (Vitamin D3) ascorbic acid (vitamin C) 500 mg 500 mg PO DAILY 11/09/23 12/11/23 tablet (Vitamin C) Previous Rx's Medication Instructions Recorded metoprolol succinate 50 mg 25 mg (1/2 x 50 mg) PO DAILY #90 12/05/22 tablet,extended release 24 hr tabs apixaban 5 mg tablet 5 mg PO BID #60 tabs 11/13/23 furosemide 40 mg tablet 40 mg PO DAILY #60 tabs 11/13/23 nitroglycerin 0.4 mg sublingual 0.4 mg sublingual Q5M PRN chest 11/19/23 tablet pain #25 tabs Allergies Allergy/AdvReac Type Severity Reaction Status Date / Time No Known Allergies Allergy Verified 07/13/23 08:56 Review of Systems 2 Const: Denies: fever(s) or chills Card: Reports: palpitations, dyspnea on exertion and orthopnea; Denies: chest pain Resp: Denies: dyspnea GI: Denies: abdominal pain : Denies: dysuria, urinary frequency or urinary urgency Musc: Denies: neck pain or back pain Skin/Breast: Denies: rash PFSH ED 2 PFSH: Medical History Macrocytosis Hypomagnesemia Elevated bilirubin Heart failure with reduced ejection fraction COPD (chronic obstructive pulmonary disease) LV dysfunction Systolic heart failure Congestive heart failure with LV diastolic dysfunction, NYHA class 4 Atrial fibrillation with rapid ventricular response History of lung cancer Alcoholism Chronic fatigue Atrial fibrillation Obstructive sleep apnea HTN (hypertension) CHF (congestive heart failure) DRUJ (distal radioulnar joint) instability, post-traumatic no specific trauma only code choice in EHR! 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 Surgical History History of lobectomy of lung Family History Denies family history of Diabetes Stroke Social History Smoking and tobacco/nicotine status: former use of tobacco/nicotine Quit status (tobacco/nicotine): has quit using Year quit tobacco: 2020 Former quit date comment: Hx of 1 PPD x 50 Years Second hand smoke exposure: No Alcohol intake: current Alcohol intake frequency: 3 or more drinks per day Substance/Drug Use: never Lives independently: Yes Household members: spouse Marital status: Current occupational status: retired Do you think of yourself as: Straight/Heterosexual Current gender identity: Male Physical Exam 2 Const: COMMON NORMALS: no acute distress GENERAL APPEARANCE: cooperative and comfortable ORIENTATION/CONSCIOUSNESS: Yes awake, Yes oriented to person, Yes oriented to place and Yes oriented to time HENMT: COMMON NORMALS: normocephalic, atraumatic and hearing grossly normal bilaterally HEAD & SCALP: normocephalic and atraumatic Resp: COMMON NORMALS: normal respiratory effort, No retractions, No use of accessory muscles and clear to auscultation bilaterally AUSCULTATION: clear to auscultation bilaterally Cardio: COMMON NORMALS: No murmurs present (Cardio) RATE: tachycardic R HYTHM: abnormal rhythm irregularly irregular GI: COMMON NORMALS: Soft to palpation and No hepatosplenomegaly present A USCULTATION: Yes normoactive bowel sounds PALPATION: Yes Soft to palpation, No Tenderness to palpation present (GI), No Guarding due to palpation present (GI) and Yes No hepatosplenomegaly present Extremity: COMMON NORMALS: normal to inspection, capillary refill normal, no clubbing, cyanosis or edema, no calf tenderness and no pedal edema Neuro: SENSORIUM/ORIENTATION: Yes oriented to person, Yes oriented to place and Yes oriented to time Skin: COMMON NORMALS: no rashes or lesions noted GENERAL SKIN EXAM: no rashes or lesions noted Course 2 Vital Signs: Vital signs: Vital Signs Temperature 98.2 F 12/11/23 08:48 Pulse Rate 87 12/11/23 10:45 Respiratory Rate 18 12/11/23 10:45 Blood Pressure 127/89 12/11/23 10:45 Pulse Oximetry 96 12/11/23 10:45 Oxygen Delivery Me thod Room Air 12/11/23 10:25 MDM - Arrhythmia/Palpitations Medical Decision Making A-fib with rapid ventricular response Medical Records I reviewed the patient's medical records. Lab Data I reviewed the patient's lab results. 12/11/23 08:55 12/11/23 09:23 Radiology Impressions Chest X-Ray 12/11/23 08:38 IMPRESSION: 1. Cardiomegaly. 2. Postoperative changes involving the right lung. 3. Possible subtle pneumonitis involving the inferior medial right lung. Laboratory Results WBC 9.47 10^3/uL (3.29-11.43) 12/11/23 08:55 RBC 4.03 10^6/uL (3.85-5.65) 12/11/23 08:55 Hgb 14.80 g/dL (11.27-16.99) 12/11/23 08:55 Hct 43.9 % (37-53) 12/11/23 08:55 MCV 108.9 fl (82-101) H 12/11/23 08:55 MCH 36.7 pg (27-33) H 12/11/23 08:55 MCHC 33.7 g/dL (30-55) 12/11/23 08:55 RDW 14.3 % (12.1-15.1) 12/11/23 08:55 Plt Count 161 10^3/cmm (157-399) 12/11/23 08:55 MPV 12.4 fL (7.4-10.4) H 12/11/23 08:55 Neut % (Auto) 74.0 % 12/11/23 08:55 Lymph % (Auto) 13.4 % 12/11/23 08:55 [place] % (Auto) 11.3 % 12/11/23 08:55 Eos % (Auto) 0.5 % 12/11/23 08:55 Baso % (Auto) 0.4 % 12/11/23 08:55 Neut # (Auto) 7.00 10^3/uL (1.8-7.7) 12/11/23 08:55 Lymph # (Auto) 1.3 10^3/uL (0.8-4.8) 12/11/23 08:55 [place] # (Auto) 1.1 10^3/uL (0.2-0.9) H 12/11/23 08:55 Eos # (Auto) 0.1 10^3/uL (0.0-0.8) 12/11/23 08:55 Baso # (Auto) 0.0 10^3/uL (0.0-0.1) 12/11/23 08:55 Nucleated RBC % (auto) 0 % 12/11/23 08:55 Nucleated RBCs # 0.0 /100WBC 12/11/23 08:55 Sodium 138 mmol/L (136-145) 12/11/23 09:23 Potassium 4.4 mmol/L (3.5-5.1) 12/11/23 09:23 Chloride 104 mmol/L (98-107) 12/11/23 09:23 Carbon Dioxide 22 mmol/L (22-29) 12/11/23 09:23 Anion Gap 16.4 (5-19) 12/11/23 09:23 BUN 26 mg/dL (8-23) H 12/11/23 09:23 Creatinine 1.1 mg/dL (0.7-1.2) 12/11/23 09:23 GFR Calculation Not Reportable 12/11/23 09:23 Glucose 112 mg/dL (65-115) 12/11/23 09:23 Calculated Osmolality 292 mOsm/kg (285-295) 12/11/23 09:23 Calcium 8.5 mg/dL (8.5-10.5) 12/11/23 09:23 Total Bilirubin 1.3 mg/dL (0.15-1.2) H 12/11/23 09:23 AST 27 U/L (0-40) 12/11/23 09:23 ALT 27 U/L (0-41) 12/11/23 09:23 Alkaline Phosphatase 72 U/L (40-130) 12/11/23 09:23 NT-Pro-B Natriuret Pep 2916 pg/mL (0-450) H 12/11/23 09:23 Total Protein 7.3 g/dL (6.6-8.7) 12/11/23 09:23 Albumin 3.9 g/dL (3.5-5.2) 12/11/23 09:23 Globulin 3.4 g/dL (1.3-4.6) 12/11/23 09:23 All radiology interpretation(s) finalized by discharge Discharge Plan Discharge Patient Disposition: Placed in Observation Admit Provider: Clifford Mckee Clinical Impression: Atrial fibrillation with rapid ventricular response Coding Level of Care Code ED Gizzard Puller for Cecilia Dougherty
[2023-12-11 09:01] LABS: Basophils % 0.4 %; Eosinophils # 0.1 10^3/uL (0.0-0.8); Eosinophils % 0.5 %; Hematocrit 43.9 % (37-53); Lymphocytes # 1.3 10^3/uL (0.8-4.8); Lymphocytes % 13.4 %; Mean Corpuscular HGB Conc 33.7 g/dL (30-55); Mean Corpuscular Hemoglobin 36.7 pg (27-33); Mean Corpuscular Volume 108.9 fl (82-101); Mean Platelet Volume 12.4 fL (7.4-10.4); Monocytes # 1.1 10^3/uL (0.2-0.9); Monocytes % 11.3 %; Nucleated Red Blood Cells % 0 %; Platelet Count 161 10^3/cmm (157-399); Red Blood Count 4.03 10^6/uL (3.85-5.65); Red Cell Distribution Width 14.3 % (12.1-15.1); White Blood Count 9.47 10^3/uL (3.29-11.43)
[2023-12-11] MEDS: dilTIAZem 100 MG in sodium chloride 0.9% (add-van) 100 ML IV (09:09)
[2023-12-11] MEDS: dilTIAZem 5 mg/mL SDV 5 mL 20 MG IVP (09:09)
--- NOTE | 2023-12-11 09:37 | PC.NURSE ---
PT REQUESTED TO BE PLACED ON O2 FOR COMFORT. PT PLACED ON 2L NC; O2 95%. PT STATES HE DOES NOT USUALLY REQUIRE O2 BUT WAS PLACED ON IT LAST TIME HE WAS IN THE ED.
[2023-12-11 09:59] LABS: Alanine Aminotransferase 27 U/L (0-41); Albumin Level 3.9 g/dL (3.5-5.2); Alkaline Phosphatase 72 U/L (40-130); Anion Gap 16.4 (5-19); Aspartate Amino Transferase 27 U/L (0-40); Blood Urea Nitrogen 26 mg/dL (8-23); Calcium 8.5 mg/dL (8.5-10.5); Carbon Dioxide 22 mmol/L (22-29); Chloride 104 mmol/L (98-107); Creatinine Clr Calc Pharmacy 66.9684; Globulin 3.4 g/dL (1.3-4.6); Glucose 112 mg/dL (65-115); Osmolality Calculated 292 mOsm/kg (285-295); Potassium 4.4 mmol/L (3.5-5.1); Sodium 138 mmol/L (136-145); Total Bilirubin 1.3 mg/dL (0.15-1.2); Total Protein 7.3 g/dL (6.6-8.7)
[2023-12-11 11:40] LABS: NT Pro B Type Natriuretic Pept 2916 pg/mL (0-450)
--- NOTE | 2023-12-11 11:41 | PM.HP ---
Providers/Chief Complaint Admitting Physician: Clifford Mckee MD Primary Care Provider: Claudette Sanchez Chief Complaint: SOB History of Present Illness Jet Blackman is a 78 year old male with known history of alcoholism, and A-fib who presents with at least 2-day history of increased shortness of breath. He believes the swelling in his lower extremities has been coming on for at least a week. No chest pain. Does not really feel palpitations usually. Denies any fever, cough. He relates his shortness of breath is worse when he lays down. No vomiting, diarrhea, blood in stool. He still drinks relatively regularly. Last hospital stay was November 08 through November 12, for heart failure and A-fib with RVR. It appears that he went against advice at that time. At that time amiodarone had been initiated for him secondary to difficulty control rate. In the emergency department he received a dose of dexamethasone, a diltiazem drip was initiated, metoprolol was given. Review of Systems General: Reports: 10 or more systems reviewed and unremarkable except in HPI and below Card: Reports: dyspnea on exertion and orthopnea; Denies: chest pain Resp: Reports: dyspnea; Denies: productive cough or non-productive cough GI: Denies: hematochezia or melena Medications/Allergies Home Medications Medication Instructions Recorded Confirmed Last Taken Type cholecalciferol (vitamin D3) 25 25 mcg PO DAILY 02/05/20 12/11/23 12/11/23 History mcg (1,000 unit) chewable tablet (Vitamin D3) metoprolol succinate 50 mg 25 mg (1/2 x 50 mg) PO DAILY #90 12/05/22 12/11/23 12/11/23 Rx tablet,extended release 24 hr tabs ascorbic acid (vitamin C) 500 mg 500 mg PO DAILY 11/09/23 12/11/23 12/11/23 History tablet (Vitamin C) apixaban 5 mg tablet 5 mg PO BID #60 tabs 11/13/23 12/11/23 12/11/23 Rx furosemide 40 mg tablet 40 mg PO DAILY #60 tabs 11/13/23 12/11/23 12/11/23 Rx nitroglycerin 0.4 mg sublingual 0.4 mg sublingual Q5M PRN chest 11/19/23 12/11/23 Unknown Rx tablet pain #25 tabs Allergies Allergy/AdvReac Type Severity Reaction Status Date / Time No Known Allergies Allergy Verified 07/13/23 08:56 PFSH Acute PFSH: Medical History (Updated 12/11/23 @ 12:07 by Clifford Mckee MD) Alcoholism Heart failure with reduced ejection fraction Macrocytosis Hypomagnesemia Elevated bilirubin COPD (chronic obstructive pulmonary disease) LV dysfunction Systolic heart failure Congestive heart failure with LV diastolic dysfunction, NYHA class 4 Atrial fibrillation with rapid ventricular response History of lung cancer Chronic fatigue Atrial fibrillation Obstructive sleep apnea HTN (hypertension) CHF (congestive heart failure) DRUJ (distal radioulnar joint) instability, post-traumatic no specific trauma only code choice in EHR! 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 Surgical History History of lobectomy of lung Family History Denies family history of Diabetes Stroke Social History Smoking and tobacco/nicotine status: former use of tobacco/nicotine Quit status (tobacco/nicotine): has quit using Year quit tobacco: 2020 Former quit date comment: Hx of 1 PPD x 50 Years Second hand smoke exposure: No Alcohol intake: current Alcohol intake frequency: 3 or more drinks per day Substance/Drug Use: never Lives independently: Yes Household members: spouse Marital status: Current occupational status: retired Do you think of yourself as: Straight/Heterosexual Current gender identity: Male Vitals/I&O/Wt Last Vital Signs Temp 98.2 F 12/11/23 08:48 Pulse 87 12/11/23 10:45 Resp 18 12/11/23 10:45 BP 127/89 12/11/23 10:45 Pulse Ox 96 12/11/23 10:45 O2 Del Method Room Air 12/11/23 10:25 Weight last 48 hrs Weight 97.522 kg Physical Exam Narrative: General Exam is white male, no distress HEENT: Atraumatic normocephalic. Oropharynx clear Neck is supple no lymphadenopathy or megaly Cardiovascular irregular irregular with accelerated rate Lungs clear Abdomen slight distention. Positive bowel sounds. No pain exam deferred Extremities 2+ edema. No cyanosis or clubbing. Data 12/11/23 08:55 12/11/23 09:23 Other Labs: I have ordered an INR I have ordered a magnesium level LFTs are normal with the exception of bilirubin which is 1.3 BNP 2916 Recent TSH is normal Ultrasound done on November 09 demonstrated some gallbladder wall thickening but no overt ascites Chest x-ray done today which I reviewed demonstrates cardiomegaly, some pulmonary congestion. Echo done on November 09 demonstrated EF 36%, grade 2 out of 4 diastolic dysfunction. EKG done today demonstrates atrial fibrillation with rapid ventricular rate, left axis deviation, left anterior fascicular block. Poor R wave progression possible anterior PA in the past. A&P Assessment and plan (1) Atrial fibrillation with rapid ventricular response: Patient presents with A-fib with RVR He has history of significant alcohol intake He was recently at the hospital and left AMA. At that time amiodarone was being initiated. Reinitiate amiodarone Taper off Cardizem Increase metoprolol to 37.5 mg twice daily, monitoring for any bradycardia if he converts Continue anticoagulation but changed to Lovenox while in the hospital in case any cardiac procedure would need done No reason for repeat echo Cardiology consultation. They were following closely at his last hospitalization. Alcoholism may complicate course (2) Heart failure with reduced ejection fraction: Patient appears to be in significantly decompensated acute heart failure. This is predominantly left ventricular dysfunction but cannot rule out component of diastolic dysfunction secondary to echo findings of 2/4 diastolic dysfunction. Lasix 60 mg IV every 12 hours Monitor electrolytes closely with daily laboratory (3) Alcoholism: Patient with alcoholism He continues to drink Encouraged abstinence [facility] protocol Check magnesium Check INR Plan Past history of COPD Other medical problems as listed in past medical history Full code Lovenox will suffice for DVT prophylaxis Attestations Medical Necessity Statement*: Will need greater than 2 midnight stay for evaluation and treatment of A-fib with RVR, acute systolic heart failure Diagnoses Atrial fibrillation with rapid ventricular response I48.91 Heart failure with reduced ejection fraction I50.20 Alcoholism F10.20 Time Spent (min) 52
[2023-12-11] MEDS: metoprolol tartrate 25 mg Tablet PO (12:33)
[2023-12-11 12:46] LABS: INR 1.48 (0.8-1.2)
[2023-12-11 12:50] LABS: Magnesium 1.4 mg/dL (1.7-2.3)
[2023-12-11] MEDS: amiodarone 150 MG/100 ML PREMIX 400 MG IV (13:13)
[2023-12-11] MEDS: FUROsemide 10 mg/mL SDV 10mL 60 MG IVP (13:14)
[2023-12-11] MEDS: magnesium sulfate premix 2 GM/50 ML PIGGYBACK IV (14:59)
[2023-12-11] MEDS: enoxaparin 100 mg/mL Syringe SUBCUT (18:26)
--- NOTE | 2023-12-11 19:46 | P.CONIM_ITS ---
Providers/Reason For Consult 2 Consulting Physician/Specialty*: Thomas Ace MD/ Cardiology Reason for Consult*: Afib with RVR Requesting Physician: Dr Mckee Attending Physician: Clifford Mckee MD Primary Care Provider: Claudette Sanchez History of Present Illness History of Present Illness Jet Blackman is a 78 year old male with with past medical history of atrial fibrillation, congestive heart failure and heavy alcohol use has presented to hospital with 2 days of worsening shortness of breath and lower extremity edema. He was found to be in A-fib with RVR. On last admission and left AMA. He was started on amiodarone gtt. and at time of my evaluation heart rates have improved and are below 100 bpm. On echocardiogram from last admission EF was 36%. Review of Systems 2 General: Reports: 10 or more systems reviewed and unremarkable except in HPI and below Card: Reports: dyspnea on exertion and orthopnea; Denies: chest pain Resp: Reports: dyspnea; Denies: productive cough or non-productive cough GI: Denies: hematochezia or melena Medications/Allergies Home Medications Medication Instructions Recorded Confirmed Last Taken Type cholecalciferol (vitamin D3) 25 25 mcg PO DAILY 02/05/20 12/11/23 12/11/23 History mcg (1,000 unit) chewable tablet (Vitamin D3) metoprolol succinate 50 mg 25 mg (1/2 x 50 mg) PO DAILY #90 12/05/22 12/11/23 12/11/23 Rx tablet,extended release 24 hr tabs ascorbic acid (vitamin C) 500 mg 500 mg PO DAILY 11/09/23 12/11/23 12/11/23 History tablet (Vitamin C) apixaban 5 mg tablet 5 mg PO BID #60 tabs 11/13/23 12/11/23 12/11/23 Rx furosemide 40 mg tablet 40 mg PO DAILY #60 tabs 11/13/23 12/11/23 12/11/23 Rx nitroglycerin 0.4 mg sublingual 0.4 mg sublingual Q5M PRN chest 11/19/23 12/11/23 Unknown Rx tablet pain #25 tabs Allergies Allergy/AdvReac Type Severity Reaction Status Date / Time No Known Allergies Allergy Verified 07/13/23 08:56 Current Medications Generic Name Dose Route Start Last Admin Trade Name Freq PRN Reason Stop Dose Admin Enoxaparin Sodium 100 mg 12/11/23 19:00 12/11/23 18:26 Enoxaparin 100 Mg/Ml Syringe SUBCUT 100 mg Q12H RON Administration Furosemide 60 mg 12/11/23 12:15 12/11/23 13:14 Furosemide 10 Mg/Ml Sdv 10ml IVP 60 mg Q12H RON Administration Amiodarone HCl/Dextrose 360 mg in 200 mls @ 0 mls/hr 12/11/23 12:05 12/11/23 13:44 Nexterone IV 1 mg/min .Q0M RON 33.33 mls/hr Administration Protocol Per Protocol PFSH Acute 2 PFSH: Medical History Alcoholism Heart failure with reduced ejection fraction Macrocytosis Hypomagnesemia Elevated bilirubin COPD (chronic obstructive pulmonary disease) LV dysfunction Systolic heart failure Congestive heart failure with LV diastolic dysfunction, NYHA class 4 Atrial fibrillation with rapid ventricular response History of lung cancer Chronic fatigue Atrial fibrillation Obstructive sleep apnea HTN (hypertension) CHF (congestive heart failure) DRUJ (distal radioulnar joint) instability, post-traumatic no specific trauma only code choice in EHR! 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 Surgical History History of lobectomy of lung Family History Denies family history of Diabetes Stroke Social History Smoking and tobacco/nicotine status: former use of tobacco/nicotine Quit status (tobacco/nicotine): has quit using Year quit tobacco: 2020 Former quit date comment: Hx of 1 PPD x 50 Years Second hand smoke exposure: No Alcohol intake: current Alcohol intake frequency: 3 or more drinks per day Substance/Drug Use: never Lives independently: Yes Household members: spouse Marital status: Current occupational status: retired Do you think of yourself as: Straight/Heterosexual Current gender identity: Male Vitals/I&O/Wt Last Vital Signs Temp 97.6 F 12/11/23 16:00 Pulse 94 12/11/23 16:00 Resp 24 H 12/11/23 16:00 BP 105/85 12/11/23 16:00 Pulse Ox 99 12/11/23 16:00 O2 Del Method Room Air 12/11/23 16:00 12/11/23 12/11/23 12/11/23 06:59 14:59 22:59 Intake Total 430 / 430 286 / 716 Output Total 830 / 830 630 / 1460 Balance -400 / -400 -344 / -744 Weight last 48 hrs Weight 231 lb 7.766 oz Weight 215 lb Physical Exam 2 Narrative: GENERAL: Patient is alert, awake and oriented x3. [] NECK: No jugular vein distension. [] HEENT: No cyanosis. No icterus. No pallor. [] HEART: Irregularly irregular LUNGS: Diminished air entry bilaterally. CENTRAL NERVOUS SYSTEM: Grossly nonfocal. [] EXTREMITIES: Lower extremities with 1+ edema bilaterally. Data 12/12/23 04:04 12/12/23 04:04 A&P Assessment and plan (1) Heart failure with reduced ejection fraction: (2) Atrial fibrillation with rapid ventricular response: (3) Alcoholism: Plan Patient's heart rate is improving. Continue amiodarone gtt. Will switch amiodarone to p.o. tomorrow. Continue metoprolol. To continue Lovenox. At time of discharge can switch to Eliquis. Will need ischemic workup for low LV systolic function. However given patient's noncompliance history, can hold off on it for now as not having chest pain. If follows up as outpatient, we will plan on it. Continue IV diuresis. Close I and Os. Monitor renal function. Thank you for involving us with care of this patient. Please call with questions. Consult Attestations 2 Medical Necessity Statement: Care expected to cross 2 midnights. Coding Level of Care Code Acute Code for [facility] Diagnoses Heart failure with reduced ejection fraction I50.20 Atrial fibrillation with rapid ventricular response I48.91 Alcoholism F10.20
[2023-12-11] MEDS: metoprolol tartrate 25 mg Tablet 37.5 MG PO (20:44)
[2023-12-11] MEDS: trazodone 50 mg Tablet 25 MG PO (21:12)
[2023-12-12] VITALS (8 sets, daily range): BP systolic 96–121; BP diastolic 62–90; PULSE 87–108; RESP 22–33; TEMP 36.4–36.9; O2SAT 93–99
[2023-12-12] MEDS: FUROsemide 10 mg/mL SDV 10mL 60 MG IVP ×2 (00:22→10:42)
[2023-12-12 04:30] LABS: Basophils # 0.1 10^3/uL (0.0-0.1); Basophils % 0.6 %; Eosinophils # 0.1 10^3/uL (0.0-0.8); Eosinophils % 1.5 %; Hematocrit 37.4 % (37-53); Lymphocytes # 1.5 10^3/uL (0.8-4.8); Lymphocytes % 18.1 %; Mean Corpuscular HGB Conc 33.2 g/dL (30-55); Mean Corpuscular Hemoglobin 36.8 pg (27-33); Mean Platelet Volume 11.9 fL (7.4-10.4); Monocytes % 12.4 %; Neutrophils # 5.42 10^3/uL (1.8-7.7); Nucleated Red Blood Cells % 0 %; Platelet Count 110 10^3/cmm (157-399); Red Blood Count 3.37 10^6/uL (3.85-5.65); Red Cell Distribution Width 14.5 % (12.1-15.1); White Blood Count 8.08 10^3/uL (3.29-11.43)
[2023-12-12 04:52] LABS: Alanine Aminotransferase 17 U/L (0-41); Albumin Level 3.4 g/dL (3.5-5.2); Alkaline Phosphatase 60 U/L (40-130); Anion Gap 14.9 (5-19); Aspartate Amino Transferase 21 U/L (0-40); Blood Urea Nitrogen 26 mg/dL (8-23); Calcium 7.7 mg/dL (8.5-10.5); Carbon Dioxide 26 mmol/L (22-29); Chloride 104 mmol/L (98-107); Creatinine Clr Calc Pharmacy 76.2825; Globulin 2.6 g/dL (1.3-4.6); Glucose 102 mg/dL (65-115); Magnesium 1.5 mg/dL (1.7-2.3); Osmolality Calculated 297 mOsm/kg (285-295); Potassium 3.9 mmol/L (3.5-5.1); Sodium 141 mmol/L (136-145); Total Bilirubin 0.7 mg/dL (0.15-1.2)
--- NOTE | 2023-12-12 07:11 | P.PN_ITS ---
Subjective 2 Subjective: Heart rates are better controlled but still fluctuating. Staying in atrial fibrillation. Vitals/I&O/Wt Last Vital Signs Temp 98.2 F 12/11/23 20:00 Pulse 87 12/12/23 04:00 Resp 22 H 12/12/23 04:00 BP 121/82 12/12/23 04:00 Pulse Ox 99 12/12/23 04:00 O2 Del Method Nasal Cannula 12/11/23 20:00 O2 Flow Rate 2 12/11/23 20:00 12/11/23 12/12/23 12/12/23 22:59 06:59 14:59 Intake Total 486 / 916 600 / 1516 Output Total 980 / 1810 600 / 2410 Balance -494 / -894 0 / -894 Weight last 48 hrs Weight 220 lb 7.396 oz Weight 231 lb 7.766 oz Weight 215 lb Physical Exam 2 Narrative: GENERAL: Patient is alert, awake and oriented x3. [] NECK: No jugular vein distension. [] HEENT: No cyanosis. No icterus. No pallor. [] HEART: Irregularly irregular LUNGS: Diminished air entry bilaterally. CENTRAL NERVOUS SYSTEM: Grossly nonfocal. [] EXTREMITIES: Lower extremities with 1+ edema bilaterally. Data 12/13/23 02:57 12/13/23 02:57 A&P Assessment and plan (1) Heart failure with reduced ejection fraction: (2) Atrial fibrillation with rapid ventricular response: (3) Alcoholism: Plan Patient is diuresing well. Continue IV diuretics. Monitor I&O's and renal function. Amiodarone switched to p.o. Can uptitrate beta-grabiel as needed. Ischemic workup as outpatient. Thank you for involving us with care of this patient. Please call with questions. Attestations 2 Medical Necessity Statement*: Care expected to cross 2 midnights. Coding Level of Care Code Acute Code for [facility] Diagnoses Heart failure with reduced ejection fraction I50.20 Atrial fibrillation with rapid ventricular response I48.91 Alcoholism F10.20
--- NOTE | 2023-12-12 07:49 | PC.NURSE ---
Dr Mckee ordered to stop the amiodarone drip at 0750.
[2023-12-12] MEDS: magnesium sulfate premix 2 GM/50 ML PIGGYBACK IV (07:51)
[2023-12-12] MEDS: enoxaparin 100 mg/mL Syringe SUBCUT ×2 (07:51→19:51)
[2023-12-12] MEDS: metoprolol tartrate 25 mg Tablet 50 MG PO ×2 (08:09→20:58)
[2023-12-12] MEDS: folic acid 1 mg Tablet PO (08:10)
[2023-12-12] MEDS: amiodarone 200 mg Tablet 400 MG PO ×2 (08:10→17:33)
[2023-12-12] MEDS: thiamine 100 mg Tablet PO (08:10)
[2023-12-12] MEDS: pantoprazole DR 40 mg Tablet PO (08:10)
[2023-12-12] MEDS: multivitamin therapeutic Tablet 1 TAB PO (08:10)
--- NOTE | 2023-12-12 09:06 | P.PN_ITS ---
Documented by User: CANDICE Galaviz [email or web address] 12/12/23 10:09 Subjective 2 Subjective: Patient is doing better. Heart rate remains high with a range of 70-120 depending on if mobile or not. Patient reports improvement in breathing and swelling. Patient denies chest pain, SOB, fevers, chills, abdominal pain. Cardiology was consulted and recommended a stress test be performed as outpatient. Vitals/I&O/Wt Last Vital Signs Temp 97.5 F L 12/12/23 07:23 Pulse 108 H 12/12/23 07:23 Resp 33 H 12/12/23 07:23 BP 115/90 12/12/23 07:23 Pulse Ox 93 12/12/23 07:23 O2 Del Method Room Air 12/12/23 07:23 O2 Flow Rate 2 12/11/23 20:00 12/11/23 12/12/23 12/12/23 22:59 06:59 14:59 Intake Total 486 / 916 600 / 1516 370 / 370 Output Total 980 / 1810 600 / 2410 1000 / 1000 Balance -494 / -894 0 / -894 -630 / -630 Weight last 48 hrs Weight 220 lb 7.396 oz Weight 231 lb 7.766 oz Weight 215 lb Physical Exam 2 Neck/C-Spine: OTHER: Supple Resp: OTHER: Bilateral breath sounds, clear to auscultation, normal chest wall expansion, tachypneic at times. Cardio: OTHER: Tachycardiac, irregularly irregular rate without murmurs, gallops, or rubs GI: OTHER: Softer and less distended abdomen, nontender with bowel sounds Extremity: OTHER: No edema, greatly improved from yesterday, or cyanosis Data 12/12/23 04:04 12/12/23 04:04 A&P Assessment and plan (1) Atrial fibrillation with rapid ventricular response: Patient presents with A-fib with RVR He has history of significant alcohol intake He was recently at the hospital and left AMA. Reinitiated amiodarone yesterday via IV, tolerated well, switch to 400mg po BID Tapered off Cardizem Increase metoprolol to 50 mg twice daily, monitoring for any bradycardia if he converts Continue Lovenox while in the hospital in case any cardiac procedure would need done Cardiology consultation. Advised stress test be scheduled for outpatient, concerned raised about completion secondary to previous AMA status and noncompliance. Alcoholism may complicate course (2) Heart failure with reduced ejection fraction: Patient presented in decompensated acute heart failure, likely predominantly left ventricular dysfunction and.or with 2/4 diastolic dysfunction secondary to echo findings. Continue Lasix 60 mg IV but switch to q24 hrs Mg was low at 1.5, give 2g Monitor electrolytes closely with daily laboratory (3) Alcoholism: Patient with alcoholism He continues to drink Encouraged abstinence CIWA protocol Mg was low at 1.5, give 2g INR was elevated at 1.48 Albumin was low at 3.4 with total protein at 6.0 Platelets have decreased to 110 Still has signs of anemia with Hgb decreased to 12.4, high MCV; continue folate and thiamine supplementation Plan Past history of COPD Other medical problems as listed in past medical history Full code Lovenox will suffice for DVT prophylaxis Cardiac diet Coding Level of Care Code 02985 Diagnoses Atrial fibrillation with rapid ventricular response I48.91 Heart failure with reduced ejection fraction I50.20 Alcoholism F10.20 Time Spent (min) 24 Documented by User: Clifford Mckee MD 12/12/23 10:14 Subjective 2 Medications: Reviewed: Yes Data 12/12/23 04:04 12/12/23 04:04 A&P Assessment and plan (1) Atrial fibrillation with rapid ventricular response: (2) Heart failure with reduced ejection fraction: (3) Alcoholism: Plan Past history of COPD Other medical problems as listed in past medical history Full code Lovenox will suffice for DVT prophylaxis Cardiac diet Attestations 2 Medical Necessity Statement*: Needs continued hospitalization for adjustment of medications for A-fib with RVR and further diuresis secondary to acute systolic congestive heart failure. Diagnoses Atrial fibrillation with rapid ventricular response I48.91 Heart failure with reduced ejection fraction I50.20 Alcoholism F10.20 Time Spent (min) 24
[2023-12-12] MEDS: FUROsemide 10 mg/mL SDV 4mL 40 MG IVP (19:51)
[2023-12-13] VITALS: BP 101/60; PULSE 93; RESP 22; TEMP 36.5; O2SAT 93
[2023-12-13 03:14] LABS: Basophils % 0.5 %; Eosinophils # 0.1 10^3/uL (0.0-0.8); Eosinophils % 1.2 %; Hematocrit 40.6 % (37-53); Lymphocytes # 1.4 10^3/uL (0.8-4.8); Lymphocytes % 18.4 %; Mean Corpuscular HGB Conc 33.5 g/dL (30-55); Mean Corpuscular Hemoglobin 36.6 pg (27-33); Mean Corpuscular Volume 109.1 fl (82-101); Monocytes # 0.9 10^3/uL (0.2-0.9); Monocytes % 11.4 %; Neutrophils # 5.08 10^3/uL (1.8-7.7); Neutrophils % 68.1 %; Nucleated Red Blood Cells % 0 %; Platelet Count 125 10^3/cmm (157-399); Red Blood Count 3.72 10^6/uL (3.85-5.65); Red Cell Distribution Width 14.3 % (12.1-15.1); White Blood Count 7.46 10^3/uL (3.29-11.43)
[2023-12-13 03:38] LABS: Alanine Aminotransferase 16 U/L (0-41); Albumin Level 3.4 g/dL (3.5-5.2); Alkaline Phosphatase 65 U/L (40-130); Anion Gap 14.7 (5-19); Aspartate Amino Transferase 20 U/L (0-40); Blood Urea Nitrogen 27 mg/dL (8-23); Carbon Dioxide 29 mmol/L (22-29); Chloride 101 mmol/L (98-107); Globulin 2.9 g/dL (1.3-4.6); Glucose 95 mg/dL (65-115); Magnesium 1.6 mg/dL (1.7-2.3); Osmolality Calculated 297 mOsm/kg (285-295); Potassium 3.7 mmol/L (3.5-5.1); Sodium 141 mmol/L (136-145); Total Bilirubin 1.3 mg/dL (0.15-1.2); Total Protein 6.3 g/dL (6.6-8.7)
[2023-12-13 03:39] LABS: Creatinine Clr Calc Pharmacy 57.3327
[2023-12-13 04:00] VITALS: BP 112/78; PULSE 97; RESP 23; TEMP 36.4; O2SAT 94
[2023-12-13] MEDS: enoxaparin 100 mg/mL Syringe SUBCUT (06:59)
--- NOTE | 2023-12-13 07:01 | P.PN_ITS ---
Subjective 2 Subjective: Patient is feeling better. Heart rate still fluctuating however has improved. Vitals/I&O/Wt Last Vital Signs Temp 97.5 F L 12/13/23 04:00 Pulse 97 12/13/23 04:00 Resp 23 H 12/13/23 04:00 BP 112/78 12/13/23 04:00 Pulse Ox 94 12/13/23 04:00 O2 Del Method Room Air 12/13/23 04:00 O2 Flow Rate 2 12/11/23 20:00 12/12/23 12/13/23 12/13/23 22:59 06:59 14:59 Intake Total 120 / 1130 300 / 1430 Output Total 800 / 2500 975 / 3475 Balance -680 / -1370 -675 / -2045 Weight last 48 hrs Weight 220 lb 7.396 oz Weight 220 lb 7.396 oz Weight 231 lb 7.766 oz Weight 215 lb Physical Exam 2 Narrative: GENERAL: Patient is alert, awake and oriented x3. [] NECK: No jugular vein distension. [] HEENT: No cyanosis. No icterus. No pallor. [] HEART: Irregularly irregular LUNGS: Diminished air entry bilaterally. CENTRAL NERVOUS SYSTEM: Grossly nonfocal. [] EXTREMITIES: Lower extremities with 1+ edema bilaterally. Data 12/13/23 02:57 12/13/23 02:57 A&P Assessment and plan (1) Heart failure with reduced ejection fraction: (2) Atrial fibrillation with rapid ventricular response: (3) Alcoholism: Plan Heart rate control is improved. Continue metoprolol, amiodarone and anticoagulation. Ischemic work up can be performed as outpatient. Thank you for involving us with care of this patient. Please call with questions. Attestations 2 Medical Necessity Statement*: Care expected to cross 2 midnights. Coding Level of Care Code Acute Code for [facility] Fwd Diagnoses Heart failure with reduced ejection fraction I50.20 Atrial fibrillation with rapid ventricular response I48.91 Alcoholism F10.20
[2023-12-13 07:08] VITALS: BP 118/83; PULSE 112; RESP 18; TEMP 36.5; O2SAT 96
[2023-12-13] MEDS: thiamine 100 mg Tablet PO (08:09)
[2023-12-13] MEDS: pantoprazole DR 40 mg Tablet PO (08:09)
[2023-12-13] MEDS: folic acid 1 mg Tablet PO (08:10)
[2023-12-13] MEDS: multivitamin therapeutic Tablet 1 TAB PO (08:10)
[2023-12-13] MEDS: metoprolol tartrate 25 mg Tablet 75 MG PO (08:10)
[2023-12-13] MEDS: FUROsemide 40 mg Tablet 60 MG PO (08:10)
[2023-12-13] MEDS: amiodarone 200 mg Tablet 400 MG PO (08:10)
[2023-12-13] MEDS: magnesium sulfate premix 2 GM/50 ML PIGGYBACK IV (08:11)
--- NOTE | 2023-12-13 09:37 | P.DS_ITS ---
Discharge Providers Date of Admission: 12/11/23 11:07 Date of Discharge: December 13, 2023 Attending Provider at Admission: Clifford Mckee MD Attending Provider at Discharge: Clifford Mckee MD Primary Care Provider: Claudette Sanchez Diagnoses at Discharge Discharge Diagnosis (1) Heart failure with reduced ejection fraction: Status: Acute (2) Atrial fibrillation with rapid ventricular response: Status: Inactive (3) Alcoholism: Status: Acute Reason for Visit Reason for Visit: SOB Hospital Course Hospital Course Patient is a 78-year-old male with history of A-fib, excessive alcohol intake who presented to the hospital with shortness of breath swelling and was found to be in A-fib with RVR. He had recently gone AGAINST MEDICAL ADVICE around November 12. He was placed on a Cardizem drip initially in the ER, which I transition to an amiodarone drip in the hospital. I increased his metoprolol significantly. Cardiology was consulted. He was diuresed with IV Lasix. He was monitored for any alcohol withdrawal, and no severe withdrawal was present during his hospital stay. With amiodarone and metoprolol his heart rate came do wn to where it was approximately 100 resting. Patient was very eager to go home, and it was thought it was reasonable as he was significantly diuresed/compensated and heart rate was less than 110 resting. Cardiology will see him in a week. He will be on an event monitor on discharge. He will take amiodarone 400 mg twice daily for a week and then 400 mg once daily. Metoprolol 75 mg twice daily. Event monitor at discharge. Follow-up with cardiology in 1 week. He was able to ask questions and agreed with the plan. He is to stop all alcohol intake. Physical Exam Narrative: General Exam no distress Neck is supple Cardiovascular irregular irregular without murmur Lungs clear Abdomen soft Extremities no significant edema. Discharge Data Studies Completed and Pending Completed Studies During Hospitalization Category Date Time Status XR chest 1V portable [id number] Stat Exams 12/11/23 08:38 Completed Radiology Impressions Chest X-Ray 12/11/23 08:38 IMPRESSION: 1. Cardiomegaly. 2. Postoperative changes involving the right lung. 3. Possible subtle pneumonitis involving the inferior medial right lung. Laboratory Results WBC 7.46 10^3/uL (3.29-11.43) 12/13/23 02:57 RBC 3.72 10^6/uL (3.85-5.65) L 12/13/23 02:57 Hgb 13.60 g/dL (11.27-16.99) 12/13/23 02:57 Hct 40.6 % (37-53) 12/13/23 02:57 MCV 109.1 fl (82-101) H 12/13/23 02:57 MCH 36.6 pg (27-33) H 12/13/23 02:57 MCHC 33.5 g/dL (30-55) 12/13/23 02:57 RDW 14.3 % (12.1-15.1) 12/13/23 02:57 Plt Count 125 10^3/cmm (157-399) L 12/13/23 02:57 MPV 12.0 fL (7.4-10.4) H 12/13/23 02:57 Neut % (Auto) 68.1 % 12/13/23 02:57 Lymph % (Auto) 18.4 % 12/13/23 02:57 [place] % (Auto) 11.4 % 12/13/23 02:57 Eos % (Auto) 1.2 % 12/13/23 02:57 Baso % (Auto) 0.5 % 12/13/23 02:57 Neut # (Auto) 5.08 10^3/uL (1.8-7.7) 12/13/23 02:57 Lymph # (Auto) 1.4 10^3/uL (0.8-4.8) 12/13/23 02:57 [place] # (Auto) 0.9 10^3/uL (0.2-0.9) 12/13/23 02:57 Eos # (Auto) 0.1 10^3/uL (0.0-0.8) 12/13/23 02:57 Baso # (Auto) 0.0 10^3/uL (0.0-0.1) 12/13/23 02:57 Nucleated RBC % (auto) 0 % 12/13/23 02:57 Nucleated RBCs # 0.0 /100WBC 12/13/23 02:57 PT 18.50 SECONDS (12.1-14.9) H 12/11/23 09:23 INR 1.48 (0.8-1.2) H 12/11/23 09:23 Sodium 141 mmol/L (136-145) 12/13/23 02:57 Potassium 3.7 mmol/L (3.5-5.1) 12/13/23 02:57 Chloride 101 mmol/L (98-107) 12/13/23 02:57 Carbon Dioxide 29 mmol/L (22-29) 12/13/23 02:57 Anion Gap 14.7 (5-19) 12/13/23 02:57 BUN 27 mg/dL (8-23) H 12/13/23 02:57 Creatinine 1.3 mg/dL (0.7-1.2) H 12/13/23 02:57 GFR Calculation Not Reportable 12/13/23 02:57 Glucose 95 mg/dL (65-115) 12/13/23 02:57 Calculated Osmolality 297 mOsm/kg (285-295) H 12/13/23 02:57 Calcium 8.0 mg/dL (8.5-10.5) L 12/13/23 02:57 Magnesium 1.6 mg/dL (1.7-2.3) L 12/13/23 02:57 Total Bilirubin 1.3 mg/dL (0.15-1.2) H 12/13/23 02:57 AST 20 U/L (0-40) 12/13/23 02:57 ALT 16 U/L (0-41) 12/13/23 02:57 Alkaline Phosphatase 65 U/L (40-130) 12/13/23 02:57 NT-Pro-B Natriuret Pep 2916 pg/mL (0-450) H 12/11/23 09:23 Total Protein 6.3 g/dL (6.6-8.7) L 12/13/23 02:57 Albumin 3.4 g/dL (3.5-5.2) L 12/13/23 02:57 Globulin 2.9 g/dL (1.3-4.6) 12/13/23 02:57 Vitals Last Vital Signs Temp 97.7 F 12/13/23 07:08 Pulse 112 H 12/13/23 07:08 Resp 18 12/13/23 07:08 BP 118/83 12/13/23 07:08 Pulse Ox 96 12/13/23 07:08 O2 Del Method Room Air 12/13/23 07:08 O2 Flow Rate 2 12/11/23 20:00 Discharge Plan Discharge Patient Disposition: Home Condition: Stable Prescriptions: New amiodarone [Pacerone] 200 mg Tablet 400 mg PO BID Qty: 70 0RF Rx Instructions: After 1 week reduce dose to 400 mg once daily furosemide 40 mg Tablet 60 mg PO DAILY@0800 Qty: 45 0RF metoprolol tartrate 50 mg tablet 75 mg PO BID Qty: 90 0RF Continued nitroglycerin 0.4 mg tablet, sublingual 0.4 mg SUBLINGUAL Q5M PRN (Reason: chest pain) Qty: 25 2RF Rx Instructions: do not exceed 3 doses per episode cholecalciferol (vitamin D3) [Vitamin D3] 25 mcg (1,000 unit) Tablet,Chewable 25 mcg PO DAILY ascorbic acid (vitamin C) [Vitamin C] 500 mg Tablet 500 mg PO DAILY apixaban 5 mg tablet 5 mg PO BID Qty: 60 0RF Discontinued metoprolol succinate 50 mg tablet extended release 24 hr 25 mg PO DAILY Qty: 90 3RF furosemide 40 mg tablet 40 mg PO DAILY Qty: 60 3RF Discharge Orders: Discharge Order (Routine); Ordered 12/13/23 Ordered By: Clifford Mckee Other Ambulatory Orders: MCT/Event Monitor 21 Days (Routine) Timeframe: 1 Day Facility: [facility] - Location: Radiology Ordered By: Clifford Mckee Referrals: Mine Mcbride FNP [Nurse Practitioner] - 1 week (A-fib with RVR, CHF) Claudette Sanchez PA [Primary Care Provider] - 4-7 days Discharge Diet: Cardiac Discharge Activity: Increase activity as tolerated Patient Instructions: Opioid Safety Activity Restrictions/Additional Instructions: No alcohol Metoprolol has been increased to 75 mg twice daily Amiodarone should be 400 mg twice daily for 1 week then 400 mg once daily Follow-up with cardiology clinic 1 week Event monitor on discharge Return for any concerns Discharge Attestations Time Spent in Discharge Care*: greater than 30 min Status at Discharge: Cognitive status at discharge: cognitively intact , B ehavioral status at discharge: cooperative , Quality Metrics Clinical Quality Measures [ No reported AMI, CVA or VTE this stay] Coding Level of Care Code 36626 Total time (in minutes) for Discharge: 36 Diagnoses Heart failure with reduced ejection fraction I50.20 Atrial fibrillation with rapid ventricular response I48.91 Alcoholism F10.20
[2023-12-13 10:26] VITALS: BP 100/64; PULSE 90; RESP 16; O2SAT 94
== END 2023-12-13 10:54 | disposition home or self-care (01) | DRG 291 ==
LOC: ER 08:59 → CSU 11:07
PROVIDERS: Admitting Provider Internal Medicine; Emergency Provider Family Medicine; PCP Physician Assistant; Visit Provider Internal Medicine
DX: I11.0 Hypertensive heart disease with heart failure (principal); I50.23 Acute on chronic systolic (congestive) heart failure; I48.91 Unspecified atrial fibrillation; F10.20 Alcohol dependence, uncomplicated; Z91.199 Patient's noncompliance with other medical treatment and regimen due to unspecified reason
CPT/HCPCS: 36415; 71045; 80053; 83735; 83880; 85025; 85610; 93005; 96365; 96366; 96372; 96375; 96376; 99285; J0283; J1650; J1940; J3475; J3490

== ENCOUNTER 2024-10-21 08:06 | Emergency (ER) | payer MEDICARE, OTHER, SELFPAY ==
[2024-10-21] VITALS (7 sets, daily range): BP systolic 145–183; BP diastolic 115–154; PULSE 94–114; RESP 17–18; TEMP 36.7; O2SAT 93–98; BMI 27.8
--- NOTE | 2024-10-21 08:19 | CT_ITS ---
WS: [id number] CT scan of the head, 10/21/2024 Clinical Data: Trauma falls Comparison: None. DLP: 1529.[address] scans at [facility] use at least one of these dose optimization techniques: automated exposure control; mA and/or kV adjustment per patient size (includes targeted exams where dose is matched to clinical indication); or iterative reconstruction. Findings: The ventricular system is normal without shift. No recent infarct or hemorrhage is seen. There are no abnormal intracerebral masses. The cerebellum and brainstem are not remarkable. Bony windows of the skull and skull base show no fractures or erosions. The mastoid air cells, internal auditory canals, sella turcica, intraorbital contents, and paranasal sinuses are unremarkable. CT/CT head wo con* [id number] Impression: Negative CT scan of the head
--- NOTE | 2024-10-21 08:46 | ED_ITS ---
HPI - Weakness 2 General: Chief complaint: Weakness Stated complaint: fall twice, having trouble moving Time Seen by Provider: 10/21/24 08:19 History of Present Illness: 79-year-old male presents emergency room complaining of having fallen twice at home and having a rapid heart rate this morning. Few days ago he was carrying some groceries into the house he thinks he was maybe carrying too many things at once he stumbled and fell scraped his nose there is no loss consciousness he is not on blood thinner he is any vomiting or headache since. Last night he was trying to get out of bed his legs felt weak would not hold him he fell to the floor once again he did not strike his head or lose consciousness with this episode. He laid on the floor about 4 to 5 hours before neighbor found him and assisted him brought him to the emergency room. He has significant tremor at this morning. He has known atrial fibrillation he is on apixaban he is on amiodarone metoprolol for rate control for his atrial fibrillation he did not take his medicines this morning when he first arrived he is in A-fib with RVR. Associated symptoms: Denies chest pain, chills, dysuria or fever(s) Related Data Home Medications ?Medication ?Instructions ?Recorded ?Confirmed cholecalciferol (vitamin D3) 25 25 mcg PO DAILY 12/11/23 mcg (1,000 unit) chewable tablet (Vitamin D3) ascorbic acid (vitamin C) 500 mg 500 mg PO DAILY 11/0812/11/23 tablet (Vitamin C) Previous Rx's ?Medication ?Instructions ?Recorded apixaban 5 mg tablet 5 mg PO BID #60 tabs 4 nitroglycerin 0.4 mg sublingual 0.4 mg sublingual Q5M PRN chest 11/19/23 tablet pain #25 tabs amiodarone 200 mg tablet (Pacerone) 400 mg (2 x 200 mg ) PO BID #70 tabs 12/13/23 furosemide 40 mg tablet 40 mg PO DAILY@0800 #45 tabs 01/28/24 metoprolol tartrate 100 mg tablet 100 mg PO BID #60 ta bs 05/26/24 Allergies Allergy/AdvReac Type Severity Reaction Status Date / Time No Known Allergies Allergy Verified 07/13/23 08:56 Review of Systems 2 Const: Denies: fever(s) or chills Card: Reports: palpitations and irregular heart rhythm; Denies: chest pain Resp: Denies: dyspnea GI: Denies: abdominal pain : Denies: dysuria, urinary frequency or urinary urgency Musc: Denies: neck pain or back pain Skin/Breast: Denies: rash PFSH ED 2 PFSH: Medical History Alcoholism Heart failure with reduced ejection fraction Macrocytosis Hypomagnesemia Elevated bilirubin COPD (chronic obstructive pulmonary disease) LV dysfunction Systolic heart failure Congestive heart failure with LV diastolic dysfunction, NYHA class 4 Atrial fibrillation with rapid ventricular response History of lung cancer Chronic fatigue Atrial fibrillation Obstructive sleep apnea HTN (hypertension) CHF (congestive heart failure) DRUJ (distal radioulnar joint) instability, post-traumatic no specific trauma only code choice in EHR! 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 Surgical History History of lobectomy of lung Family History Denies family history of Diabetes Stroke Social History Smoking and tobacco/nicotine status: former use of tobacco/nicotine Quit status (tobacco/nicotine): has quit using Year quit tobacco: 2020 Former quit date comment: Hx of 1 PPD x 50 Years Second hand smoke exposure: No Alcohol intake: current Alcohol intake frequency: 3 or more drinks per day Substance/Drug Use: never Lives independently: Yes Household members: spouse Marital status: Current occupational status: retired Do you think of yourself as: Straight/Heterosexual Current gender identity: Male Physical Exam 2 Const: COMMON NORMALS: no acute distress GENERAL APPEARANCE: cooperative and comfortable ORIENTATION/CONSCIOUSNESS: Yes awake, Yes oriented to person, Yes oriented to place and Yes oriented to time HENMT: COMMON NORMALS: normocephalic and hearing grossly normal bilaterally HEAD & SCALP: normocephalic OTHER: Abrasion to the nose from fall Resp: COMMON NORMALS: normal respiratory effort, No retractions, No use of accessory muscles and clear to auscultation bilaterally AUSCULTATION: clear to auscultation bilaterally Cardio: COMMON NORMALS: No murmurs present (Cardio) RATE: tachycardic R HYTHM: abnormal rhythm irregularly irregular GI: COMMON NORMALS: Soft to palpation and No hepatosplenomegaly present A USCULTATION: Yes normoactive bowel sounds PALPATION: Yes Soft to palpation, No Tenderness to palpation present (GI), No Guarding due to palpation present (GI) and Yes No hepatosplenomegaly present Extremity: COMMON NORMALS: normal to inspection, capillary refill normal, no clubbing, cyanosis or edema, no calf tenderness and no pedal edema Neuro: SENSORIUM/ORIENTATION: Yes oriented to person, Yes oriented to place and Yes oriented to time Skin: COMMON NORMALS: no rashes or lesions noted GENERAL SKIN EXAM: no rashes or lesions noted Course 2 Vital Signs: Vital signs: Vital Signs Temperature 98.1 F 10/21/24 08:22 Pulse Rate 98 10/21/24 12:52 Respiratory Rate 17 10/21/24 09:39 Blood Pressure 145/125 10/21/24 12:52 Pulse Oximetry 98 10/21/24 12:52 Oxygen Delivery Me thod Room Air 10/21/24 08:22 MDM - Weakness Medical Decision Making CPK was slightly elevated. Patient ambulated without difficulty blood pressures improved. Scans labs did not show any acute changes. Patient does have macrocytosis with mild thrombocytopenia in addition to he has elevated liver enzymes and T. bili. Suspect patient may be heavy drinker his ammonia level was normal. He states he used to drink heavily but has cut back significantly. Discussed with him my suspicion that he may be having a little bit of withdrawal symptoms which is why he had the rapid heart rate. He states it has been over a month since he drank. At this point he like to go home I do not have anything that would require him to stay at this time his vital signs are stable and he is ambulatory his heart rate is now under control we will discharge him home encouraged him to take his regular medications follow-up with his primary care doctor within the next week. After medications given to control heart rate patient remains in atrial fibrillation but rate is not controlled around 100 regular on the monitor strip. Patient denies chest pain. Lab Data 10/21/24 08:52 10/21/24 08:[address] 10/21/24 08:19 Impression: Negative CT scan of the head Cervical Spine CT 10/21/24 08:47 Impression: 1. Negative for compression fracture. 2. 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 3. Degenerative disc narrowing at C5-C6 and C6-C7. Laboratory Results WBC 6.44 10^3/uL (3.29-11.43) 10/21/24 08:52 RBC 4.31 10^6/uL (3.85-5.65) 10/21/24 08:52 Hgb 15.50 g/dL (11.27-16.99) 10/21/24 08:52 Hct 46.5 % (37-53) 10/21/24 08:52 MCV 107.9 fl (82-101) H 10/21/24 08:52 MCH 36.0 pg (27-33) H 10/21/24 08:52 MCHC 33.3 g/dL (30-55) 10/21/24 08:52 RDW 15.2 % (12.1-15.1) H 10/21/24 08:52 Plt Count 129 10^3/cmm (157-399) L 10/21/24 08:52 MPV 10.6 fL (7.4-10.4) H 10/21/24 08:52 Neut % (Auto) 66.3 % 10/21/24 08:52 Lymph % (Auto) 18.0 % 10/21/24 08:52 [place] % (Auto) 14.3 % 10/21/24 08:52 Eos % (Auto) 0.2 % 10/21/24 08:52 Baso % (Auto) 0.9 % 10/21/24 08:52 Neut # (Auto) 4.27 10^3/uL (1.8-7.7) 10/21/24 08:52 Lymph # (Auto) 1.2 10^3/uL (0.8-4.8) 10/21/24 08:52 [place] # (Auto) 0.9 10^3/uL (0.2-0.9) 10/21/24 08:52 Eos # (Auto) 0.0 10^3/uL (0.0-0.8) 10/21/24 08:52 Baso # (Auto) 0.1 10^3/uL (0.0-0.1) 10/21/24 08:52 Nucleated RBC % (auto) 0 % 10/21/24 08:52 Nucleated RBCs # 0.0 /100WBC 10/21/24 08:52 Sodium 141 mmol/L (136-145) 10/21/24 08:52 Potassium 4.2 mmol/L (3.5-5.1) 10/21/24 08:52 Chloride 94 mmol/L (98-107) L 10/21/24 08:52 Carbon Dioxide 22 mmol/L (22-29) 10/21/24 08:52 Anion Gap 29.2 (5-19) H 10/21/24 08:52 BUN 16 mg/dL (8-23) 10/21/24 08:52 Creatinine 1.0 mg/dL (0.7-1.2) 10/21/24 08:52 GFR Calculation Not Reportable 10/21/24 08:52 Glucose 91 mg/dL (65-115) 10/21/24 08:52 Calculated Osmolality 293 mOsm/kg (285-295) 10/21/24 08:52 Calcium 9.2 mg/dL (8.5-10.5) 10/21/24 08:52 Total Bilirubin 1.7 mg/dL (0.15-1.2) H 10/21/24 08:52 AST 125 U/L (0-40) H 10/21/24 08:52 ALT 72 U/L (0-41) H 10/21/24 08:52 Alkaline Phosphatase 95 U/L (40-130) 10/21/24 08:52 Ammonia 41 umol/L (16-60) 10/21/24 10:53 Creatine Kinase 357 U/L (39-308) H* 10/21/24 08:52 Total Protein 8.8 g/dL (6.6-8.7) H 10/21/24 08:52 Albumin 4.4 g/dL (3.5-5.2) 10/21/24 08:52 Globulin 4.4 g/dL (1.3-4.6) 10/21/24 08:52 Urine Color Yellow (Yellow) 10/21/24 10:15 Urine Appearance Clear (CLEAR) 10/21/24 10:15 Urine pH 6.0 (5-7) 10/21/24 10:15 Ur Specific [place] 1.014 (1.005-1.030) 10/21/24 10:15 Urine Protein 3+ (Negative) A 10/21/24 10:15 Urine Glucose (UA) Negative (Normal) 10/21/24 10:15 Urine Ketones 2+ (Negative) H 10/21/24 10:15 Urine Blood 1+ (Negative) A 10/21/24 10:15 Urine Nitrate Negative (Negative) 10/21/24 10:15 Urine Bilirubin Negative (Negative) 10/21/24 10:15 Urine Urobilinogen 1.0 mg/dL (Negative) 10/21/24 10:15 Ur Leukocyte Esterase Negative (Negative) 10/21/24 10:15 Urine RBC 0-4 /hpf (0-2) H 10/21/24 10:15 Urine WBC None /hpf (0-5) 10/21/24 10:15 Ur Squamous Epith Cells None /hpf (0-5) 10/21/24 10:15 Amorphous Sediment Not Reportable 10/21/24 10:15 Urine Bacteria None /hpf (NONE) 10/21/24 10:15 Urine Mucus None /hpf 10/21/24 10:15 Ethyl Alcohol < 10 mg/dL (0-10) 10/21/24 10:53 All radiology interpretation(s) finalized by discharge EKG Data EKG 1: Interpretation: EKG 819 2024-10-31 A-fib with ventricular response with a rate of [address] changes likely rate related. Discharge Plan Discharge Patient Disposition: Home Clinical Impression: Atrial fibrillation with rapid ventricular response, Alcoholism, Falls Squamous cell lung cancer Qualifiers: Laterality: right Qualified Code(s): C34.91 - Malignant neoplasm of unspecified part of right bronchus or lung Condition: Stable Prescriptions: No Action nitroglycerin 0.4 mg tablet, sublingual 0.4 mg SUBLINGUAL Q5M PRN (Reason: chest pain) Qty: 25 2RF Rx Instructions: do not exceed 3 doses per episode furosemide 40 mg tablet 40 mg PO DAILY@0800 Qty: 45 0RF metoprolol tartrate 100 mg tablet 100 mg PO BID Qty: 60 0RF cholecalciferol (vitamin D3) [Vitamin D3] 25 mcg (1,000 unit) Tablet,Chewable 25 mcg PO DAILY ascorbic acid (vitamin C) [Vitamin C] 500 mg Tablet 500 mg PO DAILY apixaban 5 mg tablet 5 mg PO BID Qty: 60 0RF amiodarone [Pacerone] 200 mg Tablet 400 mg PO BID Qty: 70 0RF Rx Instructions: After 1 week reduce dose to 400 mg once daily Discharge Orders: Discharge ED (Routine); Ordered 10/21/24 Ordered By: Adam Tavera Referrals: Claudette Sanchez PA [Primary Care Provider, [employer]] Discharge Diet: Usual diet Discharge Activity: Increase activity as tolerated Patient Instructions: Opioid Safety, Pain Management, Patient Portal & [place] Instructions Activity Restrictions/Additional Instructions: [facility]. It is very important that you follow up as instructed or that you return to the Emergency Department should you have concerns or if your condition changes or worsens in any way. You were seen in the emergency room after several falls with a rapid heart rate. Your heart rate improved with medications given. You were noted to have elevated liver enzymes and bilirubin suspect this is related to your history of drinking should follow-up with your primary care doctor regarding this. CTs of your neck and head were negative. Follow-up with your primary care doctor within the next week. Print Language: Hebrew Coding Level of Care Code ED Shipping Clerk Packing for Cecilia Dougherty
--- NOTE | 2024-10-21 08:47 | CT_ITS ---
WS: [id number] CT cervical spine. Additional two-dimensional coronal and sagittal reconstruction was performed. 10/21/2024 Clinical Data: Trauma Comparison: None. DLP: 1529.[address] scans at [facility] use at least one of these dose optimization techniques: automated exposure control; mA and/or kV adjustment per patient size (includes targeted exams where dose is matched to clinical indication); or iterative reconstruction. Findings: No compression fractures are seen. There is disc narrowing at C5-C6 and C6-C7. There are osteophytes from C3-C7. The spinous processes are in good alignment. The odontoid is unremarkable. There is no prevertebral soft tissue swelling. The soft tissues of the cervical spine and the lung apices are not remarkable. CT/CT cervical spin wo con* [id number] Impression: 1. Negative for compression fracture. 2. 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 3. Degenerative disc narrowing at C5-C6 and C6-C7.
[2024-10-21 08:58] LABS: Hematocrit 46.5 % (37-53); Hemoglobin 15.50 g/dL (11.27-16.99); Mean Corpuscular HGB Conc 33.3 g/dL (30-55); Mean Corpuscular Hemoglobin 36.0 pg (27-33); Mean Corpuscular Volume 107.9 fl (82-101); Nucleated Red Blood Cells % 0 %; Platelet Count 129 10^3/cmm (157-399); Red Blood Count 4.31 10^6/uL (3.85-5.65); White Blood Count 6.44 10^3/uL (3.29-11.43)
--- NOTE | 2024-10-21 08:59 | ECG_ITS ---
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 Measurements Intervals [place] Rate: 118 P: 0 NM: 0 QRS: -74 QRSD: 137 T: 89 QT: 380 QTc: 534 Interpretive Statements ATRIAL FIBRILLATION WITH RAPID VENTRICULAR RESPONSE WITH ABERRANT CONDUCTION OR VENTRICULAR PREMATURE COMPLEXES INTRAVENTRICULAR CONDUCTION DELAY [130+ ms QRS DURATION] MODERATE VOLTAGE CRITERIA FOR LVH, CONSIDER NORMAL VARIANT [MEETS CRITERIA IN ONE OF: R(aVL), S(V1), R(V5), R(V5/V6)+S(V1)] POSSIBLE ANTEROSEPTAL MYOCARDIAL INFARCTION , OF INDETERMINATE AGE [30 ms Q WAVE IN V1-V4] Compared to ECG 12/11/2023 08:34:41 Ventricular premature complex(es) now present Aberrant conduction of supraventricular beat(s) now present Myocardial infarct finding still present Electronically Signed On 10-25-2024 09:14:38 CDT by Thomas Ace M.D. [id number]
[2024-10-21 09:18] LABS: Alanine Aminotransferase 72 U/L (0-41); Albumin Level 4.4 g/dL (3.5-5.2); Alkaline Phosphatase 95 U/L (40-130); Anion Gap 29.2 (5-19); Aspartate Amino Transferase 125 U/L (0-40); Blood Urea Nitrogen 16 mg/dL (8-23); Calcium 9.2 mg/dL (8.5-10.5); Carbon Dioxide 22 mmol/L (22-29); Chloride 94 mmol/L (98-107); Creatinine Clr Calc Pharmacy 70.1523; Globulin 4.4 g/dL (1.3-4.6); Glucose 91 mg/dL (65-115); Osmolality Calculated 293 mOsm/kg (285-295); Potassium 4.2 mmol/L (3.5-5.1); Sodium 141 mmol/L (136-145); Total Protein 8.8 g/dL (6.6-8.7)
[2024-10-21] MEDS: metoprolol tartrate 1 mg/1 mL SDV 5 mL 5 MG IVP ×2 (09:27→11:43)
[2024-10-21] MEDS: tetanus-dipt-pertussis 0.5 mL SDV IM (09:28)
[2024-10-21 10:37] LABS: Glucose Urine UA Negative (Normal); Nitrate Urine Negative (Negative); Specific Gravity, Urine 1.014 (1.005-1.030)
[2024-10-21 10:44] LABS: Add Urine Microscopic? YES
[2024-10-21 11:17] LABS: Ammonia 41 umol/L (16-60)
[2024-10-21 11:21] LABS: Alcohol Level < 10 mg/dL (0-10)
== END 2024-10-21 12:54 | disposition home or self-care (01) ==
PROVIDERS: Emergency Provider Family Medicine; PCP Physician Assistant
DX: I48.20 Chronic atrial fibrillation, unspecified (principal); F10.20 Alcohol dependence, uncomplicated; R29.6 Repeated falls; C34.91 Malignant neoplasm of unspecified part of right bronchus or lung; Z87.891 Personal history of nicotine dependence; J44.9 Chronic obstructive pulmonary disease, unspecified; I11.0 Hypertensive heart disease with heart failure; I50.40 Unspecified combined systolic (congestive) and diastolic (congestive) heart failure
CPT/HCPCS: 36415; 70450; 72125; 80053; 80307; 81001; 82140; 82550; 85025; 90471; 90715; 93005; 96374; 96376; 99285; J3490; J9999

== ENCOUNTER 2024-12-16 12:37 | Inpatient (IN) | payer MEDICARE, OTHER, SELFPAY ==
[2024-12-16] VITALS (34 sets, daily range): BP systolic 126–197; BP diastolic 66–119; PULSE 56–128; RESP 14–28; TEMP 36.8–36.9; O2SAT 90–99; BMI 29.9
--- NOTE | 2024-12-16 12:25 | CT_ITS ---
WS: [id number] CT HEAD NONCONTRAST HISTORY: Symptoms of acute stroke TECHNIQUE: Contiguous axial imaging performed through the brain. Bone and soft tissue windows. Sagittal and coronal reformats reviewed. All CT scans at [facility] use at least one of these dose optimization techniques: automated exposure control; mA and/or kV adjustment per patient size (includes targeted exams where dose is matched to clinical indication); or iterative reconstruction. DLP: 1149.58 mGy COMPARISON: 10/21/2024 No acute intracranial hemorrhage, midline shift or mass effect. Mild cerebral and cerebellar atrophy with small vessel disease. No acute edema identified. No prior infarct. Ventricles: Normal size with no hydrocephalus. No inferior displacement of the cerebellar tonsils. Paranasal sinuses: As visualized are clear. Mastoid air cells: Well pneumatized. Calvarium and scalp: Skull is intact with no soft tissue edema or swelling. CT/CT head thrombolytic [id number] IMPRESSION: 1. No acute intracranial hemorrhage or edema. 2. Mild cerebral and cerebellar atrophy and small vessel disease. Notified Magui Gamino MD at 12/16/2024 12:51 PM.
--- NOTE | 2024-12-16 12:47 | ECG_ITS ---
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 Measurements Intervals [place] Rate: 86 P: 89 [place]: 234 QRS: -79 QRSD: 146 T: 88 QT: 426 QTc: 510 Interpretive Statements SINUS RHYTHM WITH FIRST DEGREE AV BLOCK INTRAVENTRICULAR CONDUCTION DELAY [130+ ms QRS DURATION] Compared to ECG 10/21/2024 08:29:26 First degree AV block now present Atrial fibrillation no longer present Ventricular premature complex(es) no longer present Aberrant conduction of supraventricular beat(s) no longer present Myocardial infarct finding no longer present Electronically Signed On 12-17-2024 16:54:47 CDT by Thomas Ace M.D. [email or web address]
--- NOTE | 2024-12-16 12:47 | W.ED.NEUROSD ---
HPI - Neuro Symptoms/Deficit General: Chief Complaint: Weakness Stated Complaint: Stroke Alert History of Present Illness: 79-year-old man with a history of alcoholism, heart failure, COPD, atrial fibrillation, chronic anticoagulation on Eliquis, obstructive sleep apnea, and hypertension who presents to the emergency room with neurologic symptoms by ambulance from home. Last known well time was 915. Family had seen him then. He went to take a nap and when they came back he was lying on the ground. He has his pants on backwards. He has some rheum/exudate around his eyes. EMS reports that he was almost flaccid on his right side. He was able to converse. By the time he arrived here neurologic symptoms have resolved. He does still seem a bit confused. He knows his name and birthday but does not know the year. Related Data Home Medications ?Medication ?Instructions ?Recorded ?Confirmed cholecalciferol (vitamin D3) 25 25 mcg PO DAILY 02/05/20 12/16/24 mcg (1,000 unit) chewable tablet (Vitamin D3) ascorbic acid (vitamin C) 500 mg 500 mg PO DAILY 11/09/23 12/16/24 tablet (Vitamin C) Previous Rx's ?Medication ?Instructions ?Recorded apixaban 5 mg tablet 5 mg PO BID #60 tabs 11/13/23 nitroglycerin 0.4 mg sublingual 0.4 mg sublingual Q5M PRN chest 11/19/23 tablet pain #25 tabs amiodarone 200 mg tablet (Pacerone) 400 mg (2 x 200 mg) PO BID #70 tabs 12/13/23 furosemide 40 mg tablet 40 mg PO DAILY@0800 #45 tabs 01/28/24 metoprolol tartrate 100 mg tablet 100 mg PO BID #60 tabs 05/26/24 Allergies Allergy/AdvReac Type Severity Reaction Status Date / Time No Known Allergies Allergy Verified 07/13/23 08:56 Review of Systems Narrative: Constitutional symptoms: Negative except as documented in HPI. Skin symptoms: Negative except as documented in HPI. Eye symptoms: Negative except as documented in HPI. ENMT symptoms: Negative except as documented in HPI. Respiratory symptoms: Negative except as documented in HPI. Cardiovascular symptoms: Negative except as documented in HPI. Gastrointestinal symptoms: Negative except as documented in HPI. Genitourinary symptoms: Negative except as documented in HPI. Musculoskeletal symptoms: Negative except as documented in HPI. Neurologic symptoms: Negative except as documented in HPI. Psychiatric symptoms: Negative except as documented in HPI. Endocrine symptoms: Negative except as documented in HPI. PFSH ED PFSH: Medical History (Updated 12/16/24 @ 15:16 by Magui Gamino MD) Alcoholism Heart failure with reduced ejection fraction Macrocytosis Hypomagnesemia Elevated bilirubin COPD (chronic obstructive pulmonary disease) LV dysfunction Systolic heart failure Congestive heart failure with LV diastolic dysfunction, NYHA class 4 Atrial fibrillation with rapid ventricular response History of lung cancer Chronic fatigue Atrial fibrillation Obstructive sleep apnea HTN (hypertension) CHF (congestive heart failure) DRUJ (distal radioulnar joint) instability, post-traumatic no specific trauma only code choice in EHR! 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 Surgical History History of lobectomy of lung Family History Denies family history of Diabetes Stroke Social History Smoking and tobacco/nicotine status: former use of tobacco/nicotine Quit status (tobacco/nicotine): has quit using Year quit tobacco: 2020 Former quit date comment: Hx of 1 PPD x 50 Years Second hand smoke exposure: No Alcohol intake: current Alcohol intake frequency: 3 or more drinks per day Substance/Drug Use: never Lives independently: Yes Household members: spouse Marital status: Current occupational status: retired Do you think of yourself as: Straight/Heterosexual Current gender identity: Male Physical Exam Narrative: EXAM NARRATIVE: General: Alert, no acute distress. Skin: Warm, dry. Head: Normocephalic, atraumatic. Neck: Supple, trachea midline. Eye: Extraocular movements are intact. Ears, nose, mouth and throat: mucosa moist. Cardiovascular: Regular, Normal peripheral perfusion. Respiratory: Lungs are clear to auscultation, respirations are non-labored, breath sounds are equal, Symmetrical chest wall expansion. Gastrointestinal: Soft, Nontender, Non distended Musculoskeletal: Normal ROM, no deformity. Neurological: Alert and oriented, No focal neurological deficit observed. Patient is a bit tearful and does not remember the events. He asked if he was in an accident. He knows his name and birthdate but cannot tell me the year. He follows commands. No facial droop. No slurred speech. Psychiatric: Cooperative, appropriate mood & affect. Course Vital Signs: Vital signs: Vital Signs Temperature 98.4 F 12/16/24 12:45 Pulse Rate 88 12/16/24 12:45 Respiratory Rate 17 12/16/24 12:45 Blood Pressure 194/114 12/16/24 12:45 Pulse Oximetry 94 12/16/24 12:45 Oxygen Delivery Me thod Room Air 12/16/24 12:45 MDM - Neuro Symptoms/Deficit Medical Decision Making Medical decision making: Differential diagnosis for patient with focal neurologic deficit(s) includes but not limited to and based on the above HPI, review of systems and physical exam: ischemic stroke, hemorrhagic stroke and embolic stroke secondary to atrial fibrillation), TIA, Elias's palsey, metabolic encephalopathy with previous stroke. Orders placed to evaluate differential diagnosis based on the above differential, HPI and physical exam 9:15 AM: Last known well time. 12:37 PM: Patient arrival. 12:40 PM: I examined patient and deficits have completely resolved. He is a bit tearful and cannot remember the event. He is on Eliquis, out of the time window and is resolving. 12:42 PM: I spoke with Dr. Carreon who agrees patient is not a TNKase candidate NIH Stroke Scale/Score (NIHSS) from [email or web address] on 12/16/2024 All calculations should be rechecked by clinician prior to use RESULT SUMMARY: 1 points NIH Stroke Scale INPUTS: 1A: Level of consciousness ?> 0 = Alert; keenly responsive 1B: Ask month and age ?> 1 = 1 question right 1C: 'Blink eyes' & 'squeeze hands' ?> 0 = Performs both tasks 2: Horizontal extraocular movements ?> 0 = Normal 3: Visual lucio ?> 0 = No visual loss 4: Facial palsy ?> 0 = Normal symmetry 5A: Left arm motor drift ?> 0 = No drift for 10 seconds 5B: Right arm motor drift ?> 0 = No drift for 10 seconds 6A: Left leg motor drift ?> 0 = No drift for 5 seconds 6B: Right leg motor drift ?> 0 = No drift for 5 seconds 7: Limb Ataxia ?> 0 = No ataxia 8: Sensation ?> 0 = Normal; no sensory loss 9: Language/aphasia ?> 0 = Normal; no aphasia 10: Dysarthria ?> 0 = Normal 11: Extinction/inattention ?> 0 = No abnormality CT head: Senescent changes. No acute intracranial process. No intracranial hemorrhage, no evidence of infarct. No evidence of acute fracture. This was reviewed and interpreted by myself the emergency room physician. I also reviewed the radiology report. EKG: Time 1247. Rate 86. Normal sinus rhythm, No ST-T changes, no ectopy, first degree AV Block, wide-complex/conduction delay, EP Interpretation. This was reviewed and interpreted by myself the ER physician at 1252 Consultation: I spoke with Dr. Carreon. She is not on-call for neurology but she is in clinic and graciously accepted my consultation. We discussed the patient and his history. He is not a candidate for TNKase. Lab Review: Laboratory results were reviewed and interpreted by myself the emergency room physician. No leukocytosis. No anemia. Platelets are low at 99. BUN and creatinine are slightly elevated at 29 and 1.1. This is slightly above his baseline. Urinalysis is negative for infection. Ammonia is negative. Alcohol is negative. Drug screen is negative.. Initial lactate was slightly elevated. However I do not have any signs of infection. Chest x-ray: Resolution of heart failure. Interval development of new abnormality in the left lower chest. Pneumonia included in differential. This was reviewed and interpreted by myself the emergency room physician. I also reviewed the radiology report. I reviewed the patient's medical record. 79-year-old man with a history of alcoholism, heart failure, COPD, atrial fibrillation, chronic anticoagulation on Eliquis, obstructive sleep apnea, and hypertension Reexamination: Patient is still quite hypertensive after 20 of IV labetalol so a Cardene drip has been started. He has remained neurologically intact and is alert and oriented. He still confused about what went on this morning. Does not remember anything. No oxygen requirements. No increased work of breathing. Consultation: I spoke with Dr. Guerrero who is on-call for the hospitalist service who agrees to admission. Assessment and plan: Malignant hypertension Metabolic encephalopathy Transient ischemic attack Possible sepsis ?No improvement in blood pressure with labetalol push of 20 mg. Starting on an Cardene drip. -1 L normal saline bolus. Limiting fluids. Patient is extremely hypertensive and has a history of heart failure. -Broad-spectrum antibiotics were administered. Zyvox and Merrem -Sepsis quality measures. -Lactic acid with a reflex was ordered. Initial was slightly elevated improved on repeat -Blood cultures were ordered. ?I reevaluated the patient's volume status after sepsis fluids were given. -I discussed the patient with the hospitalist on-call who is admitting the patient. - Discussed findings and plan with patient. Answered any questions. - All laboratory values were reviewed and interpreted personally by myself, the ER physician - All imaging was reviewed and interpreted personally by myself, the ER physician. - Evaluation and treatment of this problem were appropriate in the emergency setting Lab Data 12/16/24 12:58 12/16/24 12:[address] 12/16/24 12:25 IMPRESSION: 1. No acute intracranial hemorrhage or edema. 2. Mild cerebral and cerebellar atrophy and small vessel disease. Notified Magui Gamino MD at 12/16/2024 12:51 PM. Chest X-Ray 12/16/24 13:12 IMPRESSION: Presumed resolution of early pulmonary edema/congestive heart failure in the right lower lung field. Interval development of new abnormality in the left lower chest which could represent atelectasis and pleural effusion. An acute/subacute pneumonitis cannot be excluded. Laboratory Results WBC 7.04 10^3/uL (3.29-11.43) 12/16/24 12:58 RBC 3.85 10^6/uL (3.85-5.65) 12/16/24 12:58 Hgb 14.00 g/dL (11.27-16.99) 12/16/24 12:58 Hct 41.0 % (37-53) 12/16/24 12:58 MCV 106.5 fl (82-101) H 12/16/24 12:58 MCH 36.4 pg (27-33) H 12/16/24 12:58 MCHC 34.1 g/dL (30-55) 12/16/24 12:58 RDW 14.9 % (12.1-15.1) 12/16/24 12:58 Plt Count 99 10^3/cmm (157-399) L 12/16/24 12:58 MPV 11.0 fL (7.4-10.4) H 12/16/24 12:58 Neut % (Auto) 82.7 % 12/16/24 12:58 Lymph % (Auto) 7.5 % 12/16/24 12:58 Weber % (Auto) 8.8 % 12/16/24 12:58 Eos % (Auto) 0.3 % 12/16/24 12:58 Baso % (Auto) 0.3 % 12/16/24 12:58 Neut # (Auto) 5.82 10^3/uL (1.8-7.7) 12/16/24 12:58 Lymph # (Auto) 0.5 10^3/uL (0.8-4.8) L 12/16/24 12:58 Weber # (Auto) 0.6 10^3/uL (0.2-0.9) 12/16/24 12:58 Eos # (Auto) 0.0 10^3/uL (0.0-0.8) 12/16/24 12:58 Baso # (Auto) 0.0 10^3/uL (0.0-0.1) 12/16/24 12:58 Nucleated RBC % (auto) 0 % 12/16/24 12:58 Nucleated RBCs # 0.0 /100WBC 12/16/24 12:58 PT 14.20 SECONDS (12.1-14.9) 12/16/24 12:58 INR 1.03 (0.8-1.2) 12/16/24 12:58 APTT 28.2 SECONDS (23.9-36.7) 12/16/24 12:58 Sodium 141 mmol/L (136-145) 12/16/24 12:58 Potassium 3.3 mmol/L (3.5-5.1) L 12/16/24 12:58 Chloride 98 mmol/L (98-107) 12/16/24 12:58 Carbon Dioxide 23 mmol/L (22-29) 12/16/24 12:58 Anion Gap 23.3 (5-19) H 12/16/24 12:58 BUN 29 mg/dL (8-23) H 12/16/24 12:58 Creatinine 1.1 mg/dL (0.7-1.2) 12/16/24 12:58 GFR Calculation Not Reportable 12/16/24 12:58 Glucose 92 mg/dL (65-115) 12/16/24 12:58 POC Glucose 126 mg/dL (70-110) H 12/16/24 12:51 Calculated Osmolality 297 mOsm/kg (285-295) H 12/16/24 12:58 Lactic Acid 2.6 mmol/L (0.5-2.2) H 12/16/24 12:58 Lactic Acid (Sepsis) 1.4 mmol/L (0.5-2.2) 12/16/24 15:30 Calcium 8.9 mg/dL (8.5-10.5) 12/16/24 12:58 Total Bilirubin 2.0 mg/dL (0.15-1.2) H 12/16/24 12:58 AST 94 U/L (0-40) H 12/16/24 12:58 ALT 52 U/L (0-41) H 12/16/24 12:58 Alkaline Phosphatase 82 U/L (40-130) 12/16/24 12:58 Ammonia 31 umol/L (16-60) 12/16/24 13:52 Troponin T Baseline 50 ng/L (0-15) H 12/16/24 12:58 Troponin T 120 Minute 58.73 ng/L (0-15) H 12/16/24 14:25 Delta Troponin T 8.73 ABS# (0-10) 12/16/24 14: Total Protein 7.1 g/dL (6.6-8.7) 12/16/24 12:58 Albumin 4.2 g/dL (3.5-5.2) 12/16/24 12:58 Globulin 2.9 g/dL (1.3-4.6) 12/16/24 12:58 Urine Color Dark yellow (Yellow) A 12/16/24 14:44 Urine Appearance Clear (CLEAR) 12/16/24 14:44 Urine pH 6.0 (5-7) 12/16/24 14:44 Ur Specific Aston 1.022 (1.005-1.030) 12/16/24 14: Urine Protein 3+ (Negative) A 12/16/24 14:44 Urine Glucose (UA) Negative (Normal) 12/16/24 14: Urine Ketones 2+ (Negative) H 12/16/24 14:44 Urine Blood 2+ (Negative) A 12/16/24 14:44 Urine Nitrate Negative (Negative) 12/16/24 14:44 Urine Bilirubin 1+ (Negative) H 12/16/24 14:44 Urine Urobilinogen 2.0 mg/dL (Negative) H 12/16/24 14:44 Ur Leukocyte Esterase Negative (Negative) 12/16/24 14:44 Urine RBC 6-10 /hpf (0-2) 12/16/24 14:44 Urine WBC 0-5 /hpf (0-5) 12/16/24 14:44 Ur Squamous Epith Cells 0-5 /hpf (0-5) 12/16/24 14:44 Amorphous Sediment Not Reportable 12/16/24 14:44 Urine Bacteria None seen /hpf (NONE) 12/16/24 14:44 Hyaline Casts 7.42 /lpf 12/16/24 14:44 Urine Opiates Screen Negative ng/mL (Negative) 12/16/24 14:44 Ur Barbiturates Screen Negative ng/mL (Negative) 12/16/24 14:44 Ur Phencyclidine Scrn Negative ng/mL (Negative) 12/16/24 14:44 Ur Amphetamines Screen Negative ng/mL (Negative) 12/16/24 14:44 U Benzodiazepines Scrn Negative ng/mL (Negative) 12/16/24 14:44 Urine Cocaine Screen Negative ng/mL (Negative) 12/16/24 14:44 U Marijuana (THC) Screen Negative ng/mL (Negative) 12/16/24 14:44 Ethyl Alcohol < 10 mg/dL (0-10) 12/16/24 12:58 Influenza A (PCR) Negative (Negative) 12/16/24 15:10 Influenza Type B (PCR) Negative (Negative) 12/16/24 15:10 RSV (PCR) Negative (Negative) 12/16/24 15:10 SARS-CoV-2 (PCR) Negative (Negative) 12/16/24 15:10 All radiology interpretation(s) finalized by discharge Discharge Plan Discharge Patient Disposition: Admitted As Inpatient Admit Provider: Jin Guerrero Clinical Impression: Malignant hypertension, Encephalopathy acute, Transient ischemic attack Condition: Stable Coding Level of Care Code ED Service Delivery Director for Cecilia Dougherty
--- NOTE | 2024-12-16 13:01 | PC.PHAR ---
[facility] 1pm 12/16/24
[2024-12-16 13:09] LABS: Hematocrit 41.0 % (37-53); Hemoglobin 14.00 g/dL (11.27-16.99); Mean Corpuscular HGB Conc 34.1 g/dL (30-55); Mean Corpuscular Hemoglobin 36.4 pg (27-33); Mean Corpuscular Volume 106.5 fl (82-101); Nucleated Red Blood Cells % 0 %; Platelet Count 99 10^3/cmm (157-399); Red Blood Count 3.85 10^6/uL (3.85-5.65); White Blood Count 7.04 10^3/uL (3.29-11.43)
--- NOTE | 2024-12-16 13:12 | XR_ITS ---
WS: [id number] XR chest 1V portable [id number] REASON FOR EXAM: Weakness FINDINGS: Significant cardiomegaly and mild central pulmonary venous congestion. Compared to the examination of 12/11/2023, there are reticular and groundglass density seen in the mid right lower lung field has essentially resolved. There is a vague increased density in the left lower lung field with obscuration of the left costophrenic angle. Chest otherwise unchanged. XR/XR chest 1V portable [id number] IMPRESSION: Presumed resolution of early pulmonary edema/congestive heart failure in the ri t lower lung field. Interval development of new abnormality in the left lower chest which could represent atelectasis and pleural effusion. An acute/subacut e pneumonitis cannot be excluded.
[2024-12-16 13:21] LABS: INR 1.03 (0.8-1.2); Prothrombin Time 14.20 SECONDS (12.1-14.9)
[2024-12-16 13:22] LABS: Partial Thromboplastin Time 28.2 SECONDS (23.9-36.7)
[2024-12-16 13:26] LABS: Lactic Sepsis W/Reflex 2.6 mmol/L (0.5-2.2)
[2024-12-16 13:27] LABS: Troponin(5th) Baseline 50 ng/L (0-15)
[2024-12-16 13:36] LABS: Alanine Aminotransferase 52 U/L (0-41); Albumin Level 4.2 g/dL (3.5-5.2); Alcohol Level < 10 mg/dL (0-10); Alkaline Phosphatase 82 U/L (40-130); Anion Gap 23.3 (5-19); Aspartate Amino Transferase 94 U/L (0-40); Blood Urea Nitrogen 29 mg/dL (8-23); Calcium 8.9 mg/dL (8.5-10.5); Carbon Dioxide 23 mmol/L (22-29); Chloride 98 mmol/L (98-107); Creatinine Clr Calc Pharmacy 66.1897; Globulin 2.9 g/dL (1.3-4.6); Glucose 92 mg/dL (65-115); Osmolality Calculated 297 mOsm/kg (285-295); Potassium 3.3 mmol/L (3.5-5.1); Sodium 141 mmol/L (136-145); Total Protein 7.1 g/dL (6.6-8.7)
[2024-12-16] MEDS: labetalol 5 mg/mL SDV 20mL 20 MG IVP (13:50)
[2024-12-16 14:14] LABS: Ammonia 31 umol/L (16-60)
--- NOTE | 2024-12-16 14:41 | ECG_ITS ---
[facility] Test Date: 2024-12-16 Pat Name: Jet Blackman Department: Room: Gender: Male Directory Operator: : [id number] Requested By: Magui Cano Order Number: [id number] Adams MD: Hilario Tejada M.D. Measurements Intervals [place] Rate: 66 P: 100 WI: 191 QRS: -69 QRSD: 143 T: 81 QT: 446 QTc: 468 Interpretive Statements SINUS RHYTHM LEFT AXIS DEVIATION [QRS AXIS < -30] INTRAVENTRICULAR CONDUCTION DELAY [130+ ms QRS DURATION] Possible old septal CO Compared to ECG 12/16/2024 12:47:50 Left-axis deviation now present First degree AV block no longer present Electronically Signed On 12-24-2024 23:04:36 CDT by Hilario Tejada M.D. [email or web address]
[2024-12-16 14:48] LABS: Troponin 5 2HR 58.73 ng/L (0-15); Troponin 5 2HR Delta 8.73 ABS# (0-10)
[2024-12-16 14:53] LABS: Reflex Lactate Order REFLEX LACTIC ORDERD
[2024-12-16 14:57] LABS: Glucose Urine UA Negative (Normal); Nitrate Urine Negative (Negative); Specific Gravity, Urine 1.022 (1.005-1.030)
[2024-12-16 15:00] LABS: Add Urine Microscopic? YES; Universal Test for UA Present (0)
[2024-12-16 15:04] LABS: PCP Screen Urine Negative (Negative)
[2024-12-16] MEDS: nicardipine 20 MG/200 ML PREMIX 50 MG IV (15:46)
[2024-12-16 15:57] LABS: Respiratory Syncytial Virus Ce NEGATIVE (Negative); SARS-CoV-2 PCR NEGATIVE (Negative)
[2024-12-16 16:02] LABS: Lactic Acid level (Lactate) 1.4 mmol/L (0.5-2.2)
[2024-12-16] MEDS: linezolid premix 600 MG/300 ML PREMIX 300 MG IV (16:08)
--- NOTE | 2024-12-16 18:04 | PM.HP ---
Providers/Chief Complaint Admitting Physician: Jin Guerrero MD Primary Care Provider: Claudette Sanchez Chief Complaint: Stroke Alert History of Present Illness Jet Blackman is a 79 year old male with a past medical history of alcoholism, heart failure with reduced ejection fraction, atrial fibrillation, history of TIA, COPD, who presents to [facility] due to altered mental status. Currently patient is alert to person, to place, not to time he follows all commands, [id number] is at bedside, I cannot discern any facial droop no slurring of his words, no focal weakness, according to patient he has been feeling well over the last few days, no fevers, no chills, has had a cough, denies any strokelike symptoms, no chest pain, he reports his last alcohol drink was about 3 days ago, he does have diffuse tremors of his upper extremities does report a history of alcohol withdrawals, no history of alcohol withdrawal seizures, patient's last known well normal was about 9:15 AM, family had seen him then, then once he went to take a nap, when family came back he was laying on the ground, altered, when EMS arrived they had discerned that he was flaccid on the right side, but upon arrival to the emergency room, he was confused but there was no focal neurologic deficits that was discernible by ER provider, NIH stroke scale 1, his last known normal normal was 915, was not a candidate for TNKase, his NIH stroke scale was 1, head CT no acute findings, during my discussion with him, he can get most questions appropriately, but at times he is forgetful, requires redirection, and emergency room he was found to be hypertensive, he was started on a Cardene drip Review of Systems Const: Reports: fatigue and malaise; Denies: fever(s) or chills Card: Denies: chest pain Resp: Reports: dyspnea and non-productive cough GI: Denies: abdominal pain : Reports: difficulty urinating and dysuria; Denies: flank pain Musc: Denies: neck pain or back pain Neuro: Reports: confusion; Denies: headache(s), numbness in extremities, weakness in extremities, lack of coordination, dizziness, vertigo, Slurred speech present, difficulty communicating thoughts or seizure-like activity Medications/Allergies Home Medications ?Medication ?Instructions ?Recorded ?Confirmed ?Last Taken ?Type cholecalciferol (vitamin D3) 25 25 mcg PO DAILY 02/05/20 12/16/24 12/16/24 History mcg (1,000 unit) chewable tablet (Vitamin D3) ascorbic acid (vitamin C) 500 mg 500 mg PO DAILY 11/09/23 12/16/24 12/16/24 History tablet (Vitamin C) apixaban 5 mg tablet 5 mg PO BID #60 tabs 11/13/23 12/16/24 12/16/24 Rx nitroglycerin 0.4 mg sublingual 0.4 mg sublingual Q5M PRN chest 11/19/23 12/16/24 Unknown Rx tablet pain #25 tabs amiodarone 200 mg tablet (Pacerone) 400 mg (2 x 200 mg) PO BID #70 tabs 12/13/23 12/16/24 12/16/24 Rx furosemide 40 mg tablet 40 mg PO DAILY@0800 #45 tabs 01/28/24 12/16/24 Unknown Rx metoprolol tartrate 100 mg tablet 100 mg PO BID #60 tabs 05/26/24 12/16/24 Unknown Rx Allergies Allergy/AdvReac Type Severity Reaction Status Date / Time No Known Allergies Allergy Verified 07/13/23 08:56 PFSH Acute PFSH: Medical History Alcoholism Heart failure with reduced ejection fraction Macrocytosis Hypomagnesemia Elevated bilirubin COPD (chronic obstructive pulmonary disease) LV dysfunction Systolic heart failure Congestive heart failure with LV diastolic dysfunction, NYHA class 4 Atrial fibrillation with rapid ventricular response History of lung cancer Chronic fatigue Atrial fibrillation Obstructive sleep apnea HTN (hypertension) CHF (congestive heart failure) DRUJ (distal radioulnar joint) instability, post-traumatic no specific trauma only code choice in EHR! 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 Surgical History History of lobectomy of lung Family History Denies family history of Diabetes Stroke Social History Smoking and tobacco/nicotine status: former use of tobacco/nicotine Quit status (tobacco/nicotine): has quit using Year quit tobacco: 2020 Former quit date comment: Hx of 1 PPD x 50 Years Second hand smoke exposure: No Alcohol intake: current Alcohol intake frequency: 3 or more drinks per day Substance/Drug Use: never Lives independently: Yes Household members: spouse Marital status: Current occupational status: retired Do you think of yourself as: Straight/Heterosexual Current gender identity: Male Vitals/I&O/Wt Last Vital Signs Temp 98.4 F 12/16/24 12:45 Pulse 88 12/16/24 12:45 Resp 17 12/16/24 12:45 BP 194/114 12/16/24 12:45 Pulse Ox 94 12/16/24 12:45 O2 Del Method Room Air 12/16/24 12:45 12/16/24 12/16/24 12/16/24 06:59 14:59 22:59 Intake Total 105.833 / 105.833 Balance 105.833 / 105.833 Weight last 48 hrs Weight 98.43 kg Physical Exam Const: COMMON NORMALS: no acute distress EXAM LIMITATIONS: altered mental status ORIENTATION/CONSCIOUSNESS: Yes awake, Yes oriented to person, Yes oriented to place and Yes confused; not oriented to time HENMT: COMMON NORMALS: normocephalic HEAD & SCALP: normocephalic Eye: COMMON NORMALS: Equal, round and reactive pupils present and EOMs intact bilaterally Neck/C-Spine: COMMON NORMALS: no JVD Resp: COMMON NORMALS: normal respiratory effort, No retractions, No use of accessory muscles and clear to auscultation bilaterally AUSCULTATION: crackles and wheezes Cardio: COMMON NORMALS: regular rate, regular rhythm, S1 normal heart sound present and S2 normal heart sound present RATE: regular rate RHYTHM: regular rhythm HEART SOUNDS: S1 normal heart sound present and S2 normal heart sound present GI: COMMON NORMALS: Normal to inspection, nondistended, normoactive bowel sounds present, Soft to palpation and non-tender : COMMON NORMALS: Yes no CVA tenderness Extremity: COMMON NORMALS: no calf tenderness and no pedal edema Neuro: COMMON NORMALS: CN's II-XII intact bilaterally, moves all extremities and no focal motor deficits Data 12/16/24 12:58 12/16/24 12:58 Micro: Microbiology 12/16/24 13:03 Blood Culture - Preliminary Blood SPECIMEN COLLECTED 12/16/24 12:58 Blood Culture - Preliminary Blood SPECIMEN COLLECTED A&P Assessment and plan 1. Encephalopathy acute: 2. Alcohol withdrawal: 3. Pneumonia: 4. Transient ischemic attack: Plan: Concern for TIA - Last known well normal 9:15 AM - Was not deemed a candidate for tPA given Eliquis use - NIH stroke scale was 1 - Was not deemed a candidate - CT head no acute findings Plan - Neurochecks - NIH stroke scale - Dysphagia eval -PT OT - Cardiac echo - Carotid artery ultrasound - Resume home Eliquis Hypertensive emergency - He is on Cardene drip - Resume home blood pressure medications - Monitor in ICU closely Acute encephalopathy - Multifactorial - Concern for TIA - Hypertensive emergency - Component of pneumonia - Component of alcohol withdrawal Alcohol withdrawal - At times is forgetful, has a tremor of bilateral upper extremities, last drink was roughly 48 hours ago - [facility] protocol - IV thiamine - IV fluids - Monitor mentation Concerns for pneumonia -Right lower lobe infiltrate -Possible aspiration event? - Bedside swallow eval - IV Zosyn NSTEMI Cardiac cath in 2019 Conclusions 1. There is mild coronary artery disease with one vessel disease. 2. Mild left ventricular systolic dysfunction. Ejection fraction of 45%. - Serial EKGs, start troponins, telemetry monitoring - Aspirin, statin, beta-grabiel Hyperbilirubinemia, with transaminitis - CT scan abdomen pelvis - Ammonia levels within normal limits DNR/DNI, confirmed with patient multiple times Eliquis for DVT prophylaxis PDMP PDMP Reviewed: Not Reviewed Attestations Medical Necessity Statement*: Patient requires hospitalization, for TIA, hypertensive emergency, acute encephalopathy, alcohol drawl, concerns for pneumonia, NSTEMI, hyperbilirubinemia, inpatient, greater than 2 midnights Diagnoses Encephalopathy acute G93.40 Alcohol withdrawal F10.939 Pneumonia J18.9 Transient ischemic attack G45.9
--- NOTE | 2024-12-16 18:41 | ECG_ITS ---
[employer] X2TV Test Date: 2024-12-16 Pat Name: Jet Blackman Department: Room: [facility] Gender: Male Physician Practice Manager: : 1945 Requested By: Magui Cano Order Number: [id number] Bryan MD: Hilario Tejada M.D. Measurements Intervals [place] Rate: 66 P: 92 KS: 180 QRS: -76 QRSD: 137 T: 93 QT: 437 QTc: 460 Interpretive Statements SINUS RHYTHM INTRAVENTRICULAR CONDUCTION DELAY [130+ ms QRS DURATION] LEFT VENTRICULAR HYPERTROPHY AND ST-T CHANGE [VOLTAGE CRITERIA PLUS ST/T ABNORMALITY] POSSIBLE ANTEROSEPTAL MYOCARDIAL INFARCTION , OF INDETERMINATE AGE [30 ms Q WAVE IN V1-V4] Compared to ECG 12/16/2024 14:38:03 Left ventricular hypertrophy now present ST (T wave) deviation now present Myocardial infarct finding now present Left-axis deviation no longer present Electronically Signed On 12-23-2024 20:01:54 CDT by Hilario Tejada M.D. [email or web address]
[2024-12-16] MEDS: folic acid 1 MG, multivitamin inj 10 ML, thiamine 100 MG in sodium chloride 0.9% 1,000 ML 252.8 MG IV (19:20)
[2024-12-16] MEDS: piperacillin-tazobactam 3.375 GM in sodium chloride 0.9% (plus) 50 ML IV (19:23)
[2024-12-16] MEDS: pantoprazole 40 mg SDV IVP (19:28)
[2024-12-16] MEDS: thiamine 100 mg/mL 2mL SDV 200 MG IVP (19:29)
[2024-12-16 19:49] LABS: Troponin 5 6HR 62.47 ng/L (0-15)
[2024-12-16 19:55] LABS: Estmated Average Glucose 97; Hemoglobin A1C 5.0 % (4.0-6.0)
[2024-12-16 19:59] LABS: Troponin 5 6HR Delta 12.47 ng/L (0-12)
[2024-12-16 20:24] LABS: Procalcitonin 0.13 ng/mL (0-0.5); Thyroid Stimulating Hormone 1.16 uIU/mL (0.27-4.20); Vitamin B12 333 pg/mL (232-1245)
[2024-12-16 20:39] LABS: Cholesterol 241 mg/dL (0-200); HDL Cholesterol 74 mg/dL (60-100); Triglycerides 120 mg/dL (0-150)
[2024-12-16 21:12] LABS: ABG PCO2 34.7 mmHg (35-45); ABG PH Result 7.46 (7.35-7.45); Arterial Blood Gas Hematocrit 41.0 % (42-52); Blood Gas Allen Test Pos; Blood Gas Operator Identificat SAM; Blood Gas Sample Site Radial, right; Blood Gas Sample Type Arterial; HCO3 ABG 24.6 mmol/L (22-26); PO2 ABG 70.1 mmHg (80.0-100.0); PO2 FiO2 Ratio Arterial Blood 333
--- NOTE | 2024-12-16 21:38 | P.EN_ITS ---
Event Note Event Note: - patient having increased Delta trop, w ith PMH of mild CAD in 2020, cath reviewed - called cardio client service and consulting manager, - currently monitor for vitals, trend tr ops and serial EKGs - pt may need further intervention, to tai quiroz the cards recs - cont current medical management Event Notes Attestations Time Spent in Patient Care: 16 - 35 minutes (>than 50% of time sp ent in counselling and/or direct pt care on unit) .
--- NOTE | 2024-12-16 21:38 | W.PM.EVENTAC ---
Event Note Event Note: - patient having increased Delta trop, with PMH of mild CAD in 2020, cath reviewed - called cardio bond trader, - currently monitor for vitals, trend trops and serial EKGs - pt may need further intervention, to follow the cards recs - cont current medical management Event Notes Attestations Time Spent in Patient Care: 16 - 35 minutes (>than 50% of time spent in counselling and/or direct pt care on unit).
[2024-12-16 23:22] LABS: Troponin T (5th) Once 50 ng/L (0-15)
[2024-12-17] VITALS (92 sets, daily range): BP systolic 116–183; BP diastolic 60–127; PULSE 50–109; RESP 14–39; TEMP 36.8–37.7; O2SAT 88–100
[2024-12-17 01:15] LABS: Troponin T (5th) Once 46 ng/L (0-15)
[2024-12-17] MEDS: LORazepam 1 MG/0.5 ML injection 2 MG IVP ×4 (01:54→22:52)
[2024-12-17] MEDS: piperacillin-tazobactam 3.375 GM in sodium chloride 0.9% (plus) 50 ML IV ×3 (03:13→18:06)
[2024-12-17 04:55] LABS: Hematocrit 39.2 % (37-53); Hemoglobin 13.30 g/dL (11.27-16.99); Mean Corpuscular HGB Conc 33.9 g/dL (30-55); Mean Corpuscular Hemoglobin 36.0 pg (27-33); Mean Corpuscular Volume 106.2 fl (82-101); Nucleated Red Blood Cells % 0 %; Platelet Count 106 10^3/cmm (157-399); Red Blood Count 3.69 10^6/uL (3.85-5.65); White Blood Count 8.95 10^3/uL (3.29-11.43)
[2024-12-17 05:06] LABS: INR 1.03 (0.8-1.2); Prothrombin Time 14.20 SECONDS (12.1-14.9)
[2024-12-17 05:07] LABS: Partial Thromboplastin Time 28.5 SECONDS (23.9-36.7)
[2024-12-17 05:18] LABS: Troponin T (5th) Once 48 ng/L (0-15)
[2024-12-17 05:23] LABS: Alanine Aminotransferase 46 U/L (0-41); Albumin Level 3.8 g/dL (3.5-5.2); Alkaline Phosphatase 76 U/L (40-130); Anion Gap 19.1 (5-19); Aspartate Amino Transferase 75 U/L (0-40); Blood Urea Nitrogen 18 mg/dL (8-23); Calcium 8.4 mg/dL (8.5-10.5); Carbon Dioxide 24 mmol/L (22-29); Chloride 100 mmol/L (98-107); Creatinine Clr Calc Pharmacy 90.6104; Globulin 3.6 g/dL (1.3-4.6); Glucose 68 mg/dL (65-115); Magnesium 1.2 mg/dL (1.7-2.3); Osmolality Calculated 290 mOsm/kg (285-295); Potassium 3.1 mmol/L (3.5-5.1); Sodium 140 mmol/L (136-145); Total Protein 7.4 g/dL (6.6-8.7)
[2024-12-17 05:36] LABS: NT Pro B Type Natriuretic Pept 2188 pg/mL (0-450)
[2024-12-17] MEDS: multivitamin therapeutic Tablet 1 TAB PO (05:51)
[2024-12-17] MEDS: pantoprazole 40 mg SDV IVP ×2 (05:56→17:51)
[2024-12-17] MEDS: thiamine 100 mg/mL 2mL SDV 200 MG IVP ×2 (05:57→17:54)
--- NOTE | 2024-12-17 07:06 | PC.NURSE ---
Patient advanced to clear liquid diet at the time of the charted nursing dyshagia screening.
--- NOTE | 2024-12-17 08:00 | CTR_ITS ---
PROCEDURE INFORMATION: Exam: CT Abdomen And Pelvis Without Contrast Exam date and time: 12/17/2024 5:01 AM Age: 79 years old Clinical indication: Abdominal pain; Additional info: Distention TECHNIQUE: Imaging protocol: Computed tomography of the abdomen and pelvis without contrast. Radiation optimization: All CT scans at this facility use at least one of these dose optimization techniques: automated exposure control; mA and/or kV adjustment per patient size (includes targeted exams where dose is matched to clinical indication); or iterative reconstruction. COMPARISON: US abdomen complete* [id number] 11/10/2023 1:12 PM RADIATION DOSE METRICS: Total DLP (mGy-cm): 935.43 FINDINGS: Limitations: Image quality mildly degraded by motion artifact. Lungs: Mild bibasilar atelectasis. Heart: Mild cardiomegaly. Diaphragm: Small sliding-type hiatal hernia. Liver: Hepatic steatosis. Gallbladder and biliary ducts: Normal. No calcified stones. No ductal dilation. Pancreas: Normal. No ductal dilation. Spleen: Calcified splenic granulomas. Adrenal glands: 1.5 cm low-attenuation right adrenal nodule, likely a benign adenoma. Kidneys and ureters: 5.4 cm right renal cortical cysts. 2.8 cm left renal cortical cysts. No hydronephrosis. Mild bilateral perinephric fat stranding. Stomach and bowel: Sigmoid diverticulosis without evidence of acute diverticulitis. No evidence of bowel obstruction. Appendix: No evidence of appendicitis. Intraperitoneal space: Unremarkable. No free air. No significant fluid collection. Vasculature: Mild atherosclerotic aortoiliac calcifications. No abdominal aortic aneurysm. Lymph nodes: Unremarkable. No enlarged lymph nodes. Urinary bladder: Unremarkable as visualized. Reproductive: Mild prostatomegaly. Bones/joints: Grade 1 anterolisthesis at L4-L5. Moderate to advanced degenerative disc disease at L5-S1. Straightening of the lumbar lordosis. Diffuse osseous demineralization. No acute or aggressive osseous lesion. Soft tissues: Small fat containing left inguinal hernia. CT/CT abdomen pelvis wo con [id number] IMPRESSION: 1. No acute findings. 2. Mild bilateral perinephric fat stranding is nonspecific and may be related to senescent changes. Correlate with urinalysis to exclude infection. 3. Small hiatal hernia. 4. Hepatic steatosis. 5. Mild cardiomegaly. 6. Sigmoid diverticulosis without diverticulitis. 7. Bilateral renal cysts. 8. 1.5 cm right adrenal nodule favors an adenoma. COMMENTS: 1. Consistent with the [place]'s Incidental Findings Committee white paper (J [employer]iol 2017): For any incidental adrenal lesion greater than or equal to 1 cm but less than or equal to 4 cm classified in this report as benign, likely benign, or containing fat (including classification as an adenoma or myelolipoma), no follow-up imaging is recommended per consensus recommendations based on imaging criteria. Further lab evaluation could be pursued if warranted based on clinical findings. 2. Consistent with the [place] [employer]'s Incidental Findings Committee white paper (J [employer] Radiol 2018): Any incidental renal lesion less than 1 cm or classified as too small to characterize, or any incidental cystic renal lesion characterized as simple-appearing, is likely benign. No follow-up imaging is recommended for these lesions per consensus recommendations based on imaging criteria.
[2024-12-17] MEDS: potassium phosphate (mEq K) 40 MEQ in sodium chloride 0.9% (100 ml) 100 ML 27.25 MEQ IV (09:40)
[2024-12-17] MEDS: magnesium sulfate premix 1 GM/100 ML PIGGYBACK IV (09:40)
--- NOTE | 2024-12-17 10:46 | P.CONIM_ITS ---
<Statement entered by Alexandr Donis MD - 12/17/24 19:01> Patient was evaluated and cared for in conjunction with an advanced practice practitioner. I personally examined the patient and reviewed the chart and all pertinent data including imaging, telemetry, and laboratory results. I discussed the patient in detail with the advanced practice practitioner. Please see their note for complete consult note, testing results and agreed upon plan of care for the patient. Echo - moderately reduced LV systolic function, unchanged from 2023 trop elevation likely due to demand no need for ischemic work up at this time Continue with medical management Please call if any further cardiac questions Providers/Reason For Consult 2 Consulting Physician/Specialty*: Dr Donis, cardiology Reason for Consult*: Troponin elevation Requesting Physician: Jin Guerrero MD Attending Physician: Jin Guerrero MD Primary Care Provider: Claudette Sanchez History of Present Illness History of Present Illness Jet Blackman is a 79 year old male with past medical history of atrial fibrillation, systolic congestive heart failure (LVEF 36% in 2023), alcoholism, hypertension, DON. He presented to the emergency room yesterday via ambulance due to altered mental status, EMS reported right side neurological deficit, which had resolved on evaluation in the emergency room, however still seemed confused. He was not a candidate for TNKase as he was outside the time window, symptoms were resolving and also on Eliquis. He was quite hypertensive which improved with nicardipine infusion. Positive for marijuana. He was started on the CIWA protocol for alcohol withdrawal. Troponin series: 50?>58?>62. Troponin drawn at 4 AM this morning 48. BNP 2188, AST 75, ALT 46, lactic acid 2.6, magnesium initially 1.2 has received replacement. BUN 18, creatinine 0.8, potassium 3.1 has also been replaced. EKG showed sinus rhythm with intraventricular conduction delay, no ischemic ST or T wave changes. He is a DNR. He denies any chest pain or pressure today or in the last few days leading up to this event, no shortness of breath, he is laying flat in the bed not having any difficulty breathing, no signs of volume overload. History of coronary angiogram in 2019: No stenosis of the left main, LAD, circumflex. 20% mid RCA to distal RCA stenosis. Medications/Allergies Home Medications ?Medication ?Instructions ?Recorded ?Confirmed ?Last Taken ?Type cholecalciferol (vitamin D3) 25 25 mcg PO DAILY 12/16/24 12/16/24 History mcg (1,000 unit) chewable tablet (Vitamin D3) ascorbic acid (vitamin C) 500 mg 500 mg PO DAILY 11/0812/16/24 12/16/24 History tablet (Vitamin C) apixaban 5 mg tablet 5 mg PO BID #60 tabs 4 12/16/24 12/16/24 Rx nitroglycerin 0.4 mg sublingual 0.4 mg sublingual Q5M PRN chest 11/19/23 12/16/24 Unknown Rx tablet pain #25 tabs amiodarone 200 mg tablet (Pacerone) 400 mg (2 x 200 mg ) PO BID #70 tabs 12/13/23 12/16/24 12/16/24 Rx furosemide 40 mg tablet 40 mg PO DAILY@0800 #45 tabs 01/28/24 12/16/24 Unknown Rx metoprolol tartrate 100 mg tablet 100 mg PO BID #60 ta bs 05/26/24 12/16/24 Unknown Rx Allergies Allergy/AdvReac Type Severity Reaction Status Date / Time No Known Allergies Allergy Verified 07/13/23 08:56 Current Medications Generic Name Dose Route Start Last Admin Trade Name Lencho PRN Reason Stop Dose Admin Acetaminophen 650 mg 12/16/24 18:49 12/17/24 06:03 Acetaminophen 325 Mg Tablet PO 650 mg Q6H PRN Administration Mild/Mod Pain Or Temp >/= 101 Albuterol/Ipratropium 3 ml 12/17/24 08:00 12/17/24 08:07 Ipratropium-Albuterol 3 Ml Neb INHALATION 3 ml QID.RESPIRATORY RON Administration Amiodarone HCl 400 mg 12/17/24 05:00 12/17/24 05:53 Amiodarone 200 Mg Tablet PO 400 mg BID RON Administration Apixaban 5 mg 12/17/24 05:00 12/17/24 05:51 Apixaban 5 Mg Tablet PO 5 mg BID RON Administration Aspirin 81 mg 12/16/24 18:49 12/17/24 05:52 Aspirin 81 Mg Ec Tablet PO 81 mg DAILY RON Administration Atorvastatin Calcium 40 mg 12/16/24 21:00 12/16/24 21:10 Atorvastatin 40 Mg Tablet PO 40 mg BEDTIME RON Administration Folic Acid 1 mg 12/17/24 05:00 12/17/24 05:52 Folic Acid 1 Mg Tablet PO 1 mg DAILY RON Administration Nicardipine/Sodium Chloride 20 mg in 200 mls @ 0 mls/hr 12/16/24 15:15 12/17/24 06:06 Cardene IV Infused .Q0M RON Titration Protocol Per Protocol Sodium Chloride 1,000 mls @ 75 mls/hr 12/16/24 18:49 12/16/24 19:24 Sodium Chloride 0.9% IV 75 mls/hr .[id number] RON Administration Piperacillin Sod/Tazobactam 50 mls @ 12.5 mls/hr 12/16/24 19:00 12/17/24 03:13 Sod 3.375 gm/ Sodium Chloride IV 12.5 mls/hr Q8H RON Administration Potassium Phosphate 40 meq/ 109.0909 mls @ 27.25 mls/hr 12/17/24 08:00 12/17/24 09:40 Sodium Chloride IV 12/17/24 12:00 27.25 mls/hr ONCE ONE Administration Lorazepam 2 mg 12/16/24 18:49 12/17/24 01:54 Lorazepam 1 Mg/0.5 Ml Injection IVP 2 mg PRN PRN Administration WITHDRAWAL Protocol Metoprolol Tartrate 100 mg 12/16/24 18:49 12/17/24 05:56 Metoprolol Tartrate 50 Mg Tablet PO 100 mg BID RON Administration Multivitamins Therapeutic 1 tab 12/17/24 05:00 12/17/24 05:51 Multivitamin Therapeutic Tablet PO 1 tab DAILY RON Administration Pantoprazole Sodium 40 mg 12/16/24 18:49 12/17/24 05:56 Pantoprazole 40 Mg Sdv IVP 40 mg Q12H RON Administration Thiamine HCl 200 mg 12/16/24 18:49 12/17/24 05:57 Thiamine 100 Mg/Ml 2ml Sdv IVP 200 mg Q12H RON Administration PFSH Acute 2 PFSH: Medical History Alcoholism Heart failure with reduced ejection fraction Macrocytosis Hypomagnesemia Elevated bilirubin COPD (chronic obstructive pulmonary disease) LV dysfunction Systolic heart failure Congestive heart failure with LV diastolic dysfunction, NYHA class 4 Atrial fibrillation with rapid ventricular response History of lung cancer Chronic fatigue Atrial fibrillation Obstructive sleep apnea HTN (hypertension) CHF (congestive heart failure) DRUJ (distal radioulnar joint) instability, post-traumatic no specific trauma only code choice in EHR! 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 Surgical History History of lobectomy of lung Family History Denies family history of Diabetes Stroke Social History Smoking and tobacco/nicotine status: former use of tobacco/nicotine Quit status (tobacco/nicotine): has quit using Year quit tobacco: 2020 Former quit date comment: Hx of 1 PPD x 50 Years Second hand smoke exposure: No Alcohol intake: current Alcohol intake frequency: 3 or more drinks per day Substance/Drug Use: never Lives independently: Yes Household members: spouse Marital status: Current occupational status: retired Do you think of yourself as: Straight/Heterosexual Current gender identity: Male Vitals/I&O/Wt Last Vital Signs Temp 98.2 F 12/17/24 04:00 Pulse 50 L 12/17/24 08:09 Resp 14 12/17/24 08:09 BP 158/74 12/17/24 04:45 Pulse Ox 93 12/17/24 08:09 O2 Del Method Room Air 12/17/24 08:09 O2 Flow Rate 2 12/17/24 04:00 12/16/24 12/17/24 12/17/24 22:59 06:59 14:59 Intake Total 992.916 / 2181.200 1188.284 / 2181.200 100 / 100 Output Total 150 / 400 250 / 400 Balance 842.916 / 1781.200 938.284 / 1781.200 100 / 100 Weight last 48 hrs Weight 209 lb 7.026 oz Weight 214 lb 15.211 oz Weight 214 lb 15.211 oz Weight 217 lb Physical Exam 2 Const: COMMON NORMALS: no acute distress and patient oriented x3 GENERAL APPEARANCE: cooperative and comfortable ORIENTATION/CONSCIOUSNESS: Yes awake, Yes oriented to person, Yes oriented to place and Yes oriented to time Chest: COMMONS NORMALS: normal inspection of the chest and normal palpation of entire chest wall CHEST: Yes Symmetrical chest wall rise Resp: COMMON NORMALS: normal respiratory effort, No retractions, No use of accessory muscles and clear to auscultation bilaterally EFFORT & INSPECTION: Yes symmetric chest movement AUSCULTATION: clear to auscultation bilaterally Cardio: COMMON NORMALS: regular rate, regular rhythm, S1 normal heart sound present, S2 normal heart sound present, No gallops present (Cardio), No clicks present (Cardio), No murmurs present (Cardio) and No rub (Cardio) RATE: r egular rate RHYTHM: regular rhythm HEART SOUNDS: S1 normal heart sound present and S2 normal heart sound present PERIPHERAL PULSES: radial pulses present Extremity: COMMON NORMALS: no pedal edema Neuro: COMMON NORMALS: patient oriented x3 and moves all extremities S ENSORIUM/ORIENTATION: Yes oriented to person, Yes oriented to place and Yes oriented to time Data 12/17/24 04:27 12/17/24 04:27 Micro: Microbiology 12/16/24 13:03 Blood Culture - Preliminary Blood SPECIMEN COLLECTED 12/16/24 12:58 Blood Culture - Preliminary Blood SPECIMEN COLLECTED A&P Assessment and plan 1. Heart failure with reduced ejection fraction: 2. Atrial fibrillation with rapid ventricular response: 3. Malignant hypertension: 4. Alcohol withdrawal: 5. Transient ischemic attack: 6. Obstructive sleep apnea: Plan: Awaiting read of echocardiogram before determining further plan. If there are abnormalities on the echocardiogram he may require a stress test. The troponin leak could be due to possible aspiration pneumonia given slightly elevated lactic acid. Renal function is normal, electrolytes have been replaced. Continue amiodarone 400 mg twice daily, Eliquis 5 mg twice daily, metoprolol tartrate 100 mg twice daily, aspirin, statin. PDMP PDMP Reviewed: Not Reviewed Consult Attestations 2 Medical Necessity Statement: Per hospitalist Coding Level of Care Code Acute Code for g Fwd Diagnoses Heart failure with reduced ejection fraction I50.20 Atrial fibrillation with rapid ventricular response I48.91 Malignant hypertension I10 Alcohol withdrawal F10.939 Transient ischemic attack G45.9 Obstructive sleep apnea G47.33
--- NOTE | 2024-12-17 12:26 | XRR_ITS ---
PROCEDURE INFORMATION: Exam: XR Right Foot Exam date and time: 12/17/2024 12:34 PM Age: 79 years old Clinical indication: Pain; Foot; Right TECHNIQUE: Imaging protocol: Radiologic exam of the right foot. Views: 1 or 2 views. COMPARISON: No relevant prior studies available. FINDINGS: Bones/joints: There is severe degenerative osteoarthritis of the 1st MTP articulation with complete loss of the articular joint space. There is degenerative subchondral sclerosis and marginal osteophytosis. There is no fracture. There is no bone erosion. There is chronic enthesophyte formation present at the plantar aponeurosis attachment to the calcaneus. Soft tissues: Normal. 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
--- NOTE | 2024-12-17 13:40 | PC.OT ---
OT EVALUATION ATTEMPTED; PATIENT ABLE TO GIVE BUT UNABLE TO PARTICIPATE ACTIVELY IN OT EVALUATION. WILL ATTEMPT AGAIN AT A LATER TIME
--- NOTE | 2024-12-17 14:31 | PC.NURSE ---
Medication return - Nurse removed ativan from the pyxis with intent to administer to patient for withdrawal symptoms. Upon further assessment, nurse decided to not administer. Unable to return controlled medication to pyxis. Nurse placed in locked fridge in the med room. Alerted Roberto in Pharmacy.
--- NOTE | 2024-12-17 15:25 | P.PN_ITS ---
Subjective 2 Subjective: This is progress note from 12/17/2024 - Patient was seen this morning he is al ert to person, place, time he does have diffuse tremors, - He can follow commands, but at times i s encephalopathic, he is withdrawn, some of his responses do not make sense - I cannot discern any weakness, but at times is difficult to do neurologic testing given his encephalopathy, no facial droop, no slurring of his words, - Patient potentially has some right arm weakness compared to the left but only slight -Is able to follow commands, no lower ex tremity strength discerned - Does have diffuse tremors of bilateral upper extremities, not able to do [id number] or [id number] Vitals/I&O/Wt Last Vital Signs Temp 99.3 F 12/17/24 12:15 Pulse 60 12/17/24 14:00 Resp 33 H 12/17/24 12:45 BP 155/69 12/17/24 12:45 Pulse Ox 95 12/17/24 12:45 O2 Del Method Room Air 12/17/24 12:15 O2 Flow Rate 2 12/17/24 04:00 12/17/24 12/17/24 12/17/24 06:59 14:59 22:59 Intake Total 1188.284 / 2181.200 1150 / 1150 Output Total 250 / 400 Balance 938.284 / 8236.690 2818 / 1150 Weight last 48 hrs Weight 95 kg Weight 97.5 kg Weight 97.5 kg Weight 98.43 kg Physical Exam 2 Const: COMMON NORMALS: no acute distress ORIENTATION/CONSCIOUSNESS: Yes awake, Yes oriented to person, Yes oriented to place and Yes confused; not oriented to time Eye: COMMON NORMALS: Equal, round and reactive pupils present PUPIL: Yes Equal, round and reactive pupils present Resp: COMMON NORMALS: normal respiratory effort, No retractions, No use of accessory muscles and clear to auscultation bilaterally AUSCULTATION: clear to auscultation bilaterally Cardio: COMMON NORMALS: regular rate, regular rhythm, S1 normal heart sound present and S2 normal heart sound present RATE: regular rate RHYTHM: r egular rhythm HEART SOUNDS: S1 normal heart sound present and S2 normal heart sound present GI: COMMON NORMALS: Normal to inspection, nondistended, normoactive bowel sounds present and non-tender Extremity: COMMON NORMALS: no pedal edema Neuro: SENSORIUM/ORIENTATION: Yes oriented to person, Yes oriented to place and No oriented to time OTHER: Tremors in bilateral upper extremity Right upper extremity strength 4-5 compared to 5 out of 5 on the left Lower extremity no focal weakness Data 12/18/24 03:45 12/18/24 03:45 Micro: Microbiology 12/16/24 13:03 Blood Culture - Preliminary Blood NEGATIVE TO DATE 12/16/24 12:58 Blood Culture - Preliminary Blood NEGATIVE TO DATE A&P Assessment and plan 1. Encephalopathy acute: 2. Alcohol withdrawal: 3. Pneumonia: 4. Transient ischemic attack: Plan: Concern for TIA versus CVA - Last known well normal 9:15 AM - Was not deemed a candidate for tPA given Eliquis use - NIH stroke scale was 1 - Was not deemed a candidate - CT head no acute findings Plan - Neurochecks - NIH stroke scale - Dysphagia eval -PT OT - Carotid artery ultrasound CONCLUSIONS Bilateral ICA stenosis less than 50%. Minimal carotid atherosclerosis. - Resume home Eliquis Systolic CHF CONCLUSIONS 1. Normal left ventricular cavity size. Moderately decreased left ventricular systolic function, EF 40%. Moderate left ventricular hypertrophy. Grade I/IV diastolic dysfunction (abnormal relaxation filling pattern), normal to mildly elevated filling pressures. 2. Normal right ventricular size and systolic function. 3. No significant valvular abnormalities 4. Compared to echo on 11/10/2023, there is no significant change. - Diminished ejection fraction could be alcoholic cardiomyopathy versus ischemic cardiomyopathy - Plan - Aspirin, statin - Eliquis - Continue thiamine Hypertensive emergency - Off Cardene drip - Resumed home blood pressure medications Acute encephalopathy - Multifactorial - Concern for TIA - Hypertensive emergency - Component of pneumonia - Component of alcohol withdrawal Alcohol withdrawal - At times is forgetful, has a tremor of bilateral upper extremities, last drink was roughly 48 hours ago - [facility] protocol - IV thiamine - IV fluids - Monitor mentation Concerns for pneumonia -Right lower lobe infiltrate -Possible aspiration event? - Bedside swallow eval - IV Zosyn NSTEMI Cardiac cath in 2019 Conclusions 1. There is mild coronary artery disease with one vessel disease. 2. Mild left ventricular systolic dysfunction. Ejection fraction of 45%. - Serial EKGs, start troponins, telemetry monitoring - Aspirin, statin, beta-grabiel Hyperbilirubinemia, with transaminitis - CT scan abdomen pelvis CT/CT abdomen pelvis wo con [id number] IMPRESSION: 1. No acute findings. 2. Mild bilateral perinephric fat stranding is nonspecific and may be related to senescent changes. Correlate with urinalysis to exclude infection. 3. Small hiatal hernia. 4. Hepatic steatosis. 5. Mild cardiomegaly. 6. Sigmoid diverticulosis without diverticulitis. 7. Bilateral renal cysts. 8. 1.5 cm right adrenal nodule favors an adenoma. - Ammonia levels within normal limits DNR/DNI, confirmed with patient multiple times Eliquis for DVT prophylaxis PDMP PDMP Reviewed: Not Reviewed Attestations 2 Medical Necessity Statement*: Patient requires hospitalization for TIA versus CVA, acute encephalopathy, alcohol withdrawal, systolic CHF Diagnoses Encephalopathy acute G93.40 Alcohol withdrawal F10.939 Pneumonia J18.9 Transient ischemic attack G45.9
--- NOTE | 2024-12-17 18:49 | USCV_ITS ---
Jet Blackman Age: 79 Gender: M : 1945 Exam Date: 12/17/2024 00:31 Ordering Phys: Jin Guerrero MD Technologist: PATRICK [place] [facility] [place]: altered mental status, history of alcoholism, CHF, low EF, Atrial fibrillation, history of TIA, COPD, AMS, right hemiparesis Risk Factors: altered mental status, history of alcoholism, CHF, low EF, Atrial fibrillation, history of TIA, COPD, AMS, right hemiparesis Previous Vascular Surgery: Unknown Right Brachial BP: 142 / 70 Left Brachial BP: / Right Left Velocity (cm/s) Spectral Plaque Velocity (cm/s) Spectral Plaque Syst/Diast Broadening Syst/Diast Broadening 72.60/ 14.20 None None Prox CCA 66.90 / 10.70 None None 62.20/ 10.30 Min Homo Mid CCA 70.60 / 8.90 Min Homo 51.70/ 7.60 Min Homo Distal CCA 55.70 / 10.60 Min Homo 46.10/ 14.00 Min Hetro Prox ICA 57.80 / 7.50 Min Hetro 66.50/ 15.80 Min Homo Mid ICA 69.70 / 15.20 Min Homo 92.20/ 23.00 Min Homo Distal ICA 86.10 / 21.70 Min Hetro 79.60 Min Hetro ECA 98.70 Min Hetro 1.80 ICA/CCA 1.50 Antegrade Vertebral Antegrade 27.00/ 8.90 cm/s 36.10/ 10.70 cm/s Tri Subclavian Tri 110.5 125.0 0 0 FINDINGS Comparison: none available. No significant elevation of systolic or diastolic velocities. Waveforms are normal. Minimal bilateral, intimal thickening with no elevation of velocity. CONCLUSIONS Bilateral ICA stenosis less than 50%. Minimal carotid atherosclerosis. Dr. Jolene Castillo DO (Electronically Signed) Final Date: 17 December 2024 08:16 S
--- NOTE | 2024-12-17 18:49 | USCV_ITS ---
Jet Blackman Age: 79 Gender: M : 1945 Exam Date: 12/17/2024 01:04 Ordering Phys: Jin Guerrero MD Technologist: guillermo Exam Location: [facility] [place] Indication: altered mental status, history of alcoholism, CHF, low EF, history of prior TIA, COPD BP: 142 / 70 HR: 59 Rhythm: Sinus Technical Quality: Adequate MEASUREMENTS (Male / Female) Normal Values 2D ECHO LV Diastolic Diameter PLAX 4.9 cm 4.2 - 5.9 / 3.9 - 5.3 cm IVS Diastolic Thickness 1.7 cm 0.6 - 1.0 / 0.6 - 0.9 cm IVS Systolic Thickness 2.5 cm LVPW Diastolic Thickness 1.8 cm 0.6 - 1.0 / 0.6 - 0.9 cm LVPW Systolic Thickness 2.1 cm LVOT Diameter 2.1 cm LV Ejection Fraction 2D Teich 63.4 % LV Ejection Fraction MOD 4C 57.2 % LV Ejection Fraction MOD 2C 43.9 % LV Ejection Fraction 2C AL 45.9 % LA Diameter 4.4 cm Aorta at Sinotubular Diameter 2.8 cm IVC Diameter 2.0 cm M-MODE LA Ao Ratio MM 1.6 AV Cusp Separation MM 2.7 cm DOPPLER AV Peak Velocity 118.0 cm/s LVOT Peak Velocity 97.0 cm/s AV Area Cont Eq vti 3.2 cm squared AV Area Cont Eq pk 3.0 cm squared MV Peak Velocity 77.0 cm/s MV Area PHT 1.8 cm squared Mitral E to A Ratio 0.8 TR Peak Velocity 254.0 cm/s TR Peak Gradient 25.8 mmHg TV Peak E Velocity 39.0 cm/s PV Peak Velocity 92.0 cm/s FINDINGS Left Ventricle Normal left ventricular cavity size. Moderately decreased left ventricular systolic function, EF 40%. Moderate left ventricular hypertrophy. Grade I/IV diastolic dysfunction (abnormal relaxation filling pattern), normal to mildly elevated filling pressures. Right Ventricle Normal right ventricular size and systolic function. Normal right ventricular systolic pressure. Right Atrium Normal right atrial size. Left Atrium Mildly increased left atrial size. IA Septum Normal interatrial septum. Mitral Valve Mild mitral valve regurgitation. Aortic Valve No aortic valve stenosis. No aortic valve regurgitation. Tricuspid Valve Trace tricuspid valve regurgitation. Pulmonic Valve Mild pulmonary valve regurgitation. Pericardium No pericardial effusion. Aorta Normal size aortic root and proximal ascending aorta. IVC Normal inferior vena cava. CONCLUSIONS 1. Normal left ventricular cavity size. Moderately decreased left ventricular systolic function, EF 40%. Moderate left ventricular hypertrophy. Grade I/IV diastolic dysfunction (abnormal relaxation filling pattern), normal to mildly elevated filling pressures. 2. Normal right ventricular size and systolic function. 3. No significant valvular abnormalities 4. Compared to echo on 11/10/2023, there is no significant change. Alexandr Donis MD, FACC (Electronically Signed) Final Date: 17 December 2024 18:33 S
--- NOTE | 2024-12-17 18:59 | PC.NURSE ---
Shift SUmmary: Patient frequently has tremors. Received Ativan once today per [facility] protocol. Mental status: Unchanged from the morning. Level of alertness is variable, but has always been rousable. Can answer person, place, and time questions correctly. States that yesterday he was having hallucinations of people braking into his house, but no hallucinations today. Performance on NIH has been variable depending on severity of what appear to be withdrawal symptoms, and how recently he had received ativan. At times has had trouble performing finger to nose due to severe tremors. Friend had stopped by and states that he believes the patients drink of choice is hard liquour, but hes doesnt know his exact drinking habits. Patient states that his last drink was 3 days ago. Metoprolol dose reduced starting tommorow due to bradycardia.
[2024-12-18] VITALS (49 sets, daily range): BP systolic 108–183; BP diastolic 55–140; PULSE 59–121; RESP 16–41; TEMP 36.8–37.8; O2SAT 91–100
--- NOTE | 2024-12-18 01:42 | PC.NURSE ---
Provider notified of patients steady increase in blood pressure. Gave orders for 10mg IVP Hydralazine one time. Order placed. See MAR
[2024-12-18] MEDS: hyDRALAzine 20 mg/mL INJ 1 mL 10 MG IVP (02:22)
[2024-12-18] MEDS: LORazepam 1 MG/0.5 ML injection 2 MG IVP (02:47)
[2024-12-18] MEDS: piperacillin-tazobactam 3.375 GM in sodium chloride 0.9% (plus) 50 ML IV ×3 (03:02→18:14)
[2024-12-18] MEDS: multivitamin therapeutic Tablet 1 TAB PO (04:22)
[2024-12-18] MEDS: morphine 4 mg/mL SDV 1 mL 2 MG IVP ×2 (04:23→22:51)
[2024-12-18 04:25] LABS: Hematocrit 37.2 % (37-53); Hemoglobin 12.60 g/dL (11.27-16.99); Mean Corpuscular HGB Conc 33.9 g/dL (30-55); Mean Corpuscular Hemoglobin 36.6 pg (27-33); Mean Corpuscular Volume 108.1 fl (82-101); Nucleated Red Blood Cells % 0 %; Platelet Count 105 10^3/cmm (157-399); Red Blood Count 3.44 10^6/uL (3.85-5.65); White Blood Count 11.59 10^3/uL (3.29-11.43)
[2024-12-18 04:36] LABS: INR 1.23 (0.8-1.2); Prothrombin Time 16.40 SECONDS (12.1-14.9)
[2024-12-18 04:37] LABS: Partial Thromboplastin Time 34.0 SECONDS (23.9-36.7)
[2024-12-18 04:57] LABS: Alanine Aminotransferase 38 U/L (0-41); Albumin Level 3.5 g/dL (3.5-5.2); Alkaline Phosphatase 67 U/L (40-130); Anion Gap 21.8 (5-19); Aspartate Amino Transferase 57 U/L (0-40); Blood Urea Nitrogen 17 mg/dL (8-23); Calcium 7.9 mg/dL (8.5-10.5); Carbon Dioxide 23 mmol/L (22-29); Chloride 101 mmol/L (98-107); Creatinine Clr Calc Pharmacy 89.4049; Globulin 3.3 g/dL (1.3-4.6); Glucose 83 mg/dL (65-115); Magnesium 1.4 mg/dL (1.7-2.3); Osmolality Calculated 295 mOsm/kg (285-295); Potassium 3.8 mmol/L (3.5-5.1); Sodium 142 mmol/L (136-145); Total Protein 6.8 g/dL (6.6-8.7)
--- NOTE | 2024-12-18 05:03 | PC.NURSE ---
Patient still having severe tremors, anxiety, and episodes of diaphoresis even after following [facility] protocol and treating patients pain. Provider notified and gave order for 25mg Hydroxyzine PO BID PRN for anxiety. Order placed. See MAR
[2024-12-18] MEDS: pantoprazole 40 mg SDV IVP ×2 (05:47→18:14)
[2024-12-18] MEDS: thiamine 100 mg/mL 2mL SDV 200 MG IVP ×2 (05:47→18:14)
--- NOTE | 2024-12-18 09:02 | PC.NURSE ---
mental health coordinator rounds 12/17 @ 0815- I have rounded daily, patient intubated and sedated. Was given updates daily by primary RNs. 12/17- patients 2 sons were present at the bedside, gave them the stroke education book. Per RN, patient is arousable and moving all extremities.
--- NOTE | 2024-12-18 09:06 | PC.NURSE ---
tour coordinator rounds- 12/17 @ 0820- patient resting quietly with eyes closed, left stroke education book on the bedside table.
--- NOTE | 2024-12-18 10:37 | PC.NURSE ---
search coordinator rounds at 0945- patient awake sitting up in bed, stroke scale positive for some RUE weakness and slight R facial droop. Patient is oriented to self, and year- not to place and month. Patient has some bilateral hand tremors. When given a drink with a straw he blew into it, even when given re-directions.
--- NOTE | 2024-12-18 10:41 | P.PN_ITS ---
Subjective 2 Subjective: Still has some agitation from alcohol withdrawl. No chest pain or shortness of breath. He is a bit tachypneic while sleeping, has history of DON. Oxygen saturation is He had some bradycardia with metoprolol 100mg BID, reduced to 25mg BID. Vitals/I&O/Wt Last Vital Signs Temp 100.0 F H 12/18/24 08:00 Pulse 59 L 12/18/24 08:00 Resp 16 12/18/24 08:00 BP 126/66 12/18/24 08:00 Pulse Ox 94 12/18/24 08:00 O2 Del Method Room Air 12/18/24 08:00 O2 Flow Rate 2 12/17/24 04:00 12/17/24 12/18/24 12/18/24 22:59 06:59 14:59 Intake Total 648.75 / 2459.0909 660.3409 / 2459.0909 150 / 150 Output Total 250 / 250 Balance 648.75 / 2209.0909 410.3409 / 2209.0909 150 / 150 Weight last 48 hrs Weight 208 lb 12.444 oz Weight 209 lb 7.026 oz Weight 214 lb 15.211 oz Weight 214 lb 15.211 oz Weight 217 lb Physical Exam 2 Const: COMMON NORMALS: no acute distress and patient oriented x3 GENERAL APPEARANCE: cooperative and comfortable ORIENTATION/CONSCIOUSNESS: Yes awake, Yes oriented to person, Yes oriented to place and Yes oriented to time Chest: COMMONS NORMALS: normal inspection of the chest and normal palpation of entire chest wall CHEST: Yes Symmetrical chest wall rise Resp: COMMON NORMALS: normal respiratory effort, No retractions, No use of accessory muscles and clear to auscultation bilaterally EFFORT & INSPECTION: Yes symmetric chest movement AUSCULTATION: clear to auscultation bilaterally Cardio: COMMON NORMALS: regular rate, regular rhythm, S1 normal heart sound present, S2 normal heart sound present, No gallops present (Cardio), No clicks present (Cardio), No murmurs present (Cardio) and No rub (Cardio) RATE: r egular rate RHYTHM: regular rhythm HEART SOUNDS: S1 normal heart sound present and S2 normal heart sound present PERIPHERAL PULSES: radial pulses present Extremity: COMMON NORMALS: no pedal edema Neuro: COMMON NORMALS: patient oriented x3 and moves all extremities S ENSORIUM/ORIENTATION: Yes oriented to person, Yes oriented to place and Yes oriented to time Urinary Catheter Management: Brown: Cath Placed During This Visit: yes Reason for Continuing Indwelling Catheter: Accurate Measurement of Urinary Output in Critically Ill Patients Urinary Catheter Date of Insertion: 12/18/24 Urinary Catheter Time of Insertion: 04:10 Data 12/18/24 03:45 12/18/24 03:45 Micro: Microbiology 12/16/24 13:03 Blood Culture - Preliminary Blood NEGATIVE TO DATE 12/16/24 12:58 Blood Culture - Preliminary Blood NEGATIVE TO DATE A&P Assessment and plan 1. Alcohol withdrawal: 2. Heart failure with reduced ejection fraction: 3. Malignant hypertension: 4. Transient ischemic attack: 5. Obstructive sleep apnea: Plan: Stable from a cardiac perspective, continue amiodarone 400mg BID. PDMP PDMP Reviewed: Not Reviewed Coding Level of Care Code Acute Code for Chg Fwd Diagnoses Alcohol withdrawal F10.939 Heart failure with reduced ejection fraction I50.20 Malignant hypertension I10 Transient ischemic attack G45.9 Obstructive sleep apnea G47.33
--- NOTE | 2024-12-18 11:20 | PC.NURSE ---
Dr. Guerrero to bedside, patients [id number] Shaila at bedside. Shaila notified us that there is a health care directive and durable power of insurance attorney in place and she will bring copies. Shaila also stated that his brother Guero is on his way from [place] and he has power or insurance attorney and wants to talk with
[2024-12-18] MEDS: FUROsemide 10 mg/mL SDV 4mL 40 MG IVP (11:32)
--- NOTE | 2024-12-18 12:44 | MR_ITS ---
WS: [id number] MRI HEAD WITHOUT CONTRAST TECHNIQUE: Sagittal T1, T2 axial, T2 axial FLAIR, axial and coronal T1 images, axial susceptibility weighted imaging, axial diffusion weighted images, and coronal T2 images were obtained. CLINICAL INFORMATION: weakness, ams COMPARISON: CT 12/16/2024 FINDINGS: No evidence of restricted diffusion to suggest acute ischemia. Moderate small vessel changes with moderate parenchymal volume loss. Small vessel changes in the ashley. Normal posterior fossa. Normal vascular flow voids at the skull base. No extra-axial fluid collections. No evidence of mass or mass effect. No hemosiderin on susceptibility-weighted images. Normal optic chiasm and pituitary infundibulum. Moderate symmetric atrophy temporal lobes and hippocampal formations. Normal optic chiasm. MR/MR head wo con* [id number] IMPRESSION: Some images degraded by motion. Fast imaging protocol utilized. 1. No evidence of restricted diffusion to suggest acute ischemia. 2. Moderate small vessel changes. Moderate parenchymal volume loss. Small vess el changes in the ashley. 3. No hemosiderin on the susceptibility weighted images. 4. No other acute findings.
--- NOTE | 2024-12-18 16:15 | P.PN_ITS ---
Subjective 2 Subjective: Patient was seen this morning, he is alert to person, to place, not to time, he can follow commands, denies any nausea, vomiting, no abdominal pain, no lightheadedness, no dizziness, he continues to have a tremor bilateral upper extremities, Vitals/I&O/Wt Last Vital Signs Temp 98.9 F 12/18/24 12:00 Pulse 74 12/18/24 14:00 Resp 30 H 12/18/24 12:00 BP 158/80 12/18/24 12:00 Pulse Ox 96 12/18/24 12:00 O2 Del Method Room Air 12/18/24 12:00 O2 Flow Rate 2 12/17/24 04:00 12/18/24 12/18/24 12/18/24 06:59 14:59 22:59 Intake Total 660.3409 / 2459.0909 642.5 / 642.5 Output Total 250 / 250 Balance 410.3409 / 2209.0909 642.5 / 642.5 Weight last 48 hrs Weight 94.7 kg Weight 95 kg Weight 97.5 kg Weight 97.5 kg Physical Exam 2 Const: COMMON NORMALS: no acute distress ORIENTATION/CONSCIOUSNESS: Yes awake, Yes oriented to person and Yes oriented to place; not oriented to time Eye: COMMON NORMALS: Equal, round and reactive pupils present and EOMs intact bilaterally PUPIL: Yes Equal, round and reactive pupils present Resp: COMMON NORMALS: normal respiratory effort, No retractions, No use of accessory muscles and clear to auscultation bilaterally AUSCULTATION: clear to auscultation bilaterally Cardio: COMMON NORMALS: regular rate, regular rhythm, S1 normal heart sound present and S2 normal heart sound present RATE: regular rate RHYTHM: r egular rhythm HEART SOUNDS: S1 normal heart sound present and S2 normal heart sound present GI: COMMON NORMALS: Normal to inspection, nondistended, normoactive bowel sounds present and non-tender Extremity: COMMON NORMALS: no pedal edema Neuro: SENSORIUM/ORIENTATION: Yes oriented to person, Yes oriented to place and No oriented to time OTHER: Bilateral upper extremities Strength equal bilateral upper extremities Strength equal bilateral lower extremities No facial droop, slurring his words Psych: COMMON NORMALS: mental status grossly normal Urinary Catheter Management: Brown: Cath Placed During This Visit: yes Reason for Continuing Indwelling Catheter: Accurate Measurement of Urinary Output in Critically Ill Patients Urinary Catheter Date of Insertion: 12/18/24 Urinary Catheter Time of Insertion: 04:10 Data 12/18/24 03:45 12/18/24 03:45 Micro: Microbiology 12/16/24 13:03 Blood Culture - Preliminary Blood NEGATIVE TO DATE 12/16/24 12:58 Blood Culture - Preliminary Blood NEGATIVE TO DATE A&P Assessment and plan 1. Encephalopathy acute: 2. Alcohol withdrawal: 3. Pneumonia: 4. Transient ischemic attack: Plan: Concern for TIA versus CVA - Last known well normal 9:15 AM - Was not deemed a candidate for tPA given Eliquis use - NIH stroke scale was 1 - Was not deemed a candidate - CT head no acute findings Plan - Neurochecks - NIH stroke scale - Dysphagia eval -PT OT - Carotid artery ultrasound CONCLUSIONS Bilateral ICA stenosis less than 50%. Minimal carotid atherosclerosis. - Resume home Eliquis - Aspirin, statin Systolic CHF CONCLUSIONS 1. Normal left ventricular cavity size. Moderately decreased left ventricular systolic function, EF 40%. Moderate left ventricular hypertrophy. Grade I/IV diastolic dysfunction (abnormal relaxation filling pattern), normal to mildly elevated filling pressures. 2. Normal right ventricular size and systolic function. 3. No significant valvular abnormalities 4. Compared to echo on 11/10/2023, there is no significant change. - Diminished ejection fraction could be alcoholic cardiomyopathy versus ischemic cardiomyopathy - Plan - Aspirin, statin - Eliquis - Continue thiamine Hypertensive emergency - Off Cardene drip - Resumed home blood pressure medications Acute encephalopathy - Multifactorial - Concern for TIA - Hypertensive emergency - Component of pneumonia - Component of alcohol withdrawal Alcohol withdrawal - At times is forgetful, has a tremor of bilateral upper extremities, last drink was roughly 48 hours ago - [facility] protocol - IV thiamine - IV fluids - Monitor mentation Concerns for pneumonia -Right lower lobe infiltrate -Possible aspiration event? - Bedside swallow eval - IV Zosyn NSTEMI Cardiac cath in 2019 Conclusions 1. There is mild coronary artery disease with one vessel disease. 2. Mild left ventricular systolic dysfunction. Ejection fraction of 45%. - Serial EKGs, start troponins, telemetry monitoring - Aspirin, statin, beta-grabiel Hyperbilirubinemia, with transaminitis - CT scan abdomen pelvis CT/CT abdomen pelvis wo con [id number] IMPRESSION: 1. No acute findings. 2. Mild bilateral perinephric fat stranding is nonspecific and may be related to senescent changes. Correlate with urinalysis to exclude infection. 3. Small hiatal hernia. 4. Hepatic steatosis. 5. Mild cardiomegaly. 6. Sigmoid diverticulosis without diverticulitis. 7. Bilateral renal cysts. 8. 1.5 cm right adrenal nodule favors an adenoma. - Ammonia levels within normal limits DNR/DNI, confirmed with patient multiple times Eliquis for DVT prophylaxis Plan for today MRI brain, PT OT, IV antibiotics, IV Zosyn, PDMP PDMP Reviewed: Not Reviewed Attestations 2 Medical Necessity Statement*: Patient requires hospitalization for alcohol withdrawal, TIA versus stroke, alcoholic cardiomyopathy, encephalopathy, pneumonia Diagnoses Encephalopathy acute G93.40 Alcohol withdrawal F10.939 Pneumonia J18.9 Transient ischemic attack G45.9
--- NOTE | 2024-12-18 23:45 | PC.NURSE ---
Patient tremoring, not quite as severe as prior night, but still significant. Patients baseline unclear, but family confirmed to previous staff they know he does suffer from tremors.
[2024-12-19] VITALS (22 sets, daily range): BP systolic 110–180; BP diastolic 52–108; PULSE 69–92; RESP 16–40; TEMP 36.7–37.3; O2SAT 92–97
[2024-12-19] MEDS: piperacillin-tazobactam 3.375 GM in sodium chloride 0.9% (plus) 50 ML IV ×3 (03:55→21:13)
[2024-12-19 04:11] LABS: Hematocrit 35.1 % (37-53); Hemoglobin 11.90 g/dL (11.27-16.99); Mean Corpuscular HGB Conc 33.9 g/dL (30-55); Mean Corpuscular Hemoglobin 36.0 pg (27-33); Mean Corpuscular Volume 106.0 fl (82-101); Nucleated Red Blood Cells % 0 %; Platelet Count 103 10^3/cmm (157-399); Red Blood Count 3.31 10^6/uL (3.85-5.65); White Blood Count 11.22 10^3/uL (3.29-11.43)
[2024-12-19 04:24] LABS: INR 1.44 (0.8-1.2); Prothrombin Time 18.50 SECONDS (12.1-14.9)
[2024-12-19 04:25] LABS: Partial Thromboplastin Time 40.2 SECONDS (23.9-36.7)
[2024-12-19 04:40] LABS: Alanine Aminotransferase 31 U/L (0-41); Albumin Level 3.2 g/dL (3.5-5.2); Alkaline Phosphatase 61 U/L (40-130); Anion Gap 19.2 (5-19); Aspartate Amino Transferase 43 U/L (0-40); Blood Urea Nitrogen 23 mg/dL (8-23); Calcium 7.9 mg/dL (8.5-10.5); Carbon Dioxide 22 mmol/L (22-29); Chloride 104 mmol/L (98-107); Creatinine Clr Calc Pharmacy 79.4710; Globulin 3.5 g/dL (1.3-4.6); Glucose 101 mg/dL (65-115); Magnesium 1.3 mg/dL (1.7-2.3); Osmolality Calculated 298 mOsm/kg (285-295); Potassium 3.2 mmol/L (3.5-5.1); Sodium 142 mmol/L (136-145); Total Protein 6.7 g/dL (6.6-8.7)
[2024-12-19] MEDS: morphine 4 mg/mL SDV 1 mL 2 MG IVP (04:57)
[2024-12-19] MEDS: pantoprazole 40 mg SDV IVP ×2 (06:34→18:15)
[2024-12-19] MEDS: thiamine 100 mg/mL 2mL SDV 200 MG IVP ×2 (06:36→18:15)
[2024-12-19] MEDS: multivitamin therapeutic Tablet 1 TAB PO (06:39)
[2024-12-19] MEDS: magnesium sulfate premix 1 GM/100 ML PIGGYBACK IV (08:39)
[2024-12-19] MEDS: potassium phosphate (mEq K) 40 MEQ in sodium chloride 0.9% (100 ml) 100 ML 27.25 MEQ IV (08:42)
--- NOTE | 2024-12-19 11:45 | PC.NURSE ---
change management coordinator rounds- patient appears to be a bit better today. Less tremors, less facial droop. A little bit of peripheral vision disturbance in his left eye and a very weak product strategy director on the left. Brother is bedside from [place] and is able to spend a few weeks here to look after him. He had a lot of discharge questions. I answered what I could and referred him to discharge planning when they round.
--- NOTE | 2024-12-19 11:49 | PC.SOCIAL ---
IMM Updated Updated pt & his brother on IMM. No questions voiced. Provided pt a copy. Initialed, dated, & timed a copy & placed in chart.
--- NOTE | 2024-12-19 13:55 | PC.NURSE ---
Report given to ERICA Russell.
--- NOTE | 2024-12-19 14:27 | PC.NURSE ---
Transferred to Room 258 via chair. Tolerated well. RN at bedside.
--- NOTE | 2024-12-19 16:52 | P.PN_ITS ---
Subjective 2 Subjective: Patient was seen this morning, sitting up in bed, brother at bedside, alert oriented x 2, following commands, denies any fevers, chills, no cough, denies any focal weakness no facial droop no slurring his words, Vitals/I&O/Wt Last Vital Signs Temp 98.5 F 12/19/24 12:00 Pulse 92 12/19/24 13:00 Resp 23 H 12/19/24 13:00 BP 111/52 12/19/24 13:00 Pulse Ox 93 12/19/24 13:00 O2 Del Method Room Air 12/19/24 14:36 O2 Flow Rate 2 12/17/24 04:00 12/19/24 12/19/24 12/19/24 06:59 14:59 22:59 Intake Total 809.0909 / 809.0909 Output Total 800 / 1975 Balance -800 / -1082.5 809.0909 / 809.0909 Weight last 48 hrs Weight 94.7 kg Weight 94.7 kg Physical Exam 2 Const: COMMON NORMALS: no acute distress ORIENTATION/CONSCIOUSNESS: Yes awake, Yes oriented to person and Yes oriented to place; not oriented to time Eye: COMMON NORMALS: Equal, round and reactive pupils present PUPIL: Yes Equal, round and reactive pupils present Resp: COMMON NORMALS: normal respiratory effort, No retractions, No use of accessory muscles and clear to auscultation bilaterally AUSCULTATION: clear to auscultation bilaterally Cardio: COMMON NORMALS: regular rate, regular rhythm, S1 normal heart sound present and S2 normal heart sound present RATE: regular rate RHYTHM: r egular rhythm HEART SOUNDS: S1 normal heart sound present and S2 normal heart sound present GI: COMMON NORMALS: Normal to inspection, nondistended, normoactive bowel sounds present and non-tender Extremity: COMMON NORMALS: no pedal edema Neuro: SENSORIUM/ORIENTATION: Yes oriented to person, Yes oriented to place and No oriented to time Urinary Catheter Management: Brown: Cath Placed During This Visit: yes Reason for Continuing Indwelling Catheter: Accurate Measurement of Urinary Output in Critically Ill Patients Urinary Catheter Date of Insertion: 12/18/24 Urinary Catheter Time of Insertion: 04:10 Data 12/19/24 03:44 12/19/24 03:44 A&P Assessment and plan 1. Encephalopathy acute: 2. Alcohol withdrawal: 3. Pneumonia: 4. Transient ischemic attack: Plan: Concern for TIA versus CVA - Last known well normal 9:15 AM - Was not deemed a candidate for tPA given Eliquis use - NIH stroke scale was 1 - Was not deemed a candidate - CT head no acute findings Head MRI - MR/MR head wo con* [id number] IMPRESSION: Some images degraded by motion. Fast imaging protocol utilized. 1. No evidence of restricted diffusion to suggest acute ischemia. 2. Moderate small vessel changes. Moderate parenchymal volume loss. Small vessel changes in the ashley. 3. No hemosiderin on the susceptibility weighted images. 4. No other acute findings. Plan - Neurochecks - NIH stroke scale - Dysphagia eval -PT OT - Carotid artery ultrasound CONCLUSIONS Bilateral ICA stenosis less than 50%. Minimal carotid atherosclerosis. - Resume home Eliquis - Aspirin, statin Systolic CHF CONCLUSIONS 1. Normal left ventricular cavity size. Moderately decreased left ventricular systolic function, EF 40%. Moderate left ventricular hypertrophy. Grade I/IV diastolic dysfunction (abnormal relaxation filling pattern), normal to mildly elevated filling pressures. 2. Normal right ventricular size and systolic function. 3. No significant valvular abnormalities 4. Compared to echo on 11/10/2023, there is no significant change. - Diminished ejection fraction could be alcoholic cardiomyopathy versus ischemic cardiomyopathy - Plan - Aspirin, statin - Eliquis - Continue thiamine Hypertensive emergency - Off Cardene drip - Resumed home blood pressure medications Acute encephalopathy - Multifactorial - Concern for TIA - Hypertensive emergency - Component of pneumonia - Component of alcohol withdrawal Alcohol withdrawal, resolving -Warnicke's encephalopathy - IV thiamine - Monitor mentation Concerns for pneumonia -Right lower lobe infiltrate -Possible aspiration event? - Bedside swallow eval, dysphagia diet - IV Zosyn NSTEMI Cardiac cath in 2019 Conclusions 1. There is mild coronary artery disease with one vessel disease. 2. Mild left ventricular systolic dysfunction. Ejection fraction of 45%. - Serial EKGs, start troponins, telemetry monitoring - Aspirin, statin, beta-grabiel Hyperbilirubinemia, with transaminitis - CT scan abdomen pelvis CT/CT abdomen pelvis wo con [id number] IMPRESSION: 1. No acute findings. 2. Mild bilateral perinephric fat stranding is nonspecific and may be related to senescent changes. Correlate with urinalysis to exclude infection. 3. Small hiatal hernia. 4. Hepatic steatosis. 5. Mild cardiomegaly. 6. Sigmoid diverticulosis without diverticulitis. 7. Bilateral renal cysts. 8. 1.5 cm right adrenal nodule favors an adenoma. - Ammonia levels within normal limits DNR/DNI, confirmed with patient multiple times Eliquis for DVT prophylaxis Plan for today IV Zosyn, IV Lasix, PT OT, moved to medical floors, working on placement PDMP PDMP Reviewed: Not Reviewed Attestations 2 Medical Necessity Statement*: Patient requires hospitalization for TIA versus CVA, pneumonia, NSTEMI, hyperbilirubinemia, alcoholism Diagnoses Encephalopathy acute G93.40 Alcohol withdrawal F10.939 Pneumonia J18.9 Transient ischemic attack G45.9
[2024-12-19] MEDS: FUROsemide 10 mg/mL SDV 2mL 20 MG IVP (18:14)
[2024-12-20] VITALS (9 sets, daily range): BP systolic 116–152; BP diastolic 66–88; PULSE 61–77; RESP 16–20; TEMP 36.4–37.3; O2SAT 91–97
[2024-12-20] MEDS: multivitamin therapeutic Tablet 1 TAB PO (04:33)
[2024-12-20 04:54] LABS: Hematocrit 36.1 % (37-53); Hemoglobin 12.10 g/dL (11.27-16.99); Mean Corpuscular HGB Conc 33.5 g/dL (30-55); Mean Corpuscular Hemoglobin 36.1 pg (27-33); Mean Corpuscular Volume 107.8 fl (82-101); Nucleated Red Blood Cells % 0 %; Platelet Count 122 10^3/cmm (157-399); Red Blood Count 3.35 10^6/uL (3.85-5.65); White Blood Count 9.52 10^3/uL (3.29-11.43)
[2024-12-20 05:16] LABS: Alanine Aminotransferase 34 U/L (0-41); Albumin Level 3.4 g/dL (3.5-5.2); Alkaline Phosphatase 67 U/L (40-130); Anion Gap 19.3 (5-19); Aspartate Amino Transferase 48 U/L (0-40); Blood Urea Nitrogen 32 mg/dL (8-23); Calcium 8.3 mg/dL (8.5-10.5); Carbon Dioxide 22 mmol/L (22-29); Chloride 102 mmol/L (98-107); Globulin 4.1 g/dL (1.3-4.6); Glucose 89 mg/dL (65-115); Osmolality Calculated 296 mOsm/kg (285-295); Potassium 3.3 mmol/L (3.5-5.1); Sodium 140 mmol/L (136-145); Total Protein 7.5 g/dL (6.6-8.7)
[2024-12-20 05:23] LABS: Creatinine Clr Calc Pharmacy 51.0885
[2024-12-20] MEDS: thiamine 100 mg/mL 2mL SDV 200 MG IVP ×2 (06:05→18:06)
[2024-12-20] MEDS: piperacillin-tazobactam 3.375 GM in sodium chloride 0.9% (plus) 50 ML IV ×2 (06:05→12:22)
[2024-12-20] MEDS: pantoprazole 40 mg SDV IVP ×2 (06:05→17:37)
[2024-12-20] MEDS: morphine 4 mg/mL SDV 1 mL 2 MG IVP ×3 (06:12→18:06)
[2024-12-20 09:39] LABS: Vitamin B1(Thiamin) Plas/Ser 1172 nmol/L (8-30)
[2024-12-20] MEDS: polyethylene glycol 3350 Pkt 17 gm PO (10:56)
[2024-12-20 12:17] LABS: Anion Gap 22.6 (5-19); Blood Urea Nitrogen 41 mg/dL (8-23); Calcium 8.5 mg/dL (8.5-10.5); Carbon Dioxide 19 mmol/L (22-29); Chloride 100 mmol/L (98-107); Creatinine Clr Calc Pharmacy 42.0014; Glucose 110 mg/dL (65-115); Osmolality Calculated 297 mOsm/kg (285-295); Potassium 3.6 mmol/L (3.5-5.1); Sodium 138 mmol/L (136-145)
--- NOTE | 2024-12-20 17:21 | P.PN_ITS ---
Subjective 2 Subjective: Patient was seen this morning, sitting up in a chair, no fevers, no chills, no cough, does report generalized weakness, is much more alert awake, can follow all commands Vitals/I&O/Wt Last Vital Signs Temp 98.9 F 12/20/24 15:59 Pulse 77 12/20/24 15:59 Resp 16 12/20/24 12:28 BP 152/76 12/20/24 15:59 Pulse Ox 94 12/20/24 15:59 O2 Del Method Room Air 12/20/24 15:59 O2 Flow Rate 2 12/19/24 21:13 12/20/24 12/20/24 12/20/24 06:59 14:59 22:59 Intake Total 530 / 1389.0909 650 / 650 50 / 700 Output Total 550 / 550 Balance -20 / 839.0909 650 / 650 50 / 700 Weight last 48 hrs Weight 94.347 kg Weight 94.7 kg Physical Exam 2 Const: COMMON NORMALS: no acute distress ORIENTATION/CONSCIOUSNESS: Yes awake, Yes oriented to person and Yes oriented to place Resp: COMMON NORMALS: normal respiratory effort, No retractions, No use of accessory muscles and clear to auscultation bilaterally AUSCULTATION: clear to auscultation bilaterally Cardio: COMMON NORMALS: regular rate, regular rhythm, S1 normal heart sound present and S2 normal heart sound present RATE: regular rate RHYTHM: r egular rhythm HEART SOUNDS: S1 normal heart sound present and S2 normal heart sound present GI: COMMON NORMALS: Normal to inspection, nondistended, normoactive bowel sounds present and non-tender Extremity: COMMON NORMALS: no calf tenderness and no pedal edema Neuro: SENSORIUM/ORIENTATION: Yes oriented to person and Yes oriented to place Psych: COMMON NORMALS: mental status grossly normal Urinary Catheter Management: Brown: Cath Placed During This Visit: yes Reason for Continuing Indwelling Catheter: Acute Urinary Retention or Obstruction Urinary Catheter Date of Insertion: 12/18/24 Urinary Catheter Time of Insertion: 04:10 Data 12/20/24 03:02 12/20/24 11:31 A&P Assessment and plan 1. Encephalopathy acute: 2. Alcohol withdrawal: 3. Pneumonia: 4. Transient ischemic attack: Plan: Concern for TIA versus CVA - Last known well normal 9:15 AM - Was not deemed a candidate for tPA given Eliquis use - NIH stroke scale was 1 - Was not deemed a candidate - CT head no acute findings Head MRI - MR/MR head wo con* [id number] IMPRESSION: Some images degraded by motion. Fast imaging protocol utilized. 1. No evidence of restricted diffusion to suggest acute ischemia. 2. Moderate small vessel changes. Moderate parenchymal volume loss. Small vessel changes in the ashley. 3. No hemosiderin on the susceptibility weighted images. 4. No other acute findings. Plan - Neurochecks - NIH stroke scale - Dysphagia eval -PT OT - Carotid artery ultrasound CONCLUSIONS Bilateral ICA stenosis less than 50%. Minimal carotid atherosclerosis. - home Eliquis - Aspirin, statin Systolic CHF CONCLUSIONS 1. Normal left ventricular cavity size. Moderately decreased left ventricular systolic function, EF 40%. Moderate left ventricular hypertrophy. Grade I/IV diastolic dysfunction (abnormal relaxation filling pattern), normal to mildly elevated filling pressures. 2. Normal right ventricular size and systolic function. 3. No significant valvular abnormalities 4. Compared to echo on 11/10/2023, there is no significant change. - Diminished ejection fraction could be alcoholic cardiomyopathy versus ischemic cardiomyopathy - Plan - Aspirin, statin - Eliquis - Continue thiamine Hypertensive emergency - Off Cardene drip - Resumed home blood pressure medications Acute encephalopathy - Multifactorial - Concern for TIA - Hypertensive emergency - Component of pneumonia - Component of alcohol withdrawal Alcohol withdrawal, resolving -Warnicke's encephalopathy - Oral thiamine - Monitor mentation Concerns for pneumonia -Right lower lobe infiltrate -Possible aspiration event? - Bedside swallow eval, dysphagia diet - IV Zosyn NSTEMI Cardiac cath in 2019 Conclusions 1. There is mild coronary artery disease with one vessel disease. 2. Mild left ventricular systolic dysfunction. Ejection fraction of 45%. - Serial EKGs, start troponins, telemetry monitoring - Aspirin, statin, beta-grabiel Hyperbilirubinemia, with transaminitis - CT scan abdomen pelvis CT/CT abdomen pelvis wo con [id number] IMPRESSION: 1. No acute findings. 2. Mild bilateral perinephric fat stranding is nonspecific and may be related to senescent changes. Correlate with urinalysis to exclude infection. 3. Small hiatal hernia. 4. Hepatic steatosis. 5. Mild cardiomegaly. 6. Sigmoid diverticulosis without diverticulitis. 7. Bilateral renal cysts. 8. 1.5 cm right adrenal nodule favors an adenoma. - Ammonia levels within normal limits DNR/DNI, confirmed with patient multiple times Eliquis for DVT prophylaxis Plan for today creatinine has gone up to 1.7, IV fluids, PT OT PDMP PDMP Reviewed: Not Reviewed Attestations 2 Medical Necessity Statement*: Patient requires hospitalization for AGUS, deconditioning, CVA, Warnicke's encephalopathy Diagnoses Encephalopathy acute G93.40 Alcohol withdrawal F10.939 Pneumonia J18.9 Transient ischemic attack G45.9
[2024-12-21] VITALS (9 sets, daily range): BP systolic 134–155; BP diastolic 59–88; PULSE 63–97; RESP 15–20; TEMP 36.6–37.4; O2SAT 92–94
[2024-12-21 05:42] LABS: Hematocrit 32.4 % (37-53); Hemoglobin 10.90 g/dL (11.27-16.99); Mean Corpuscular HGB Conc 33.6 g/dL (30-55); Mean Corpuscular Hemoglobin 36.6 pg (27-33); Mean Corpuscular Volume 108.7 fl (82-101); Nucleated Red Blood Cells % 0 %; Platelet Count 141 10^3/cmm (157-399); Red Blood Count 2.98 10^6/uL (3.85-5.65); White Blood Count 8.96 10^3/uL (3.29-11.43)
[2024-12-21] MEDS: multivitamin therapeutic Tablet 1 TAB PO (05:53)
[2024-12-21] MEDS: pantoprazole 40 mg SDV IVP ×2 (05:54→16:14)
[2024-12-21] MEDS: thiamine 100 mg/mL 2mL SDV 200 MG IVP ×2 (05:54→16:14)
[2024-12-21 05:58] LABS: Alanine Aminotransferase 34 U/L (0-41); Albumin Level 3.1 g/dL (3.5-5.2); Alkaline Phosphatase 64 U/L (40-130); Anion Gap 17.7 (5-19); Aspartate Amino Transferase 56 U/L (0-40); Blood Urea Nitrogen 34 mg/dL (8-23); Calcium 8.2 mg/dL (8.5-10.5); Carbon Dioxide 21 mmol/L (22-29); Chloride 105 mmol/L (98-107); Creatinine Clr Calc Pharmacy 64.9112; Globulin 3.8 g/dL (1.3-4.6); Glucose 87 mg/dL (65-115); Osmolality Calculated 297 mOsm/kg (285-295); Potassium 3.7 mmol/L (3.5-5.1); Sodium 140 mmol/L (136-145); Total Protein 6.9 g/dL (6.6-8.7)
[2024-12-21] MEDS: morphine 4 mg/mL SDV 1 mL 2 MG IVP ×2 (06:03→21:56)
--- NOTE | 2024-12-21 13:03 | P.PN_ITS ---
Subjective 2 Subjective: Patient was seen this morning, brother at bedside alert oriented x 2, following all commands, denies any nausea, no vomiting, no chest pain, shortness of breath Vitals/I&O/Wt Last Vital Signs Temp 98.8 F 12/21/24 11:36 Pulse 68 12/21/24 11:36 Resp 17 12/21/24 11:36 BP 147/59 12/21/24 11:36 Pulse Ox 94 12/21/24 11:36 O2 Del Method Room Air 12/21/24 11:36 O2 Flow Rate 2 12/19/24 21:13 12/20/24 12/21/24 12/21/24 22:59 06:59 14:59 Intake Total 290 / 940 1240 / 2180 Output Total 300 / 300 Balance 290 / 940 940 / 1880 Weight last 48 hrs Weight 94.347 kg Weight 94.347 kg Physical Exam 2 Const: COMMON NORMALS: no acute distress and patient oriented x3 Resp: COMMON NORMALS: normal respiratory effort, No retractions, No use of accessory muscles and clear to auscultation bilaterally AUSCULTATION: clear to auscultation bilaterally Cardio: COMMON NORMALS: regular rate, regular rhythm, S1 normal heart sound present and S2 normal heart sound present RATE: regular rate RHYTHM: r egular rhythm HEART SOUNDS: S1 normal heart sound present and S2 normal heart sound present GI: COMMON NORMALS: Normal to inspection, nondistended, normoactive bowel sounds present and non-tender Extremity: COMMON NORMALS: no pedal edema Neuro: COMMON NORMALS: patient oriented x3 Psych: COMMON NORMALS: mental status grossly normal Urinary Catheter Management: Brown: Cath Placed During This Visit: yes, but has since been removed by the nurse Reason for Continuing Indwelling Catheter: Decision to DC Catheter Urinary Catheter Date of Insertion: 12/18/24 Urinary Catheter Time of Insertion: 04:10 Date Urinary Catheter Removed: 12/20/24 Time Urinary Catheter Discontinued: 09:30 Data 12/21/24 05:00 12/21/24 05:00 A&P Assessment and plan 1. Encephalopathy acute: 2. Alcohol withdrawal: 3. Pneumonia: 4. Transient ischemic attack: Plan: Concern for TIA versus CVA - Last known well normal 9:15 AM - Was not deemed a candidate for tPA given Eliquis use - NIH stroke scale was 1 - Was not deemed a candidate - CT head no acute findings Head MRI - MR/MR head wo con* [id number] IMPRESSION: Some images degraded by motion. Fast imaging protocol utilized. 1. No evidence of restricted diffusion to suggest acute ischemia. 2. Moderate small vessel changes. Moderate parenchymal volume loss. Small vessel changes in the ashley. 3. No hemosiderin on the susceptibility weighted images. 4. No other acute findings. Plan - Neurochecks - NIH stroke scale - Dysphagia eval -PT OT - Carotid artery ultrasound CONCLUSIONS Bilateral ICA stenosis less than 50%. Minimal carotid atherosclerosis. - home Eliquis - Aspirin, statin Systolic CHF CONCLUSIONS 1. Normal left ventricular cavity size. Moderately decreased left ventricular systolic function, EF 40%. Moderate left ventricular hypertrophy. Grade I/IV diastolic dysfunction (abnormal relaxation filling pattern), normal to mildly elevated filling pressures. 2. Normal right ventricular size and systolic function. 3. No significant valvular abnormalities 4. Compared to echo on 11/10/2023, there is no significant change. - Diminished ejection fraction could be alcoholic cardiomyopathy versus ischemic cardiomyopathy - Plan - Aspirin, statin - Eliquis - Continue thiamine Hypertensive emergency - Off Cardene drip - Resumed home blood pressure medications Acute encephalopathy - Multifactorial - Concern for TIA - Hypertensive emergency - Component of pneumonia - Component of alcohol withdrawal Alcohol withdrawal, resolving -Warnicke's encephalopathy - Oral thiamine - Monitor mentation Concerns for pneumonia -Right lower lobe infiltrate -Possible aspiration event? - Bedside swallow eval, dysphagia diet - IV Zosyn NSTEMI Cardiac cath in 2019 Conclusions 1. There is mild coronary artery disease with one vessel disease. 2. Mild left ventricular systolic dysfunction. Ejection fraction of 45%. - Serial EKGs, start troponins, telemetry monitoring - Aspirin, statin, beta-grabiel Hyperbilirubinemia, with transaminitis - CT scan abdomen pelvis CT/CT abdomen pelvis wo con [id number] IMPRESSION: 1. No acute findings. 2. Mild bilateral perinephric fat stranding is nonspecific and may be related to senescent changes. Correlate with urinalysis to exclude infection. 3. Small hiatal hernia. 4. Hepatic steatosis. 5. Mild cardiomegaly. 6. Sigmoid diverticulosis without diverticulitis. 7. Bilateral renal cysts. 8. 1.5 cm right adrenal nodule favors an adenoma. - Ammonia levels within normal limits DNR/DNI, confirmed with patient multiple times Eliquis for DVT prophylaxis Plan for today IV fluids, IV fluids, clinical monitoring PDMP PDMP Reviewed: Not Reviewed Attestations 2 Medical Necessity Statement*: Patient requires hospitalization for acute encephalopathy, CVA, systolic CHF Diagnoses Encephalopathy acute G93.40 Alcohol withdrawal F10.939 Pneumonia J18.9 Transient ischemic attack G45.9
[2024-12-21] MEDS: FUROsemide 10 mg/mL SDV 4mL 40 MG IVP (15:21)
[2024-12-22] VITALS (9 sets, daily range): BP systolic 121–151; BP diastolic 68–76; PULSE 58–73; RESP 14–18; TEMP 36.3–36.7; O2SAT 92–96
[2024-12-22] MEDS: multivitamin therapeutic Tablet 1 TAB PO (05:06)
[2024-12-22] MEDS: pantoprazole 40 mg SDV IVP (05:07)
[2024-12-22] MEDS: thiamine 100 mg/mL 2mL SDV 200 MG IVP (05:07)
[2024-12-22] MEDS: morphine 4 mg/mL SDV 1 mL 2 MG IVP (05:17)
[2024-12-22 05:45] LABS: Hematocrit 33.1 % (37-53); Hemoglobin 11.10 g/dL (11.27-16.99); Mean Corpuscular HGB Conc 33.5 g/dL (30-55); Mean Corpuscular Hemoglobin 36.8 pg (27-33); Mean Corpuscular Volume 109.6 fl (82-101); Nucleated Red Blood Cells % 0 %; Platelet Count 189 10^3/cmm (157-399); Red Blood Count 3.02 10^6/uL (3.85-5.65); White Blood Count 8.36 10^3/uL (3.29-11.43)
[2024-12-22 06:07] LABS: Alanine Aminotransferase 39 U/L (0-41); Albumin Level 3.3 g/dL (3.5-5.2); Alkaline Phosphatase 73 U/L (40-130); Anion Gap 14.2 (5-19); Aspartate Amino Transferase 66 U/L (0-40); Blood Urea Nitrogen 27 mg/dL (8-23); Calcium 8.6 mg/dL (8.5-10.5); Carbon Dioxide 25 mmol/L (22-29); Chloride 99 mmol/L (98-107); Creatinine Clr Calc Pharmacy 64.9112; Globulin 4.4 g/dL (1.3-4.6); Glucose 101 mg/dL (65-115); Osmolality Calculated 285 mOsm/kg (285-295); Potassium 3.2 mmol/L (3.5-5.1); Sodium 135 mmol/L (136-145); Total Protein 7.7 g/dL (6.6-8.7)
--- NOTE | 2024-12-22 10:54 | PC.SOCIAL ---
IMM Updated Updated pt on IMM. No questions voiced. Provided pt a copy. Initialed, dated, & timed copy in chart.
[2024-12-22] MEDS: FUROsemide 10 mg/mL SDV 2mL 20 MG IVP (11:51)
--- NOTE | 2024-12-22 12:29 | P.DS_ITS ---
Documented by User: Miky MoyaCANDICE 12/22/24 12:53 Discharge Providers Date of Admission: 12/16/24 15:35 Date of Discharge: December 22, 2024 Attending Provider at Admission: Jin Guerrero MD Attending Provider at Discharge: Jin Guerrero MD Consults: Dr. Donis, cardiology Primary Care Provider: Claudette Sanchez Diagnoses at Discharge Discharge Diagnosis 1. Encephalopathy acute: 2. Alcohol withdrawal: 3. Pneumonia: 4. Transient ischemic attack: Reason for Visit Reason for Visit: Stroke Alert Brief History: Patient is a 79M with history of alcoholism, heart failure, COPD, atrial fibrillation, chronic anticoagulation with Eliquis, and hypertension was found at home by family on 12/16/24. Last well known time was 914 seen by family. His symptoms noted by EMS was that he was laying on the ground with his pants on backwards, his right side was almost flaccid, and was able to converse. His symptoms had resolved minus some confusion by the time of his arrival to [facility]. Assessment at 1804 on 12/16/24 was a NIHSS of [address] head Ct findings. TNKase was not given. Hospital Course Hospital Course Jet Blackman is a 79 year old male with a past medical history of alcoholism, heart failure with reduced ejection fraction, atrial fibrillation, history of TIA, COPD, who presents to [facility] due to altered mental status. Currently patient is alert to person, to place, not to time he follows all commands, [id number] is at bedside, I cannot discern any facial droop no slurring of his words, no focal weakness, according to patient he has been feeling well over the last few days, no fevers, no chills, has had a cough, denies any strokelike symptoms, no chest pain, he reports his last alcohol drink was about 3 days ago, he does have diffuse tremors of his upper extremities does report a history of alcohol withdrawals, no history of alcohol withdrawal seizures, patient's last known well normal was about 9:15 AM, family had seen him then, then once he went to take a nap, when family came back he was laying on the ground, altered, when EMS arrived they had discerned that he was flaccid on the right side, but upon arrival to the emergency room, he was confused but there was no focal neurologic deficits that was discernible by ER provider, NIH stroke scale 1, his last known normal normal was 915, was not a candidate for TNKase, his NIH stroke scale was 1, head CT no acute findings, during my discussion with him, he can get most questions appropriately, but at times he is forgetful, requires redirection, and emergency room he was found to be hypertensive, he was started on a Cardene drip Concern for TIA versus CVA - Last known well normal 9:15 AM - Was not deemed a candidate for tPA given Eliquis use - NIH stroke scale was 1 - Was not deemed a candidate - CT head no acute findings Head MRI - MR/MR head wo con* [id number] IMPRESSION: Some images degraded by motion. Fast imaging protocol utilized. 1. No evidence of restricted diffusion to suggest acute ischemia. 2. Moderate small vessel changes. Moderate parenchymal volume loss. Small vessel changes in the ashley. 3. No hemosiderin on the susceptibility weighted images. Carotid artery ultrasound CONCLUSIONS Bilateral ICA stenosis less than 50%. Minimal carotid atherosclerosis. 4. No other acute findings. -Monitored as inpatient, overall clinically improved - Manage as inpatient, PT OT - Discharged on aspirin, statin, Eliquis, discharge to rehab facility Concerns for alcohol withdrawal - Management [facility] protocol as inpatient - Out of alcohol withdrawal - Discharge to alf facility Systolic CHF CONCLUSIONS 1. Normal left ventricular cavity size. Moderately decreased left ventricular systolic function, EF 40%. Moderate left ventricular hypertrophy. Grade I/IV diastolic dysfunction (abnormal relaxation filling pattern), normal to mildly elevated filling pressures. 2. Normal right ventricular size and systolic function. 3. No significant valvular abnormalities 4. Compared to echo on 11/10/2023, there is no significant change. - Diminished ejection fraction could be alcoholic cardiomyopathy versus ischemic cardiomyopathy - Discharged on aspirin, statin, Eliquis, thiamine - Advised to abstain from alcohol consumption - Follow-up with cardiology Hypertensive emergency, resolved Acute encephalopathy multifactorial from CVA versus TIA,, pneumonia, alcohol drawl, Warnicke's encephalopathy Warnicke's encephalopathy, received IV thiamine, addition p.o. thiamine Concern for pneumonia, received IV antibiotics, speech therapy eval, concern for possible aspiration, no aspiration events during this hospitalization, discharged to alf facility, needed antibiotic therapy as inpatient Physical Exam Const: COMMON NORMALS: no acute distress, patient oriented x3 and alert Eye: EOM: Yes Nystagmus present Resp: COMMON NORMALS: normal respiratory effort and clear to auscultation bilaterally AUSCULTATION: clear to auscultation bilaterally Cardio: COMMON NORMALS: regular rate, S1 normal heart sound present and S2 normal heart sound present RATE: regular rate HEART SOUNDS: S1 normal heart sound present and S2 normal heart sound present GI: COMMON NORMALS: Soft to palpation AUSCULTATION: Yes normoactive bowel sounds PALPATION: Yes Soft to palpation, Yes Firmness to palpation present (GI) and No Tenderness to palpation present (GI) Neuro: COMMON NORMALS: patient oriented x3 SENSORIUM/ORIENTATION: Yes alert Psych: COMMON NORMALS: Normal thought process present MOOD & AFFECT: Yes depressed mood THOUGHT PROCESS: Normal thought process present Urinary Catheter Management: Brown: Cath Placed During This Visit: yes, but has since been removed by the nurse Reason for Continuing Indwelling Catheter: Decision to DC Catheter Urinary Catheter Date of Insertion: 12/18/24 Urinary Catheter Time of Insertion: 04:10 Date Urinary Catheter Removed: 12/20/24 Time Urinary Catheter Discontinued: 09:30 Discharge Data Studies Completed and Pending Completed Studies During Hospitalization Category Date Time Status CT abdomen pelvis wo con [id number] Stat Cat Scan 12/17/24 08:[address] head thrombolytic [id number] Stat Cat Scan 12/16/24 12:25 Completed XR chest 1V portable [id number] Stat Exams 12/16/24 13:12 Completed XR foot RT 2V [id number] Routine Exams 12/17/24 12:26 Completed MR head wo con* [id number] Routine MRI 12/18/24 12:44 Completed CV carotid duplex BI* [id number] Routine Ultrasound 12/17/24 18:49 Completed CV. echo complete* [id number] Routine Ultrasound 12/17/24 18:49 Completed Radiology Impressions Head CT 12/16/24 12:25 IMPRESSION: 1. No acute intracranial hemorrhage or edema. 2. Mild cerebral and cerebellar atrophy and small vessel disease. Notified Magui Gamino MD at 12/16/2024 12:51 PM. Chest X-Ray 12/16/24 13:12 IMPRESSION: Presumed resolution of early pulmonary edema/congestive heart failure in the right lower lung field. Interval development of new abnormality in the left lower chest which could represent atelectasis and pleural effusion. An acute/subacute pneumonitis cannot be excluded. Abdomen/Pelvis CT 12/17/24 08:00 IMPRESSION: 1. No acute findings. 2. Mild bilateral perinephric fat stranding is nonspecific and may be related to senescent changes. Correlate with urinalysis to exclude infection. 3. Small hiatal hernia. 4. Hepatic steatosis. 5. Mild cardiomegaly. 6. Sigmoid diverticulosis without diverticulitis. 7. Bilateral renal cysts. 8. 1.5 cm right adrenal nodule favors an adenoma. COMMENTS: 1. Consistent with the [employer]'s Incidental Findings Committee white paper ([employer]iol 2017): For any incidental adrenal lesion greater than or equal to 1 cm but less than or equal to 4 cm classified in this report as benign, likely benign, or containing fat (including classification as an adenoma or myelolipoma), no follow-up imaging is recommended per consensus recommendations based on imaging criteria. Further lab evaluation could be pursued if warranted based on clinical findings. 2. Consistent with the [employer]'s Incidental Findings Committee white paper ([employer]iol 2018): Any incidental renal lesion less than 1 cm or classified as too small to characterize, or any incidental cystic renal lesion characterized as simple-appearing, is likely benign. No follow-up imaging is recommended for these lesions per consensus recommendations based on imaging criteria. 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 Head MRI 12/18/24 12:44 IMPRESSION: Some images degraded by motion. Fast imaging protocol utilized. 1. No evidence of restricted diffusion to suggest acute ischemia. 2. Moderate small vessel changes. Moderate parenchymal volume loss. Small vessel changes in the ashley. 3. No hemosiderin on the susceptibility weighted images. 4. No other acute findings. Laboratory Results WBC 8.36 10^3/uL (3.29-11.43) 12/22/24 04:57 RBC 3.02 10^6/uL (3.85-5.65) L 12/22/24 04:57 Hgb 11.10 g/dL (11.27-16.99) L 12/22/24 04:57 Hct 33.1 % (37-53) L 12/22/24 04:57 MCV 109.6 fl (82-101) H 12/22/24 04:57 MCH 36.8 pg (27-33) H 12/22/24 04:57 MCHC 33.5 g/dL (30-55) 12/22/24 04:57 RDW 15.2 % (12.1-15.1) H 12/22/24 04:57 Plt Count 189 10^3/cmm (157-399) D 12/22/24 04:57 MPV 12.4 fL (7.4-10.4) H 12/22/24 04:57 Neut % (Auto) 69.4 % 12/22/24 04:57 Lymph % (Auto) 8.7 % 12/22/24 04:57 [place] % (Auto) 20.0 % 12/22/24 04:57 Eos % (Auto) 1.2 % 12/22/24 04:57 Baso % (Auto) 0.2 % 12/22/24 04:57 Neut # (Auto) 5.80 10^3/uL (1.8-7.7) 12/22/24 04:57 Lymph # (Auto) 0.7 10^3/uL (0.8-4.8) L 12/22/24 04:57 [place] # (Auto) 1.7 10^3/uL (0.2-0.9) H 12/22/24 04:57 Eos # (Auto) 0.1 10^3/uL (0.0-0.8) 12/22/24 04:57 Baso # (Auto) 0.0 10^3/uL (0.0-0.1) 12/22/24 04:57 Nucleated RBC % (auto) 0 % 12/22/24 04:57 Nucleated RBCs # 0.0 /100WBC 12/22/24 04:57 PT 18.50 SECONDS (12.1-14.9) H 12/19/24 03:44 INR 1.44 (0.8-1.2) H 12/19/24 03:44 APTT 40.2 SECONDS (23.9-36.7) H 12/19/24 03:44 Specimen Type Arterial 12/16/24 21:00 Sample Site Radial, right 12/16/24 21:00 ABG pH 7.46 (7.35-7.45) H 12/16/24 21:00 ABG pCO2 34.7 mmHg (35-45) L 12/16/24 21:00 ABG pO2 70.1 mmHg (80.0-100.0) L 12/16/24 21:00 ABG PO2/FiO2 Ratio 333 12/16/24 21:00 ABG HCO3 24.6 mmol/L (22-26) 12/16/24 21:00 ABG Base Excess 1.1 mmol/L (-2.0-2.0) 12/16/24 21:00 Jonathan Test Pos 12/16/24 21:00 Hematocrit 41.0 % (42-52) L 12/16/24 21:00 O2 Delivery Device None 12/16/24 21:00 FiO2 21.0 % 12/16/24 21:00 Shirt Ironer ID Frank 12/16/24 21:00 Sodium 135 mmol/L (136-145) L 12/22/24 04:57 Potassium 3.2 mmol/L (3.5-5.1) L 12/22/24 04:57 Chloride 99 mmol/L (98-107) 12/22/24 04:57 Carbon Dioxide 25 mmol/L (22-29) 12/22/24 04:57 Anion Gap 14.2 (5-19) 12/22/24 04:57 BUN 27 mg/dL (8-23) H 12/22/24 04:57 Creatinine 1.1 mg/dL (0.7-1.2) 12/22/24 04:57 GFR Calculation Not Reportable 12/22/24 04:57 Glucose 101 mg/dL (65-115) 12/22/24 04:57 POC Glucose 90 mg/dL (70-110) 12/17/24 17:56 Estimat Average Glucose 97 12/16/24 12:58 Hemoglobin A1c 5.0 % (4.0-6.0) 12/16/24 12:58 Calculated Osmolality 285 mOsm/kg (285-295) 12/22/24 04:57 Lactic Acid 2.6 mmol/L (0.5-2.2) H 12/16/24 12:58 Lactic Acid (Sepsis) 1.4 mmol/L (0.5-2.2) 12/16/24 15:30 Calcium 8.6 mg/dL (8.5-10.5) 12/22/24 04:57 Phosphorus 2.8 mg/dL (2.5-4.5) 12/19/24 03:44 Magnesium 1.3 mg/dL (1.7-2.3) L 12/19/24 03:44 Total Bilirubin 0.9 mg/dL (0.15-1.2) 12/22/24 04:57 AST 66 U/L (0-40) H 12/22/24 04:57 ALT 39 U/L (0-41) 12/22/24 04:57 Alkaline Phosphatase 73 U/L (40-130) 12/22/24 04:57 Ammonia 31 umol/L (16-60) 12/16/24 13:52 Troponin T 5th Gen ng/L 48 ng/L (0-15) H 12/17/24 04:27 Troponin T Baseline 50 ng/L (0-15) H 12/16/24 12:58 Troponin T 120 Minute 58.73 ng/L (0-15) H 12/16/24 14:25 Delta Troponin T 8.73 ABS# (0-10) 12/16/24 14:25 Troponin T Hi Sens 6Hr 62.47 ng/L (0-15) H 12/16/24 18:58 Troponin T Hi Sens 6Hr Delta 12.47 ng/L (0-12) H* 12/16/24 18:58 NT-Pro-B Natriuret Pep 2188 pg/mL (0-450) H 12/17/24 04:27 Total Protein 7.7 g/dL (6.6-8.7) 12/22/24 04:57 Albumin 3.3 g/dL (3.5-5.2) L 12/22/24 04:57 Globulin 4.4 g/dL (1.3-4.6) 12/22/24 04:57 Triglycerides 120 mg/dL (0-150) 12/16/24 18:58 Cholesterol 241 mg/dL (0-200) H 12/16/24 18:58 LDL Cholesterol, Calc 143 mg/dL (50-129) H 12/16/24 18:58 HDL Cholesterol 74 mg/dL (60-100) 12/16/24 18:58 LDL/HDL Ratio 1.93 RATIO (0.00-3.22) 12/16/24 18:58 Cholesterol/HDL Ratio 3.26 mg/dL (1.0-5.00) 12/16/24 18:58 Vitamin B1 1172 nmol/L (8-30) H 12/17/24 04:27 Vitamin B12 333 pg/mL (232-1245) 12/16/24 18:58 Folate 5.7 ng/mL (4.5-32.2) 12/16/24 12:58 Procalcitonin 0.13 ng/mL (0-0.5) 12/16/24 18:58 TSH 1.16 uIU/mL (0.27-4.20) 12/16/24 18:58 Urine Color Dark yellow (Yellow) A 12/16/24 14:44 Urine Appearance Clear (CLEAR) 12/16/24 14:44 Urine pH 6.0 (5-7) 12/16/24 14:44 Ur Specific [place] 1.022 (1.005-1.030) 12/16/24 14:44 Urine Protein 3+ (Negative) A 12/16/24 14:44 Urine Glucose (UA) Negative (Normal) 12/16/24 14:44 Urine Ketones 2+ (Negative) H 12/16/24 14:44 Urine Blood 2+ (Negative) A 12/16/24 14:44 Urine Nitrate Negative (Negative) 12/16/24 14:44 Urine Bilirubin 1+ (Negative) H 12/16/24 14:44 Urine Urobilinogen 2.0 mg/dL (Negative) H 12/16/24 14:44 Ur Leukocyte Esterase Negative (Negative) 12/16/24 14:44 Urine RBC 6-10 /hpf (0-2) 12/16/24 14:44 Urine WBC 0-5 /hpf (0-5) 12/16/24 14:44 Ur Squamous Epith Cells 0-5 /hpf (0-5) 12/16/24 14:44 Amorphous Sediment Not Reportable 12/16/24 14:44 Urine Bacteria None seen /hpf (NONE) 12/16/24 14:44 Hyaline Casts 7.42 /lpf 12/16/24 14:44 Urine Opiates Screen Negative ng/mL (Negative) 12/16/24 14:44 Ur Barbiturates Screen Negative ng/mL (Negative) 12/16/24 14:44 Ur Phencyclidine Scrn Negative ng/mL (Negative) 12/16/24 14:44 Ur Amphetamines Screen Negative ng/mL (Negative) 12/16/24 14:44 U Benzodiazepines Scrn Negative ng/mL (Negative) 12/16/24 14:44 Urine Cocaine Screen Negative ng/mL (Negative) 12/16/24 14:44 U Marijuana (THC) Screen Negative ng/mL (Negative) 12/16/24 14:44 Ethyl Alcohol < 10 mg/dL (0-10) 12/16/24 12:58 Influenza A (PCR) Negative (Negative) 12/16/24 15:10 Influenza Type B (PCR) Negative (Negative) 12/16/24 15:10 RSV (PCR) Negative (Negative) 12/16/24 15:10 SARS-CoV-2 (PCR) Negative (Negative) 12/16/24 15:10 Vitals Last Vital Signs Temp 98.0 F 12/22/24 11:39 Pulse 62 12/22/24 11:39 Resp 18 12/22/24 11:39 BP 151/71 12/22/24 11:39 Pulse Ox 93 12/22/24 11:39 O2 Del Method Room Air 12/22/24 11:39 O2 Flow Rate 2 12/19/24 21:13 Discharge Plan Discharge Patient Disposition: Xfer SNF Condition: Stable Prescriptions: New atorvastatin 40 mg Tablet 40 mg PO BEDTIME 30 Days Qty: 30 0RF aspirin 81 mg Tablet,Delayed Release (Dr/Ec) 81 mg PO DAILY 30 Days Qty: 30 0RF amlodipine 10 mg Tablet 10 mg PO DAILY 30 Days Qty: 30 0RF metoprolol tartrate 50 mg Tablet 25 mg PO BID 30 Days Qty: 30 0RF folic acid 1 mg Tablet 1 mg PO DAILY 30 Days Qty: 30 0RF potassium chloride [Klor-Con M20] 20 mEq tablet,ER particles/crystals 20 meq PO DAILY 30 Days Qty: 30 0RF thiamine HCl (vitamin B1) 100 mg tablet 100 mg PO DAILY 30 Days Qty: 30 0RF Continued nitroglycerin 0.4 mg tablet, sublingual 0.4 mg SUBLINGUAL Q5M PRN (Reason: chest pain) Qty: 25 2RF Rx Instructions: do not exceed 3 doses per episode furosemide 40 mg tablet 40 mg PO DAILY@0800 Qty: 45 0RF cholecalciferol (vitamin D3) [Vitamin D3] 25 mcg (1,000 unit) Tablet,Chewable 25 mcg PO DAILY ascorbic acid (vitamin C) [Vitamin C] 500 mg Tablet 500 mg PO DAILY apixaban 5 mg tablet 5 mg PO BID Qty: 60 0RF Changed amiodarone [Pacerone] 200 mg Tablet See Rx Instructions .ROUTE .COMPLEX Qty: 60 0RF Rx Instructions: 200mg bid for 5 days, followed by 200mg daily Discontinued metoprolol tartrate 100 mg tablet 100 mg PO BID Qty: 60 0RF Discharge Order = DC NOW: Discharge Order (Routine); Ordered 12/22/24 Ordered By: Jin Guerrero Referrals: [facility] [Outside] Kiersten Carreon MD [Physician, Neurology] - 03/30/25 1:00 pm Referral Note: We have notified your physician's clinic of the need for a follow-up appointment to be scheduled. If you have not heard from them within the next 2 business days, please call them directly. Mirtha Garces MD [Physician, Cardiology] - 12/29/24 3:30 pm Claudette Sanchez PA [Primary Care Provider, Physicians Physician Practice Coordinator] Discharge Diet: Cardiac Discharge Activity: Resume usual activity Patient Instructions: Opioid Safety, Patient Portal & Prosper Instructions Activity Restrictions/Additional Instructions: - For your stroke please follow-up with Dr. Carreon - If any strokelike symptoms please call 911 - Please follow-up with primary care - Follow-up with cardiology - If any chest pain go to the emergency room Discharge Attestations Status at Discharge: Cognitive status at discharge: cognitively intact , Behavioral status at discharge: cooperative , Coding Level of Care Code 49243 Diagnoses Encephalopathy acute G93.40 Alcohol withdrawal F10.939 Pneumonia J18.9 Transient ischemic attack G45.9 Documented by User: Jin Guerrero MD 12/30/24 11:41 Diagnoses at Discharge Discharge Diagnosis 1. Encephalopathy acute: 2. Alcohol withdrawal: 3. Pneumonia: 4. Transient ischemic attack: Reason for Visit Reason for Visit: Stroke Alert Hospital Course Hospital Course Jet Blackman is a 79 year old male with a past medical history of alcoholism, heart failure with reduced ejection fraction, atrial fibrillation, history of TIA, COPD, who presents to [facility] due to altered mental status. Currently patient is alert to person, to place, not to time he follows all commands, [id number] is at bedside, I cannot discern any facial droop no slurring of his words, no focal weakness, according to patient he has been feeling well over the last few days, no fevers, no chills, has had a cough, denies any strokelike symptoms, no chest pain, he reports his last alcohol drink was about 3 days ago, he does have diffuse tremors of his upper extremities does report a history of alcohol withdrawals, no history of alcohol withdrawal seizures, patient's last known well normal was about 9:15 AM, family had seen him then, then once he went to take a nap, when family came back he was laying on the ground, altered, when EMS arrived they had discerned that he was flaccid on the right side, but upon arrival to the emergency room, he was confused but there was no focal neurologic deficits that was discernible by ER provider, NIH stroke scale 1, his last known normal normal was 915, was not a candidate for TNKase, his NIH stroke scale was 1, head CT no acute findings, during my discussion with him, he can get most questions appropriately, but at times he is forgetful, requires redirection, and emergency room he was found to be hypertensive, he was started on a Cardene drip Concern for TIA versus CVA - Last known well normal 9:15 AM - Was not deemed a candidate for tPA given Eliquis use - NIH stroke scale was 1 - Was not deemed a candidate - CT head no acute findings Head MRI - MR/MR head wo con* [id number] IMPRESSION: Some images degraded by motion. Fast imaging protocol utilized. 1. No evidence of restricted diffusion to suggest acute ischemia. 2. Moderate small vessel changes. Moderate parenchymal volume loss. Small vessel changes in the ashley. 3. No hemosiderin on the susceptibility weighted images. Carotid artery ultrasound CONCLUSIONS Bilateral ICA stenosis less than 50%. Minimal carotid atherosclerosis. 4. No other acute findings. -Monitored as inpatient, overall clinically improved - Manage as inpatient, PT OT - Discharged on aspirin, statin, Eliquis, discharge to rehab facility Concerns for alcohol withdrawal - Management CINV protocol as inpatient - Out of alcohol withdrawal - Discharge to alf facility Systolic CHF CONCLUSIONS 1. Normal left ventricular cavity size. Moderately decreased left ventricular systolic function, EF 40%. Moderate left ventricular hypertrophy. Grade I/IV diastolic dysfunction (abnormal relaxation filling pattern), normal to mildly elevated filling pressures. 2. Normal right ventricular size and systolic function. 3. No significant valvular abnormalities 4. Compared to echo on 11/10/2023, there is no significant change. - Diminished ejection fraction could be alcoholic cardiomyopathy versus ischemic cardiomyopathy - Discharged on aspirin, statin, Eliquis, thiamine - Advised to abstain from alcohol consumption - Follow-up with cardiology Hypertensive emergency, resolved Acute encephalopathy multifactorial from CVA versus TIA,, pneumonia, alcohol drawl, Warnicke's encephalopathy Warnicke's encephalopathy, received IV thiamine, addition p.o. thiamine Concern for pneumonia, received IV antibiotics, speech therapy eval, concern for possible aspiration, no aspiration events during this hospitalization, discharged to alf facility, needed antibiotic therapy as inpatient Physical Exam Urinary Catheter Management: Brown: Cath Placed During This Visit: yes, but has since been removed by the nurse Discharge Plan Discharge Patient Disposition: Xfer SNF Condition: Stable Prescriptions: New atorvastatin 40 mg Tablet 40 mg PO BEDTIME 30 Days Qty: 30 0RF aspirin 81 mg Tablet,Delayed Release (Dr/Ec) 81 mg PO DAILY 30 Days Qty: 30 0RF amlodipine 10 mg Tablet 10 mg PO DAILY 30 Days Qty: 30 0RF metoprolol tartrate 50 mg Tablet 25 mg PO BID 30 Days Qty: 30 0RF folic acid 1 mg Tablet 1 mg PO DAILY 30 Days Qty: 30 0RF potassium chloride [Klor-Con M20] 20 mEq tablet,ER particles/crystals 20 meq PO DAILY 30 Days Qty: 30 0RF thiamine HCl (vitamin B1) 100 mg tablet 100 mg PO DAILY 30 Days Qty: 30 0RF Continued nitroglycerin 0.4 mg tablet, sublingual 0.4 mg SUBLINGUAL Q5M PRN (Reason: chest pain) Qty: 25 2RF Rx Instructions: do not exceed 3 doses per episode furosemide 40 mg tablet 40 mg PO DAILY@0800 Qty: 45 0RF cholecalciferol (vitamin D3) [Vitamin D3] 25 mcg (1,000 unit) Tablet,Chewable 25 mcg PO DAILY ascorbic acid (vitamin C) [Vitamin C] 500 mg Tablet 500 mg PO DAILY apixaban 5 mg tablet 5 mg PO BID Qty: 60 0RF Changed amiodarone [Pacerone] 200 mg Tablet See Rx Instructions .ROUTE .COMPLEX Qty: 60 0RF Rx Instructions: 200mg bid for 5 days, followed by 200mg daily Discontinued metoprolol tartrate 100 mg tablet 100 mg PO BID Qty: 60 0RF Discharge Order = DC NOW: Discharge Order (Routine); Ordered 12/22/24 Ordered By: Jin Guerrero Referrals: [facility] [Outside] Kiersten Carroen MD [Physician, Neurology] - 03/30/25 1:00 pm Referral Note: We have notified your physician's clinic of the need for a follow-up appointment to be scheduled. If you have not heard from them within the next 2 business days, please call them directly. Mirtha Garces MD [Physician, Cardiology] - 12/29/24 3:30 pm Claudette Sanchez PA [Primary Care Provider, Physicians Physician Practice Coordinator] Discharge Diet: Cardiac Discharge Activity: Resume usual activity Patient Instructions: Opioid Safety, Patient Portal & [facility] Instructions Activity Restrictions/Additional Instructions: - For your stroke please follow-up with Dr. Carreon - If any strokelike symptoms please call 911 - Please follow-up with primary care - Follow-up with cardiology - If any chest pain go to the emergency room Discharge Attestations Time Spent in Discharge Care*: greater than 30 min Quality Metrics Clinical Quality Measures [ No reported AMI, CVA or VTE this stay] Coding Level of Care Code 64354 Total time (in minutes) for Discharge: 45 Diagnoses Encephalopathy acute G93.40 Alcohol withdrawal F10.939 Pneumonia J18.9 Transient ischemic attack G45.9
--- NOTE | 2024-12-22 14:39 | PC.NURSE ---
Called report to Cortney Diaz LPN at [facility]
--- NOTE | 2024-12-22 14:51 | PC.NURSE ---
coding quality coordinator rounds at 1015- gave patient and brother stroke education book and went through it together. Patient is doing much better after the weekend. 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 His hands didn't shake at all during my visit. His speech is more fluid. He is AO x 3. Conversation did not seem to be confused at all. Brother is here for a couple of weeks to see that he gets things situated for care after the hospital.
== END 2024-12-22 15:25 | disposition skilled nursing facility (03) | DRG 280 ==
LOC: ER 15:16 → ICU 15:35 → MEDSURG 12-19 14:19
PROVIDERS: Student in an Organized Health Care Education/Training Program; Admitting Provider Family Medicine; Emergency Provider Emergency Medicine; PCP Physician Assistant; Visit Provider Family Medicine
DX: I16.0 Hypertensive urgency (principal); J18.9 Pneumonia, unspecified organism; I21.A1 Myocardial infarction type 2; G45.9 Transient cerebral ischemic attack, unspecified; F10.239 Alcohol dependence with withdrawal, unspecified; E51.2 Wernicke's encephalopathy; J44.0 Chronic obstructive pulmonary disease with (acute) lower respiratory infection; I50.22 Chronic systolic (congestive) heart failure; I11.0 Hypertensive heart disease with heart failure; I48.91 Unspecified atrial fibrillation; G47.33 Obstructive sleep apnea (adult) (pediatric); E80.6 Other disorders of bilirubin metabolism; I25.10 Atherosclerotic heart disease of native coronary artery without angina pectoris; Z66 Do not resuscitate; I25.2 Old myocardial infarction; Z79.01 Long term (current) use of anticoagulants; Z86.73 Personal history of transient ischemic attack (TIA), and cerebral infarction without residual deficits; Z85.118 Personal history of other malignant neoplasm of bronchus and lung; Z90.2 Acquired absence of lung [part of]; Z87.891 Personal history of nicotine dependence
CPT/HCPCS: 36415; 36416; 36600; 51702; 70450; 70551; 71045; 73620; 74176; 80048; 80053; 80061; 80306; 80307; 81001; 82140; 82607; 82746; 82803; 82962; 83036; 83605; 83735; 83880; 84100; 84145; 84425; 84443; 84484; 85025; 85610; 85730; 87040; 87637; 92507; 92523; 92526; 92610; 93005; 93306; 93880; 94640; 94664; 96366; 96367; 97110; 97116; 97162; 97167; 97530; 97535; 99285; J0360; J1938; J2020; J2060; J2185; J2270; J2404; J2470; J2543; J3411; J3475; J3490; J7030; J7040; J9999

== ENCOUNTER 2025-02-27 00:01 | Emergency (ER) | payer MEDICARE, OTHER, SELFPAY ==
--- OUTSIDE RECORDS SUMMARY | 2025-01-01 07:30 | XMS_ITS | Encounter Summary ---
Author Name [facility] [place] [facility] [place] Address [address] [place] [address] Care Team Providers Care Account Installer Name Role Phone IVANIA CARTER Primary Care Provider Unavailabl e Insurance Providers: All historical and current Section Date Range: From patient's date of to the date document was created. This section includes the names of all active insurance providers for the patient. Insurance Provider Type of Coverage Plan Name Start of Policy Coverage End of Policy Coverage Group Number Member ID Insurance Provider's Telephone Number Policy Borrego's Name Patient's Relationship to Policy Borrego MEDICARE (WNR) MEDICARE (M) PART A Jun 04, 2011 PART A [id number] NICK PARKER PATIENT MEDICARE (WNR) MEDICARE (M) PART B Jun 04, 2011 PART B [id number] [phone] NICK PARKER PATIENT Selected Encounter This section includes the information on record at [place] for the Encounter. Date/Time Encounter Type Encounter Description Reason Provider Source Jan 01, 2025 01:30 PM OFFICE O/P EST MOD 30 MIN PRIMARY CARE/MEDICINE ICD-10-CM I63.9 Cerebral infarction, unspecified IVANIA CARTER III [facility] Encounter Template Text not used by [facility] Assessments - Encounter Diagnoses This section includes the primary and secondary diagnoses documented for the Encounter. Date/Time Primary/Secondary Diagnosis Diagnosis Name Provider Source Jan 02, 2025 10:49 AM PRIMARY Cerebral infarction, unspecified IVANIA CARTER III [facility] Jan 02, 2025 10:49 AM SECONDARY Unspecified atrial fibrillation IVANIA CARTER III [facility] Plan of Treatment: Future Appointments (+ 6 months) and Future Tests (+/- 45 days) The Plan of Treatment section includes future care activities for the patient from all [place] [facility]. This section includes future appointments and future orders which are active, pending or scheduled. Future Appointments This section includes appointments that were scheduled to occur 6 months from the date of the Encounter, up to a maximum of 20 appointments. The data comes from all [place] treatment facilities. Appointment Date/Time Appointment Type Appointme nt Facility Name Jan 07, 2025 09:30 AM AMBULATORY - MEDICINE [facility] Jan 07, 2025 09:31 AM [facility] [place]IC[place] [facility] Feb 09, 2025 02:00 PM AMBULATORY - MEDICINE [facility] Feb 09, 2025 02:01 PM AMBUL[facility]ORY - MEDIC[facility] [place] [facility] Mar 11, 2025 10:30 AM AMBULATORY - MEDICINE [facility] Mar 11, 2025 10:31 AM [facility] - MEDICINE [facility] Lab Results: +/- 30 days of the encounter This section includes the Chemistry and Hematology Lab Results on record with [place] for the patient. Radiology Reports and Pathology Reports are provided separately, in subsequent sections. Lab Results This section contains the Chemistry/Hematology Results that were resulted 30 days before or 30 daysafter the date of the Encounter. Date/Time Source Result Type Result - Unit Interpretation Reference Range Specimen Type Comment Dec 29, 2024 12:23 PM [facility] MAGNESIUM PLASMA Specimen Type: PLASMA No comment entered. Ordering Provider: IVANIA CARTER III Report Released Date/Time: Dec 29, 2024 12:23 PM Reporting Lab: [place] [facility] [address] [place] [address] Performing Lab: [place] [facility] [address] [place] [address] MAGNESIUM 1.73 mg/dL 1.6-2.6 Dec 29, 2024 12:23 PM [facility] URINALYSIS W/O REFLEX CX (STL-PB) URINE Speci men Type: URINE No comment entered. Ordering Provider: IVANIA CARTER III Report Released Date/Time: Dec 29, 2024 12:23 PM Reporting Lab: [place] [facility] [address] [facility] [place] [address] Performing Lab: [place] [address] [facility] [place] [address] URINE COLOR Yellow Yellow U.BILIRUBIN NEGATIVE mg/dL Negative U.PH 6.0 5.0-8.0 URINE WBC/HPF 1 /[HPF] 0-5 APPEARANCE TURBID H Clear U.NITRITE NEGATIVE mg/dL Negative SQUAMOUS EPITH. 2 /[HPF] 0-5 MUCUS RARE /[LPF] Negative-Rare HYALINE CASTS 6 /[LPF] H 0-5 AMORPHOUS CRYSTALS RARE /[HPF] Negative- Rare URN.GLUCOSE NORMAL mg/dL Negative URN.PROTEIN NEGATIVE mg/dL URN.UROBILINOGEN 2.0 mg/dL H Normal URN.BLOOD NEGATIVE mg/dL Negative-Trace URN.KETONES NEGATIVE mg/dL Negative-Trac e URN.LEUK.EST. NEGATIVE Negative-Trace URN.SPECIFIC GRAVITY 1.023 1.005-1.029 Dec 29, 2024 12:23 PM [facility] CBC BLOOD Specimen Type: BLOOD Comment: MPV Suspect Result. Interpret result with other clinical findings. See PLT Smear Estimate. Ordering Provider: IVANIA CARTER III Report Released Date/Time: Dec 29, 2024 12:23 PM Reporting Lab: [facility] [address] [facility] [place] [address] Performing Lab: [facility] [address] [facility] [place] [address] WBC 11.8 10*3/uL H 3.6-11.2 RBC 3.26 10*6/uL L 4.10-5.70 HGB 11.6 g/dL L 13.1-16.8 HCT 35.3 L 38.2-48.4 MCV 108.3 fL H 80.0-100.0 MCH 35.6 pg H 27.0-34.0 MCHC 32.9 g/dL L 33.0-36.0 PLT 425 10*3/uL H 150-400 MPV >13.0 fL H 7.5-11.2 PLT. (SMEAR EST.) INCREASED ADEQUATE RDW 15.2 H 11.8-15.1 LYMPHOCYTES, AUTO % 15.0 MONOCYTES, AUTO % 8.3 NEUTROPHILS, AUTO % 74.8 EOSINOPHILS, AUTO % 0.3 BASOPHILS, AUTO % 0.3 LYMPHOCYTES, ABSOLUTE 1.77 10*3/uL 0.77- 4.50 MONOCYTES, ABSOLUTE 0.98 10*3/uL H 0.19-0. 8 NEUTROPHILS, ABSOLUTE 8.80 10*3/uL H 2.10- 8.00 EOSINOPHILS, ABSOLUTE 0.03 10*3/uL 0.00- 0.60 BASOPHILS, ABSOLUTE 0.04 10*3/uL 0.00-0. 20 IMMATURE PLT FRACTION 11.4 H 1.0-7.0 IMMATURE GRANS, AUTO % 1.3 IMMATURE GRANS, AUTO ABS 0.15 10*3/uL H 0. 00-0.05 GIANT THROMBOCYTE 2+ NORMRBC YES SCRNPERF YES Dec 29, 2024 12:23 PM [facility] COMPREHENSIVE METABOLIC PANEL PLASMA Specimen Type: PLASMA No comment entered. Ordering Provider: IVANIA CARTER III Report Released Date/Time: Dec 29, 2024 12:23 PM Reporting Lab: [place] [facility] [address] [place] [facility] [address] Performing Lab: [place] [facility] [address] [facility] [facility] [address] CREATININE 1.39 mg/dL H 0.7-1.3 UREA NITROGEN 33 mg/dL H 9-25 GLUCOSE 82 mg/dL 72-99 SODIUM 142 meq/L 136-145 POTASSIUM 4.9 meq/L 3.5-5 CHLORIDE 107 meq/L 98-107 CARBON DIOXIDE 26 meq/L 22-31 CALCIUM 8.7 mg/dL 8.4-10.4 PROTEIN 7.6 g/dL 6-8.6 ALBUMIN 3.6 g/dL 3.4-5 TOTAL BILIRUBIN 0.5 mg/dL 0.2-1.2 ALKALINE PHOSPHATASE 77 U/L 40-150 AST/SGOT 98 U/L H 5-34 ALT/SGPT 81 U/L H 8-40 EGFR (CKD-EPI 2020) 52 Dec 29, 2024 12:23 PM [facility] [place] [facility] B12 SERUM Specimen Type: SERUM No comment entered. Ordering Provider: IVANIA CARTER III Report Released Date/Time: Dec 29, 2024 12:23 PM Reporting Lab: [place] [facility] [address] [place] [address] Performing Lab: [place] [facility] [address] [place] [address] B12 391 pg/mL 213-816 Dec 29, 2024 12:23 PM [facility] [place] [facility] FOLATE (PB) SERUM Specimen Typ e: SERUM No comment entered. Ordering Provider: IVANIA CARTER III Report Released Date/Time: Dec 29, 2024 12:23 PM Reporting Lab: [place] [facility] [address] [place] [address] Performing Lab: [place] [facility] [address] [place] [address] FOLATE (PB) 16.7 ng/mL 7-20 Dec 29, 2024 12:23 PM [facility] [place] [facility] HGA1C BLOOD Specimen Type: BLOOD No comment entered. Ordering Provider: IVANIA CARTER III Report Released Date/Time: Dec 29, 2024 12:23 PM Reporting Lab: [place] [facility] [address] [place] [address] Performing Lab: [place] [facility] [address] [place] [address] HGA1C 5.4 4.0-6.0 Dec 29, 2024 12:23 PM [facility] VITAMIN D, 25-HYDROXY SERUM Specimen Type: SE RUM No comment entered. Ordering Provider: IVANIA CARTER III Report Released Date/Time: Dec 29, 2024 12:23 PM Reporting Lab: [place] [facility] [address] [place] [address] Performing Lab: [place] [facility] [address] [place] [address] VITAMIN D, 25-HYDROXY 12.7 ng/mL L 30-96 Dec 29, 2024 12:23 PM [facility] CHOLESTEROL PANEL (PB) PLASMA Specimen Type: P LASMA No comment entered. Ordering Provider: IVANIA CARTER III Report Released Date/Time: Dec 29, 2024 12:23 PM Reporting Lab: [place] [facility] [address] [place] [address] Performing Lab: [place] [facility] [address] [place] [address] CHOLESTEROL 149 mg/dL 0-200 TRIGLYCERIDE 121 mg/dL 0-150 CALCULATED LDL 94.6 mg/dL HDL(New) 30.2 mg/dL L >40 HDL % OF TOTAL CHOLESTEROL (PB) 20.3 >25 Dec 29, 2024 12:23 PM [facility] TSH (MA-PB) SERUM Specimen Typ e: SERUM No comment entered. Ordering Provider: IVANIA CARTER III Report Released Date/Time: Dec 29, 2024 12:23 PM Reporting Lab: [place] [facility] [address] [place] [address] Performing Lab: [place] [facility] [address] [address] TSH 1.688 u[IU]/mL 0.47-5 Vital Signs: All taken on the encounter date This section contains inpatient and outpatient Vital Signs collected on the date of the Encounter. Date/Time Temperature Pulse Blood Pressure Respiratory Rate SP02 Pain Height Weight Body Mass Index Source Jan 01, 2025 12:01 PM 98 F 48 /min 116/64 mm[Hg] 20 /min 97 % 0 209.9 lb 29 [facility] Social History: Smoking Status (Most current) and Tobacco Use (All prior to encounter date) This section includes the most current, and the historical, smoking and tobacco- related health factors from the [place] facility where the Encounter took place. Current Smoking Status This section includes the most current smoking, or tobacco-related health factor, from the [place] facility where the Encounter took place. Date/Time Current Smoking Status Comment Facil ity Aug 20, 2023 09:30 AM [place]-TOBACCO FORMER USER [facility] Tobacco Use History This section includes a history of the smoking, or tobacco-related health factors, that were collected on or before the date of the Encounter. The data comes from the [place] facility where the Encounter took place. Date/Time Smoking Status/Tobacco Use Comment F acility Aug 20, 2023 09:30 AM [place]-TOBACCO QUIT 1 TO < 5 YRS [facility] Aug 17, 2021 01:30 PM [place]-TOBACCO FORMER USER [facility] [place] [facility] Aug 17, 2021 01:30 PM VA-TOBACCO QUIT 15 YRS OR MORE [facility] July 27, 2020 09:00 AM VA-TOBACCO NEVER USED [facility] July 19, 2018 11:47 AM VA-TOBACCO DOESNT USE WI 30 MIN WAKEUP [facility] July 19, 2018 11:47 AM VA-TOBACCO USE 30 YEARS OR MORE [facility] July 19, 2018 11:47 AM VA-TOBACCO USE ADVICE [facility] July 19, 2018 11:47 AM VA-TOBACCO USE COW RIDER NO [facility] July 19, 2018 11:47 AM VA-TOBACCO USE MED NO [facility] July 19, 2018 11:47 AM VA-TOBACCO USER EVERY DAY [facility] Nov 16, 2016 07:42 AM CURRENT TOBACCO USER [facility] Nov 16, 2016 07:42 AM CURRENT TOBACCO US ER (NOT READY TO QUIT) [facility] Nov 16, 2016 07:42 AM TOBACCO CESSATION REFERRAL DECLI VERN [facility] Nov 16, 2016 07:42 AM TOBACCO MEDS OFFERED BUT DECLINE D [facility] Nov 16, 2016 07:42 AM TOBACCO USER OFFERED MEDS [facility] Encounter Notes: All associated encounter notes This section contains the clinical notes associated to the Encounter. Date/Time Encounter Note(s) Provider Source Jan 01, 2025 12:03 PM PRIMARY CARE NURSI NG NOTE: LOCAL TITLE: PRIMARY CARE NURSING PROGRESS NOTE (TEXT) NURSING P STANDARD TITLE: PRIMARY CARE NURSING NOTE DATE OF NOTE: JAN 01, 2025@12:03 ENTRY DATE: JAN 01, 2025@12:03:08 AUTHOR: ANTONIA HALL EXP COSIGNER: URGENCY: STATUS: COMPLETED PRIMARY CARE NURSING PROGRESS NOTE (TEXT) NURSING PB Has ADDENDA Established Patient NICK GROVES IS A 79 YEAR OLD MALE BEING SEEN IN CLINIC JAN 01, 2025. == == REASON FOR VISIT: Here for annual follow up on chronic health conditions, was recently discharged from skilled facility following rehab after having CVA 2-3 weeks ago. nNeka brings in list of meds but no doses on it and he is not sure. He was requesting h/h with Assist Brenda but [place] states he is only interested in getting someone to help him with cleaning and shopping due to he tires easily. Advised [place] on the qualifications for getting assistance and he states he can do ADL's on his own. He states he can probably do the cleaning and such but he gets tired. We discussed him taking things in small sections and resting between, keeping a taller stool at the sink so he can sit while doing dishes and he could utilize curbside burr picker at stores that offer it for groceries. Nneka does live alone but has a friend that brought him to the appt and states he has a son in law that lives in the area. Are you receiving care any where other than the [facility]? Yes, List: MITRA Lamas, PCP--has appt on 01/02/25 HEALTH AND SURGICAL HISTORY: CVA 2024 Does patient report using home oxygen? CURRENT ACTIVE MEDICATIONS FOR REVIEW: If the list for review does not include a component, then it was not applicable to this patient. Allergies/ADRs (Tool #5) FACILITY ALLERGY/ADR -------- No Remote Allergy/ADR Data available for this patient [facility] AL[facility]OL [facility] ROSUVASTATIN Med. Reconciliation (Tool #1) INCLUDED IN THIS LIST: Alphabetical list of active outpatient prescriptions dispensed from this VA (local) and dispensed from another [place] or [facility]D facility (remote) as well as inpatient orders (local pending and active), local clinic medications, locally documented non-VA medications, and local prescriptions that have or been discontinued in the past 90 days. Non-VA Meds Last Documented On: Aug 17, 2021 NOTE The display of VA prescriptions dispensed from another [place] or [facility] facility (remote) is limited to active outpatient prescription entries matched to National Drug File at the originating site and may not include some items such as investigational drugs, compounds, etc. NOT INCLUDED IN THIS LIST: Medications self-entered by the patient into personal health records (i.e. [employer]) are NOT included in this list. Non-VA medications documented outside this [place], remote inpatient orders (regardless of status) and remote clinic medications are NOT included in this list. The patient and provider must always discuss medications the patient is taking, regardless of where the medication was dispensed or obtained. OUTPT AMIODARONE HCL (PACERONE) 200MG TAB (Status = ) TAKE ONE TABLET BY MOUTH ONCE A DAY FOR HEART. AVOID TAKING WITH GRAPEFRUIT JUICE. USE OF SUNSCREEN IS RECOMMENDED. Rx# [id number] Last Released: 10/04/23 Qty/Days Supply: Rx Expiration Date: 10/03/24 Refills Remainin OUTPT APIXABAN 5MG TAB (Status = Discontinued) TAKE ONE TABLET BY MOUTH TWICE A DAY FOR ANTICOAGULATION Rx# [id number] Last Released: 04/16/24 Qty/Days Supply: Rx Expiration Date: 10/03/24 Refills Remainin Indication: FOR ANTICOAGULATION OUTPT APIXABAN 5MG TAB (Status = Active) TAKE ONE TABLET BY MOUTH TWICE A DAY FOR ANTICOAGULATION Rx# [id number] Last Released: 10/29/24 Qty/Days Supply: Rx Expiration Date: 10/29/25 Refills Remainin Indication: FOR ANTICOAGULATION Non-VA CHOLECALCIF 50MCG (D3-2,000UNIT) TAB TAKE ONE TABLET BY MOUTH ONCE A DAY Non-VA FISH OIL 1000MG (500MG DHA/EPA) CAP TAKE 1 CAPSULE BY MOUTH TWICE A DAY Dec 03, 2020 Patient wants to buy from Non-NC pharmacy. pt. cannot swallow large capsules AND will buy OTC AND take 1000mg twice daily am&pm Non-VA FUROSEMIDE 40MG TAB TAKE ONE TABLET BY MOUTH EVERY MORNING Patient wants to buy from Non-NC pharmacy. Non-VA POTASSIUM CL 20MEQ SA TAB (DISPERSIBLE) TAKE ONE-HALF TABLET BY MOUTH ONCE A DAY Patient wants to buy from Non-[place] pharmacy. OUTPT TRAZODONE HCL 100MG TAB (Status = ) TAKE ONE TABLET BY MOUTH AT BEDTIME FOR INSOMNIA Rx# [id number] Last Released: 10/04/23 Qty/Days Supply: Rx Expiration Date: 10/03/24 Refills Remainin Indication: FOR INSOMNIA SUPPLIES PHARMACY TERMS AND POSSIBLE PATIENT ACTIONS INPT = [place] inpatient order IV = [place] intravenous medication OUTPT = [place] outpatient prescription PHARMACY POSSIBLE PATIENT TERMS EXPLANATION ACTIONS -------- ----- ACTIVE A prescription that can be If you have refills, filled at the local [place] pharmacy. you may request a refill of this prescription from your [place] pharmacy. CLINIC A medication you received during If you have questions a visit to a [place] clinic or about this medication emergency department. contact your [place] healthcare team. DISCONTINUED A prescription your provider has Contact your [place] stopped. It is no longer healthcare team if you available to be sent to you or need more of this picked up at the [place] pharmacy medication. window. A prescription which is too old Contact your VA to fill. This does not refer to healthcare team if you the expiration date of the need more of this medication in the container. medication. NON-VA A medication that came from If this medication someplace other than a VA information is pharmacy. This may be a incorrect or out of prescription from either the VA date, please tell your or non VA providers that was VA healthcare team. filled outside the VA. Or, it may be an fjto-que-wfwcsmy (OTC), herbal, dietary supplements or sample medication. ON HOLD An active prescription that will Contact your VA not be filled until pharmacy pharmacy when you need resolves the issue. more of this medication. PARKED An active prescription that will Contact your VA not be filled until the patient pharmacy when you need requests it. this medication. PENDING This prescription order has been If you have been sent to the pharmacy for review instructed to start and is not ready yet. this medication now, contact your VA pharmacy. SUSPENDED An active prescription that is Contact your [place] not scheduled to be filled yet. pharmacy if you need You should receive it before this medication now. you run out. Medication list reviewed with Patient see addendum for updated med list. Have called [facility] for information and his non va pcp. IS PATIENT TAKING ANY OVER THE COUNTER MEDICATIONS, SUCH VITAMINS OR HERBAL SUPPLEMENTS, INCLUDING ANY MEDICATIONS PRESCRIBED BY ANOTHER PHYSICIAN? Yes, List: Amiodarone 200mg 2 tabs daily. Does patient have any new allergies to report since last visit? VITALS: TEMPERATURE: 98 F [36.7 C] (01/01/2025 12:01) BP: 116/64 (01/01/2025 12:01) RESP: 20 (01/01/2025 12:01) PULSE: 48 (01/01/2025 12:01) HT: 71 in [180.3 cm] (11/16/2016 15:04) WT: 209.9 lb [95.21 kg] (01/01/2025 12:01) BMI: 29.3 PAIN ASSESSMENT: (Most Recent Pain Score in Vitals Package: 0 (01/01/2025 12:01) ) The patient indicated that they and their close contacts have not traveled outside of the [place] in the past 21 days. The patient reports the following symptoms: No symptoms present The patient is not immunocompromised. The patient does not report having a history of Multi Drug Resistant Organism (MDRO) within the last five years. The patient does not report having been exposed to measles, chickenpox, or zoster in last 30 days. STRESS: Thank you for your service. Now let us serve you. At the [facility], we strive to provide you with exceptional health care that improves your health and well-being. Are you feeling sad, empty, or depressed? No Do you need to talk about things in your life that worry you or cause you stress? No Do you need to talk about personal problems, family problems, alcohol use, drug use, or mental or emotional illness? No SUICIDE SCREENING: The patient was asked, Over the past two weeks, how often have you been bothered by thoughts that you would be better off or of hurting yourself in some way? Not At All SPIRITUAL ASSESSMENT: Are there sabianism practices or spiritual concerns you want the industrial green systems designer, your physician, and other health care team members to immediately know about? Patient advised to call the clinic for any concerns, questions, or symptoms. Patient and/or caregiver verbalized understanding of plan of care. RHS Screen - VS: RHS Screen Environmental Check Screening was not completed at this time due to: Other: single Homelessness/Food Insecurity Screen - DI,L,N,P,PH,PS,S,U: In the past 2 months, have you been living in stable housing that you own, rent, or stay in as part of a household? Yes - Living in stable housing. Are you worried or concerned that in the next 2 months you may NOT have stable housing that you own, rent, or stay in as part of a household? No - Not worried about housing near future The [place] reports the following: Within the past 12 months, you worried whether your food would run out before you got money to buy more. Never true Within the past 12 months, the food you bought just didn't last and you didn't have money to get more. Never true Influenza Immunization - L,N,P,PH,U: Deferral / Refusal The patient declines to receive all immunizations in the seasonal influenza vaccine group. Pneumococcal Vaccine - L,N,P,PH,U: Deferral/Refusal: Refused Pneumococcal Vaccine: Immunization: PNEUMOCOCCAL CONJUGATE PCV20, POLYSACCHARIDE [id number] CONJUGATE, ADJUVANT, PF Refusal Reason: PATIENT DECISION Patient refuses all immunization(s) in the PneumoPCV group Date Documented: 01/01/25 12:29 /judy/ ANTONIA HALL LPN Signed: 01/01/2025 12:40 01/02/2025 ADDENDUM STATUS: COMPLETED Medication per provided list: Amiodorone 200mg 2 tab daily Metoprolol tartrate 100mg 1 bid Eliquis 1 daily Spironolactone 1 daily Furosemide 1 daily Hydroxyzine Folic acid B12 daily Escitalopram oxalate 1 daily Nitro 0.4mg prn /judy/ ANTONIA HALL LPN Signed: 01/08/2025 11:39 Receipt Acknowledged By: * AWAITING SIGNATURE * IVANIA CARTER III, SHEILA R [facility] Jan 01, 2025 10:40 AM PRIMARY CARE PROGR ESS NOTE: LOCAL TITLE: PRIMARY CARE CLINIC PROGRESS NOTE PB STANDARD TITLE: PRIMARY CARE PROGRESS NOTE DATE OF NOTE: JAN 01, 2025@10:40 ENTRY DATE: JAN 02, 2025@10:40:30 AUTHOR: IVANIA CARTER III EXP COSIGNER: URGENCY: STATUS: COMPLETED SUBJECTIVE: ELIEBEVERLYNICK Collazo is a 79 years old MALE. HPI: Presents to the clinic today for a periodic health maintenance visit. had a stroke a couple weeks ago and this appears to been secondary to A-fib. He went to a retirement after his stroke for rehab and has now been discharged back home. He was hoping to get somebody in the home to help with housework but unfortunately he does not qualify/renal after that here at the [place]. We could get him home health senior living physical therapy but he does not feel like he needs either 1 of those. He sees his primary care doctor tomorrow and we will review his medications with her and send us a list of exactly what he is supposed to be on and when. Past medical history includes: 1) Bunion 2) Chronic dermatitis 3) AF- Atrial Fibrillation ([facility] [id number]) 4) Gout ([facility] [id number]) 5) Mixed Hyperlipidemia ([facility] [id number]) 6) COPD - Chronic Obstructive Pulmonary Disease ([facility] [id number]) 7) Exposure to potentially hazardous chemical 8) Exposure to potentially hazardous substance 9) Insomnia Active Outpatient Medications (including Supplies): Active Outpatient Medications Status 1) APIXABAN 5MG TAB TAKE ONE TABLET BY MOUTH TWICE A DAY ACTIVE Indication: FOR ANTICOAGULATION Active Non-VA Medications Status 1) Non-VA CHOLECALCIF 50MCG (D3-2,000UNIT) TAB 50MCG BY MOUTH ACTIVE ONCE A DAY 2) Non-VA FISH OIL 1000MG (500MG DHA/EPA) CAP 1000MG BY MOUTH ACTIVE TWICE A DAY 3) Non-VA FUROSEMIDE 40MG TAB 40MG BY MOUTH EVERY MORNING ACTIVE 4) Non-VA POTASSIUM CL 20MEQ SA TAB (DISPERSIBLE) 10MEQ BY ACTIVE MOUTH ONCE A DAY 5 Total Medications Allergies: ALBUTEROL, ROSUVASTATIN Review of Systems: as per HPI and Systemic: Denies fatigue, fever, chills, or significant weight loss CV: Denies chest pain, palpitations Pulmonary: Denies hemoptysis, Shortness of breath, dyspnea on exertion GI: Denies constipation, bloody stools, diarrhea, indigestion, or n/v Ext: Denies swelling or gait problems Neuro: Denies slurred speech or dizziness Skin: Denies abnormal lesions; denies any new rashes PSYCH: Denies SI/HI; denies nightmares OBJECTIVE: Vital Signs Temperature: 98 F [36.7 C] (01/01/2025 12:01) Respiratory Rate: 20 (01/01/2025 12:01) Pulse Rate: 48 (01/01/2025 12:01) Blood Pressure: 116/64 (01/01/2025 12:01) HT: 71 in [180.3 cm] (11/16/2016 15:04) WT: 209.9 lb [95.21 kg] (01/01/2025 12:) BMI: 29.3 97% (01/01/2025 12:01) Physical Exam General: NAD noted, A&Ox3, pleasant, appears stated age HEENT: NCAT, speech clear and appropriate, oropharynx clear Neck: Supple with grossly normal active ROM Heart: IRRR Resp: Lungs CTA bilaterally, respirations even and unlabored, decreased flow globally Ext: No edema or obvious deformity, uses roller walker or cane. Skin: Warm and dry, no rashes Neuro: Distal neurovascular grossly intact Psych: Affect normal, answers questions appropriately throughout visit, maintains eye contact A/P: ASSESSMENT and PLAN: CVA> continue amiodarone and apixaban and discuss all of his medications with primary tomorrow. Mobility issues> continue adaptive equipment CHF/hypertension> continue current modalities, see electric detector operator as appropriate Chronic elevation of LFTs> this is mild and probably is exacerbated by medication. He is on B12 and folic acid. RTC 6 months and as needed Chronic medical conditions appear otherwise stable. Discussed medications with patient; med rec completed. Continue current regimen as prescribed by PCP and specialists. RTC as needed if developing any new or worsening symptoms. Anticipatory guidance given. All questions answered; agrees to plan of care. Call for any test results if you have not heard anything in 2 weeks Follow up as listed above, annually, and as needed. Keep all appointments. Medications Reconciled. See AVS given to . /es/ HOMER MD DANTE MCDONALD III [facility] Signed: 01/02/2025 10:49 [facility]
--- OUTSIDE RECORDS SUMMARY | 2025-01-07 03:31 | XMS_ITS ---
Author Name [facility] ([place]) Organization [facility] ([place]) Address [address] [place] [address] Care Team Providers Care Laundry Bag Punch Operator Name Role Phone CARTERIVANIA Primary Care Provider Unavailabl e Insurance Providers: [...] PART A Jun 04, 2011 PART A [id number] NICK PARKER PATIENT MEDICARE (WNR) MEDICARE (M) PART B Jun 04, 2011 PART B [id number] NICK PARKER PATIENT Selected Encounter This section includes the information on record at OR for the Encounter. Date/Time Encounter Type Encounter Description Reason Provider Source Jan 07, 2025 09:31 AM HEARING AID [id number]&SLCTN [facility] AUDI[facility] ICD-10-CM H93.19 Tinnitus, unspecified ear LUIS BAEZA RA IHE Encounter Template Text not used by OR Assessments - Encounter Diagnoses This section includes the primary and secondary diagnoses documented for the Encounter. Date/Time Primary/Secondary Diagnosis Diagnosis Name Provider Source Jan 07, 2025 09:52 AM PRIMARY Tinnitus, unspecified ear LUIS BAEZA RA [facility] Jan 07, 2025 09:52 AM SECONDARY Sensorineural hearing loss, bilateral LUIS BAEZA RA [facility] Plan of Treatment: Future Appointments (+ 6 months) and Future Tests (+/- 45 days) The Plan of Treatment section includes future care activities for the patient from all OR treatmentfacilities. This section includes future appointments and future orders which are active, pending or scheduled. Future Appointments This section includes appointments that were scheduled to occur 6 months from the date of the Encounter, up to a maximum of 20 appointments. The data comes from all OR treatment facilities. Appointment Date/Time Appointment Type Appointme nt Facility Name Feb 09, 2025 02:00 PM AMBULATORY - MEDICINE [facility] Feb 09, 2025 02:01 PM AMBULATORY - MEDICINE [facility] Mar 11, 2025 10:30 AM AMBULATORY MEDICINE [facility] Mar 11, 2025 10:31 AM AMBULATORY MEDICINE [facility] Lab Results: +/- 30 days of the encounter This section includes the Chemistry and Hematology Lab Results on record with OR for the patient. Radiology Reports and Pathology Reports are provided separately, in subsequent sections. Lab Results This section contains the Chemistry/Hematology Results that were resulted 30 days before or 30 daysafter the date of the Encounter. Date/Time Source Result Type Result - Unit Interpretation Reference Range Specimen Type Comment Dec 29, 2024 12:23 PM [facility] MAGNESIUM PLASMA Specimen Type: PLASMA No comment entered. Ordering Provider: IVANIA CARTER III Report Released Date/Time: Dec 29, 2024 12:23 PM Reporting Lab: [place] [facility] [address] [place] [address] Performing Lab: [place] [facility] [address] [place] [address] MAGNESIUM 1.73 mg/dL 1.6-2.6 Dec 29, 2024 12:23 PM [facility] URINALYSIS W/O REFLEX CX (STL-PB) URINE Speci men Type: URINE No comment entered. Ordering Provider: IVANIA CARTER III Report Released Date/Time: Dec 29, 2024 12:23 PM Reporting Lab: [place] [facility] [address] [place] [address] Performing Lab: [place] [facility] [address] [place] [address] URINE COLOR Yellow Yellow U.BILIRUBIN NEGATIVE mg/dL [...] 1.023 1.005-1.029 Dec 29, 2024 12:23 PM [facility] CBC BLOOD Specimen Type: BLOOD Comment: MPV Suspect Result. Interpret result with other clinical findings. See PLT Smear Estimate. Ordering Provider: IVANIA CARTER III Report Released Date/Time: Dec 29, 2024 12:23 PM Reporting Lab: [place] [facility] [address] [place] [address] Performing Lab: [place] [facility] [address] [place] [address] WBC 11.8 10*3/uL H 3.6-11.2 RBC 3.26 [...] SCRNPERF YES Dec 29, 2024 12:23 PM [facility] COMPREHENSIVE METABOLIC PANEL PLASMA Specimen Type: PLASMA No comment entered. Ordering Provider: IVANIA CARTER III Report Released Date/Time: Dec 29, 2024 12:23 PM Reporting Lab: [place] [facility] [address] [place] [address] Performing Lab: [place] [facility] [address] [place] [address] CREATININE 1.39 mg/dL H 0.7-1.3 UREA NITROGEN [...] 2020) 52 Dec 29, 2024 12:23 PM [facility] B12 SERUM Specimen Type: SERUM No comment entered. Ordering Provider: CARTER,HOMER E III Report Released Date/Time: Dec 29, 2024 12:23 PM Reporting Lab: [place] [facility] [address] [place] [address] Performing Lab: [place] [facility] [address] [place] [address] B12 391 pg/mL 213-816 Dec 29, 2024 12:23 PM [place] [facility] FOLATE (PB) SERUM Specimen Typ e: SERUM No comment entered. Ordering Provider: IVANIA CARTER III Report Released Date/Time: Dec 29, 2024 12:23 PM Reporting Lab: [place] [facility] [address] [place] [address] Performing Lab: [place] [facility] [address] [place] [address] FOLATE (PB) 16.7 ng/mL 7-20 Dec 29, 2024 12:23 PM [place] [facility] HGA1C BLOOD Specimen Type: BLOOD No comment entered. Ordering Provider: IVANIA CARTER III Report Released Date/Time: Dec 29, 2024 12:23 PM Reporting Lab: [place] [facility] [address] [place] [address] Performing Lab: [place] [facility] [address] [place] [address] HGA1C 5.4 4.0-6.0 Dec 29, 2024 12:23 PM [facility] [place] [place] [facility] CHOLESTEROL PANEL (PB) PLASMA Specimen Type: P LASMA No comment entered. Ordering Provider: IVANIA CARTER III Report Released Date/Time: Dec 29, 2024 12:23 PM Reporting Lab: [place] [facility] [address] [place] [address] Performing Lab: [place] [facility] [address] [place] [address] CHOLESTEROL 149 mg/dL 0-200 TRIGLYCERIDE 121 mg/dL 0-150 CALCULATED LDL 94.6 mg/dL HDL(New) 30.2 mg/dL L >40 HDL % OF TOTAL CHOLESTEROL (PB) 20.3 >25 Dec 29, 2024 12:23 PM [facility] [place] [facility] VITAMIN D, 25-HYDROXY SERUM Specimen Type: SE RUM No comment entered. Ordering Provider: IVANIA CARTER III Report Released Date/Time: Dec 29, 2024 12:23 PM Reporting Lab: [place] [facility] [address] [place] [address] Performing Lab: [place] [facility] [address] [place] [address] VITAMIN D, 25-HYDROXY 12.7 ng/mL L 30-96 Dec 29, 2024 12:23 PM [facility] TSH (MA-PB) SERUM Specimen Typ e: SERUM No comment entered. Ordering Provider: IVANIA CARTER III Report Released Date/Time: Dec 29, 2024 12:23 PM Reporting Lab: [place] [facility] [address] [place] [address] Performing Lab: [place] [facility] [address] [place] [address] TSH 1.688 u[IU]/mL 0.47-5 Encounter Notes: All associated encounter notes This section contains the clinical notes associated to the Encounter. Date/Time Encounter Note(s) Provider Source Jan 07, 2025 07:09 AM AUDIOLOGY NOTE: LOCAL TITLE: HEARING CLINIC STANDARD TITLE: AUDIOLOGY NOTE DATE OF NOTE: JAN 07, 2025@07:09 ENTRY DATE: JAN 07, 2025@07:09:37 AUTHOR: PERLA BAEZA COSIGNER: URGENCY: STATUS: COMPLETED Diagnosis: Sensorineural Hearing Loss, Bilateral and Tinnitus, Unspecified Treatment: Hearing Evaluation Time spent with [place]: 60 minutes [place] seen for an audiogram via Audio Telehealth and verbally consented to the Telehealth modality. Multi-factor personally identifiable information of the was obtained verbally (full name and date of ). accompanied by: none Patient site: [facility] AUDIOLOGIC HISTORY: Patient seen today for an initial hearing evaluation. - Ear surgery: no - Aural Pain/Pressure/Drainage: no - Tinnitus: unspecified/constant/non-b othersome - Noise Exposure: yes CURRENT HEARING DEVICES: none AUDIOMETRIC EXAM: Otoscopy was performed by collaboration of telehealth clinical senior environmental technician and provider via telehealth technology/video otoscope which revealed: Right: unremarkable Left: non-occluding cerumen Tympanograms: Right: consistent with normal middle ear function Left: consistent with normal middle ear function Acoustic Reflex Thresholds: not performed due to time constraints Pure-Tone Air and Bone-Conduction Audiometric Testing revealed: Right: within normal limits 250-1000 Hz, mild to moderately-severe sensorineural hearing loss Left: within normal limits 250-1000 Hz, moderate to severe sensorineural hearing loss Speech Recognition Threshold testing yielded: Right: 30 dBHL Left: 35 dBHL Word Recognition testing yielded: Right: 96% @ 70 dBHL Left: 64% @ 75 dBHL Word scoring may be impacted by quality of audio through telehealth medium. Test Reliability: Good PROVIDER COMMENTS/RECOMMENDATIONS: Hearing test results were reviewed with patient. Patient has bilateral sensorineural hearing loss with left asymmetry which will be monitored through one year re-test. Patient is a hearing aid candidate. Patient was counseled regarding realistic expectations for hearing aids, more specifically that hearing aids can make sounds louder but may not make speech more clear or understandable. Hearing conservation techniques were discussed and recommended. Hearing aid options were discussed, and the following devices ordered: Paktor [id number] SHAMEKA - M PLUSH DRESSER 6.0 - SIZE 2 - OPEN DOME - MEDIUM - CERUSTOP - RETENTION TAILS Phone Connectivity: no PLAN: 1) Return to clinic in four weeks for 60 minute hearing aid fitting. 2) Recommend hearing evaluation annually or prn. expressed understanding and is in agreement with the plan. /judy/ Cady Cartagena [facility] Signed: 01/07/2025 10:07 PERLA BAEZA [facility]
--- OUTSIDE RECORDS SUMMARY | 2025-01-12 09:29 | XMS_ITS | Encounter Summary ---
Author Name Department of Vetera Affairs (ID) Organization [facility] of [facility] (ID) Address [address] [place] [address] Care Team Providers Care Staff Weapons Officer Name Role Phone IVANIA CARTER Primary Care [...] PART A Jun 04, 2011 PART A [id number] [phone] NICK PARKER PATIENT MEDICARE (WNR) MEDICARE (M) PART B Jun 04, 2011 PART B [id number] NICK PARKER PATIENT Selected Encounter This section includes the information on record at ID for the Encounter. Date/Time Encounter Type Encounter Description Reason Pro vider Source Jan 12, 2025 03:29 PM Outpatient Encounter ADMIN ARTHUR HOYT ([facility]) IHE Encounter Template Text not used by VA Plan of Treatment: Future Appointments (+ 6 months) and Future Tests (+/- 45 days) The Plan of Treatment section includes future care activities for the patient from all VA treatmentfacilities. This section includes future appointments and future orders which are active, pending or scheduled. Future Appointments This section includes appointments that were scheduled to occur 6 months from the date of the Encounter, up to a maximum of 20 appointments. The data comes from all ID treatment facilities. Appointment Date/Time Appointment Type Appointme nt Facility Name Feb 09, 2025 02:00 PM AMBULATORY - MEDICINE [facility] Feb 09, 2025 02:01 PM AMBULATORY - MEDICINE [facility] Mar 11, 2025 10:30 AM AMBULATORY - MEDICINE [facility] Mar 11, 2025 10:31 AM AMBULATORY - MEDICINE [facility] Lab Results: +/- 30 days of the encounter This section includes the Chemistry and Hematology Lab Results on record with VA for the patient. Radiology Reports and Pathology Reports are provided separately, in subsequent sections. Lab Results This section contains the Chemistry/Hematology Results that were resulted 30 days before or 30 daysafter the date of the Encounter. Date/Time Source Result Type Result - Unit Interpretation Reference Range Specimen Type Comment Dec 29, 2024 12:23 PM [facility] MAGNESIUM PLASMA Specimen Type: PLASMA No comment entered. Ordering Provider: IVANIA CARTER III Report Released Date/Time: Dec 29, 2024 12:23 PM Reporting Lab: [place] [facility] [address] [place] [address] Performing Lab: [facility] [address] [place] [address] MAGNESIUM 1.73 mg/dL 1.6-2.6 Dec 29, 2024 12:23 PM [facility] URINALYSIS W/O REFLEX CX (STL-PB) URINE Speci men Type: URINE No comment entered. Ordering Provider: IVANIA CARTER III Report Released Date/Time: Dec 29, 2024 12:23 PM Reporting Lab: [place] [facility] [address] [place] [address] Performing Lab: [place] [facility] [address] [place] [address] URINE COLOR Yellow Yellow U.BILIRUBIN NEGATIVE mg/dL [...] 1.023 1.005-1.029 Dec 29, 2024 12:23 PM [facility] CBC BLOOD Specimen Type: BLOOD Comment: MPV Suspect Result. Interpret result with other clinical findings. See PLT Smear Estimate. Ordering Provider: IVANIA CARTER III Report Released Date/Time: Dec 29, 2024 12:23 PM Reporting Lab: [facility] [address] [facility] [address] Performing Lab: [facility] [address] [place] [phone] WBC 11.8 10*3/uL H 3.6-11.2 RBC 3.26 [...] SCRNPERF YES Dec 29, 2024 12:23 PM [facility] COMPREHENSIVE METABOLIC PANEL PLASMA Specimen Type: PLASMA No comment entered. Ordering Provider: IVANIA CARTER III Report Released Date/Time: Dec 29, 2024 12:23 PM Reporting Lab: [place] [facility] [address] [place] [address] Performing Lab: [place] [facility] [address] [place] [address] CREATININE 1.39 mg/dL H 0.7-1.3 UREA NITROGEN [...] 2020) 52 Dec 29, 2024 12:23 PM [facility] B12 SERUM Specimen Type: SERUM No comment entered. Ordering Provider: IVANIA CARTER III Report Released Date/Time: Dec 29, 2024 12:23 PM Reporting Lab: [place] [facility] [address] [place] [address] Performing Lab: [place] [facility] [address] [place] [address] B12 391 pg/mL 213-816 Dec 29, 2024 12:23 PM [facility] FOLATE (PB) SERUM Specimen Typ e: SERUM No comment entered. Ordering Provider: IVANIA CARTER III Report Released Date/Time: Dec 29, 2024 12:23 PM Reporting Lab: [place] [facility] [address] [place] [address] Performing Lab: [place] [facility] [address] [place] [address] FOLATE (PB) 16.7 ng/mL 7-20 Dec 29, 2024 12:23 PM [facility] [place] [facility] HGA1C BLOOD Specimen Type: BLOOD No comment entered. Ordering Provider: IVANIA CARTER III Report Released Date/Time: Dec 29, 2024 12:23 PM Reporting Lab: [place] [facility] [address] [place] [address] Performing Lab: [place] [facility] [address] [place] [address] HGA1C 5.4 4.0-6.0 Dec 29, 2024 12:23 PM [facility] CHOLESTEROL PANEL (PB) PLASMA Specimen Type: P LASMA No comment entered. Ordering Provider: IVANIA CARTER III Report Released Date/Time: Dec 29, 2024 12:23 PM Reporting Lab: [place] [facility] [address] [place] [address] Performing Lab: [place] [facility] [address] [place] [address] CHOLESTEROL 149 mg/dL 0-200 TRIGLYCERIDE 121 mg/dL 0-150 CALCULATED LDL 94.6 mg/dL HDL(New) 30.2 mg/dL L >40 HDL % OF TOTAL CHOLESTEROL (PB) 20.3 >25 Dec 29, 2024 12:23 PM [facility] [place] [facility] VITAMIN D, 25-HYDROXY SERUM Specimen Type: SE RUM No comment entered. Ordering Provider: IVANIA CARTER III Report Released Date/Time: Dec 29, 2024 12:23 PM Reporting Lab: [place] [facility] [address] [place] [address] Performing Lab: [place] [facility] [address] [place] [address] VITAMIN D, 25-HYDROXY 12.7 ng/mL L 30-96 Dec 29, 2024 12:23 PM [place] [facility] TSH (MA-PB) SERUM Specimen Typ e: SERUM No comment entered. Ordering Provider: IVANIA CARTER III Report Released Date/Time: Dec 29, 2024 12:23 PM Reporting Lab: [place] [facility] [address] [place] [address] Performing Lab: [place] [facility] [address] [place] [address] TSH 1.688 u[IU]/mL 0.47-5 Social History: Smoking Status (Most current) and Tobacco Use (All prior to encounter date) This section includes the most current, and the historical, smoking and tobacco- related health factors from the ID facility where the Encounter took place. Current Smoking Status This section includes the most current smoking, or tobacco-related health factor, from the ID facility where the Encounter took place. Date/Time Current Smoking Status Comment Facil ity Aug 20, 2023 09:30 AM VA-TOBACCO QUIT 1 TO < 5 YRS [facility] Tobacco Use History This section includes a history of the smoking, or tobacco-related health factors, that were collected on or before the date of the Encounter. The data comes from the ID facility where the Encounter took place. Date/Time Smoking Status/Tobacco Use Comment F acility Aug 20, 2023 09:30 AM VA-TOBACCO QUIT 1 TO < 5 YRS [facility] Aug 17, 2021 01:30 PM VA-TOBACCO FORMER USER [facility] Aug 17, 2021 01:30 PM VA-TOBACCO QUIT 15 YRS OR MORE [facility] July 27, 2020 09:00 AM VA-TOBACCO NEVER USED [facility] July 19, 2018 11:47 AM VA-TOBACCO DOESNT USE WI 30 MIN WAKEUP [facility] July 19, 2018 11:47 AM VA-TOBACCO USE 30 YEARS OR MORE [facility] July 19, 2018 11:47 AM VA-TOBACCO USE ADVICE [facility] July 19, 2018 11:47 AM VA-TOBACCO USE CLINICAL PSYCHOLOGY TEACHER NO [facility] July 19, 2018 11:47 AM VA-TOBACCO USE MED NO [facility] July 19, 2018 11:47 AM VA-TOBACCO USER EVERY DAY [facility] Nov 16, 2016 07:42 AM CURRENT TOBACCO USER [facility] Nov 16, 2016 07:42 AM CURRENT TOBACCO US ER (NOT READY TO QUIT) [facility] Nov 16, 2016 07:42 AM TOBACCO CESSATION REFERRAL DECLI VERN [facility] Nov 16, 2016 07:42 AM TOBACCO MEDS OFFERED BUT DECLINE D [facility] Nov 16, 2016 07:42 AM TOBACCO USER OFFERED MEDS [facility] Encounter Notes: All associated encounter notes This section contains the clinical notes associated to the Encounter. Date/Time Encounter Note(s) Provider Source Jan 12, 2025 03:29 PM GENERAL MEDICINE N OTE: LOCAL TITLE: General Note PB STANDARD TITLE: GENERAL MEDICINE NOTE DATE OF NOTE: JAN 12, 2025@15:29 ENTRY DATE: JAN 12, 2025@15:29:32 AUTHOR: HENOK GREENE EXP COSIGNER: URGENCY: STATUS: COMPLETED Received hearing aid devices, certified in [place]> has pending appt for fitting /es/ HENOK GREENE [facility] [place] Signed: 01/12/2025 15:29 HENOK GREENE [facility]
--- OUTSIDE RECORDS SUMMARY | 2025-02-06 03:24 | XMS_ITS | Encounter Summary ---
Author Name [facility] [place] [facility] [place] Address [address] [place] [address] Care Team Providers Care Mine Exploration Engineer Name Role Phone IVANIA CARTER Primary Care [...] PART A Jun 04, 2011 PART A [id number] NICK PARKER PATIENT MEDICARE (WNR) MEDICARE (M) PART B Jun 04, 2011 PART B [id number] NICK PARKER PATIENT Selected Encounter This section includes the information on record at [place] for the Encounter. Date/Time Encounter Type Encounter Description Reason Pro vider Source Feb 06, 2025 09:24 AM Outpatient Encounter ADMIN ARTHUR HOYT ([place]) IHE [...] 20 appointments. The data comes from all [place] treatment facilities. Appointment Date/Time Appointment Type Appointme nt Facility Name Feb 09, 2025 02:00 PM AMBULATORY - MEDICINE [facility] Feb 09, 2025 02:01 PM AMBULATORY - MEDICINE [place] [facility] Mar 11, 2025 10:30 AM AMBULATORY - MEDICINE [facility] Mar 11, 2025 10:31 AM AMBULATORY - MEDICINE [place] [facility] Social History: Smoking Status (Most current) and Tobacco Use (All prior to encounter date) This section includes the most current, and the historical, smoking and tobacco- related health factors from the [place] facility where the Encounter took place. Current Smoking Status This section includes the most current smoking, or tobacco-related health factor, from the [place] facility where the Encounter took place. Date/Time Current Smoking Status Comment Facil ity Aug 20, 2023 09:30 AM VA-TOBACCO QUIT 1 TO < 5 YRS [facility] Tobacco Use History This section includes a history of the smoking, or tobacco-related health factors, that were collected on or before the date of the Encounter. The data comes from the [place] facility where the Encounter took place. Date/Time Smoking Status/Tobacco Use Comment F acility Aug 20, 2023 09:30 AM VA-TOBACCO QUIT 1 TO < 5 YRS [facility] Aug 17, 2021 01:30 PM VA-TOBACCO FORMER USER [facility] Aug 17, 2021 01:30 PM VA-TOBACCO QUIT 15 YRS OR MORE [facility] July 27, 2020 09:00 AM VA-TOBACCO NEVER USED [facility] July 19, 2018 11:47 AM VA-TOBACCO DOESNT USE WI 30 MIN WAKEUP [facility] July 19, 2018 11:47 AM VA-TOBACCO USE 30 YEARS OR MORE [facility] July 19, 2018 11:47 AM VA-TOBACCO USE ADVICE [facility] July 19, 2018 11:47 AM VA-TOBACCO USE DATA MODELER NO [facility] July 19, 2018 11:47 AM VA-TOBACCO USE MED NO [facility] July 19, 2018 11:47 AM VA-TOBACCO USER EVERY DAY [facility] Nov 16, 2016 07:42 AM CURRENT TOBACCO USER [facility] Nov 16, 2016 07:42 AM CURRENT TOBACCO US ER (NOT READY TO QUIT) [place] [facility] Nov 16, 2016 07:42 AM TOBACCO CESSATION REFERRAL DECLI VERN [facility] Nov 16, 2016 07:42 AM TOBACCO MEDS OFFERED BUT DECLINE D [facility] Nov 16, 2016 07:42 AM TOBACCO USER OFFERED MEDS [facility] Encounter Notes: All associated encounter notes This section contains the clinical notes associated to the Encounter. Date/Time Encounter Note(s) Provider Source Feb 06, 2025 09:24 AM GENERAL MEDICINE N OTE: LOCAL TITLE: General Note PB STANDARD TITLE: GENERAL MEDICINE NOTE DATE OF NOTE: FEB 06, 2025@09:24 ENTRY DATE: FEB 06, 2025@09:24:24 AUTHOR: HENOK GREENE EXP COSIGNER: URGENCY: STATUS: COMPLETED Confirmed 02/09/25 Audiology appt /es/ HENOK GREENE Telehealth Clinical Chief Digital Officer Signed: 02/06/2025 09:24 HENOK GREENE [facility]
--- OUTSIDE RECORDS SUMMARY | 2025-02-09 08:01 | XMS_ITS ---
Author Name [facility] [place] [facility] [place] Organization [facility] [place] Address [address] [place] [id number] Care Team Providers Care Chaser Apprentice Name Role Phone IVANIA CARTER Primary Care [...] Member ID Insurance Provider's Telephone Number Policy Obrrego's Name Patient's Relationship to Policy Borrego MEDICARE (WNR) MEDICARE (M) PART A Jun 04, 2011 PART A [id number] 39A NICK PARKER PATIENT MEDICARE (WNR) MEDICARE (M) PART B Jun 04, 2011 PART B [id number] 39A NICK PARKER PATIENT Selected Encounter This section includes the information on record at [place] for the Encounter. Date/Time Encounter Type Encounter Description Reason Provider Source Feb 09, 2025 02:01 PM CONFORMITY EVALUATION AUDIOLOGY ICD-10-CM Z46.1 Encounter for fitting and adjustment of hearing aid LUIS BAEZA RA [facility] Encounter Template Text not used by [facility] Assessments - Encounter Diagnoses This section includes the primary and secondary diagnoses documented for the Encounter. Date/Time Primary/Secondary Diagnosis Diagnosis Name Provider Source Feb 09, 2025 02:01 PM PRIMARY Encounter for fitting and adjustment of hearing aid LUIS BAEZA RA [place] [facility] Feb 09, 2025 02:01 PM SECONDARY Sensorineural hearing loss, bilateral LUIS BAEZA RA [place] [facility] Feb 09, 2025 02:01 PM SECONDARY Tinnitus, unspecified ear LUIS BAEZA RA [place] [facility] Plan of Treatment: Future Appointments (+ 6 months) and Future Tests (+/- 45 days) The Plan of Treatment section includes future care activities for the patient from all [place] [facility]. This section includes future appointments and future orders which are active, pending or scheduled. Future Appointments This section includes appointments that were scheduled to occur 6 months from the date of the Encounter, up to a maximum of 20 appointments. The data comes from all [place] treatment facilities. Appointment Date/Time Appointment Type Appointme nt Facility Name Mar 11, 2025 10:30 AM AMBULATORY - MEDICINE [facility] Mar 11, 2025 10:31 AM AMBULATORY - MEDICINE [facility] Encounter Notes: All associated encounter notes This section contains the clinical notes associated to the Encounter. Date/Time Encounter Note(s) Provider Source Feb 09, 2025 07:17 AM AUDIOLOGY NOTE: LOCAL TITLE: HEARING CLINIC STANDARD TITLE: AUDIOLOGY NOTE DATE OF NOTE: FEB 09, 2025@07:17 ENTRY DATE: FEB 09, 2025@07:17:57 AUTHOR: PERLA BAEZA COSIGNER: URGENCY: STATUS: COMPLETED Diagnosis: Sensorineural Hearing Loss, Bilateral and Tinnitus, Unspecified Treatment: Hearing Aid Fitting Time spent with : 60 minutes seen for a hearing aid fitting via Audio Telehealth and verbally consented to the Telehealth modality. Multi-factor personally identifiable information of the was obtained verbally (full name and date of ). [place] accompanied by: none Patient site: [place] SUBJECTIVE: Patient is here for the issue of new hearing aids. [place] is new to amplification. CURRENT HEARING DEVICES: 02/2025 PHONAK AUDEO [id number] SHAMEKA L [id number] 02/06/28 07/06/2502/2025 PHONAK AUDEO [id number] SHAMEKA R [id number] 02/06/28 07/06/25 - M HARP MAKER 6.0 - SIZE 2 - OPEN DOME - MEDIUM - CERUSTOP - RETENTION TAILS Phone Connectivity: no OBJECTIVE/ASSESSMENT: Otoscopy performed by collaboration of telehealth clinical quality assurance/r&d lab technician and provider via telehealth technology/video otoscope which revealed: Right: unremarkable Left: non-occluding cerumen Probe-Microphone Measures: performed using real ear measures with NAL-NL2 ([employer]) targets. Maximum output within predicted upper limit of comfort. Hearing aids set to 100% target gain per patient subjective listening preference. Feedback medical services manager completed. Familiarized patient with sound indicators (low battery signal, volume control, etc.). Settings: - Programs: Automatic - Push button: enabled - Volume control: short press - Program change: medium press - On/Off device: long press educated on: - Use of batteries/settlement clerk - Hearing aid care and maintenance - Adjustment period/ importance of daily consistent use (8- 12hrs/day) - Realistic expectations - Effective communication strategies - Pet/child warning - Patient instructed not to wear devices in excessive noise - Installation and use of additional accessories - Ordering supplies through [facility] - Repair process - Trial period [place] demonstrated how to: - Insert/remove hearing aid(s) - Adjust volume control/program switch - Change batteries/charge hearing aid(s) was provided: - Hearing aid manual - [place] form 2477b [place] was counseled/educated on services provided today and is in agreement with the plan. Patient was given clinic phone number and encouraged to contact the clinic as needs arise. PLAN: Return to clinic for follow up/check. Please complete outcome measures questionnaire at that time. /judy/ Cady Cartagena [facility] Signed: 02/09/2025 14:22 PERLA BAEZA [facility]
--- OUTSIDE RECORDS SUMMARY | 2025-02-23 09:32 | XMS_ITS | Encounter Summary ---
Author Name [facility] [place] Address [address] [place] [address] Care Team Providers Care Wind Site Manager Name Role Phone IVANIA ROBLEDO Primary Care Provider Unavailabl e Insurance Providers: [...] PART A Jun 04, 2011 PART A [id number] [phone] NICK PARKER PATIENT MEDICARE (WNR) MEDICARE (M) PART B Jun 04, 2011 PART B [id number] 39A NICK PARKER PATIENT Selected Encounter This section includes the information on record at [place] for the Encounter. Date/Time Encounter Type Encounter Description Reason Provider Source Feb 23, 2025 03:32 PM PH1 ASSMT&MGMT NQHP 5-10 TELEPHONE PRIMARY CARE ICD-10-CM I48.91 Unspecified atrial fibrillation IVANIA ROBLEDO III IHE Encounter Template Text not used by [place] Assessments - Encounter Diagnoses This section includes the primary and secondary diagnoses documented for the Encounter. Date/Time Primary/Secondary Diagnosis Diagnosis Name Provider Source Feb 23, 2025 03:32 PM PRIMARY Unspecified atrial fibrillation TERRI PARTIDA [facility] Plan of Treatment: Future Appointments (+ 6 months) and Future Tests (+/- 45 days) The Plan of Treatment section includes future care activities for the patient from all [place] treatmentfacilities. This section includes future appointments and future orders which are active, pending or scheduled. Future Appointments This section includes appointments that were scheduled to occur 6 months from the date of the Encounter, up to a maximum of 20 appointments. The data comes from all [place] treatment facilities. Appointment Date/Time Appointment Type Appointme nt Facility Name Mar 11, 2025 10:30 AM AMBULATORY - MEDICINE [facility] Mar 11, 2025 10:31 AM AMBULATORY - MEDICINE [facility] Social History: Smoking Status (Most current) and Tobacco Use (All prior to encounter date) This section includes the most current, and the historical, smoking and tobacco- related health factors from the [place] facility where the Encounter took place. Current Smoking Status This section includes the most current smoking, or tobacco-related health factor, from the [place] facility where the Encounter took place. Date/Time Current Smoking Status Comment Facil ity Aug 20, 2023 09:30 AM VA-TOBACCO QUIT 1 TO < 5 YRS [facility] Tobacco Use History This section includes a history of the smoking, or tobacco-related health factors, that were collected on or before the date of the Encounter. The data comes from the [place] facility where the Encounter took place. Date/Time Smoking Status/Tobacco Use Comment F acility Aug 20, 2023 09:30 AM VA-TOBACCO QUIT 1 TO < 5 YRS [facility] Aug 17, 2021 01:30 PM VA-TOBACCO FORMER USER [facility] Aug 17, 2021 01:30 PM VA-TOBACCO QUIT 15 YRS OR MORE [facility] July 27, 2020 09:00 AM VA-TOBACCO NEVER USED [facility] July 19, 2018 11:47 AM VA-TOBACCO DOESNT USE WI 30 MIN WAKEUP [facility] July 19, 2018 11:47 AM VA-TOBACCO USE 30 YEARS OR MORE [facility] July 19, 2018 11:47 AM VA-TOBACCO USE ADVICE [facility] July 19, 2018 11:47 AM VA-TOBACCO USE TEST 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 NO [place] [facility] July 19, 2018 11:47 AM VA-TOBACCO USE MED NO [place] [facility] July 19, 2018 11:47 AM VA-TOBACCO USER EVERY DAY [place] [facility] Nov 16, 2016 07:42 AM CURRENT TOBACCO USER [facility] Nov 16, 2016 07:42 AM CURRENT TOBACCO US ER (NOT READY TO QUIT) [facility] Nov 16, 2016 07:42 AM TOBACCO CESSATION REFERRAL DECLI [place]ERN [place] [facility] Nov 16, 2016 07:42 AM TOBACCO MEDS OFFERED BUT DECLINE D [place] [facility] Nov 16, 2016 07:42 AM TOBACCO USER OFFERED MEDS [facility] Encounter Notes: All associated encounter notes This section contains the clinical notes associated to the Encounter. Date/Time Encounter Note(s) Provider Source Feb 23, 2025 03:32 PM TELEPHONE ENCOUNTE R NOTE: LOCAL TITLE: TELEPHONE NOTE STANDARD TITLE: TELEPHONE ENCOUNTER NOTE DATE OF NOTE: FEB 23, 2025@15:32 ENTRY DATE: FEB 23, 2025@15:32:33 AUTHOR: TERRI PARTIDA EXP COSIGNER: URGENCY: STATUS: COMPLETED Called to review medication list as provided by [facility] Non-VA PCP PAT Lamas. List reviewed and confirmed as accurate medication list with as listed below: Amiodarone 200mg - one tab daily Amlodipine 10mg - one tab daily Aspirin 81mg - one tab daily Atorvastatin 40mg - one tab daily Vitamin D3 25mcg capsule daily Eliquis 5mg - take one tab twice daily Flovent HFA 110mcg/actuation aerosol inhaler Folic Acid 1 mg - take one tab daily Klor-Con M20 mEq tab, Extended release - take one tablet daily Lasix 40mg - take one tab daily Lexapro 10mg - take one tablet daily Metoprolol Tartrate 25mg - take one tab twice daily Nitroglycerin 0.4mg sublingual - prn Spriva with HandiHaler 18mcg and inhalation capsules - inhale one capsule every day. Zolpidem 5mg - take 1 tablet daily prn sleep Alerting Pcp Anabelle Robledo to new verified accurate medication list and to update 's NON-VA Medications that are filled NON[place] - [facility] /es/ TERRI PARTIDA LPN Signed: 02/23/2025 16:06 TERRI PARTIDA [facility]
--- OUTSIDE RECORDS SUMMARY | 2025-02-26 18:04 | XMS_ITS | Continuity of Care Document ---
Author Name [facility] Organization [facility] Care Team Providers Care Curing Bin Operator Name Role Phone [facility] Unavailable Unavailable Problems Combined list of problems from Department of [facility] and [facility] facilities. It does not include entries that were removed or entered in error. Problem Status Onset Date Problem Type Date of Resolution Comments Source AF- Atrial Fibrillation ([facility] [id number]) Active Condition [place] [facility] Bunion Active Condition [place] [facility]erebrovascular accident Active Condition [facility] Chronic dermatitis Active Condition [place] [facility] COPD - Chronic Obstructive Pulmonary Disease ([facility] [id number]) Active Condition [place] [facility] Exposure to potentially hazardous chemical Active Condition [place] [facility] Exposure to potentially hazardous substance Active Condition [facility] Gout ([facility] [id number]) Active Condition [place] [facility]omnia Active Condition [facility] LOW BACK PAIN Active Condition [facility] Mixed Hyperlipidemia ([facility] [id number]) Active Condition [place] [facility] Tinnitus Active Condition [place] [facility] Diagnosis: ICD-10-CM I48.91 Unspecified atrial fibrillation Active Diagnosis [facility] Diagnosis: ICD-10-CM Z46.1 Encounter for fitting and adjustment of hearing aid Active Diagnosis [place] [facility] Diagnosis: ICD-10-CM H93.19 Tinnitus, unspecified ear Active Diagnosis [place] [facility] Diagnosis: ICD-10-CM I63.9 Cerebral infarction, unspecified Active Diagnosis [facility] Diagnosis: ICD-10-CM G47.00 Insomnia, unspecified Active Diagnosis [facility] Medications Combined list of outpatient medications from Department of [facility] and [facility] facilities.Medications provided include 1) outpatient medications from the last 15 months, and 2) patient-reported medications. Medication Details Route Status Indication(s) Patie nt Instructions Prescription Expires Prescription Number Last Dispense Date Ordering Provider Order Date Order Qty Source AMIODARONE (PACERONE) TAB TAKE BY MOUTH ONCE A DAY ORAL ACTIVE DEVANG CARTER E III 2024 [place] [facility] AMLODIPINE BESYLATE 10MG TAB TAKE ONE TABLET BY MOUTH ONCE A DAY ORAL ACTIVE DVEANG CARTER CHRISTEN E III 2024 [place] [facility] APIXABAN 5MG TAB TAKE ONE TABLET BY MOUTH TWICE A DAY FOR ANTICOAG ULATION ORAL ACTIVE 10/29/2025 [id number] 5 MANDIE BRISENO ISTEL G 2024 180 [facility] APIXABAN 5MG TAB TAKE ONE TABLET BY MOUTH TWICE A DAY FOR ANTICOAG ULATION ORAL DISCONT INUED 10/03/2024 [id number] 5 MANDIE BRISENO ISTEL G 2023 180 [facility] ASPIRIN (OTC) TAB,CHEWABL E CHEW AND SWALLOW BY MOUTH ONCE A DAY ORAL ACTIVE DEVANG CARTER E III 2024 [place] [facility] ATORVASTATI N [place] 40MG TAB TAKE ONE TABLET BY MOUTH EVERY EVENING ORAL ACTIVE DEVANG CARTER E III 2024 [place] [facility] CHOLECALCIF STIVEN 50MCG (2,000UNIT) TAB TAKE ONE TABLET BY MOUTH ONCE A DAY ORAL ACTIVE KYLER MALONE 2021 [place] ESCITALOPRA M OXALATE 20MG TAB TAKE ONE-HALF TABLET BY MOUTH ONCE A DAY ORAL ACTIVE DEVANG CARTER E III 2024 [place] [facility] FISH OIL 1000MG (500MG DHA/EPA) CAP,ORAL TAKE 1 CAPSULE BY MOUTH TWICE A DAY ORAL ACTIVE IVETH CASTILLO 2020 [facility] FLUTICASONE PROPIONATE 220MCG/SPRA Y AEROSOL,INH L,ORAL,12GM INHALE 1 PUFF ORAL INHALATI ON TWICE A DAY DIRECTED RESPIR ATORY (INHAL ATION) ACTIVE DEVANG CARTER E III 2024 [place] [facility] FOLIC ACID 1MG TAB TAKE ONE TABLET BY MOUTH ONCE A DAY ORAL ACTIVE DEVANG CARTER E III 2024 [place] [facility] FUROSEMIDE 40MG TAB TAKE ONE TABLET BY MOUTH EVERY MORNING ORAL ACTIVE KYLER MALONE 2019 [facility] METOPROLOL TARTRATE 25MG TAB TAKE ONE TABLET BY MOUTH TWICE A DAY ORAL ACTIVE DEVANG CARTER III 2024 [facility] NITROGLYCER IN 0.4MG TAB,SUBLING UAL DISSOLVE ONE TABLET UNDER THE TONGUE ONE-TIME SUBLIN GUAL ACTIVE DEVANG CARTER III 2024 [facility] POTASSIUM CHLORIDE 20MEQ TAB,SA (DISPERSIBL E) TAKE ONE-HALF TABLET BY MOUTH ONCE A DAY ORAL ACTIVE KYLER MALONE 2018 [facility] THIAMINE 100MG TAB TAKE ONE TABLET BY MOUTH ONCE A DAY ORAL ACTIVE DEVANG CARTER III 2024 [facility] TIOTROPIUM 18MCG CAP,INHL,5 INHALE 1 CAPSULE ORAL INHALATI ON ONCE A DAY RESPIR ATORY (INHAL ATION) ACTIVE DEVANG CARTER III 2024 [facility] ZOLPIDEM TARTRATE 5MG TAB TAKE ONE TABLET BY MOUTH AT BEDTIME NEEDED ORAL ACTIVE DEVANG CARTER III 2024 [facility] Allergies, Adverse Reactions, Alerts Combined list of allergies from Department of Defense and Veterans Affairs facilities. It does not include entries that were removed or entered in error. Substance Category Reaction Severity Reaction type Status Date Reported Comments Source ALBUTEROL Propensity to adverse reactions to drug (finding) Tremor active 0 [facility] ROSUVASTATIN Propensity to adverse reactions to drug (finding) Nausea and vomiting MODERATE active 1 [facility] Results Combined list of recent chemistry, hematology and other laboratory results from Department of Defense and [facility] Affairs, ranging from 15 months to all on record, depending upon the facility. Order Name Results Value Reference Range Date Interpretation Specimen Comments Source MAGNESIUM MAGNESIUM [MASS/VOLUM E] IN SERUM OR PLASMA 1.73 mg/dL 1.6 - 2.6 12/29 Specimen Type: PLASMA No comment entered. Ordering Provider: KASANDRA CARTER III Report Released Date/Time: Dec 29, 2024 12:23 PM Reporting Lab: [facility] [address] [place] [address] Performing Lab: [place] [facility] [address] [place] [id number] [facility] URINALYSI S W/O REFLEX CX (STL-PB) COLOR OF URINE Yellow 12/29 Specimen Type: URINE No comment entered. Ordering Provider: KASANDRA CARTRE ER E III Report Released Date/Time: Dec 29, 2024 12:23 PM Reporting Lab: [place] [facility] [address] [place] [address] Performing Lab: [place] [facility] [address] [place] [id number] [facility] URINALYSI S W/O REFLEX CX (STL-PB) BILIRUBIN.T OTAL [PRESENCE] IN URINE BY TEST STRIP NEGATIVEm g/dL 12/29 Specimen Type: URINE No comment entered. Ordering Provider: KASANDRA CARTER ER E III Report Released Date/Time: Dec 29, 2024 12:23 PM Reporting Lab: [place] [facility] [address] [place] [id number] Performing Lab: [place] [facility] [address] [place] [id number] [facility] URINALYSI S W/O REFLEX CX (STL-PB) PH OF URINE BY TEST STRIP 6.0 5.0 - 8.0 12/29 Specimen Type: URINE No comment entered. Ordering Provider: KASANDRA CARTER ER E III Report Released Date/Time: Dec 29, 2024 12:23 PM Reporting Lab: [place] [facility] [address] [place] [id number] Performing Lab: [place] [facility] [address] [place] [id number] [facility] URINALYSI S W/O REFLEX CX (STL-PB) LEUKOCYTES [#/AREA] IN URINE SEDIMENT BY MICROSCOPY HIGH POWER FIELD 1 /[HPF] 0 - 5 12/29 Specimen Type: URINE No comment entered. Ordering Provider: KASANDRA CARTER ER E III Report Released Date/Time: Dec 29, 2024 12:23 PM Reporting Lab: [place] [facility] [address] [place] [address] Performing Lab: [place] [facility] [address] [place] [address] [facility] URINALYSI S W/O REFLEX CX (STL-PB) APPEARANCE OF URINE TURBID 12/29 H Specimen Type: URINE No comment entered. Ordering Provider: KASANDRA CARTER ER E III Report Released Date/Time: Dec 29, 2024 12:23 PM Reporting Lab: [place] [facility] [address] [place] [address] Performing Lab: [place] [facility] [address] [place] [address] [facility] URINALYSI S W/O REFLEX CX (STL-PB) NITRITE [PRESENCE] IN URINE BY TEST STRIP NEGATIVEm g/dL 12/29 Specimen Type: URINE No comment entered. Ordering Provider: KASANDRA CARTER ER E III Report Released Date/Time: Dec 29, 2024 12:23 PM Reporting Lab: [place] [facility] [address] [place] [address] Performing Lab: [place] [facility] [address] [place] [address] [facility] URINALYSI S W/O REFLEX CX (STL-PB) EPITHELIAL CELLS [#/AREA] IN URINE SEDIMENT BY MICROSCOPY LOW POWER FIELD 2 /[HPF] 0 - 5 12/29 Specimen Type: URINE No comment entered. Ordering Provider: KASANDRA CARTER ER E III Report Released Date/Time: Dec 29, 2024 12:23 PM Reporting Lab: [place] [facility] [address] [place] [address] Performing Lab: [place] [facility] [address] [place] [address] [facility] URINALYSI S W/O REFLEX CX (STL-PB) MUCUS [PRESENCE] IN URINE SEDIMENT BY LIGHT MICROSCOPY RARE/[LPF ] 12/29 Specimen Type: URINE No comment entered. Ordering Provider: KASANDRA CARTER ER E III Report Released Date/Time: Dec 29, 2024 12:23 PM Reporting Lab: [place] [facility] [address] [place] [address] Performing Lab: [place] [facility] [address] [place] [address] [facility] URINALYSI S W/O REFLEX CX (STL-PB) HYALINE CASTS [#/AREA] IN URINE SEDIMENT BY MICROSCOPY LOW POWER FIELD 6 /[LPF] 0 - 5 12/29 H Specimen Type: URINE No comment entered. Ordering Provider: KASANDRA CARTER ER E III Report Released Date/Time: Dec 29, 2024 12:23 PM Reporting Lab: [place] [facility] [address] [place] [address] Performing Lab: [place] [facility] [address] [place] [address] [place] [address] [facility] URINALYSI S W/O REFLEX CX (STL-PB) URATE CRYSTALS AMORPHOUS [PRESENCE] IN URINE SEDIMENT BY LIGHT MICROSCOPY RARE/[HPF ] 12/29 Specimen Type: URINE No comment entered. Ordering Provider: KASANDRA CARTER ER E III Report Released Date/Time: Dec 29, 2024 12:23 PM Reporting Lab: [place] [facility] [address] [place] [address] Performing Lab: [place] [facility] [address] [place] [address] [facility] URINALYSI S W/O REFLEX CX (STL-PB) GLUCOSE [MASS/VOLUM E] IN URINE BY TEST STRIP NORMALmg/ dL 12/29 Specimen Type: URINE No comment entered. Ordering Provider: KASANDRA CARTER ER E III Report Released Date/Time: Dec 29, 2024 12:23 PM Reporting Lab: [place] [facility] [address] [place] [address] Performing Lab: [place] [facility] [address] [place] [address] [facility] URINALYSI S W/O REFLEX CX (STL-PB) PROTEIN [MASS/VOLUM E] IN URINE BY TEST STRIP NEGATIVEm g/dL 12/29 Specimen Type: URINE No comment entered. Ordering Provider: KASANDRA CARTER ER E III Report Released Date/Time: Dec 29, 2024 12:23 PM Reporting Lab: [place] [facility] [address] [place] [address] Performing Lab: [place] [facility] [address] [place] [address] [facility] URINALYSI S W/O REFLEX CX (STL-PB) URN.UROBILI NOGEN 2.0 mg/dL 12/29 H Specimen Type: URINE No comment entered. Ordering Provider: KASANDRA CARTER ER E III Report Released Date/Time: Dec 29, 2024 12:23 PM Reporting Lab: [place] [facility] [address] [place] [address] Performing Lab: [place] [facility] [address] [place] [address] [facility] URINALYSI S W/O REFLEX CX (STL-PB) HEMOGLOBIN [MASS/VOLUM E] IN URINE BY TEST STRIP NEGATIVEm g/dL 12/29 Specimen Type: URINE No comment entered. Ordering Provider: KASANDRA CARTER ER E III Report Released Date/Time: Dec 29, 2024 12:23 PM Reporting Lab: [place] [facility] [address] [place] [address] Performing Lab: [place] [facility] [address] [place] [address] [facility] URINALYSI S W/O REFLEX CX (STL-PB) KETONES [MASS/VOLUM E] IN URINE BY TEST STRIP NEGATIVEm g/dL 12/29 Specimen Type: URINE No comment entered. Ordering Provider: KASANDRA CARTER ER E III Report Released Date/Time: Dec 29, 2024 12:23 PM Reporting Lab: [place] [facility] [address] [place] [address] Performing Lab: [place] [facility] [address] [place] [address] [facility] URINALYSI S W/O REFLEX CX (STL-PB) URN.LEUK.ES T. NEGATIVE 12/29 Specimen Type: URINE No comment entered. Ordering Provider: KASANDRA CARTER ER E III Report Released Date/Time: Dec 29, 2024 12:23 PM Reporting Lab: [place] [facility] [address] [place] [address] Performing Lab: [place] [facility] [address] [place] [address] [facility] URINALYSI S W/O REFLEX CX (STL-PB) SPECIFIC GRAVITY OF URINE 1.023 1.005 - 1.029 12/29 Specimen Type: URINE No comment entered. Ordering Provider: KASANDRA CARTER ER E III Report Released Date/Time: Dec 29, 2024 12:23 PM Reporting Lab: [place] [facility] [address] [place] [address] Performing Lab: [place] [facility] [address] [place] [address] [facility] CBC LEUKOCYTES [#/VOLUME] IN BLOOD BY AUTOMATED COUNT 11.8 10*3/uL 3.6 - 11.2 12/29 H Specimen Type: BLOOD Comment: MPV Suspect Result. Interpret result with other clinical findings. See PLT Smear Estimate. Ordering Provider: KASANDRA CARTER ER E III Report Released Date/Time: Dec 29, 2024 12:23 PM Reporting Lab: [place] [facility] [address] [place] [address] Performing Lab: [place] [facility] [address] [place] [address] [facility] CBC ERYTHROCYTE S [#/VOLUME] IN BLOOD BY AUTOMATED COUNT 3.26 10*6/uL 4.10 - 5.70 12/29 L Specimen Type: BLOOD Comment: MPV Suspect Result. Interpret result with other clinical findings. See PLT Smear Estimate. Ordering Provider: KASANDRA CARTER ER E III Report Released Date/Time: Dec 29, 2024 12:23 PM Reporting Lab: [place] [facility] [address] [place] [address] Performing Lab: [place] [facility] [address] [place] [address] [facility] CBC HEMOGLOBIN [MASS/VOLUM E] IN BLOOD 11.6 g/dL 13.1 - 16.8 12/29 L Specimen Type: BLOOD Comment: MPV Suspect Result. Interpret result with other clinical findings. See PLT Smear Estimate. Ordering Provider: KASANDRA CARTER ER E III Report Released Date/Time: Dec 29, 2024 12:23 PM Reporting Lab: [place] [facility] [address] [place] [address] Performing Lab: [place] [facility] [address] [place] [address] [facility] CBC HEMATOCRIT [VOLUME FRACTION] OF BLOOD BY CALCULATION 35.3 38.2 - 48.4 12/29 L Specimen Type: BLOOD Comment: MPV Suspect Result. Interpret result with other clinical findings. See PLT Smear Estimate. Ordering Provider: KASANDRA CARTER ER E III Report Released Date/Time: Dec 29, 2024 12:23 PM Reporting Lab: [place] [facility] [address] [place] [address] Performing Lab: [place] [facility] [address] [place] [address] [facility] CBC MCV [ENTITIC MEAN VOLUME] IN RED BLOOD CELLS BY AUTOMATED COUNT 108.3 fL 80.0 - 100.0 12/29 H Specimen Type: BLOOD Comment: MPV Suspect Result. Interpret result with other clinical findings. See PLT Smear Estimate. Ordering Provider: KASANDRA CARTER ER E III Report Released Date/Time: Dec 29, 2024 12:23 PM Reporting Lab: [place] [facility] [address] [place] [address] Performing Lab: [place] [facility] [address] [place] [address] [facility] CBC MCH [ENTITIC MASS] BY AUTOMATED COUNT 35.6 pg 27.0 - 34.0 12/29 H Specimen Type: BLOOD Comment: MPV Suspect Result. Interpret result with other clinical findings. See PLT Smear Estimate. Ordering Provider: KASANDRA CARTER ER E III Report Released Date/Time: Dec 29, 2024 12:23 PM Reporting Lab: [place] [facility] [address] [place] [address] Performing Lab: [place] [facility] [address] [place] [address] [facility] CBC MCHC [ENTITIC MASS/VOLUME ] IN RED BLOOD CELLS BY AUTOMATED COUNT 32.9 g/dL 33.0 - 36.0 12/29 L Specimen Type: BLOOD Comment: MPV Suspect Result. Interpret result with other clinical findings. See PLT Smear Estimate. Ordering Provider: KASANDRA CARTER ER E III Report Released Date/Time: Dec 29, 2024 12:23 PM Reporting Lab: [place] [facility] [address] [place] [address] Performing Lab: [place] [facility] [address] [place] [address] [facility] CBC PLATELETS [#/VOLUME] IN BLOOD BY AUTOMATED COUNT 425 10*3/uL 150 - 400 12/29 H Specimen Type: BLOOD Comment: MPV Suspect Result. Interpret result with other clinical findings. See PLT Smear Estimate. Ordering Provider: KASANDRA CARTER ER E III Report Released Date/Time: Dec 29, 2024 12:23 PM Reporting Lab: [place] [facility] [address] [place] [address] Performing Lab: [place] [facility] [address] [place] [address] [facility] CBC PLATELET [ENTITIC MEAN VOLUME] IN BLOOD BY AUTOMATED COUNT >13.0fL 7.5 - 11.2 12/29 H Specimen Type: BLOOD Comment: MPV Suspect Result. Interpret result with other clinical findings. See PLT Smear Estimate. Ordering Provider: KASANDRA CARTER ER E III Report Released Date/Time: Dec 29, 2024 12:23 PM Reporting Lab: [place] [facility] [address] [place] [address] Performing Lab: [place] [facility] [address] [place] [address] [facility] CBC PLATELET ADEQUACY [PRESENCE] IN BLOOD BY LIGHT MICROSCOPY INCREASED 12/29 Specimen Type: BLOOD Comment: MPV Suspect Result. Interpret result with other clinical findings. See PLT Smear Estimate. Ordering Provider: KASANDRA CARTER ER E III Report Released Date/Time: Dec 29, 2024 12:23 PM Reporting Lab: [place] [facility] [address] [place] [address] Performing Lab: [place] [facility] [address] [place] [address] [facility] CBC ERYTHROCYTE [DISTWIDTH] IN RED BLOOD CELLS BY AUTOMATED COUNT 15.2 11.8 - 15.1 12/29 H Specimen Type: BLOOD Comment: MPV Suspect Result. Interpret result with other clinical findings. See PLT Smear Estimate. Ordering Provider: KASANDRA CARTER ER E III Report Released Date/Time: Dec 29, 2024 12:23 PM Reporting Lab: [place] [facility] [address] [place] [address] Performing Lab: [place] [facility] [address] [place] [address] [facility] CBC LYMPHOCYTES /LEUKOCYTES IN BLOOD BY AUTOMATED COUNT 15.0 12/29 Specimen Type: BLOOD Comment: MPV Suspect Result. Interpret result with other clinical findings. See PLT Smear Estimate. Ordering Provider: KASANDRA CARTER ER E III Report Released Date/Time: Dec 29, 2024 12:23 PM Reporting Lab: [place] [facility] [address] [place] [address] Performing Lab: [place] [facility] [address] [place] [address] [facility] CBC MONOCYTES/L EUKOCYTES IN BLOOD BY AUTOMATED COUNT 8.3 12/29 Specimen Type: BLOOD Comment: MPV Suspect Result. Interpret result with other clinical findings. See PLT Smear Estimate. Ordering Provider: KASANDRA CARTER ER E III Report Released Date/Time: Dec 29, 2024 12:23 PM Reporting Lab: [place] [facility] [address] [place] [address] Performing Lab: [place] [facility] [address] [place] [address] [facility] CBC NEUTROPHILS /LEUKOCYTES IN BLOOD BY AUTOMATED COUNT 74.8 12/29 Specimen Type: BLOOD Comment: MPV Suspect Result. Interpret result with other clinical findings. See PLT Smear Estimate. Ordering Provider: KASANDRA CARTER ER E III Report Released Date/Time: Dec 29, 2024 12:23 PM Reporting Lab: [place] [facility] [address] [place] [address] Performing Lab: [place] [facility] [address] [place] [address] [facility] CBC EOSINOPHILS /LEUKOCYTES IN BLOOD BY AUTOMATED COUNT 0.3 12/29 Specimen Type: BLOOD Comment: MPV Suspect Result. Interpret result with other clinical findings. See PLT Smear Estimate. Ordering Provider: KASANDRA CARTER ER E III Report Released Date/Time: Dec 29, 2024 12:23 PM Reporting Lab: [place] [facility] [address] [place] [address] Performing Lab: [place] [facility] [address] [place] [address] [facility] CBC BASOPHILS/L EUKOCYTES IN BLOOD BY AUTOMATED COUNT 0.3 12/29 Specimen Type: BLOOD Comment: MPV Suspect Result. Interpret result with other clinical findings. See PLT Smear Estimate. Ordering Provider: KASANDRA CARTER ER E III Report Released Date/Time: Dec 29, 2024 12:23 PM Reporting Lab: [place] [facility] [address] [place] [address] Performing Lab: [place] [facility] [address] [place] [address] [facility] CBC LYMPHOCYTES [#/VOLUME] IN BLOOD BY AUTOMATED COUNT 1.77 10*3/uL 0.77 - 4.50 12/29 Specimen Type: BLOOD Comment: MPV Suspect Result. Interpret result with other clinical findings. See PLT Smear Estimate. Ordering Provider: KASANDRA CARTER ER E III Report Released Date/Time: Dec 29, 2024 12:23 PM Reporting Lab: [place] [facility] [address] [place] [address] Performing Lab: [place] [facility] [address] [place] [address] [facility] CBC MONOCYTES [#/VOLUME] IN BLOOD BY AUTOMATED COUNT 0.98 10*3/uL 0.19 - 0.8 12/29 H Specimen Type: BLOOD Comment: MPV Suspect Result. Interpret result with other clinical findings. See PLT Smear Estimate. Ordering Provider: KASANDRA CARTER ER E III Report Released Date/Time: Dec 29, 2024 12:23 PM Reporting Lab: [place] [facility] [address] [place] [address] Performing Lab: [place] [facility] [address] [place] [address] [facility] CBC NEUTROPHILS [#/VOLUME] IN BLOOD BY AUTOMATED COUNT 8.80 10*3/uL 2.10 - 8.00 12/29 H Specimen Type: BLOOD Comment: MPV Suspect Result. Interpret result with other clinical findings. See PLT Smear Estimate. Ordering Provider: KASANDRA CARTER ER E III Report Released Date/Time: Dec 29, 2024 12:23 PM Reporting Lab: [place] [facility] [address] [place] [address] Performing Lab: [place] [facility] [address] [place] [address] [facility] CBC EOSINOPHILS [#/VOLUME] IN BLOOD BY AUTOMATED COUNT 0.03 10*3/uL 0.00 - 0.60 12/29 Specimen Type: BLOOD Comment: MPV Suspect Result. Interpret result with other clinical findings. See PLT Smear Estimate. Ordering Provider: KASANDRA CARTER ER E III Report Released Date/Time: Dec 29, 2024 12:23 PM Reporting Lab: [place] [facility] [address] [place] [address] Performing Lab: [place] [facility] [address] [place] [address] [facility] CBC BASOPHILS [#/VOLUME] IN BLOOD BY AUTOMATED COUNT 0.04 10*3/uL 0.00 - 0.20 12/29 Specimen Type: BLOOD Comment: MPV Suspect Result. Interpret result with other clinical findings. See PLT Smear Estimate. Ordering Provider: KASANDRA CARTER ER E III Report Released Date/Time: Dec 29, 2024 12:23 PM Reporting Lab: [place] [facility] [address] [place] [address] Performing Lab: [place] [facility] [address] [place] [address] [facility] CBC PLATELETS RETICULATED /PLATELETS IN BLOOD BY AUTOMATED COUNT 11.4 1.0 - 7.0 12/29 H Specimen Type: BLOOD Comment: MPV Suspect Result. Interpret result with other clinical findings. See PLT Smear Estimate. Ordering Provider: KASANDRA CARTER ER E III Report Released Date/Time: Dec 29, 2024 12:23 PM Reporting Lab: [place] [facility] [address] [place] [address] Performing Lab: [place] [facility] [address] [place] [address] [facility] CBC IMMATURE GRANULOCYTE S/LEUKOCYTE S IN BLOOD BY AUTOMATED COUNT 1.3 12/29 Specimen Type: BLOOD Comment: MPV Suspect Result. Interpret result with other clinical findings. See PLT Smear Estimate. Ordering Provider: KASANDRA CARTER ER E III Report Released Date/Time: Dec 29, 2024 12:23 PM Reporting Lab: [place] [facility] [address] [place] [address] Performing Lab: [place] [facility] [address] [place] [address] [facility] CBC IMMATURE GRANULOCYTE S [#/VOLUME] IN BLOOD BY AUTOMATED COUNT 0.15 10*3/uL 0.00 - 0.05 12/29 H Specimen Type: BLOOD Comment: MPV Suspect Result. Interpret result with other clinical findings. See PLT Smear Estimate. Ordering Provider: KASANDRA CARTER ER E III Report Released Date/Time: Dec 29, 2024 12:23 PM Reporting Lab: [place] [facility] [address] [place] [address] Performing Lab: [place] [facility] [address] [place] [address] [facility] CBC PLATELETS [#/VOLUME] IN BLOOD BY ESTIMATE 2+ 12/29 Specimen Type: BLOOD Comment: MPV Suspect Result. Interpret result with other clinical findings. See PLT Smear Estimate. Ordering Provider: KASANDRA CARTER ER E III Report Released Date/Time: Dec 29, 2024 12:23 PM Reporting Lab: [place] [facility] [address] [place] [address] Performing Lab: [place] [facility] [address] [place] [address] [facility] CBC MANUAL DIFFERENTIA L COMMENT [INTERPRETA TION] IN BLOOD NARRATIVE YES 12/29 Specimen Type: BLOOD Comment: MPV Suspect Result. Interpret result with other clinical findings. See PLT Smear Estimate. Ordering Provider: KASANDRA CARTER ER E III Report Released Date/Time: Dec 29, 2024 12:23 PM Reporting Lab: [place] [facility] [address] [place] [address] Performing Lab: [place] [facility] [address] [place] [address] [facility] CBC MANUAL DIFFERENTIA L PERFORMED [PRESENCE] IN BLOOD YES 12/29 Specimen Type: BLOOD Comment: MPV Suspect Result. Interpret result with other clinical findings. See PLT Smear Estimate. Ordering Provider: KASANDRA CARTER ER E III Report Released Date/Time: Dec 29, 2024 12:23 PM Reporting Lab: [place] [facility] [address] [place] [address] Performing Lab: [place] [facility] [address] [place] [address] [facility] COMPREHEN SIVE METABOLIC PANEL CREATININE [MASS/VOLUM E] IN SERUM OR PLASMA 1.39 mg/dL 0.7 - 1.3 12/29 H Specimen Type: PLASMA No comment entered. Ordering Provider: KASANDRA CARTER ER E III Report Released Date/Time: Dec 29, 2024 12:23 PM Reporting Lab: [place] [facility] [address] [place] [address] Performing Lab: [place] [facility] [address] [place] [address] [facility] COMPREHEN SIVE METABOLIC PANEL UREA NITROGEN [MASS/VOLUM E] IN SERUM OR PLASMA 33 mg/dL 9 - 25 12/29 H Specimen Type: PLASMA No comment entered. Ordering Provider: KASANDRA CARTER ER E III Report Released Date/Time: Dec 29, 2024 12:23 PM Reporting Lab: [place] [facility] [address] [place] [address] Performing Lab: [place] [facility] [address] [place] [address] [facility] COMPREHEN SIVE METABOLIC PANEL GLUCOSE [MASS/VOLUM E] IN SERUM OR PLASMA 82 mg/dL 72 - 99 12/29 Specimen Type: PLASMA No comment entered. Ordering Provider: KASANDRA CARTER ER E III Report Released Date/Time: Dec 29, 2024 12:23 PM Reporting Lab: [place] [facility] [address] [place] [address] Performing Lab: [place] [facility] [address] [place] [address] [facility] COMPREHEN SIVE METABOLIC PANEL SODIUM [MOLES/VOLU ME] IN SERUM OR PLASMA 142 meq/L 136 - 145 12/29 Specimen Type: PLASMA No comment entered. Ordering Provider: KASANDRA CARTER ER E III Report Released Date/Time: Dec 29, 2024 12:23 PM Reporting Lab: [place] [facility] [address] [place] [address] Performing Lab: [place] [facility] [address] [place] [address] [facility] COMPREHEN SIVE METABOLIC PANEL POTASSIUM [MOLES/VOLU ME] IN SERUM OR PLASMA 4.9 meq/L 3.5 - 5 12/29 Specimen Type: PLASMA No comment entered. Ordering Provider: KASANDRA CARTER ER E III Report Released Date/Time: Dec 29, 2024 12:23 PM Reporting Lab: [place] [facility] [address] [place] [address] Performing Lab: [place] [facility] [address] [place] [address] [facility] COMPREHEN SIVE METABOLIC PANEL CHLORIDE [MOLES/VOLU ME] IN SERUM OR PLASMA 107 meq/L 98 - 107 12/29 Specimen Type: PLASMA No comment entered. Ordering Provider: KASANDRA CARTER ER E III Report Released Date/Time: Dec 29, 2024 12:23 PM Reporting Lab: [place] [facility] [address] [place] [address] Performing Lab: [place] [facility] [address] [place] [address] [facility] COMPREHEN SIVE METABOLIC PANEL CARBON DIOXIDE, TOTAL [MOLES/VOLU ME] IN SERUM OR PLASMA 26 meq/L 22 - 31 12/29 Specimen Type: PLASMA No comment entered. Ordering Provider: KASANDRA CARTER ER E III Report Released Date/Time: Dec 29, 2024 12:23 PM Reporting Lab: [place] [facility] [address] [place] [address] Performing Lab: [place] [facility] [address] [place] [address] [facility] COMPREHEN SIVE METABOLIC PANEL CALCIUM [MASS/VOLUM E] IN SERUM OR PLASMA 8.7 mg/dL 8.4 - 10.4 12/29 Specimen Type: PLASMA No comment entered. Ordering Provider: KASANDRA CARTER ER E III Report Released Date/Time: Dec 29, 2024 12:23 PM Reporting Lab: [place] [facility] [address] [place] [address] Performing Lab: [place] [facility] [address] [place] [address] [facility] COMPREHEN SIVE METABOLIC PANEL PROTEIN [MASS/VOLUM E] IN SERUM OR PLASMA 7.6 g/dL 6 - 8.6 12/29 Specimen Type: PLASMA No comment entered. Ordering Provider: KASANDRA CARTER ER E III Report Released Date/Time: Dec 29, 2024 12:23 PM Reporting Lab: [place] [facility] [address] [place] [address] Performing Lab: [place] [facility] [address] [place] [address] [facility] COMPREHEN SIVE METABOLIC PANEL ALBUMIN [MASS/VOLUM E] IN SERUM OR PLASMA 3.6 g/dL 3.4 - 5 12/29 Specimen Type: PLASMA No comment entered. Ordering Provider: KASANDRA CARTER ER E III Report Released Date/Time: Dec 29, 2024 12:23 PM Reporting Lab: [place] [facility] [address] [place] [address] Performing Lab: [place] [facility] [address] [place] [address] [facility] COMPREHEN SIVE METABOLIC PANEL BILIRUBIN.T OTAL [MASS/VOLUM E] IN SERUM OR PLASMA 0.5 mg/dL 0.2 - 1.2 12/29 Specimen Type: PLASMA No comment entered. Ordering Provider: KASANDRA CARTER ER E III Report Released Date/Time: Dec 29, 2024 12:23 PM Reporting Lab: [place] [facility] [address] [place] [address] Performing Lab: [place] [facility] [address] [place] [id number] [facility] COMPREHEN SIVE METABOLIC PANEL ALKALINE PHOSPHATASE [ENZYMATIC ACTIVITY/VO LUME] IN SERUM OR PLASMA 77 U/L 40 - 150 12/29 Specimen Type: PLASMA No comment entered. Ordering Provider: KASANDRA CARTER ER E III Report Released Date/Time: Dec 29, 2024 12:23 PM Reporting Lab: [place] [facility] [address] [place] [address] Performing Lab: [place] [facility] [address] [place] [address] [facility] COMPREHEN SIVE METABOLIC PANEL ASPARTATE AMINOTRANSF ERASE [ENZYMATIC ACTIVITY/VO LUME] IN SERUM OR PLASMA 98 U/L 5 - 34 12/29 H Specimen Type: PLASMA No comment entered. Ordering Provider: KASANDRA CARTER ER E III Report Released Date/Time: Dec 29, 2024 12:23 PM Reporting Lab: [place] [facility] [address] [place] [address] Performing Lab: [place] [facility] [address] [place] [address] [facility] COMPREHEN SIVE METABOLIC PANEL ALANINE AMINOTRANSF ERASE [ENZYMATIC ACTIVITY/VO LUME] IN SERUM OR PLASMA 81 U/L 8 - 40 12/29 H Specimen Type: PLASMA No comment entered. Ordering Provider: KASANDRA CARTER ER E III Report Released Date/Time: Dec 29, 2024 12:23 PM Reporting Lab: [place] [facility] [address] [place] [address] Performing Lab: [place] [facility] [address] [place] [address] [facility] COMPREHEN SIVE METABOLIC PANEL GLOMERULAR FILTRATION RATE [VOLUME RATE/AREA] IN SERUM, PLASMA OR BLOOD BY CREATININE- BASED FORMULA (CKD-EPI 2020)/1.73 SQ M 52 12/29 Specimen Type: PLASMA No comment entered. Ordering Provider: KASANDRA CARTER ER E III Report Released Date/Time: Dec 29, 2024 12:23 PM Reporting Lab: [place] [facility] [address] [place] [address] Performing Lab: [place] [facility] [address] [place] [address] [facility] B12 COBALAMIN (VITAMIN B12) [MASS/VOLUM E] IN SERUM OR PLASMA 391 pg/mL 213 - 816 12/29 Specimen Type: SERUM No comment entered. Ordering Provider: KASANDRA CARTER ER E III Report Released Date/Time: Dec 29, 2024 12:23 PM Reporting Lab: [place] [facility] [address] [place] [address] Performing Lab: [place] [facility] [address] [place] [address] [facility] FOLATE (PB) FOLATE [MASS/VOLUM E] IN SERUM OR PLASMA 16.7 ng/mL 7 - 20 12/29 Specimen Type: SERUM No comment entered. Ordering Provider: KASANDRA CARTER ER E III Report Released Date/Time: Dec 29, 2024 12:23 PM Reporting Lab: [place] [facility] [address] [place] [address] Performing Lab: [place] [facility] [address] [place] [address] [facility] HGA1C HEMOGLOBIN A1C/HEMOGLO BIN.TOTAL IN BLOOD 5.4 4.0 - 6.0 12/29 Specimen Type: BLOOD No comment entered. Ordering Provider: KASANDRA CARTER ER E III Report Released Date/Time: Dec 29, 2024 12:23 PM Reporting Lab: [place] [facility] [address] [place] [address] Performing Lab: [place] [facility] [address] [place] [address] [facility] VITAMIN D, 25-HYDROX Y 25-HYDROXYV ITAMIN D3 [MASS/VOLUM E] IN SERUM OR PLASMA 12.7 ng/mL 30 - 96 12/29 L Specimen Type: SERUM No comment entered. Ordering Provider: KASANDRA CARTER ER E III Report Released Date/Time: Dec 29, 2024 12:23 PM Reporting Lab: [place] [facility] [address] [place] [address] Performing Lab: [place] [facility] [address] [place] [address] [facility] CHOLESTER OL PANEL (PB) CHOLESTEROL [MASS/VOLUM E] IN SERUM OR PLASMA 149 mg/dL 0 - 200 12/29 Specimen Type: PLASMA No comment entered. Ordering Provider: KASANDRA CARTER ER E III Report Released Date/Time: Dec 29, 2024 12:23 PM Reporting Lab: [place] [facility] [address] [place] [address] Performing Lab: [place] [facility] [address] [place] [address] [facility] CHOLESTER OL PANEL (PB) TRIGLYCERID E [MASS/VOLUM E] IN SERUM OR PLASMA 121 mg/dL 0 - 150 12/29 Specimen Type: PLASMA No comment entered. Ordering Provider: KASANDRA CARTER ER E III Report Released Date/Time: Dec 29, 2024 12:23 PM Reporting Lab: [place] [facility] [address] [place] [address] Performing Lab: [place] [facility] [address] [place] [address] [facility] CHOLESTER OL PANEL (PB) CHOLESTEROL IN LDL [MASS/VOLUM E] IN SERUM OR PLASMA BY CALCULATION 94.6 mg/dL 12/29 Specimen Type: PLASMA No comment entered. Ordering Provider: KASANDRA CARTER ER E III Report Released Date/Time: Dec 29, 2024 12:23 PM Reporting Lab: [place] [facility] [address] [place] [address] Performing Lab: [place] [facility] [address] [place] [address] [facility] CHOLESTER OL PANEL (PB) CHOLESTEROL IN HDL [MASS/VOLUM E] IN SERUM OR PLASMA 30.2 mg/dL 40 12/29 L Specimen Type: PLASMA No comment entered. Ordering Provider: KASANDRA CARTER ER E III Report Released Date/Time: Dec 29, 2024 12:23 PM Reporting Lab: [place] [facility] [address] [place] [address] Performing Lab: [place] [facility] [address] [place] [address] [facility] CHOLESTER OL PANEL (PB) CHOLESTEROL IN HDL/CHOLEST STIVEN.TOTAL [MASS RATIO] IN SERUM OR PLASMA 20.3 25 12/29 Specimen Type: PLASMA No comment entered. Ordering Provider: KASANDRA CARTER ER E III Report Released Date/Time: Dec 29, 2024 12:23 PM Reporting Lab: [place] [facility] [address] [place] [address] Performing Lab: [place] [facility] [address] [place] [address] [facility] TSH (MA-PB) THYROTROPIN [UNITS/VOLU ME] IN SERUM OR PLASMA 1.688 u[IU]/mL 0.47 - 5 12/29 Specimen Type: SERUM No comment entered. Ordering Provider: KASANDRA CARTER ER E III Report Released Date/Time: Dec 29, 2024 12:23 PM Reporting Lab: [place] [facility] [address] [place] [address] Performing Lab: [place] [facility] [address] [place] [address] [facility] Vital Signs Combined list of inpatient and outpatient Vital Signs from Department of Defense and Veterans Affairs, ranging from 12 months to all on record, depending upon the facility. Vital Sign Value Date Comments Source SYSTOLIC BLOOD PRESSURE 116 01/01/2025 12[facility]01:42 [facility] DIASTOL[facility] BLOOD PRESSURE 64 01/01/2025 12:01:42 [facility] PULSE OXIMETRY 97 % 01/01[facility]01[facility] WE[facility] 209.9 01/01/[facility]25 [facility]:01:[facility] BMI 29 kg/m2 01/01/2025 12:01:42 [facility] PAIN 0 01/01/2025 12[facility]01:42 [facility] TEMPERATURE 98 01/01/2025 12:01:42 [facility] PULSE 48 01/01/2025 12:01:42 [facility] RESPIRATION 20 01/01/2025 12:01:42 [facility] Encounters Combined list of: 1) Encounters from Department of Veterans Affairs facilities going backup to the last 18 months, not all [place] inpatient encounters are included; 2) Encounters from the Department [facility] facilities going backup to 280 months. Location Location Details Encounter Type Encounter Number Reason For Visit Attending Provider ADM Date DC Date Status Disposition Source [facility] Outpatient Encounter [id number] 08/31 [facility] OFFICE O/P EST MOD 30 MIN [id number] Diagnos is: ICD-10- CM G47.00 Insomni a, unspeci fied HERBERTH BRISENO G 09/17 [facility] OFFICE O/P EST MOD 30 MIN [id number] Diagnos is: ICD-10- CM I48.91 Unspeci fied atrial fibrill ation HERBERTH BRISENO G 10/02 [facility] Outpatient Encounter [id number] 02/19 [facility] [place] [facility] Outpatient Encounter [id number] 10/24 [place] [facility] [place] [facility] Outpatient Encounter [id number] 10/24 [place] [facility] Outpatient Encounter [id number] 12/29 [facility] OFFICE O/P EST MOD 30 MIN [id number] Diagnos is: ICD-10- CM I63.9 Cerebra l infarct ion, unspeci fied CARTER,KASANDRA ER E III 01/01 [facility] Outpatient Encounter [id number] 01/02 [facility] Outpatient Encounter [id number] 01/02 [facility] TELEHEALTH FACILITY FEE [id number] Diagnos is: ICD-10- CM H93.19 Tinnitu s, unspeci fied ear GRAVES,ANDREI SHAQUILLE A 01/07 [facility] XM&SLCTN BINAURL [id number] Diagnos is: ICD-10- CM H93.19 Tinnitu s, unspeci fied ear GRAVES,ANDREI SHAQUILLE A 01/07 [place] [facility] Outpatient Encounter [id number] 01/12 [facility] Outpatient Encounter [id number] 02/06 [facility] TELEHEALTH FACILITY FEE [id number] Diagnos is: ICD-10- CM Z46.1 Encount er for fitting and adjustm ent of hearing aid ANDREI BAEZA A 02/09 [facility] [place] [facility] CONFORMITY EVALUATION [id number] Diagnos is: ICD-10- CM Z46.1 Encount er for fitting and adjustm ent of hearing aid ANDREI BAEZA A 02/09 [place] [facility] PH1 ASSMT&MGMT NQHP 5-10 [id number] Diagnos is: ICD-10- CM I48.91 Unspeci fied atrial fibrill ation CARTER,KASANDRA ER E III 02/23 [facility] Social History Combined list of available smoking, tobacco, and other social history from Department of Defense and Veterans Affairs facilities. Social History Type Response Date Comment Sourc e Tobacco smoking status NHIS VA-TOBACCO QUIT 1 TO < 5 YRS 08/20/2023 [facility] History of tobacco use VA-TOBACCO FORMER USER 08/20/2023 [facility] History of tobacco use VA-TOBACCO FORMER USER 08/17/2021 [facility] History of tobacco use VA-TOBACCO NEVER USED 07/27/2020 [facility] History of tobacco use VA-TOBACCO USER E VERY DAY 07/19/2018 [facility] History of tobacco use CURRENT TOBACCO USER 11/16/2016 [facility] Plan of Care List of future care activities from Department of Veterans Affairs facilities. Additional future care activities may be listed in the Assessment and Plan section. Date/Time Care Activity Care Activity Detail Facili ty 03/11/2025 AMBULATORY - MEDICINE AMBULATORY - MEDICI [facility]
--- OUTSIDE RECORDS SUMMARY | 2025-02-27 00:05 | XMS_ITS | Data Portability ---
Author Organization [facility], [facility] Address [address] [facility] [address] [place] [address] Care Team Providers Care Eye Clinic Manager Name Role Phone CLAUDETTE YEUNG Primary Care Provider Unavailabl e Assessment No assessment recorded. Plan of Treatment Reminders Order Date Submit Date Provider Last Modified By Organization Details Last Modified Time Details Appointments RECHECK 2025 10:00A M CLAUDETTE YEUNG PA-C Not available Not available Not available Lab None recorded. Referral None recorded. Procedures None recorded. Surgeries None recorded. Imaging None recorded. Medication Orders Ambien 10 mg tablet 2024 025 [email or web address] [id number], [address] [facility] [place], [address], 02/03/2025 13:22:14 atorvasta tin 40 mg tablet 2024 025 [facility], [address] [place], [address], 01/02/2025 15:36:57 folic acid 1 mg tablet 2024 025 [facility], [address] [place], [address], 01/02/2025 15:37:10 thiamine HCl (vitamin B1) 100 mg tablet 2024 025 [facility], [address] [place], [address], 01/02/2025 15:36:54 aspirin 81 mg chewable tablet 2024 [facility], [address] [place], [address], 01/02/2025 15:37:09 Eliquis 5 mg tablet 2024 [facility], [address] [place], [address], 01/02/2025 15:37:12 Lexapro 10 mg tablet 2024 [facility], [address] [place], [address], 01/02/2025 15:36:46 cholecalc iferol (vitamin D3) 25 mcg (1,000 unit) capsule 2024 [facility], [address] [place], [address], 01/02/2025 15:36:50 Lasix 40 mg tablet 2024 [facility], [address] [place], [address], 01/02/2025 15:36:49 Klor-Con M20 mEq tablet,ex tended release 2024 [facility], [address] [place], [address], 01/02/2025 15:37:06 amlodipin e 10 mg tablet 2024 [facility], [address] [place], [address], 01/02/2025 15:36:50 metoprolo l tartrate 25 mg tablet 2024 [facility], [address] [facility] [place], [address], 01/02/2025 15:37:07 amiodaron e 200 mg tablet 2024 025 [facility], [address] [facility] [place], [address], 01/02/2025 15:36:52 Patient TargetsNo targets recorded. Patient Instructions Encounter Date Encounter Id Patient Instructions Last Modified By Organization Details Last Modified Time 12/29/2024 [id number] Admitted for threapy, planning to d/c home soon. Doing well. [email or web address] Not available 12/29/2024 17:19:44 Reason for Referral None Reported. Problems Name Problem SNOMED Code Status Onset Date Resolution Date Notes Provider Name and Address Organization Details Recorded Time Chronic obstruct stella pulmonar y disease 50195563 Active 2019 COPD (CHRONIC OBSTRUCT STELLA PULMONAR Y DISEASE) ; Recorded 01/13/20 20 1:32PM by Claudette Yeung PA-C, Office Visit; Promoted ; acuity set as *; [facility] 07:20:20 Disorder of wrist joint 305627293 Completed 201905/08/2024 DEGENERA TIVE TFCC TEAR, LEFT; Recorded 01/13/20 20 7:25AM by Michelle Ray LPN, Office Visit; Promoted ; acuity set as *; Removal Reason: resolved [facility] 07:20:33 Anxiety disorder 270329986 Completed 201905/08/2024 Anxiety Disorder ; 01/13/20 20 7:25AM by Michelle Ray LPN, Office Visit; Promoted ; acuity set as *; Removal Reason: resolved MICHELLE sal [facility] 5 07:20:14 Chronic atrial fibrilla tion 885329011 Active 2019 CHRONIC ATRIAL FIBRILLA TION; Recorded 01/14/20 8:20AM by Claudette Yeung PA-C, Annotati on/Adden dum; Promoted ; acuity set as *; 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 07:20:[address] [facility] l joon 985776690 Active 2024 [facility] 20:58:32 Hyperten sive heart disease with congesti ve heart failure 7430198 Active 2024 [facility] 20:58:36 Cirrhosi s of liver 44242659 Active 2024 MICHELLE sal, [facility] 20:58:26 Chronic systolic heart failure 934203742 Active 2024 MICHELLE CORY null, [facility] 20:58:23 Pain of left wrist 05828269939 9102 Active 2024 MICHELLE sal, [facility] 12:11:35 Depressi ve disorder 84658670 Active 2024 [facility] 12:11:59 Chronic insomnia 595971783 Active 2024 Francisco Javier Kaplan MD [address] [place] [address], [phone] , [facility], [place] 14:37:34 Notes:Some problems listed i n Documents: #[id number], #[id number], #[id number], #[id number], #[id number], #[id number], #[id number], #[id number] could not be added to this patient's chart. Please review these documents and add these problems to the patient's chart manually as needed. Problem Notes None recorded. Medical Equipment None Reported. Allergies No known drug allergies Medications Name Sig Start Date Stop Date Status Note LastModified by Organization Details LastModified Time furosemid e 40 mg tablet TAKE 1 TABLET BY MOUTH EVERY DAY active Not Available Not Available No t Available atorvasta tin 40 mg tablet TAKE 1 TABLET BY MOUTH EVERY DAY active Not Available Not Available No t Available promethaz ine-DM 6.25 mg-15 mg/5 mL oral syrup TAKE 5ML BY MOUTH EVERY 4 HOURS 12/18 completed Not Available Not Available Not Available trazodone 50 mg tablet TAKE 1/2 TABLET BY MOUTH DAILY AT BEDTIME 04/08 completed Not Available Not Available Not Available metoprolo l tartrate 100 mg tablet TAKE 1 TABLET BY MOUTH TWICE A DAY 01/02 completed Not Available Not Available Not Available amiodaron e 200 mg tablet Take 1 tablet every day by oral route for 90 days. 2024 active Not Available Not Available Not Avai lable metoprolo l succinate ER 50 mg tablet,ex tended release 24 hr TAKE 1/2 TABLET BY MOUTH DAILY 12/18 completed Not Available Not Available Not Available prednison e 20 mg tablet TAKE 2 TABLETS BY MOUTH EVERY DAY FOR 5 DAYS 12/18 completed Not Available Not Available Not Available thiamine HCl (vitamin B1) 100 mg tablet Take 1 tablet every day by oral route for 90 days. 2024 active Not Available Not Available Not Avai lable spironola ctone 25 mg tablet daily 04/08 completed 0; Recorded 01/13/20 20 1:09PM by Michelle Ray LPN, Office Visit; Not Available Not Available Not Available potassium chloride ER 20 mEq tablet,ex tended release(p art/cryst ) TAKE 1 TABLET BY MOUTH EVERY DAY active Not Available Not Available No t Available prednisol one acetate 1 % eye drops,jah pension PLEASE SEE ATTACHED FOR DETAILED DIRECTIO NS 02/03 completed Not Available Not Available Not Available temazepam 15 mg capsule TAKE 1 CAPSULE BY MOUTH EVERY DAY AT BEDTIME NEEDED FOR SLEEP 12/18 completed Not Available Not Available Not Available amlodipin e 10 mg tablet TAKE 1 TABLET BY MOUTH EVERY DAY active Not Available Not Available No t Available metoprolo l tartrate 50 mg tablet Take 1.5 tablets twice a day by oral route. 04/08 completed Not Available Not Available Not Available nitroglyc callie 0.4 mg sublingua l tablet PLACE 1 TABLET UNDER TONGUE EVERY 5 MINS, UP TO 3 DOSES NEEDED FOR CHEST PAIN active Not Available Not Available No t Available aspirin 81 mg chewable tablet Chew 1 tablet every day by oral route for 90 days. 2024 active Not Available Not Available Not Avai lable folic acid 1 mg tablet Take 1 tablet every day by oral route for 90 days. 2024 active Not Available Not Available Not Avai lable allopurin ol 300 mg tablet daily 04/08 completed 0; Recorded 01/13/20 20 1:10PM by Michelle Ray LPN, Office Visit; Not Available Not Available Not Available zolpidem 5 mg tablet Take 1 tablet every day by oral route as needed for 30 days, for sleep. 2024 active Not Available Not Available Not Avai lable zolpidem 10 mg tablet TAKE 1 TABLET BY MOUTH EVERY DAY FOR 30 DAYS active Not Available Not Available No t Available doxycycli ne hyclate 100 mg tablet TAKE 1 TABLET BY MOUTH TWICE A DAY FOR 7 DAYS 12/18 completed Not Available Not Available Not Available spironola ctone 50 mg tablet Take 1 tablet every day by oral route. 01/02 completed Not Available Not Available Not Available cholecalc iferol (vitamin D3) 25 mcg (1,000 unit) capsule Take 1 capsule every day by oral route. 2024 active Not Available Not Available Not Avai lable escitalop alex 10 mg tablet TAKE 1 TABLET BY MOUTH EVERY DAY active Not Available Not Available No t Available Ventolin 90 mcg/actua tion aerosol inhaler four times daily, as needed 04/08 completed Recorded 01/13/20 7:25AM by Michelle Ray LPN, Office Visit; Refill Quantity : 1; Inhalati on; Not Available Not Available Not Available metoprolo l tartrate 25 mg tablet TAKE 1 TABLET TWICE A DAY BY ORAL ROUTE FOR 90 DAYS. active Not Available Not Available No t Available Spiriva with [employer]iH[employer] r 18 mcg and inhalatio n capsules Inhale 1 capsule every day by inhalati on route. 2023 active Not Available Not Available Not Anisa labpili Flovent HFA 110 mcg/actua tion aerosol inhaler Inhale 1 puff twice a day by inhalati on route. 2023 active Not Available Not Available Not Anisa philip Potassium Chloride ER daily 12/18 completed 0; Recorded 01/13/20 7:25AM by Michelle Ray LPN, Office Visit; Not Available Not Available Not Available Xopenex HFA 45 mcg/actua tion aerosol inhaler four times daily, as needed 04/08 completed vo KM/dh; Recorded 01/13/20 2:15PM by Michelle Ray LPN, Office Visit; Mail Order Quantity : 1 Inhalati on; Refill Quantity : 1; Inhaler; Not Available Not Available Not Available Eliquis 5 mg tablet Take 1 tablet twice a day by oral route for 90 days. 2024 active Not Available Not Available Not Anisa labpili Vitals Date Recorded Body height Body mass index (BMI) Body weight Oxygen saturation Heart rate Respiratory rate Body temperature Systolic And Diastolic Provider Name and Address Organization Details Last Updated DateTime 5 180.34 cm 29.3 kg/m2 38355.4 g 97 % 60 /min 18 /min 98 [degF] 120/80 mm[Hg] MICHELLE RAY [facility], [facility] 5 14:11:04 Date Recorded Body height Body mass index (BMI) Body weight Oxygen saturation Heart rate Respiratory rate Body temperature Systolic And Diastolic Provider Name and Address Organization Details Last Updated DateTime 5 180.34 cm 29.7 kg/m2 43567.1 7 g 96 % 56 /min 18 /min 98.3 [degF] 144/76 mm[Hg] MICHELLE RAY [facility] 5 12:06:20 Date Recorded Body height Body mass index (BMI) Body weight Heart rate Respiratory rate Body temperature Oxygen saturation Systolic And Diastolic Provider Name and Address Organization Details Last Updated DateTime 5 180.34 cm 29.7 kg/m2 70610.1 7 g 47 /min 20 /min 97.8 [degF] 97 % 156/81 mm[Hg] MOHAN DANYEL [facility] 5 17:17:22 Date Recorded Body height Body mass index (BMI) Body weight Oxygen saturation Heart rate Respiratory rate Body temperature Systolic And Diastolic Provider Name and Address Organization Details Last Updated DateTime 5 180.34 cm 29.1 kg/m2 88188.8 1 g 97 % 70 /min 18 /min 97 [degF] 138/80 mm[Hg] MICHELLE NICHOLSONYOBANI [facility] 5 12:16:47 Date Recorded Body height Body mass index (BMI) Body weight Oxygen saturation Heart rate Respiratory rate Body temperature Systolic And Diastolic Provider Name and Address Organization Details Last Updated DateTime 5 180.34 cm 30 kg/m2 25945.3 6 g 98 % 76 /min 20 /min 98 [degF] 136/80 mm[Hg] MICHELLE NICHOLSONYOBANI [facility] 5 11:24:22 Social History Question Answer Notes LastModified by Organizat ion Details LastModified Time Tobacco Smoking Status Former Smoker CLAUDETTE YEUNG PA-C [address] [place] [address], [phone], [facility] 05/08/2024 10:07:52 When Did You Quit Smoking? 1-5yearssinc elastcigaret te [email or web address] Information not available 05/08/2024 What Was The Date Of Your Most Recent Tobacco Screening? 05/08/2024 [email or web address] Information not available 05/08/2024 What Is Your Current Pack Years? 30ormorepack years [email or web address] Information not available 05/08/2024 At What Age Did You Start Smoking Tobacco? 19 [email or web address] Information not available 05/08/2024 Has Tobacco Cessation Counseling Been Provided? Yes [email or web address] Information not available 05/08/2024 On What Date Was Tobacco Cessation Counseling Provided? 05/08/2024 [email or web address] Information not available 05/08/2024 How Many Years Have You Smoked Tobacco? 50 [email or web address] Information not available 05/08/2024 Sex: Unknown Functional Status Question Answer Note LastModified by Organizat ion Details LastModified Time How many times per week do you consume alcohol? 5-7 times per week [email or web address] Information not available 05/08/2024 Do you or have you ever used any other forms of tobacco or nicotine? No [email or web address] Information not available 05/08/2024 What is your level of alcohol consumption? Moderate [email or web address] Information not available 05/08/2024 Do you or have you ever used any nicotine-free cigarettes, vape, or chewing tobacco? No [email or web address] Information not available 05/08/2024 Mental Status None recorded. Family History Nothing Reported. Medical History No medical history recorded. Immunizations Vaccine Type Date Status Note Provider Nam e and Address Organization Details Recorded Time COVID-19, mRNA, LNP-S, PF, 100 mcg/0.5mL dose or 50 mcg/0.25mL dose 2 completed CLAUDETTE YEUNG PA-C [address] [place], [address], [facility] 05/08/2024 14:02:51 COVID-19, mRNA, LNP-S, PF, 30 mcg/0.3 mL dose 1 completed CLAUDETTE YEUNG PA-C [address] [place], [address], [facility] 05/08/2024 14:02:51 Tdap 5 completed Not Available [facility] 02/03/2025 11:24:02 Td(adult) unspecified formulation 8 completed Not Available [facility] 09/30/2022 02:32:57 Past Encounters Encounter ID Performer Location Encounter Start Date Encounter Closed Date Diagnosis/Indication Diagnosis SNOMED-CT Code Diagnosis ICD10 Code Diagnosis IMO Codes Diagnosis Note [id number] ULYSSES HAAS [facility] ([facility]) [address] [place] [id number] 09/29/2022 09:45:12 09/29/2022 15:23:55 Multiple actinic keratoses 391542487 L57.0 Referral sent to dermatolog y. Dysplastic nevus of skin 726703116 D22.9 3 abnormal nevi noted to the left side of face, black in color, not symmetric, irregular borders. Will refer to to dermatolog y. Patient agrees to plan of care. Pictures added to chart. [id number] CLAUDETTE YEUNG PA-C [facility] ([facility]) [address] [place] [id number] 03/30/2023 09:58:39 04/13/2023 07:40:51 Cough 00161879 R05.9 Chronic ob structive pulmonary disease 50596265 J44.9 [id number] CLAUDETTE YEUNG PA-C [facility] ([facility]) [address] [place] [id number] 12/19/2023 14:44:49 12/21/2023 08:12:15 Chronic atrial fibrillation 499417780 I48.20 Hypertensi ve heart disease with congestive heart failure 4684539 I11.0 Chronic sy stolic heart failure 142168697 I50.22 [facility]. Chronic ob structive pulmonary disease 39339602 J44.9 Hospital i npatient stay within past 30 days 4459740666 106 Z76.89 hospital record and med list reviewed. no changes made today [id number] Jas Yeung MD [facility] ([facility]) [address] [place] [address] [id number] 04/08/2024 13:12:27 05/09/2024 15:03:28 [id number] Jas Yeung MD [facility] ([facility]) [address] [place] [id number] 04/08/2024 13:24:18 04/09/2024 11:32:17 Intention tremor 05595282 G25.2 Harmful pa ttern of use of alcohol 17997645 F10.10 [id number] CLAUDETTE YEUNG PA-C [facility] ([facility]) [address] [place] [id number] 5 05/08/2024 09:43:20 05/08/2024 14:20:17 Chronic atrial fibrillation 317162048 I48.20 Chronic ob structive pulmonary disease 04872704 J44.9 Chronic sy stolic heart failure 852649881 I50.22 [place].with reduced EF. Cirrhosis of liver 007 K74.60 evident in his lab work. explained how important it is to quite drinking all alcohol Hypertensi ve heart disease with congestive heart failure 6333853 I11.0 CCA form filled out during today's office visit Essential tremor 2710219 09 G25.0 exacerbate d by his alcohol use and possible amiodorone . [id number] CLAUDETTE YEUNG PA-C [facility] ([facility]) [address] [place] [address] [id number] 5 06/24/2024 13:38:24 06/24/2024 16:01:10 Chronic obstructive pulmonary disease 92144366 J44.9 stable on current inhalors. Cirrhosis of liver 007 K74.60 evident in his lab work. explained how important it is to quite drinking all alcoholHe has cut way back but still drinking some.Will get lab work at his next appt in 4 months. Chronic at rial fibrillation 490901906 I48.20 in Afib today. sees cardiology q 6 months. [id number] CLAUDETTE YEUNG PA-C [facility] ([facility]) [address] [place] [id number] 12/25/2024 11:54:01 02/03/2025 08:04:54 Pain of left wrist 7494827123 00654 M25.532 203622 prednisone 40mg qd x 5 daysxray Depressive disorder 3548 9007 F32.A 28647186 lexapro 10mg qd, ambien 5mg hs Hypertensi ve heart disease with congestive heart failure 3115947 I11.0 Hosptial records reviewed. continue with current meds and therapies. Chronic at rial fibrillation 401919190 I48.20 Chronic ob structive pulmonary disease 08829438 J44.9 stable on current inhalors. [id number] Mauri Ramos DO [facility] ([facility]) [address] [place] [address] [id number] 5 12/29/2024 15:08:39 12/31/2024 08:39:41 Post-discharge follow-up 590014624 Z09 595155 Metabolic encephalopathy 43484985 G93.41 880609 Alcohol wi thdrawal delirium 2116864 F10.931 01990 Moderate c hronic obstructive pulmonary disease 106633815 J44.9 833216 Chronic at rial fibrillation 189657764 I48.20 015182 [id number] CLAUDETTE YEUNG PA-C [facility] ([facility]) [address] [place] [id number] 01/02/2025 12:03:48 01/02/2025 15:30:19 Longstanding persistent atrial fibrillation 317137421 I48.11 33057846 Essential hypertension 87982539 I10 55288 Mixed hyperlipidemia 267 774857 E78.2 30238 Mixed anxi ety and depressive disorder 532935406 F41.8 801906 Chronic at rial fibrillation 642745875 I48.20 in Afib today. sees cardiology q 6 months. Chronic sy stolic heart failure 665671403 I50.22 follows [place] primary care.with reduced EF. Harmful pa ttern of use of alcohol 24286477 F10.10 25391 Vitamin D deficiency 347 96637 E55.9 88517 Evaluation procedure 386 235321 Z09 82183373 I printed a new med list with pt and spent majority of visit entering meds, [facility] and making sure pt understand s how to take them. [id number] CLAUDETTE YEUNG PA-C [facility] ([facility]) [address] [place] [address] [id number] 5 02/03/2025 11:19:26 02/03/2025 12:11:48 Chronic atrial fibrillation 362466596 I48.20 Hypertensi ve heart disease with congestive heart failure 3454640 I11.0 hospital records reviewed. continue with current meds and therapies. Chronic insomnia 0905895 04 F51.04 932532 Alcohol dependence 23857 003 F10.20 1669491 No drinking since 12.03.24!! Health Concerns Section Related Observation LastModified by Organization Detai ls LastModified Time None Recorded Concern Status LastModified by Organization Details LastModified Time None Recorded Advance Directives Directive None Recorded Payers Insurance Date Sequence Insurance Name Policy Number Policy Borrego Covered Member ID Borrego Member ID Guarantor Name 02/02/2025 [place] - [place] - [facility] (MEDICARE) Jet Blackman [id number] Jet Blackman 02/02/2025 2 MED[employer] INSUR[employer] (MEDICARE SUPPLEMENT) Jet Blackman [id number] Jet Blackman 02/02/2025 1 [place]IC[place] [employer] Jet Blackman [id number] Jet Blackman Notes Date Note Type Note Provider Name and Address Organization Details Recorded Time 5 text/html Abnormal Liver TestsReported by PatientHPIFor context, patient reportsrecent heavy alcohol useandhistory of cirrhosis. For severity, patient reportsast:___,alt:___, andinr: 1.3. For duration, patient reportspresent for 1-6 months. For alleviating factors, patient reportsstopped alcohol. For aggravating factors, patient reportsalcohol use. For associated symptoms, patient reportsno jaundice,no ruq abdominal pain,no rash,no diarrhea,no constipation,no black/tarry stools,no vomiting blood,normal appetite, andno unintentional weight loss. Musculoskeletal PainReported by PatientHPIFor quality, patient reportssharp,tingling, anddull. For severity, patient reportsworsening,interferes with sleep, andinterferes with work/school. For associated symptoms, patient reportsweak limbs. For location, patient reportsbilateral hip,bilateral knee, andbilateral ankle. For duration, patient reportspresent <1 month. For timing, patient reportsconstantandsudden. For alleviating factors, patient reportsrestandchanging position. For aggravating factors, patient reportsmovement/positioning ,bending over, andtwisting. For adls affected, patient reportswalking,sweeping,mop ping,bathing,dressing, andclimbing stairs. 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 CLAUDETTE YEUNG PA-C [address] [place], [address], [facility] [place] 06/24/2024 14:45:05 5 text/html Anxiety/DepressionReported by PatientHPIFor severity, patient reportshospitalizedbut reportsdenies suicidal ideations,able to maintain relationships, anddoes not interfere with activities of daily living. For context, patient reportsrecent medical event,cardiac disease, andetoh use. For onset/timing, patient reportsgradual. For modifying factors, patient reportsmedications as directed. Care Management - Congestive Heart Failure (CHF)Reported by PatientHPIFor self care, patient reportsrecent hospitalizationbut reportsusing an sriram inhibitor,using a beta grabiel, andusing a diuretic. For severity, patient reportsinterferes with daily activitiesbut reportssymptoms are improving. For associated symptoms, patient reportsirregular heartbeat,shortness of breath,fatigue, andlimb swellingbut reportsno chest pain. For prognosis, patient reportsexpected outcome: stabilizeandprognosis: guarded. Atrial FibrillationReported by PatientHPIFor aggravating factors, patient reportsalcohol. For associated symptoms, patient reportsshortness of breath,exertional dyspnea,decreased exercise tolerance, andfatiguebut reportsno chest discomfort. For duration, patient reportshas noted for yearsandpersistent. For alleviating factors, patient reportsmedication. new admit to [facility] arrives after admission to [facility]. He had acute SOB due to AFib with RVR, CHF exacerbationHis case is complicated by hx of alcohol abuse and COPD.He was treated and stabilized and transfered to SNF to rehab until he is ready to go homehis brother is here from [place] states he is better. getting stronger but still SOB.states his is not sleeping at all. CLAUDETTE YEUNG PA-C [address] [place], [address], [facility] 02/02/2025 21:32:37 5 text/html Anxiety/DepressionReported by PatientHPIFor severity, patient reportshospitalizedbut reportsdenies suicidal ideations,able to maintain relationships, anddoes not interfere with activities of daily living. For context, patient reportsrecent medical event,cardiac disease, andetoh use. For onset/timing, patient reportsgradual. For modifying factors, patient reportsmedications as directed.ROS as noted in the HPI new admit/ planing to d/c soon. Mauri Ramos DO [address] [place] [address], [address], [facility] 12/30/2024 14:25:24 5 text/html Care Management - Congestive Heart Failure (CHF)Reported by PatientHPIFor self care, patient reportsrecent hospitalizationbut reportsusing an sriram inhibitor,using a beta grabiel, andusing a diuretic. For associated symptoms, patient reportsshortness of breathbut reportsno chest pain,no fatigue,no limb swelling,no abdominal swelling, andno appetite loss. For prognosis, patient reportsexpected outcome: improveandprognosis: guarded. For severity, patient reportssymptoms are improving. Atrial FibrillationReported by PatientHPIFor quality, patient reportspressure,tightness, anddull. For context, patient reportshypertension. For associated symptoms, patient reportsdecreased exercise toleranceandweaknessbut reportsno chest discomfort,no dyspnea,no associated dizziness, andno awareness of palpitation. For pain location, patient reportschest. For severity, patient reportsmoderate. For duration, patient reportshas noted for years. For alleviating factors, patient reportsmedication. halfway /hospital follow upafib/chf and alcoholism.Has not drank since he has been home. CLAUDETTE YEUNG PA-C [address] [place], [address], [facility] 01/02/2025 14:41:31 text/html Care Management - Congestive Heart Failure (CHF)Reported by PatientHPIFor associated symptoms, patient reportsirregular heartbeatandshortness of breathbut reportsno chest painandno limb swelling. For prognosis, patient reportsexpected outcome: improveandprognosis: moderate. For self care, patient reportsweight status: normal,using a beta grabiel, andusing a diuretic. For severity, patient reportssymptoms are improving. Atrial FibrillationReported by PatientHPIFor context, patient reportsexertionalandhyperte nsion. For associated symptoms, patient reportsshortness of breathandexertional dyspneabut reportsno chest discomfort,no decrease in exercise tolerance,no fatigue,no associated dizziness,no awareness of palpitation,not tachycardic,no weakness,no increased urination, andno angina. For pain location, patient reportschest. For severity, patient reportsmoderate. For duration, patient reportshas noted for years,persistent, andpermanent. For onset/timing, patient reportsdaily. For alleviating factors, patient reportsmedication.amiodoron e rythm, metoprolol rate control, eliquis for blood thinner. I NEED THE AMBIEN SENT TO [facility] CLAUDETTE YEUNG PA-C [address] [place], [address], [facility], [place] 02/03/2025 12:00:06
--- OUTSIDE RECORDS SUMMARY | 2025-02-27 00:05 | XMS_ITS | Continuity of Care Document ---
Author Organization DANIEL - [facility] Annia, LCornelia, [facility] ([facility]) Address [address] [place] [address] Care Team Providers Care Experience Specialist Name Role Phone CLAUDETTE YEUNG Primary Care Provider Unavailabl e Assessment No assessment recorded. Plan of Treatment Reminders Order Date Submit Date Provider Last Modified By Organization Details Last Modified Time Details Appointments RECHECK 2025 10:00A M CLAUDETTE YEUNG PA-C Not available Not available Not available Lab None recorded. Referral None recorded. Procedures None recorded. Surgeries None recorded. Imaging None recorded. Medication Orders atorvasta tin 40 mg tablet 2024 025 [facility], [address] [place], [address], 01/02/2025 15:36:57 folic acid 1 mg tablet 2024 025 [facility], [address] [place], [address], 01/02/2025 15:37:10 thiamine HCl (vitamin B1) 100 mg tablet 2024 025 [facility], [address] [place], [address], 01/02/2025 15:36:54 aspirin 81 mg chewable tablet 2024 025 [facility], [address] [place], [address], 01/02/2025 15:37:09 Eliquis 5 mg tablet 2024 [facility], [address] [place] [facility] [place], [address], 01/02/2025 15:37:12 Lexapro 10 mg tablet 2024 [facility], [address] [place] [facility] [place], [address], 01/02/2025 15:36:46 cholecalc iferol (vitamin D3) 25 mcg (1,000 unit) capsule 2024 [facility], [address] [place] [facility] [place], [address], 01/02/2025 15:36:50 Lasix 40 mg tablet 2024 [facility], [address] [place] [facility] [place], [address], 01/02/2025 15:36:49 Klor-Con M20 mEq tablet,ex tended release 2024 [facility], [address] [place] [facility] [place], [address], 01/02/2025 15:37:06 amlodipin e 10 mg tablet 2024 [facility], [address] [place] [facility] [place], [address], 01/02/2025 15:36:50 metoprolo l tartrate 25 mg tablet 2024 [facility], [address] [place] [facility] [place], [address], 01/02/2025 15:37:07 amiodaron e 200 mg tablet 2024 025 [facility] [place] [facility], [address] [facility], [place], [address], 01/02/2025 15:36:52 Patient TargetsNo targets recorded. Patient InstructionsNo instructions recorded. Reason for Referral None Reported. Problems Name Problem SNOMED Code Status Onset Date Resolution Date Notes Provider Name and Address Organization Details Recorded Time Chronic obstruct stella pulmonar y disease 67886763 Active 2019 COPD (CHRONIC OBSTRUCT STELLA PULMONAR Y DISEASE) ; Recorded 01/13/20 1:32PM by Claudette Yeung PA-C, Office Visit; Promoted ; acuity set as *; MICHELLE sal [facility], BettianLNormaCNorma 5 07:20:20 Disorder of wrist joint 768567879 Completed 201905/08/2024 DEGENERA TIVE TFCC TEAR, LEFT; Recorded 01/13/20 20 7:25AM by Michelle Ray LPN, Office Visit; Promoted ; acuity set as *; Removal Reason: resolved MICHELLE sal [facility], BettinaLNormaCNorma 5 07:20:33 Anxiety disorder 656323002 Completed 201905/08/2024 Anxiety Disorder ; 01/13/20 20 7:25AM by Michelle Ray LPN, Office Visit; Promoted ; acuity set as *; Removal Reason: resolved MICHELLE sal [facility], Jerome.LNormaCNorma 5 07:20:14 Chronic atrial fibrilla tion 603963278 Active 2019 CHRONIC ATRIAL FIBRILLA TION; Recorded 01/14/20 20 8:20AM by Claudette Yeung PA-C, Annotati on/Adden dum; Promoted ; acuity set as *; MICHELLE sal [facility], Jerome.LKisha 5 07:20:16 Small cell carcinom a of lung 966263441 Completed 201905/08/2024 SMALL CELL LUNG CANCER; 02/17/20 1:48PM by Michelle Ray LPN, Historic al Summary; Promoted ; acuity set as *; [facility] 07:20:39 [facility] l tremor 022921968 Active 2024 [facility] 20:58:32 Hyperten sive heart disease with congesti ve heart failure 6620469 Active 2024 [facility] 20:58:36 Cirrhosi s of liver 64401547 Active 2024 MICHELLE sal, [facility] 20:58:26 Chronic systolic heart failure 487716716 Active 2024 MICHELLE RAY [facility] 20:58:23 Pain of left wrist 06087807276 9102 Active 2024 [facility] 12:11:35 Depressi ve disorder 24406903 Active 2024 MICHELLE RAY null, [facility] 12:11:59 Chronic insomnia 102600386 Active 2024 Francisco Javier Kaplan MD [address] [place] [address], [address] , [facility] 14:37:34 Notes:Some problems listed i n Documents: #[id number], #[id number], #[id number], #[id number], #[id number], #[id number], #[id number], #[id number] could not be added to this patient's [...] daily, as needed 04/08 completed Recorded 01/13/20 20 7:25AM by Michelle Ray [...] 2023 active Not Available Not Available Not Avai lable Flovent HFA 110 mcg/actua tion aerosol inhaler Inhale 1 puff twice a day by inhalati on route. 2023 active Not Available Not Available Not Avai lable Potassium Chloride ER daily 12/18 completed 0; [...] Not Available Not Available Not Avai lable Vitals Date Recorded Body height Body mass index (BMI) Body weight Oxygen saturation Heart rate Respiratory rate Body temperature Systolic And Diastolic Provider Name and Address Organization Details Last Updated DateTime 180.34 cm 29.1 kg/m2 15138.8 1 g 97 % 70 /min 18 /min 97 [degF] 138/80 mm[Hg] MICHELLE RAY [facility], L.LNormaCNorma 12:16:47 Social History Question Answer Notes LastModified by Organizat ion Details LastModified Time Tobacco Smoking Status Former Smoker CLAUDETTE YEUNG PA-C [address] [place] [address], [address], [facility], L.L.CNorma 05/08/2024 10:07:52 When Did You Quit Smoking? 1-5yearssinc elastcigaret te [email or web address] Information not available 05/08/2024 What Was The Date Of Your Most Recent Tobacco Screening? 05/08/2024 [email or web address] Information not available 05/08/2024 What Is Your Current Pack Years? 30ormorepack years Information not available 05/08/2024 At What Age Did You Start Smoking Tobacco? 19 [email or web address] Information not available 05/08/2024 Has Tobacco Cessation Counseling Been Provided? Yes [email or web address] Information not available 05/08/2024 On What Date Was Tobacco Cessation Counseling Provided? 05/08/2024 Information not available 05/08/2024 How Many Years Have You Smoked Tobacco? 50 [email or web address] Information not available 05/08/2024 Sex: Unknown Functional Status Question Answer Note LastModified by Organizat ion Details LastModified Time How many times per week do you consume alcohol? 5-7 times per week [email or web address] Information not available 05/08/2024 Do you or have you ever used any other forms of tobacco or nicotine? No [email or web address] Information not available 05/08/2024 What is your level of alcohol consumption? Moderate [email or web address] Information not available 05/08/2024 Do you or have you ever used any nicotine-free cigarettes, vape, or chewing tobacco? No Information not available 05/08/2024 Mental Status None recorded. Family History Nothing Reported. Medical History No medical history recorded. Immunizations Vaccine Type Date Status Note Provider Nam e and Address Organization Details Recorded Time COVID-19, mRNA, LNP-S, PF, 100 mcg/0.5mL dose or 50 mcg/0.25mL dose 2 completed CLAUDETTE YEUNG PA-C [address] [place], [address], [facility] 05/08/2024 14:02:51 COVID-19, mRNA, LNP-S, PF, 30 mcg/0.3 mL dose 1 completed CLAUDETTE YEUNG PA-C [address] [place], [address], [facility] 05/08/2024 14:02:51 Tdap 5 completed Not Available [facility] 02/03/2025 11:24:02 Td(adult) unspecified formulation 8 completed Not Available [facility] 09/30/2022 02:32:57 Past Encounters Encounter ID Performer Location Encounter Start Date Encounter Closed Date Diagnosis/Indication Diagnosis SNOMED-CT Code Diagnosis ICD10 Code Diagnosis IMO Codes Diagnosis Note [id number] CLAUDETTE YEUNG PA-C [facility] ([facility]) [address] [place] [address] 12/25/2024 11:54:01 02/03/2025 08:04:54 Pain of left wrist 6475682443 80005 M25.532 396654 prednisone 40mg qd x 5 daysxray Depressive disorder 3548 9007 F32.A 90723523 lexapro 10mg qd, ambien 5mg hs Hypertensi ve heart disease with congestive heart failure 9232380 I11.0 Hosptial records reviewed. continue with current meds and therapies. Chronic at rial fibrillation 723121010 I48.20 Chronic ob structive pulmonary disease 08651125 J44.9 stable on current inhalors. [id number] Mauri Ramos DO [facility] ([facility]) [address] [place] [address] 12/29/2024 15:08:39 12/31/2024 08:39:41 Post-discharge follow-up 581332652 Z09 246375 Metabolic encephalopathy 64701806 G93.41 033698 Alcohol wi thdrawal delirium 7256433 F10.931 56194 Moderate c hronic obstructive pulmonary disease 694981523 J44.9 875400 Chronic at rial fibrillation 957165798 I48.20 [id number] CLAUDETTE YEUNG PA-C [facility] ([facility]) [address] [place] [phone] 01/02/2025 12:03:48 01/02/2025 15:30:19 Longstanding persistent atrial fibrillation 053957052 I48.11 26960981 Essential hypertension 91844360 I10 93515 Mixed hyperlipidemia 267 285908 E78.2 45376 Mixed anxi ety and depressive disorder 664549299 F41.8 941073 Chronic at rial fibrillation 999853206 I48.20 in Afib today. sees cardiology q 6 months. Chronic sy stolic heart failure 023175700 I50.22 [facility]with reduced EF. 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 Health Concerns Section Related Observation LastModified by Organization Detai ls LastModified Time None Recorded Concern Status LastModified by Organization Details LastModified Time None Recorded Payers Encounter Date Sequence Insurance Name Policy Number Policy Borrego Covered Member ID Borrego Member ID Guarantor Name 01/02/2025 1 [place] [employer] Jet Blackman [id number] 3 Jet Blackman 01/02/2025 2 [employer] (MEDICARE SUPPLEMENT) Jet Blackman [id number] Jet Blackman Notes Date Note Type Note Provider Name and Address Organization Details Recorded Time 5 text/html Care Management - Congestive Heart [...] for years. For alleviating factors, patient reportsmedication. usp /hospital follow upafib/chf and alcoholism.Has not drank since he has been home. CLAUDETTE YEUNG PA-C [address] [place], [address], [facility] 01/02/2025 14:41:31
--- OUTSIDE RECORDS SUMMARY | 2025-02-27 00:05 | XMS_ITS | Continuity of Care Document ---
Author Organization [facility], LNormaLKisha, [facility] ([facility]) Address [address] [place] [address] Care Team Providers Care Rotoprinter Name Role Phone CLAUDETTE YEUNG Primary Care Provider Unavailabl e Assessment No assessment recorded. Plan of Treatment Reminders Order Date Submit Date Provider Last Modified By Organization Details Last Modified Time Details Appointments RECHECK 2025 10:00A M CLAUDETTE YEUNG PA-C Not available Not available Not available Lab None recorded . Referral None recorded . Procedures None recorded . Surgeries None recorded . Imaging None recorded . Medication Orders None recorded . Patient TargetsNo targets recorded. Patient Instructions Encounter Date Encounter Id Patient Instructions Last Modified By Organization Details Last Modified Time 12/29/2024 [id number] Admitted for threapy, planning to d/c home soon. Doing well. [email or web address] Not available 12/29/2024 17:19:44 Reason for Referral None Reported. Problems Name Problem SNOMED Code Status Onset Date Resolution Date Notes Provider Name and Address Organization Details Recorded Time Chronic obstruct stella pulmonar y disease 95024150 Active 2019 COPD (CHRONIC OBSTRUCT STELLA PULMONAR Y DISEASE) ; Recorded 01/13/20 1:32PM by Claudette Yeung PA-C, Office Visit; Promoted ; acuity set as *; [facility] 07:[facility]:20 Disorder of wrist joint 130593161 Completed 201905/08/2024 DEGENERA TIVE TFCC TEAR, LEFT; Recorded 01/13/20 7:25AM by Michelle Fuentes LPN, Office Visit; Promoted ; acuity set as *; Removal Reason: resolved MICHELLE sal [facility], Jerome.LKisha 5 07:20:33 Anxiety disorder 974954672 Completed 201905/08/2024 Anxiety Disorder ; 01/13/20 7:25AM by Michelle Fuentes LPN, Office Visit; Promoted ; acuity set as *; Removal Reason: resolved MICHELLE sal, [facility], L.LNormaCNorma 5 07:20:14 Chronic atrial fibrilla tion 168824258 Active 2019 CHRONIC ATRIAL FIBRILLA TION; Recorded 01/14/20 8:20AM by Claudette Yeung PA-C, Annotati on/Hoang dum; Promoted ; acuity set as *; [facility] [place].LNormaCNorma 5 07:20:16 Small cell carcinom a of lung 088203697 Completed 201905/08/2024 SMALL CELL LUNG CANCER; 02/17/20 1:48PM by Michelle Fuentes LPN, Historic al Summary; Promoted ; acuity set as *; MICHELLE sal [facility], L.L.CNorma 5 07:20:39 Essentia l tremor 314626102 Active 2024 MICHELLE sal [facility] 5 20:58:32 Hyperten sive heart disease with congesti ve heart failure 9791561 Active 2024 MICHELLE sal, [facility], L.L.CNorma 5 20:58:36 Cirrhosi s of liver 01798567 Active 2024 MICHELLE sal [facility], L.L.CNorma 5 20:58:26 Chronic systolic heart failure 002408599 Active 2024 MICHELLE BOBBYNER doron, [facility] 20:58:23 Pain of left wrist 47127989844 9102 Active 2024 MICHELLE BOBBYYOBANI doron, [facility] 12:11:35 Depressi ve disorder 78122283 Active 2024 MICHELLE BOBBYYOBANI doron, [facility] 12:11:59 Chronic insomnia 719033958 Active 2024 Francisco Javier Kaplan MD [address] [place] [address], [address] , [facility], BettinaL.C. 14:37:34 Notes:Some problems listed i n Documents: #[id number], #[id number], #[id number], #[id number], #[id number], #[id number], #[id number], #[id number] could not be added to this patient's [...] tablet daily 04/08 completed 0; Recorded 01/13/20 1:09PM by Michelle Fuentes LPN, Office Visit; Not Available Not Available [...] tablet daily 04/08 completed 0; Recorded 01/13/20 1:10PM by Michelle Fuentes LPN, Office Visit; Not Available Not Available [...] 2024 active Not Available Not Available Not Avmilton labpili escitalop alex 10 mg tablet TAKE 1 TABLET BY MOUTH EVERY DAY active Not Available Not Available No t Available Ventolin 90 mcg/actua tion aerosol inhaler four times daily, as needed 04/08 completed Recorded 01/13/20 7:25AM by Michelle Fuentes LPN, Office Visit; Refill Quantity : 1; [...] 2023 active Not Available Not Available Not Avmilton lable Potassium Chloride ER daily 12/18 completed 0; Recorded 01/13/20 7:25AM by Michelle Fuentes LPN, Office Visit; Not Available Not Available Not Available Xopenex HFA 45 mcg/actua tion aerosol inhaler four times daily, as needed 04/08 completed vo KM/dh; Recorded 01/13/20 2:15PM by Michelle Fuentes LPN, Office Visit; Mail Order Quantity : [...] Organization Details Last Updated DateTime 180.34 cm 29.7 kg/m2 40897.1 7 g 47 /min 20 /min 97.8 [degF] 97 % 156/81 mm[Hg] MOHAN MONTAÑO [facility] 17:17:22 Social History Question Answer Notes LastModified by [employer] Details LastModified Time Tobacco Smoking Status Former Smoker CLAUDETTE YEUNG PA-C [address] [place] [address], [address], [facility] 05/08/2024 10:07:52 When Did You Quit Smoking? 1-5yearssinc elastcigaret te [email or web address] Information not available 05/08/2024 What Was The Date Of Your Most Recent Tobacco Screening? 05/08/2024 [email or web address] Information not available 05/08/2024 What Is Your Current Pack Years? 30ormorepack years [email or web address] Information not available 05/08/2024 At What Age Did You Start Smoking Tobacco? 19 [email or web address] Information not available 05/08/2024 Has Tobacco Cessation Counseling Been Provided? Yes [email or web address] Information not available 05/08/2024 On What Date Was Tobacco Cessation Counseling Provided? 05/08/2024 [email or web address] Information not available 05/08/2024 How Many Years Have You Smoked Tobacco? 50 [email or web address] Information not available 05/08/2024 Sex: Unknown Functional Status Question Answer Note LastModified by [employer] Details LastModified Time How many times per week do you consume alcohol? 5-7 times per week Information not available 05/08/2024 Do you or have you ever used any other forms of tobacco or nicotine? No Information not available 05/08/2024 What is your level of alcohol consumption? Moderate Information not available 05/08/2024 Do you or have you ever used any nicotine-free cigarettes, vape, or chewing tobacco? No [email or web address] Information not available 05/08/2024 Mental Status None recorded. Family History Nothing Reported. Medical History No medical history recorded. Immunizations Vaccine Type Date Status Note Provider Nam e and Address Organization Details Recorded Time COVID-19, mRNA, LNP-S, PF, 100 mcg/0.5mL dose or 50 mcg/0.25mL dose 2 completed CLAUDETTE YEUNG PA-C [address] [place], [address], [facility] 05/08/2024 14:02:51 COVID-19, mRNA, LNP-S, PF, 30 mcg/0.3 mL dose 1 completed CLAUDETTE YEUNG PA-C [address] [place], [address], [facility], [facility] 05/08/2024 14:02:51 Tdap 5 completed Not Available [facility] 02/03/2025 11:24:02 Td(adult) unspecified formulation 8 completed Not Available [facility] 09/30/2022 02:32:57 Past Encounters Encounter ID Performer Location Encounter Start Date Encounter Closed Date Diagnosis/Indication Diagnosis SNOMED-CT Code Diagnosis ICD10 Code Diagnosis IMO Codes Diagnosis Note [id number] CLAUDETTE YEUNG PA-C [facility] ([facility]) [address] [place] [phone] 12/25/2024 11:54:01 02/03/2025 08:04:54 Pain of left wrist 0448057427 39543 M25.532 238066 prednisone 40mg qd x 5 daysxray Depressive disorder 3548 9007 F32.A 23615787 lexapro 10mg qd, ambien 5mg hs Hypertensi ve heart disease with congestive heart failure 7057987 I11.0 Hosptial records reviewed. continue with current meds and therapies. Chronic at rial fibrillation 192111258 I48.20 Chronic ob structive pulmonary disease 37332223 J44.9 stable on current inhalors. [id number] Mauri Ramos DO [facility] ([facility]) [address] [place] [phone] 12/29/2024 15:08:39 12/31/2024 08:39:41 Post-discharge follow-up 255651904 Z09 806960 Metabolic encephalopathy 82811153 G93.41 605590 Alcohol wi thdrawal delirium 5673486 F10.931 99029 Moderate c hronic obstructive pulmonary disease 247613005 J44.9 733445 Chronic at rial fibrillation 940325000 I48.20 424370 Health Concerns Section Related Observation LastModified by Organization Detai ls LastModified Time None Recorded Concern Status LastModified by Organization Details LastModified Time None Recorded Payers Encounter Date Sequence Insurance Name Policy Number Policy Borrego Covered Member ID Borrego Member ID Guarantor Name 12/29/2024 1 [place] [employer] Jet Blackman [id number] Jet Blackman 12/29/2024 2 [employer] (MEDICARE SUPPLEMENT) Jet Blackman [id number] Jet Blackman Notes Date Note Type Note Provider Name and Address Organization Details Recorded Time 5 text/html Anxiety/DepressionReported by PatientHPIFor severity, patient reportshospitalizedbut reportsdenies suicidal ideations,able to maintain relationships, anddoes not interfere with activities of daily living. For context, patient reportsrecent medical event,cardiac disease, andetoh use. For onset/timing, patient reportsgradual. For modifying factors, patient reportsmedications as directed.ROS as noted in the HPI new admit/ planing to d/c soon. Mauri Ramos, DO [address] [place] [address], [phone], [facility] 12/30/2024 14:25:24
--- OUTSIDE RECORDS SUMMARY | 2025-02-27 00:05 | XMS_ITS | Continuity of Care Document ---
Author Organization [facility] [place], [place], [facility] ([facility]) Address [address] [place] [address] Care Team Providers Care Stone Breaker Name Role Phone CLAUDETTE YEUNG Primary Care [...] recorded . Patient TargetsNo targets recorded. Patient InstructionsNo instructions recorded. Reason for Referral None Reported. Problems Name Problem SNOMED Code Status Onset Date Resolution Date Notes Provider Name and Address Organization Details Recorded Time Chronic obstruct stella pulmonar y disease 75212735 Active 2019 COPD (CHRONIC OBSTRUCT STELLA PULMONAR Y DISEASE) ; Recorded 01/13/20 20 1:32PM by Claudette Yeung PA-C, Office Visit; Promoted ; acuity set as *; [facility] Disorder of wrist joint 858977624 Completed 201905/08/2024 DEGENERA TIVE TFCC TEAR, LEFT; Recorded 01/13/20 20 7:25AM by Michelle Ray LPN, Office Visit; Promoted ; acuity set as *; Removal Reason: resolved [facility] 07:[facility]:33 Anxiety disorder 554363442 Completed 201905/08/2024 Anxiety Disorder ; 01/13/20 7:25AM by Michelle Ray LPN, Office Visit; Promoted ; acuity set as *; Removal Reason: resolved MICHELLE sal [facility] 5 07:20:14 Chronic atrial fibrilla tion 927106316 Active 2019 CHRONIC ATRIAL FIBRILLA TION; Recorded 01/14/20 8:20AM by Claudette Yeung PA-C, Annotati on/Adden dum; Promoted ; acuity set as *; [facility]LE sal [facility] 5 07:20:16 Small cell carcinom a of lung 229730899 Completed 201905/08/2024 SMALL CELL LUNG CANCER; 02/17/20 1:48PM by Michelle Ray LPN, Historic al Summary; Promoted ; acuity set as *; [facility] 07:20:39 [facility] tremor 020859462 Active 2024 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 5 20:58:36 Cirrhosi s of liver 45941305 Active 2024 MICHELLE sal, [facility] 5 20:58:26 Chronic systolic heart failure 922646152 Active 2024 MICHELLE sal [facility] 5 20:58:23 Pain of left wrist 87046038138 9102 Active 2024 MICHELLE sal [facility] 12:11:35 Depressi ve disorder 28913620 Active 2024 MICHELLE sal, [facility] 12:11:59 Chronic insomnia 062467463 Active 2024 Francisco Javier Kaplan MD [address] [place] [address], [phone] [place] [address], L.L.C. 14:37:34 Notes:Some problems listed i n Documents: #[id number], #[id number], #[id number], #[id number], #[id number], #[id number], #[id number], #[id number] could not be added to this patient's [...] completed 0; Recorded 01/13/20 1:09PM by Michelle Ray LPN, Office Visit; Not Available Not Available Not Available potassium chloride ER 20 mEq tablet,ex tended release(p art/cryst ) TAKE 1 TABLET BY MOUTH EVERY DAY active Not Available Not Available No t Available prednisol one acetate 1 % eye drops,jah penon PLEASE SEE ATTACHED FOR DETAILED DIRECTIO NS [...] completed 0; Recorded 01/13/20 1:10PM by Michelle Ray LPN, Office Visit; [...] Not Available Not Available Not Avmilton lable escitalop alex 10 mg tablet TAKE [...] active Not Available Not Available Not Avai labpili Vitals Date Recorded Body height Body mass index (BMI) Body weight Oxygen saturation Heart rate Respiratory rate Body temperature Systolic And Diastolic Provider Name and Address Organization Details Last Updated DateTime 180.34 cm 29.7 kg/m2 80099.1 7 g 96 % 56 /min 18 /min 98.3 [degF] 144/76 mm[Hg] MICHELLE RAY [facility] 5 12:06:20 Date Recorded Body height Body mass index (BMI) Body weight Heart rate Respiratory rate Body temperature Oxygen saturation Systolic And Diastolic Provider Name and Address Organization Details Last Updated DateTime 5 180.34 cm 29.7 kg/m2 16676.1 7 g 47 /min 20 /min 97.8 [degF] 97 % 156/81 mm[Hg] MOHAN MONTAÑO [facility] 17:17:22 Date Recorded Body height Body mass index (BMI) Body weight Oxygen saturation Heart rate Respiratory rate Body temperature Systolic And Diastolic Provider Name and Address Organization Details Last Updated DateTime 180.34 cm 29.1 kg/m2 61162.8 1 g 97 % 70 /min 18 /min 97 [degF] 138/80 mm[Hg] MICHELLE RAY [facility] 12:16:47 Social History Question Answer Notes LastModified by Organizat ion Details LastModified Time Tobacco Smoking Status Former Smoker CLAUDETTE YEUNG PA-C [address] [place] [address], [phone], [facility] 05/08/2024 10:07:52 When Did You Quit Smoking? 1-5yearssinc elastcigaret te [email or web address] Information not available 05/08/2024 What Was The Date Of Your Most Recent Tobacco Screening? 05/08/2024 [email or web address] Information not available 05/08/2024 What Is Your Current Pack Years? 30ormorepack years [email or web address] Information not available 05/08/2024 At What Age Did You Start Smoking Tobacco? 19 [email or web address] Information not available 05/08/2024 Has Tobacco Cessation Counseling Been Provided? Yes [email or web address] Information not available 05/08/2024 On What Date Was Tobacco Cessation Counseling Provided? 05/08/2024 [email or web address] Information not available 05/08/2024 How Many Years Have You Smoked Tobacco? 50 [email or web address] Information not available 05/08/2024 Sex: Unknown Functional Status Question Answer Note LastModified by Organizat ion Details LastModified Time How many times per week do you consume alcohol? 5-7 times per week Information not available 05/08/2024 Do you or have you ever used any other forms of tobacco or nicotine? No Information not available 05/08/2024 What is your level of alcohol consumption? Moderate [email or web address] Information not available 05/08/2024 Do you or [...] mcg/0.25mL dose 2 completed CLAUDETTE YEUNG PA-C [address] [place], [address], [facility] 05/08/2024 14:02:51 COVID-19, mRNA, LNP-S, PF, 30 mcg/0.3 mL dose 1 completed CLAUDETTE YEUNG PA-C [address] [place], [address], [facility] 05/08/2024 14:02:51 Tdap 5 completed Not Available [facility] 02/03/2025 11:24:02 Td(adult) unspecified formulation 8 completed Not Available [facility] 09/30/2022 02:32:57 Past Encounters Encounter ID Performer Location Encounter Start Date Encounter Closed Date Diagnosis/Indication Diagnosis SNOMED-CT Code Diagnosis ICD10 Code Diagnosis IMO Codes Diagnosis Note [id number] CLAUDETTE YEUNG PA-C [facility] ([facility]) [address] [place] [address] 12/25/2024 11:54:01 02/03/2025 08:04:54 Pain of left wrist 1498021111 04292 M25.532 738504 prednisone 40mg qd x 5 daysxray Depressive disorder 3548 9007 F32.A 42586485 lexapro 10mg qd, ambien 5mg hs Hypertensi ve heart disease with congestive heart failure 6541456 I11.0 Hosptial records reviewed. continue with current meds and therapies. Chronic at rial fibrillation 444931010 I48.20 Chronic ob structive pulmonary disease 12909906 J44.9 stable on current inhalors. Health Concerns Section Related Observation LastModified by Organization Detai ls LastModified Time None Recorded Concern Status LastModified by Organization Details LastModified Time None Recorded Payers Encounter Date Sequence Insurance Name Policy Number Policy Borrego Covered Member ID Borrego Member ID Guarantor Name 12/25/2024 1 [place]: [employer] Jet Blackman [id number] 3 Jet Blackman 12/25/2024 2 [employer] (MEDICARE SUPPLEMENT) Jet Blackman [id number] Jet Blackman Notes Date Note Type [...] hospitalizationbut reportsusing an sriram inhibitor,using a beta garbiel, andusing a diuretic. For severity, patient reportsinterferes [...] alleviating factors, patient reportsmedication. new admit to [facility] arrives after admission to [facility]. He had acute SOB due to AFib with RVR, CHF exacerbationHis case is complicated by hx of alcohol abuse and COPD.He was treated and stabilized and transfered to SNF to rehab until he is ready to go homehis brother is here from [place]t states he is better. getting stronger but still SOB.states his is not sleeping at all. CLAUDETTE YEUNG PA-C [address] [place] [address], [phone], [facility] 02/02/2025 21:32:37 5 text/html Anxiety/DepressionReported by PatientHPIFor severity, patient reportshospitalizedbut reportsdenies suicidal ideations,able to maintain relationships, anddoes not interfere with activities of daily living. For context, patient reportsrecent medical event,cardiac disease, andetoh use. For onset/timing, patient reportsgradual. For modifying factors, patient reportsmedications as directed.ROS as noted in the [facility] new admit/ planing to d/c soon. Mauri Ramos DO [address] [place] [address], [phone], [facility] 12/30/2024 14:25:24 5 text/html [...] for years. For alleviating factors, patient reportsmedication. jail /hospital follow upafib/chf and alcoholism.Has not drank since he has been home. CLAUDETTE YEUNG PA-C [address] [place] [address], [phone], [facility] 01/02/2025 14:41:31
--- OUTSIDE RECORDS SUMMARY | 2025-02-27 00:06 | XMS_ITS | Continuity of Care Document ---
Author Organization [facility], [facility] ([facility]) Address [address] [facility] [place] [address] Care Team Providers Care Generation Technician Name Role Phone CLAUDETTE YEUNG Primary Care [...] . Imaging None recorded . Medication Orders Ambien 10 mg tablet 2024 025 [email or web address] [facility]/Pharmacy #[id number], [address] [facility] [address], [place], [address], 02/03/2025 13:22:14 Patient TargetsNo targets recorded. Patient InstructionsNo instructions recorded. Reason for Referral None Reported. Problems Name Problem SNOMED Code Status Onset Date Resolution Date Notes Provider Name and Address Organization Details Recorded Time Chronic obstruct stella pulmonar y disease 31529988 Active 2019 COPD (CHRONIC OBSTRUCT STELLA PULMONAR Y DISEASE) ; Recorded 01/13/20 1:32PM by Claudette Yeung PA-C, Office Visit; Promoted ; acuity set as *; MICHELLE sal, [facility] 5 07:20:20 Disorder of wrist joint 365587569 Completed 201905/08/2024 DEGENERA TIVE TFCC TEAR, LEFT; Recorded 11/10/20 20 7:25AM by Michelle Ray LPN, Office Visit; Promoted ; acuity set as *; Removal Reason: resolved MICHELLE sal [facility], [place].[facility] 5 07:20:33 Anxiety disorder 487570777 Completed 201905/08/2024 Anxiety Disorder ; 01/13/20 20 7:25AM by Michelle Ray LPN, Office Visit; Promoted ; acuity set as *; Removal Reason: resolved MICHELLE sal [facility], [place] 5 07:20:14 Chronic atrial fibrilla tion 004799337 Active 2019 CHRONIC ATRIAL FIBRILLA TION; Recorded 01/14/20 20 8:20AM by Claudette Yeung PA-C, Annotati on/Adden dum; Promoted ; acuity set as *; MICHELLE sal [facility], [place] 5 07:20:16 Small cell carcinom a of lung 586904892 Completed 201905/08/2024 SMALL CELL LUNG CANCER; 02/17/20 20 1:48PM by Michelle Ray LPN, Historic al Summary; Promoted ; acuity set as *; MICHELLE sal [facility] 5 07:20:39 [facility] joon 867270039 Active 2024 [facility] 20:58:32 Hyperten sive heart disease with congesti ve heart failure 4748514 Active 2024 MICHELLE sal [facility] 5 20:58:36 Cirrhosi s of liver 58757322 Active 2024 MICHELLE sal [facility] 5 20:58:26 Chronic systolic heart failure 997770282 Active 2024 MICHELLE BHARATKAREN sal, [facility] 20:58:23 Pain of left wrist 83623174987 9102 Active 2024 MICHELLE BOBBYYOBANI [facility], [facility] 12:11:35 Depressi ve disorder 85249450 Active 2024 MICHELLE DIAMANTEYOBANI [facility], [facility] 12:11:59 Chronic insomnia 999065468 Active 2024 Francisco Javier Kaplan MD [address] [place] [address], [phone] [place] [address], L.L.C. 14:37:34 Notes:Some problems listed i n Documents: #[id number], #[id number], #[id number], #[id number], #[id number], #[id number], #[id number], #[id number] could not be added to this patient's [...] ER daily 12/18 completed 0; Recorded 01/13/20 20 7:25AM by Michelle Ray LPN, Office Visit; Not Available Not Available Not Available Xopenex HFA 45 mcg/actua tion aerosol inhaler four times daily, as needed 04/08 completed vo KM/dh; Recorded 01/13/20 20 2:15PM by Michelle Ray LPN, Office Visit; [...] Organization Details Last Updated DateTime 180.34 cm 30 kg/m2 06350.3 6 g 98 % 76 /min 20 /min 98 [degF] 136/80 mm[Hg] MICHELLE RAY [facility] 11:24:22 Social History Question Answer Notes LastModified by [employer] Details LastModified Time Tobacco Smoking Status Former Smoker CLAUDETTE YEUNG PA-C [address] [place] [address], [phone], [facility] 05/08/2024 10:07:52 When Did You Quit Smoking? 1-5yearssinc elastcigaret te [email or web address] Information not available 05/08/2024 What Was The Date Of Your Most Recent Tobacco Screening? 05/08/2024 Information not available 05/08/2024 What Is Your Current Pack Years? 30ormorepack years [email or web address] Information not available 05/08/2024 At What Age Did You Start Smoking Tobacco? 19 [email or web address] Information not available 05/08/2024 Has Tobacco Cessation Counseling Been Provided? Yes [email or web address] Information not available 05/08/2024 On What Date Was Tobacco Cessation Counseling Provided? 05/08/2024 [email or web address] Information not available 05/08/2024 How Many Years Have You Smoked Tobacco? 50 [email or web address] Information not available 05/08/2024 Sex: Unknown Functional Status Question Answer Note LastModified by Organizat ion Details LastModified Time How many times per week do you consume alcohol? 5-7 times per week [email or web address] Information not available 05/08/2024 Do you or have you ever used any other forms of tobacco or nicotine? No [email or web address] Information not available 05/08/2024 What is your level of alcohol consumption? Moderate [email or web address] Information not available 05/08/2024 Do you or have you ever used any nicotine-free cigarettes, vape, or chewing tobacco? No [email or web address] Information not available 05/08/2024 Mental Status None recorded. Family History Nothing Reported. Medical History No medical history recorded. Immunizations Vaccine Type Date Status Note Provider Nam e and Address Organization Details Recorded Time COVID-19, mRNA, LNP-S, PF, 100 mcg/0.5mL dose or 50 mcg/0.25mL dose 2 completed CLAUDETTE YEUNG PA-C [address] [place], [address], [facility] 05/08/2024 14:02:51 COVID-19, mRNA, LNP-S, PF, 30 mcg/0.3 mL dose 1 completed CLAUDETTE YEUNG PA-C [address] [place], [address], [facility] 05/08/2024 14:02:51 Tdap 5 completed Not Available [facility] 02/03/2025 11:24:02 Td(adult) unspecified formulation 8 completed Not Available [facility] 09/30/2022 02:32:57 Past Encounters Encounter ID Performer Location Encounter Start Date Encounter Closed Date Diagnosis/Indication Diagnosis SNOMED-CT Code Diagnosis ICD10 Code Diagnosis IMO Codes Diagnosis Note [id number] CLAUDETTE YEUNG PA-C [facility] ([facility]) [address] [place] [address] 02/03/2025 11:19:26 02/03/2025 12:11:48 Chronic atrial fibrillation 041361391 I48.20 Hypertensi ve heart disease with congestive heart failure 6260888 I11.0 hospital records reviewed. continue with current meds and therapies. Chronic insomnia 8869547 04 F51.04 741047 Alcohol dependence 38889 003 F10.20 6449547 No drinking since 12.03.24!! Health Concerns Section Related Observation LastModified by Organization Detai ls LastModified Time None Recorded Concern Status LastModified by Organization Details LastModified Time None Recorded Payers Encounter Date Sequence Insurance Name Policy Number Policy Borrego Covered Member ID Borrego Member ID Guarantor Name 02/03/2025 1 [place]ICARE [place]: [employer] Jet Pierce Yehuda [id number] 3 Jet Pierce Yehuda 02/03/2025 2 [employer] (MEDICARE SUPPLEMENT) Jet Pierce Yehuda [id number] Jet Pierce Yehuda Notes Date Note Type Note Provider Name [...] improving. Atrial FibrillationReported by PatientHPIFor context, patient reportsexertionalandhypert ension. For associated symptoms, patient reportsshortness of breathandexertional dyspneabut reportsno chest discomfort,no decrease in exercise tolerance,no fatigue,no associated dizziness,no awareness of palpitation,not tachycardic,no weakness,no increased urination, andno angina. For pain location, patient reportschest. For severity, patient reportsmoderate. For duration, patient reportshas noted for years,persistent, andpermanent. For onset/timing, patient reportsdaily. For alleviating factors, patient reportsmedication.amiodoro ne rythm, metoprolol rate control, eliquis for blood thinner. I NEED THE AMBIEN SENT TO [facility] CLAUDETTE YEUNG PA-C [address] [place] [address], [phone], [facility] 02/03/2025 12:00:06
[2025-02-27 00:08] VITALS: BP 151/71; PULSE 60; RESP 16; TEMP 36.5; O2SAT 94; BMI 29.6
--- NOTE | 2025-02-27 00:26 | W.ED.BACK ---
HPI - Back Pain/Injury General: Chief Complaint: Back Pain/Injury Stated Complaint: Back Pain, ETOH Time Seen by Provider: 02/27/25 00:03 History of Present Illness: This 79-year-old male presents with a 3-4 day history of severe lower back pain localized to the middle of his lumbar region. The patient describes the pain as excruciating, stating he 'can't stand the pain anymore' and has significant difficulty getting out of bed. He reports that the pain does not radiate down his legs and denies any associated numbness or tingling. The patient has no prior history of similar back pain episodes. He recalls falling out of bed, which he believes may have precipitated the current symptoms, though he does not recall any specific lifting or pulling injury. He has been self-medicating with ibuprofen, which provides minimal and temporary relief. The pain appears to be mechanical in nature, worsening with movement, particularly when attempting to get up from a lying position. He denies any urinary symptoms, blood in urine, or abdominal tenderness. Related Data Home Medications ?Medication ?Instructions ?Recorded ?Confirmed cholecalciferol (vitamin D3) 25 25 mcg PO DAILY 02/05/20 12/16/24 mcg (1,000 unit) chewable tablet (Vitamin D3) ascorbic acid (vitamin C) 500 mg 500 mg PO DAILY 11/09/23 12/16/24 tablet (Vitamin C) Previous Rx's ?Medication ?Instructions ?Recorded apixaban 5 mg tablet 5 mg PO BID #60 tabs 11/13/23 nitroglycerin 0.4 mg sublingual 0.4 mg sublingual Q5M PRN chest 11/19/23 tablet pain #25 tabs furosemide 40 mg tablet 40 mg PO DAILY@0800 #45 tabs 01/28/24 amiodarone 200 mg tablet (Pacerone) See Rx Instructions .Route 12/22/24 .COMPLEX #60 tabs hydrocodone 5 mg-acetaminophen 325 1 tab PO TID PRN pain #7 tabs 02/27/25 mg tablet tizanidine 4 mg capsule 4 mg PO Q12H PRN muscle spasticity 02/27/25 #7 caps Allergies Allergy/AdvReac Type Severity Reaction Status Date / Time No Known Allergies Allergy Verified 07/13/23 08:56 [facility] ED [facility]: Medical History (Updated 02/27/25 @ 00:32 by Zachary Sr DO) Alcoholism Heart failure with reduced ejection fraction Macrocytosis Hypomagnesemia Elevated bilirubin COPD (chronic obstructive pulmonary disease) LV dysfunction Systolic heart failure Congestive heart failure with LV diastolic dysfunction, NYHA class 4 Atrial fibrillation with rapid ventricular response History of lung cancer Chronic fatigue Atrial fibrillation Obstructive sleep apnea HTN (hypertension) CHF (congestive heart failure) DRUJ (distal radioulnar joint) instability, post-traumatic no specific trauma only code choice in EHR! 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 Surgical History History of lobectomy of lung Family History Denies family history of Diabetes Stroke Social History Smoking and tobacco/nicotine status: former use of tobacco/nicotine Quit status (tobacco/nicotine): has quit using Year quit tobacco: 2020 Former quit date comment: Hx of 1 PPD x 50 Years Second hand smoke exposure: No Alcohol intake: current Alcohol intake frequency: 3 or more drinks per day Substance/Drug Use: never Lives independently: Yes Household members: spouse Marital status: Current occupational status: retired Do you think of yourself as: Straight/Heterosexual Current gender identity: Male Physical Exam Const: GENERAL APPEARANCE: cooperative; not ill appearing HENMT: COMMON NORMALS: normocephalic, atraumatic and Normal external nose present HEAD & SCALP: normocephalic and atraumatic FACE & SINUS: normal facial exam and face symmetric NOSE: Normal external nose present Eye: COMMON NORMALS: Equal, round and reactive pupils present and EOMs intact bilaterally PUPIL: Yes Equal, round and reactive pupils present Neck/C-Spine: GENERAL: Yes trachea midline Chest: CHEST: Yes Symmetrical chest wall rise Resp: COMMON NORMALS: normal respiratory effort, No retractions, No use of accessory muscles and clear to auscultation bilaterally AUSCULTATION: clear to auscultation bilaterally Cardio: COMMON NORMALS: regular rate and regular rhythm RATE: regular rate RHYTHM: regular rhythm GI: COMMON NORMALS: Normal to inspection, nondistended, normoactive bowel sounds present Back/Pelvis: OTHER: Examination lumbar spine reveals minimal tenderness. There is no midline tenderness. Straight leg raise testing on the right reveals localized back pain with minimal radiation. No radicular pain past the knee. SLR on the left is negative. Sensation is intact to touch distally. Motor is intact distally Extremity: COMMON NORMALS: no pedal edema Neuro: TORI COMA SCALE: document GCS findings [place] coma scale eye opening: Spontaneous Tori coma scale verbal response: Orientated Tori coma scale motor response: Obey commands Tori coma scale total score: 15 SENSORY EXAM: Yes extremities (intact) Psych: COMMON NORMALS: speech normal SPEECH: Yes normal speech Skin: COMMON NORMALS: no rashes or lesions noted GENERAL SKIN EXAM: no rashes or lesions noted Course Vital Signs: Vital signs: Vital Signs Temperature 97.7 F 02/27/25 00:08 Pulse Rate 60 02/27/25 00:08 Respiratory Rate 16 02/27/25 00:08 Blood Pressure 151/71 02/27/25 00:08 Pulse Oximetry 94 02/27/25 00:08 Oxygen Delivery Me thod Room Air 02/27/25 00:08 MDM - Back Pain/Injury Medical Decision Making No red flag symptoms. No loss of control of bowel or bladder function that is new. No fever. Minimal radicular symptoms. ?Acute mechanical lower back pain, likely musculoskeletal strain: - History suggests possible trauma from fall out of bed - Localized lumbar pain without radicular symptoms - Consider lumbar spine imaging if symptoms persist or worsen - Pain management with stronger analgesics given inadequate response to ibuprofen - X-ray shows an acute on chronic compression fracture at L4. Will write an order for TLSO brace. He can get 1 at [facility] [employer] [facility]. Will get him in to see orthopedic spine. Case management has been asked to do this Labs Radiology Impressions Lumbar Spine X-Ray 02/27/25 00:32 IMPRESSION: Acute on chronic compression deformity involving the superior endplate of L4. All radiology interpretation(s) finalized by discharge Discharge Plan Discharge Patient Disposition: Home Clinical Impression: Lumbar spondylosis Condition: Stable Prescriptions: New tizanidine 4 mg capsule 4 mg PO Q12H PRN (Reason: muscle spasticity) Qty: 7 0RF hydrocodone-acetaminophen 5-325 mg tablet 1 tab PO TID PRN (Reason: pain) Qty: 7 0RF No Action nitroglycerin 0.4 mg tablet, sublingual 0.4 mg SUBLINGUAL Q5M PRN (Reason: chest pain) Qty: 25 2RF Rx Instructions: do not exceed 3 doses per episode furosemide 40 mg tablet 40 mg PO DAILY@0800 Qty: 45 0RF cholecalciferol (vitamin D3) [Vitamin D3] 25 mcg (1,000 unit) Tablet,Chewable 25 mcg PO DAILY ascorbic acid (vitamin C) [Vitamin C] 500 mg Tablet 500 mg PO DAILY apixaban 5 mg tablet 5 mg PO BID Qty: 60 0RF amiodarone [Pacerone] 200 mg Tablet See Rx Instructions .ROUTE .COMPLEX Qty: 60 0RF Rx Instructions: 200mg bid for 5 days, followed by 200mg daily Discharge Orders: Discharge ED (Routine); Ordered 02/27/25 Ordered By: Zachary Sr Referrals: Basim Esposito DO [Physician, Orthopedics] - 4-7 days Claudette Sanchez PA [Primary Care Provider, [facility] [employer]] - 4-7 days Patient Instructions: Vertebral Compression Fracture (ED), Back Pain (ED), Opioid Safety, Pain Management, Patient Portal & [facility] Instructions Activity Restrictions/Additional Instructions: An order has been written for a brace. You can get it at any medical equipment store, such as [employer] the [employer] across the street from the hospital You will be referred to orthopedic spine given your compression fracture. Typically these are stable and do not require surgical management. Pain medication and muscle relaxers to use sparingly for pain. You may continue anti-inflammatories as needed. Case management should give you a call regarding an appointment with orthopedics. Return for fever, loss of control of your bowel or bladder function, numbness to your groin, other concerning symptoms. Call your doctor tomorrow for follow-up appointment Print Language: Mozambican Coding Level of Care Code ED Business Office Associate for Cecilia Dougherty
--- NOTE | 2025-02-27 00:32 | XRR_ITS ---
PROCEDURE INFORMATION: Exam: XR Lumbosacral Spine Exam date and time: 02/27/2025 12:31 AM Age: 79 years old Clinical indication: C/O low back pain x 4 days. No injury. TECHNIQUE: Imaging protocol: Radiologic exam of the lumbosacral spine. Views: 2 or 3 views. COMPARISON: CT abdomen pelvis con [id number] 12/17/2024 5:01 AM FINDINGS: Bones/joints: Multilevel lumbar spondylosis. Chronic, mild compression deformity of L5. Acute on chronic compression deformity involving the superior endplate of L4. Mild anterior wedging of L3. Soft tissues: Unremarkable. XR/XR lumbar spine 2-3V* [id number] IMPRESSION: Acute on chronic compression deformity involving the superior endplate of L4.
[2025-02-27] MEDS: orphenadrine 30 mg/mL Inj 2 mL 60 MG IM (00:51)
== END 2025-02-27 01:04 | disposition home or self-care (01) ==
PROVIDERS: Emergency Provider Emergency Medicine; PCP Physician Assistant
DX: M47.816 Spondylosis without myelopathy or radiculopathy, lumbar region (principal); Z87.891 Personal history of nicotine dependence; J44.9 Chronic obstructive pulmonary disease, unspecified; I11.0 Hypertensive heart disease with heart failure; I50.20 Unspecified systolic (congestive) heart failure; Z85.118 Personal history of other malignant neoplasm of bronchus and lung
CPT/HCPCS: 72100; 96372; 99284; J1885; J2360; J8540

== ENCOUNTER → 2025-03-03 14:13 | Outpatient (BNVA) | payer MEDICARE, OTHER, SELFPAY | PROVIDERS: PCP Physician Assistant; Visit Provider Orthopaedic Surgery | DX: M43.16 Spondylolisthesis, lumbar region (principal); S32.040A Wedge compression fracture of fourth lumbar vertebra, initial encounter for closed fracture; W19.XXXA Unspecified fall, initial encounter | CPT/HCPCS: 72100 ==